=== PATIENT | male | born 1970 | race African-American/Black ===

== ENCOUNTER 2016-12-08 22:09 | Emergency (ER) | payer BC ==
[~2016-12-08] VITALS: Ht 167.6 cm; Wt 117.9 kg
[~2016-12-08 22:09] MED LIST: CALC200T23 PO; CLIN300C86 PO; CYCL10TA2 PO; ESOM20CA PO; FAMO20TA5 PO; HYDR-79 PO; HYDR-971 PO
[2016-12-08] MEDS ORDERED: ASPIRIN CHEWABLE 81 MG TABLET. PO ONE (22:30)
[2016-12-08] MEDS ORDERED: ASPIRIN 81 MG TAB.CHEW PO ONE (22:30)
[2016-12-08 22:35] LABS: BASO # 0.1 x10^3/uL (0.0-0.2); BASO % 1 % (0-3); EOS % 1 % (0-3); HEMATOCRIT 41.3 % (39.0-53.0); HEMOGLOBIN 13.5 g/dL (13.0-17.5); LYMPH # 2.3 x10^3/uL (1.0-4.8); LYMPH % 36 % (24-48); MEAN CORPUSCULAR HEMOGLOBIN 30 pg (25-35); MEAN CORPUSCULAR HGB CONC 33 g/dL (31-37); MEAN CORPUSCULAR VOLUME 91 fL (79-100); MONO % 11 % (0-9); NEUT % 52 % (31-73); PLATELET COUNT 262 x10^3/uL (140-400); RED BLOOD COUNT 4.55 x10^6/uL (4.30-5.70); WHITE BLOOD COUNT 6.2 x10^3/uL (4.0-11.0)
[2016-12-08 22:45] LABS: CALCIUM 8.8 mg/dL (8.5-10.1); CREATININE 0.9 mg/dL (0.7-1.3); GFR 110.4; POTASSIUM 3.8 mmol/L (3.5-5.1)
[2016-12-08 22:51] LABS: ALBUMIN 3.6 g/dL (3.4-5.0); DIRECT BILIRUBIN 0.2 mg/dL (0.0-0.2); TOTAL BILIRUBIN 0.3 mg/dL (0.2-1.0); TOTAL PROTEIN 7.4 g/dL (6.4-8.2)
[2016-12-08] MEDS ORDERED: ACET325T9 PO (23:16)
--- NOTE | 2016-12-08 23:16 | PHYS DOC ---
Past Medical History Past Medical History: Hypertension, Kidney Stone Additional Past Medical Histor: kidney stones Past Surgical History: Other Additional Past Surgical Histo: LITHOTRIPSY Alcohol Use: None Drug Use: None Adult General Chief Complaint Chief Complaint: CHEST PAIN HPI HPI 46-year-old male presenting to the emergency Department chest pain over the past 48 hours. His pain is sharp on the left side and radiates down the left arm. It is moderate and without alleviating factors. He denies nausea or diaphoresis. He denies cough fever or chills. He denies hemoptysis unilateral leg swelling recent immobilization. Review of systems is negative for shortness of breath abdominal pain nausea vomiting or diaphoresis. All other review of systems is negative unless otherwise noted in history of present illness. Review of Systems Review of Systems SEE ABOVE. Current Medications Current Medications Current Medications Medications (Trade) Dose Ordered Sig/Ale Start Time Stop Time Status Last Admin Dose Admin Aspirin (Children'S Aspirin) 324 mg 1X ONCE 12/08/16 22:30 12/08/16 22:42 DC 12/08/16 22:43 324 MG Allergies Allergies Allergies Coded Allergies Type Severity Reaction Last Updated Verified nitroglycerin Allergy Intermediate LOC 10/09/16 Yes Physical Exam Physical Exam Constitutional: Well developed, well nourished, no acute distress, non-toxic appearance. HENT: Normocephalic, atraumatic, bilateral external ears normal, oropharynx moist, no oral exudates, nose normal. [] Eyes: PERRLA, EOMI, conjunctiva normal, no discharge. [] Neck: Normal range of motion, no tenderness, supple, no stridor. Cardiovascular:Heart rate regular rhythm, no murmur [] Lungs & Thorax: Bilateral breath sounds clear to auscultation Abdomen: Bowel sounds normal, soft, no tenderness, no masses, no pulsatile masses. [] Skin: Warm, dry, no erythema, no rash. Back: No tenderness, no CVA tenderness. [] Extremities: No tenderness, no cyanosis, no clubbing, ROM intact, no edema. Neurologic: Alert and oriented X 3, normal motor function, normal sensory function, no focal deficits noted. [] Psychologic: Affect normal, judgement normal, mood normal. Current Patient Data Vital Signs Vital Signs Date Time Temp Pulse Resp B/P Pulse Ox O2 Delivery O2 Flow Rate FiO2 12/08/16 22:15 87 14 141/75 100 Room Air Lab Values Laboratory Tests Test 12/08/16 22:25 White Blood Count 6.2x10^3/uL (4.0-11.0) Red Blood Count 4.55x10^6/uL (4.30-5.70) Hemoglobin 13.5g/dL (13.0-17.5) Hematocrit 41.3% (39.0-53.0) Mean Corpuscular Volume 91fL (79-100) Mean Corpuscular Hemoglobin 30pg (25-35) Mean Corpuscular Hemoglobin Concent 33g/dL (31-37) Red Cell Distribution Width 14.0% (11.5-14.5) Platelet Count 262x10^3/uL (140-400) Neutrophils (%) (Auto) 52% (31-73) Lymphocytes (%) (Auto) 36% (24-48) Monocytes (%) (Auto) 11% (0-9) H Eosinophils (%) (Auto) 1% (0-3) Basophils (%) (Auto) 1% (0-3) Neutrophils # (Auto) 3.2x10^3uL (1.8-7.7) Lymphocytes # (Auto) 2.3x10^3/uL (1.0-4.8) Monocytes # (Auto) 0.7x10^3/uL (0.0-1.1) Eosinophils # (Auto) 0.0x10^3/uL (0.0-0.7) Basophils # (Auto) 0.1x10^3/uL (0.0-0.2) Sodium Level 137mmol/L (136-145) Potassium Level 3.8mmol/L (3.5-5.1) Chloride Level 104mmol/L (98-107) Carbon Dioxide Level 29mmol/L (21-32) Anion Gap 4 (6-14) L Blood Urea Nitrogen 13mg/dL (8-26) Creatinine 0.9mg/dL (0.7-1.3) Estimated GFR (Cockcroft-Gault) 110.4 Glucose Level 90mg/dL (70-99) Calcium Level 8.8mg/dL (8.5-10.1) Total Bilirubin 0.3mg/dL (0.2-1.0) Direct Bilirubin 0.2mg/dL (0.0-0.2) Aspartate Amino Transferase (AST) 13U/L (15-37) L Alanine Aminotransferase (ALT) 22U/L (16-63) Alkaline Phosphatase 47U/L (46-116) Troponin I Quantitative < 0.017ng/mL (0.000-0.055) QE-Uzx-T-Type Natriuretic Peptide 16pg/mL (0-124) Total Protein 7.4g/dL (6.4-8.2) Albumin 3.6g/dL (3.4-5.0) Lipase 118U/L (73-393) Laboratory Tests 12/08/16 22:25 Laboratory Tests 12/08/16 22:25 EKG EKG []EKG shows sinus rhythm with regular rate. Normal intervals. Normal axis. ST segments are congruent. Not suggestive of ACS. Reviewed by myself. Radiology/Procedures Radiology/Procedures Chest x-ray reviewed by myself shows no obvious infiltrate or pneumothorax present. No obvious acute cardiopulmonary process present. Course & Med Decision Making Course & Med Decision Making Pertinent Labs and Imaging studies reviewed. (See chart for details) [] 46-year-old gentleman presenting with chest pain. Vital signs unremarkable. Patient was not hypoxic or tachycardic in the emergency department. Perc neg. pertinent physical exam showed an unremarkable physical exam. No evidence of DVT of the lower extremities. EKG unremarkable. Blood work including troponin unremarkable. Patient subsequently discharged home to follow up with PCP over the next 2-3 days. Heart score 1. Pain is been present for greater than 6 hours so only one troponin was taken. Dragon Disclaimer Dragon Disclaimer This electronic medical record was generated, in whole or in part, using a voice recognition dictation system. Departure Departure Impression: Primary Impression: Chest pain Disposition: HOME, SELF-CARE Condition: STABLE Referrals: UNKNOWN PCP NAME (PCP) EMMA SU MD Patient Instructions: Chest Pain (Nonspecific) Additional Instructions: Thank you for allowing us to participate in your care today. Followup with your primary care physician in 3 days if your symptoms do not improve. If you do not have a primary care provider you can ask for a list of our primary care providers. Return to the emergency department you have any new or concerning findings. This should be evaluated by the primary care physician and any necessary consulting services for continued management within a few days after discharge. Return to emergency room if you have any new or concerning symptoms including but not limited to fever, chills, nausea, vomiting, intractable pain, any new rashes, chest pain, shortness of air, uncontrolled bleeding, difficulty breathing, and/or vision loss. Scripts Acetaminophen (Tylenol)325 Mg Veayft001 Mg PO PRN Q8HRS PRN PAIN #20 Prov:TIFFANIE MATAMOROS MD 12/08/16 Problem Qualifiers Primary Impression: Chest pain Chest pain type: unspecified Qualified Code: R07.9 - Chest pain, unspecified TIFFANIE MATAMOROS MD Dec 08, 2016 23:16
[2016-12-08 23:45] VITALS: BP 134/78
--- NOTE | 2016-12-09 08:36 | RAD ---
Portable AP upright chest x-ray 3982 Indications: Chest pain that radiates to left arm today. Comparison:10/09/2016. Findings: No acute lung infiltrate or pleural effusion or pulmonary edema or lung mass or pneumothorax is seen. The heart size, pulmonary vasculature, mediastinum and both jenelle are unremarkable. Impression: No acute radiographic abnormality is seen.
--- NOTE | 2016-12-09 10:12 | EKG ---
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
== END 2016-12-09 00:10 | disposition home or self-care (01) ==
LOC: ER 22:09
DX: R07.89 Other chest pain (principal); I10 Essential (primary) hypertension; Z88.8 Allergy status to other drugs, medicaments and biological substances
CPT/HCPCS: 36415; 71010; 80048; 80076; 83690; 83880; 84484; 85027; 93005; 99285-25

== ENCOUNTER 2017-01-06 15:56 | Emergency (ER) | payer SELFPAY ==
[~2017-01-06 15:56] MED LIST changes: +ACET325T9 PO
[2017-01-06 16:18] VITALS: BP 167/96
--- NOTE | 2017-01-06 16:56 | RAD ---
Indication shortness of air. A single view of the chest was obtained. Comparison is made to an examination 12/17/2016. Heart size is at the upper limits of normal. There is no congestive heart failure. A focal infiltrate is not seen. Significant pleural fluid is not present. There is no pneumothorax. A significant change compared to the prior study is not seen. IMPRESSION: No acute finding. No significant change
--- NOTE | 2017-01-06 16:59 | ED.ADGEN ---
Past Medical History Past Medical History: Hypertension, Kidney Stone Additional Past Medical Histor: kidney stones Past Surgical History: Other Additional Past Surgical Histo: LITHOTRIPSY Alcohol Use: None Drug Use: None Adult General Chief Complaint Chief Complaint: SHORTNESS OF BREATH HPI HPI Patient is a 46 year old male who presents with shortness breath daily past several weeks. Patient states his frequent shortly of F in the morning after he wakes. However, he is not short of breath throughout the day. Shortness of breath is nonexertional. Patient associated said to toxic fumes coming from a drain that he is exposed to when he sleeps. He denies history of asthma, COPD, emphysema, congestive heart failure chronic lung disease. He denies chest pain, chest tightness. He does not have history of coronary artery disease. Patient's previously been dated for chest pain and shortness breath and the emergency Department in the past month. 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 Review of Systems Review of Systems Review symptoms as per history of present illness. All other review of symptoms negative. Current Medications Current Medications Current Medications Medications (Trade) Dose Ordered Sig/Ale Start Time Stop Time Status Last Admin Dose Admin Albuterol Sulfate (Ventolin Neb Soln) 2.5 mg 1X ONCE 01/06/17 17:15 01/06/17 17:16 DC 01/06/17 17:04 2.5 MG Allergies Allergies Allergies Coded Allergies Type Severity Reaction Last Updated Verified nitroglycerin Allergy Intermediate LOC 10/09/16 Yes Physical Exam Physical Exam Constitutional: Well developed, well nourished, no acute distress, non-toxic appearance. HENT: Normocephalic, atraumatic, bilateral external ears normal, oropharynx moist, no oral exudates, nose normal. Eyes: PERRLA, EOMI. Neck: Normal range of motion, no tenderness, supple, no stridor. Cardiovascular:Heart rate regular rhythm, no murmur. Negative Homans signs. Lungs & Thorax: Bilateral breath sounds clear to auscultation. Abdomen: Bowel sounds normal, soft, no tenderness, no masses, no pulsatile masses. Skin: Warm, dry, no erythema, no rash. Back: No tenderness. Extremities: No tenderness, no cyanosis, no clubbing, ROM intact, no edema. Neurologic: Alert and oriented X 3, normal motor function, normal sensory function, no focal deficits noted. Psychologic: Affect normal, judgement normal, mood normal. Current Patient Data Vital Signs Vital Signs Date Time Temp Pulse Resp B/P (MAP) Pulse Ox O2 Delivery O2 Flow Rate FiO2 01/06/17 16:18 98.1 88 22 167/96 (119) 99 Room Air 98.1 Lab Values Laboratory Tests Test 01/06/17 16:45 01/06/17 17:55 White Blood Count 5.7 x10^3/uL (4.0-11.0) Red Blood Count 4.65 x10^6/uL (4.30-5.70) Hemoglobin 14.1 g/dL (13.0-17.5) Hematocrit 41.4 % (39.0-53.0) Mean Corpuscular Volume 89 fL (79-100) Mean Corpuscular Hemoglobin 30 pg (25-35) Mean Corpuscular Hemoglobin Concent 34 g/dL (31-37) Red Cell Distribution Width 14.2 % (11.5-14.5) Platelet Count 289 x10^3/uL (140-400) Neutrophils (%) (Auto) 46 % (31-73) Lymphocytes (%) (Auto) 40 % (24-48) Monocytes (%) (Auto) 13 % (0-9) H Eosinophils (%) (Auto) 1 % (0-3) Basophils (%) (Auto) 1 % (0-3) Neutrophils # (Auto) 2.7 x10^3uL (1.8-7.7) Lymphocytes # (Auto) 2.3 x10^3/uL (1.0-4.8) Monocytes # (Auto) 0.7 x10^3/uL (0.0-1.1) Eosinophils # (Auto) 0.0 x10^3/uL (0.0-0.7) Basophils # (Auto) 0.0 x10^3/uL (0.0-0.2) Sodium Level 139 mmol/L (136-145) Potassium Level 3.8 mmol/L (3.5-5.1) Chloride Level 104 mmol/L (98-107) Carbon Dioxide Level 28 mmol/L (21-32) Anion Gap 7 (6-14) Blood Urea Nitrogen 10 mg/dL (8-26) Creatinine 0.9 mg/dL (0.7-1.3) Estimated GFR (Cockcroft-Gault) 110.4 BUN/Creatinine Ratio 11 (6-20) Glucose Level 76 mg/dL (70-99) Calcium Level 8.7 mg/dL (8.5-10.1) Total Bilirubin 0.5 mg/dL (0.2-1.0) Aspartate Amino Transferase (AST) 17 U/L (15-37) Alanine Aminotransferase (ALT) 25 U/L (16-63) Alkaline Phosphatase 43 U/L (46-116) L Creatine Kinase 215 U/L (39-308) Creatine Kinase MB (Mass) 1.0 ng/mL (0.0-3.6) Creatine Kinase MB Relative Index 0.5 % (0-4) YE-Ary-K-Type Natriuretic Peptide 34 pg/mL (0-124) Total Protein 7.5 g/dL (6.4-8.2) Albumin 3.4 g/dL (3.4-5.0) Albumin/Globulin Ratio 0.8 (1.0-1.7) L Laboratory Tests 01/06/17 16:45 Laboratory Tests 01/06/17 17:55 EKG EKG [EKG: Normal sinus rhythm, rate 76, no acute ST-T wave changes, QTC 375.] Radiology/Procedures Radiology/Procedures [Chest x-ray: Pulmonary vascular congestion] Impressions: Chest pain Course & Med Decision Making Course & Med Decision Making Pertinent Labs and Imaging studies reviewed. (See chart for details) [] Dragon Disclaimer Dragon Disclaimer This electronic medical record was generated, in whole or in part, using a voice recognition dictation system. ERNA MEDEROS DO January 06, 2017 16:59
[2017-01-06 17:07] LABS: BASO % 1 % (0-3); EOS % 1 % (0-3); HEMATOCRIT 41.4 % (39.0-53.0); HEMOGLOBIN 14.1 g/dL (13.0-17.5); LYMPH # 2.3 x10^3/uL (1.0-4.8); LYMPH % 40 % (24-48); MEAN CORPUSCULAR HEMOGLOBIN 30 pg (25-35); MEAN CORPUSCULAR HGB CONC 34 g/dL (31-37); MEAN CORPUSCULAR VOLUME 89 fL (79-100); MONO % 13 % (0-9); NEUT % 46 % (31-73); PLATELET COUNT 289 x10^3/uL (140-400); RED BLOOD COUNT 4.65 x10^6/uL (4.30-5.70); RED CELL DISTRIBUTION WIDTH 14.2 % (11.5-14.5); WHITE BLOOD COUNT 5.7 x10^3/uL (4.0-11.0)
[2017-01-06] MEDS ORDERED: ALBUTEROL SULFATE 2.5 MG/3 ML NEBU. NEB ONE (17:15)
[2017-01-06 18:25] LABS: CALCIUM 8.7 mg/dL (8.5-10.1); CREATININE 0.9 mg/dL (0.7-1.3); GFR 110.4; POTASSIUM 3.8 mmol/L (3.5-5.1)
[2017-01-06 18:30] LABS: ALBUMIN 3.4 g/dL (3.4-5.0); ALBUMIN/GLOBULIN RATIO 0.8 (1.0-1.7); TOTAL BILIRUBIN 0.5 mg/dL (0.2-1.0); TOTAL PROTEIN 7.5 g/dL (6.4-8.2)
--- NOTE | 2017-01-07 11:46 | EKG ---
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
== END 2017-01-06 18:50 | disposition home or self-care (01) ==
LOC: ER 15:56
DX: R06.02 Shortness of breath (principal); R07.89 Other chest pain; I10 Essential (primary) hypertension; Z87.442 Personal history of urinary calculi; Z88.8 Allergy status to other drugs, medicaments and biological substances
CPT/HCPCS: 36415; 71010; 80053; 82550; 82553; 83880; 84484; 85027; 93005; 94640; 99285-25

== ENCOUNTER 2017-01-22 16:42 | Emergency (ER) | payer SELFPAY ==
[~2017-01-22] VITALS: Ht 167.6 cm; Wt 124.7 kg
[2017-01-22 16:58] VITALS: BP 143/79
[2017-01-22] MEDS ORDERED: IPRATRPIUM/ALBUTEROL 0.5/2.5MG 3 ML NEBU. NEB ONE (17:30)
[2017-01-22] MEDS ORDERED: predniSONE 20 MG TABLET PO ONE (17:30)
[2017-01-22] MEDS ORDERED: BENZONATATE 100 MG CAPSULE. PO ONE (17:30)
[2017-01-22] MEDS ORDERED: ACET1TAB30 PO (18:11)
[2017-01-22] MEDS ORDERED: BENZ100C PO (18:11)
[2017-01-22] MEDS ORDERED: PROAIR RESPICL90 MCG IH (18:11)
[2017-01-22] MEDS ORDERED: AZIT250T PO (18:11)
[2017-01-22] MEDS ORDERED: PRED50TA PO (18:11)
--- NOTE | 2017-01-22 18:11 | PHYS DOC ---
Past Medical History Past Medical History: Hypertension, Kidney Stone Additional Past Medical Histor: kidney stones Past Surgical History: Other Additional Past Surgical Histo: LITHOTRIPSY Alcohol Use: None Drug Use: None Adult General Chief Complaint Chief Complaint: COUGH HPI HPI Patient is a 46 year old male with history of hypertension and kidney stones who presents today with a productive cough for 2-1/2 weeks. Patient denies any fever. Denies any history of smoking. Review of Systems Review of Systems Constitutional: See history of present illness Eyes: Denies change in visual acuity, redness, or eye pain [] HENT: Denies nasal congestion or sore throat [] Respiratory: Productive cough Cardiovascular: No additional information not addressed in HPI [] GI: Denies abdominal pain, nausea, vomiting, bloody stools or diarrhea [] : Denies dysuria or hematuria [] Musculoskeletal: Denies back pain or joint pain [] Integument: Denies rash or skin lesions [] Neurologic: Denies headache, focal weakness or sensory changes [] Endocrine: Denies polyuria or polydipsia [] Current Medications Current Medications Current Medications Medications (Trade) Dose Ordered Sig/Ale Start Time Stop Time Status Last Admin Dose Admin Albuterol/ Ipratropium (Duoneb) 3 ml 1X ONCE 01/22/17 17:30 01/22/17 17:31 DC 01/22/17 17:42 3 ML Benzonatate (Tessalon Perle) 100 mg 1X ONCE 01/22/17 17:30 01/22/17 17:31 DC 01/22/17 17:30 100 MG Prednisone (Prednisone) 60 mg 1X ONCE 01/22/17 17:30 01/22/17 17:31 DC 01/22/17 17:30 60 MG Allergies Allergies Allergies Coded Allergies Type Severity Reaction Last Updated Verified nitroglycerin Allergy Intermediate LOC 10/09/16 Yes Physical Exam Physical Exam Constitutional: Well developed, well nourished, no acute distress, non-toxic appearance. [] HENT: Normocephalic, atraumatic, bilateral external ears normal, oropharynx moist, no oral exudates, nose normal. [] Eyes: PERRLA, EOMI, conjunctiva normal, no discharge. [] Neck: Normal range of motion, no tenderness, supple, no stridor. [] Cardiovascular:Heart rate regular rhythm, no murmur [] Lungs & Thorax: Bilateral breath sounds clear to auscultation [] Abdomen: Bowel sounds normal, soft, no tenderness, no masses, no pulsatile masses. [] Skin: Warm, dry, no erythema, no rash. [] Back: No tenderness, no CVA tenderness. [] Extremities: No tenderness, no cyanosis, no clubbing, ROM intact, no edema. [] Neurologic: Alert and oriented X 3, normal motor function, normal sensory function, no focal deficits noted. [] Psychologic: Affect normal, judgement normal, mood normal. [] Current Patient Data Vital Signs Vital Signs Date Time Temp Pulse Resp B/P (MAP) Pulse Ox O2 Delivery O2 Flow Rate FiO2 01/22/17 17:44 99 Room Air 01/22/17 16:58 98.1 86 18 98.1 EKG EKG [] Radiology/Procedures Radiology/Procedures [] Course & Med Decision Making Course & Med Decision Making Pertinent Labs and Imaging studies reviewed. (See chart for details) Patient is in the ED with symptoms consistent with acute bronchitis including productive cough. Chest x-ray interpreted by Dr. Beverly is negative for any acute findings. He was given a DuoNeb treatment. His lungs are clear in the ED, he was instructed to follow-up with his own primary care doctor in the next 7 days. Discharged with a inhaler, prednisone, Tessalon Perles, and Z-Oli. Dragon Disclaimer Dragon Disclaimer This electronic medical record was generated, in whole or in part, using a voice recognition dictation system. Departure Departure Impression: Primary Impression: Acute bronchitis Disposition: 01 HOME, SELF-CARE Condition: STABLE Referrals: UNKNOWN PCP NAME (PCP) Follow-up with your own doctor in one week Patient Instructions: Acute Bronchitis, [id number] Additional Instructions: You were seen for acute bronchitis. Ensure you complete your antibiotics. Use the prescribed medicines as ordered. Follow-up with your own doctor in the next 7 days. Come back to the ED if symptoms worsen. Scripts Acetaminophen/Chlorpheniramine (CORICIDIN HBP TABLET) 1 Each Tablet 1 EACH PO BID, #20 TAB Prov: MUTUNGA,VALERIA DIRECT MARKETING SPECIALIST 01/22/17 Albuterol Sulfate (Proair Respiclick) 90 Mcg Aer.pow.ba 1 PUFF IH PRN Q6HRS Y for SHORTNESS OF BREATH, #1 INHALER Prov: MUTUNGA,VALERIA DIRECT MARKETING SPECIALIST 01/22/17 Benzonatate (TESSALON PERLE) 100 Mg Capsule 1 CAP PO TID, #30 CAP Prov: VALERIA CHO APRN 01/22/17 Prednisone (PREDNISONE) 50 Mg Tablet 1 TAB PO DAILY, #4 TAB Prov: VALERIA CHO APRN 01/22/17 Azithromycin (ZITHROMAX) 250 Mg Tablet 1 PKG PO UD, #1 PKG Prov: VALERIA CHO APRN 01/22/17 Problem Qualifiers Primary Impression: Acute bronchitis Bronchitis organism: unspecified organism Qualified Codes: J20.9 - Acute bronchitis, unspecified WAYENVALERIA GUEVARA RHONDA January 22, 2017 18:11
--- NOTE | 2017-01-23 08:18 | RAD ---
Chest, 2 views, 01/22/2017: History: Cough, increasing congestion Comparison is made to a study from 01/06/2017. The heart size and pulmonary vascularity are normal. No pulmonary infiltrates are seen. There is no evidence of pleural fluid. IMPRESSION: No acute cardiopulmonary abnormality is detected.
== END 2017-01-22 18:18 | disposition home or self-care (01) ==
LOC: ER 16:42
DX: J20.9 Acute bronchitis, unspecified (principal); I10 Essential (primary) hypertension; Z87.442 Personal history of urinary calculi; Z88.8 Allergy status to other drugs, medicaments and biological substances
CPT/HCPCS: 71020; 94250; 94640; 94760; 99283; J7512; J7620

== ENCOUNTER 2017-04-07 17:31 | Emergency (ER) | payer SELFPAY ==
[~2017-04-07] VITALS: Ht 167.6 cm; Wt 124.7 kg
[~2017-04-07 17:31] MED LIST changes: +ACET1TAB30 PO; +AZIT250T PO; +BENZ100C PO; +CLIN300C8 PO; -CLIN300C86 PO; +PRED50TA PO; +PROAIR RESPICL90 MCG IH
[2017-04-07] MEDS ORDERED: ASPIRIN CHEWABLE 81 MG TABLET. PO ONE (17:45)
--- NOTE | 2017-04-07 17:47 | PHYS DOC ---
Past Medical History Past Medical History: Hypertension, Kidney Stone Additional Past Medical Histor: kidney stones Past Surgical History: Other Additional Past Surgical Histo: LITHOTRIPSY Alcohol Use: None Drug Use: None Adult General Chief Complaint Chief Complaint: CHEST PAIN HPI HPI Patient is a 47 year old male who presents to the ED with the complaint of chest pain today. "It's the same chest pain I had before, I don't know what it is. The kohinoor operator told me if I had it again I need to have a heart catheter" . She states that the pain started this morning about 4 AM. He woke up with it or maybe it woke him up. It's in the center of his chest and goes down his left arm. He used to be on a blood pressure medicine and he thought maybe his blood pressure was high so he took a dose of hydrochlorothiazide and went back to sleep for a while. As the day has gone on, he's continued to have intermittent chest pain. The pain is in the center of his chest. No associated nausea. A little associated shortness of air. When the pain gets bad he feels like he "is going to pass out". This is described as the same type of pain that brought him to the hospital and December 2016, he has also been seen other times in the ED for chest pain. PCP [facility] He does not take aspirin daily. He states "I'm allergic to nitroglycerin", it has made him pass out. Review of Systems Review of Systems Constitutional: Denies fever or chills [] Eyes: Denies change in visual acuity, redness, or eye pain [] HENT: Denies nasal congestion or sore throat [] Respiratory: He does have shortness of breath when the pain is worse Cardiovascular: As in history of present illness GI: Denies abdominal pain, nausea, vomiting, bloody stools or diarrhea [] : Denies dysuria or hematuria [] Musculoskeletal: Denies back pain or joint pain [] Integument: Denies rash or skin lesions [] Neurologic: Denies headache, focal weakness or sensory changes [] Current Medications Current Medications Current Medications Medications (Trade) Dose Ordered Sig/Ale Start Time Stop Time Status Last Admin Dose Admin Aspirin (Children'S Aspirin) 324 mg 1X ONCE 04/07/17 17:45 04/07/17 17:46 DC 04/07/17 18:05 324 MG Allergies Allergies Allergies Coded Allergies Type Severity Reaction Last Updated Verified nitroglycerin Adverse Reaction Intermediate LOC/SYNCOPE 04/07/17 Yes Physical Exam Physical Exam Constitutional: Well developed, well nourished, no acute distress, non-toxic appearance. Alert, mentating normally, warm and dry, ambulatory. HENT: Normocephalic, atraumatic, bilateral external ears normal, nose normal. [] Eyes: conjunctiva normal, no discharge. [] Neck: Normal range of motion, no stridor. [] Cardiovascular:Heart rate regular rhythm, no murmur [] Lungs & Thorax: Bilateral breath sounds clear to auscultation [] Abdomen: Obese, Bowel sounds normal, soft, no tenderness, no masses, no pulsatile masses. [] Skin: Warm, dry, no erythema, no rash. [] Extremities: No tenderness, no cyanosis, no clubbing, ROM intact, no edema. [] Neurologic: Alert and oriented X 3, normal motor function, normal sensory function, no focal deficits noted. [] Current Patient Data Vital Signs Vital Signs Date Time Temp Pulse Resp B/P (MAP) Pulse Ox O2 Delivery O2 Flow Rate FiO2 04/07/17 19:56 80 21 127/80 (96) 100 Room Air 04/07/17 17:31 98.1 98.1 Lab Values Laboratory Tests Test 04/07/17 17:58 White Blood Count 7.4 x10^3/uL (4.0-11.0) Red Blood Count 4.81 x10^6/uL (4.30-5.70) Hemoglobin 14.4 g/dL (13.0-17.5) Hematocrit 43.1 % (39.0-53.0) Mean Corpuscular Volume 90 fL (79-100) Mean Corpuscular Hemoglobin 30 pg (25-35) Mean Corpuscular Hemoglobin Concent 34 g/dL (31-37) Red Cell Distribution Width 14.2 % (11.5-14.5) Platelet Count 275 x10^3/uL (140-400) Neutrophils (%) (Auto) 51 % (31-73) Lymphocytes (%) (Auto) 37 % (24-48) Monocytes (%) (Auto) 10 % (0-9) H Eosinophils (%) (Auto) 1 % (0-3) Basophils (%) (Auto) 1 % (0-3) Neutrophils # (Auto) 3.8 x10^3uL (1.8-7.7) Lymphocytes # (Auto) 2.8 x10^3/uL (1.0-4.8) Monocytes # (Auto) 0.8 x10^3/uL (0.0-1.1) Eosinophils # (Auto) 0.1 x10^3/uL (0.0-0.7) Basophils # (Auto) 0.1 x10^3/uL (0.0-0.2) Prothrombin Time 12.6 SEC (11.7-14.0) Prothrombin Time INR 1.0 (0.8-1.1) Sodium Level 141 mmol/L (136-145) Potassium Level 3.8 mmol/L (3.5-5.1) Chloride Level 102 mmol/L (98-107) Carbon Dioxide Level 28 mmol/L (21-32) Anion Gap 11 (6-14) Blood Urea Nitrogen 16 mg/dL (8-26) Creatinine 1.1 mg/dL (0.7-1.3) Estimated GFR (Cockcroft-Gault) 87.2 Glucose Level 110 mg/dL (70-99) H Calcium Level 9.5 mg/dL (8.5-10.1) Magnesium Level 1.9 mg/dL (1.8-2.4) Total Bilirubin 0.5 mg/dL (0.2-1.0) Direct Bilirubin 0.1 mg/dL (0.0-0.2) Aspartate Amino Transferase (AST) 14 U/L (15-37) L Alanine Aminotransferase (ALT) 22 U/L (16-63) Alkaline Phosphatase 58 U/L (46-116) Creatine Kinase 215 U/L (39-308) Creatine Kinase MB (Mass) 0.6 ng/mL (0.0-3.6) Creatine Kinase MB Relative Index 0.3 % (0-4) Troponin I Quantitative < 0.017 ng/mL (0.000-0.055) AE-Lwp-S-Type Natriuretic Peptide 18 pg/mL (0-124) Total Protein 7.9 g/dL (6.4-8.2) Albumin 3.9 g/dL (3.4-5.0) Laboratory Tests 04/07/17 17:58 Laboratory Tests 04/07/17 17:58 EKG EKG [] 12-lead EKG read by me and compared to previous EKG dated 01/06/17. Sinus rhythm. Heart rate 100. There is T-wave flattening and inversion in V4 through V6. This was present on previous EKG from 2 months ago. There are no acute EKG changes. There are no acute ST or T-wave acute changes indicative of ischemia or infarction. No STEMI. 1736 Radiology/Procedures Radiology/Procedures One view portable chest x-ray read by me. Heart size is normal. Lung menon are clear. No acute cardiopulmonary abnormality. [] Course & Med Decision Making Course & Med Decision Making Pertinent Labs and Imaging studies reviewed. (See chart for details) 47-year-old male who has been seen in the ED and admitted to the hospital in the past for chest pain presents with another episode of this same chest pain today. The chest pain is intermittent, located mid chest and goes down his left arm, associated with some shortness of air. On previous visits, he had declined a heart catheter and had noninvasive studies, but patient states that he is concerned and does want to know what is causing his chest pain. I discussed with the patient that we will get some studies in the ED and he is agreeable to that. He states he does not tolerate nitroglycerin. He was given a dose of aspirin. I reviewed the patient's chart. The patient was hospitalized in December 2016 for chest pain and shortness of air. A cardiology note dated 12/18/[address] Hurtado stated that if the patient has recurrent ER visit or admission for chest pain, he will need a heart catheter. Patient remained stable in the ED. Labs including cardiac enzymes are negative. EKG unchanged. Chest x-ray clear. I discussed with the patient being admitted to the hospital for cardiology consultation and possibly cardiac catheter, based on previous note, see above. The patient is reluctant to do so because he has a very important meeting on April 09, and states that he cannot miss that. He would rather follow up as an outpatient. I discussed the case with Dr. Marcos, cardiology. He and I agreed that the patient is appropriate for close outpatient follow-up. The pain is atypical and I believe unlikely to be cardiac. The patient is likely to follow up in the office. See instructions for plan. [] Dragon Disclaimer Dragon Disclaimer This electronic medical record was generated, in whole or in part, using a voice recognition dictation system. Departure Departure Impression: Primary Impression: Chest pain Disposition: HOME, SELF-CARE Condition: STABLE Referrals: UNKNOWN PCP NAME (PCP) FILEMON HURTADO MD Patient Instructions: Chest Pain (Nonspecific), [id number] Additional Instructions: As we discussed, call Sunday to make an appointment in the office to be seen. You can schedule an outpatient heart catheter. Until you are seen by the kohinoor operator, take one full dose aspirin daily. If you have chest pain again that will not go away after 5-10 minutes or other concerning symptoms, return to emergency. NAMAN CABRAL MD Apr 07, 2017 17:47
[2017-04-07 18:06] LABS: BASO # 0.1 x10^3/uL (0.0-0.2); BASO % 1 % (0-3); EOS % 1 % (0-3); HEMATOCRIT 43.1 % (39.0-53.0); HEMOGLOBIN 14.4 g/dL (13.0-17.5); LYMPH # 2.8 x10^3/uL (1.0-4.8); LYMPH % 37 % (24-48); MEAN CORPUSCULAR HEMOGLOBIN 30 pg (25-35); MEAN CORPUSCULAR HGB CONC 34 g/dL (31-37); MEAN CORPUSCULAR VOLUME 90 fL (79-100); MONO % 10 % (0-9); NEUT % 51 % (31-73); PLATELET COUNT 275 x10^3/uL (140-400); RED BLOOD COUNT 4.81 x10^6/uL (4.30-5.70); RED CELL DISTRIBUTION WIDTH 14.2 % (11.5-14.5); WHITE BLOOD COUNT 7.4 x10^3/uL (4.0-11.0)
[2017-04-07 18:16] LABS: PROTHROMBIN TIME PATIENT 12.6 SEC (11.7-14.0)
[2017-04-07 18:17] LABS: CALCIUM 9.5 mg/dL (8.5-10.1); CREATININE 1.1 mg/dL (0.7-1.3); GFR 87.2; POTASSIUM 3.8 mmol/L (3.5-5.1)
[2017-04-07 18:23] LABS: ALBUMIN 3.9 g/dL (3.4-5.0); DIRECT BILIRUBIN 0.1 mg/dL (0.0-0.2); MAGNESIUM 1.9 mg/dL (1.8-2.4); TOTAL BILIRUBIN 0.5 mg/dL (0.2-1.0); TOTAL PROTEIN 7.9 g/dL (6.4-8.2)
[2017-04-07 18:32] LABS: CKMB MASS 0.6 ng/mL (0.0-3.6)
[2017-04-07 19:56] VITALS: BP 127/80
--- NOTE | 2017-04-08 07:54 | EKG ---
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
--- NOTE | 2017-04-08 09:06 | RAD ---
Indication chest pain. A single view of the chest was obtained. Comparison is made to an examination 01/22/2017. Heart size and pulmonary vessels are normal. The lungs are clear. There has not been a significant change in the chest compared to the previous exam. IMPRESSION: No acute or focal process. No significant change
== END 2017-04-07 20:01 | disposition home or self-care (01) ==
LOC: ER 17:31
DX: R07.89 Other chest pain (principal); R06.02 Shortness of breath; I10 Essential (primary) hypertension; E66.9 Obesity, unspecified; Z68.41 Body mass index [BMI] 40.0-44.9, adult; Z87.442 Personal history of urinary calculi; Z88.8 Allergy status to other drugs, medicaments and biological substances
CPT/HCPCS: 36415; 71010; 80048; 80076; 82553; 83735; 83880; 84484; 85027; 85610; 93005; 99285-25

== ENCOUNTER 2017-05-03 20:38 | Emergency (ER) | payer SELFPAY ==
[~2017-05-03] VITALS: Ht 167.6 cm; Wt 124.7 kg
[2017-05-03 21:05] LABS: BASO # 0.1 x10^3/uL (0.0-0.2); BASO % 1 % (0-3); EOS % 2 % (0-3); HEMATOCRIT 39.5 % (39.0-53.0); HEMOGLOBIN 13.3 g/dL (13.0-17.5); LYMPH # 2.5 x10^3/uL (1.0-4.8); LYMPH % 40 % (24-48); MEAN CORPUSCULAR HEMOGLOBIN 30 pg (25-35); MEAN CORPUSCULAR HGB CONC 34 g/dL (31-37); MEAN CORPUSCULAR VOLUME 90 fL (79-100); MONO % 9 % (0-9); NEUT % 48 % (31-73); PLATELET COUNT 276 x10^3/uL (140-400); RED BLOOD COUNT 4.39 x10^6/uL (4.30-5.70); RED CELL DISTRIBUTION WIDTH 14.2 % (11.5-14.5); WHITE BLOOD COUNT 6.2 x10^3/uL (4.0-11.0)
[2017-05-03 21:06] LABS: BILIRUBIN,URINE NEGATIVE (NEG); GLUCOSE,URINE NEGATIVE (NEG); NITRITE,URINE NEGATIVE (NEG); PH,URINE 6.5; PROTEIN,URINE NEGATIVE (NEG-TRACE)
[2017-05-03 21:09] VITALS: BP 157/66
[2017-05-03 21:12] LABS: BACTERIA,URINE 0 /HPF (0-FEW); RBC,URINE OCC /HPF (0-2); SQUAMOUS EPITHELIAL CELL,UR OCC /LPF; WBC,URINE 0 /HPF (0-4)
[2017-05-03 21:17] LABS: CALCIUM 8.7 mg/dL (8.5-10.1); GFR 97.3; POTASSIUM 3.9 mmol/L (3.5-5.1)
[2017-05-03 21:23] LABS: ALBUMIN 3.4 g/dL (3.4-5.0); ALBUMIN/GLOBULIN RATIO 0.9 (1.0-1.7); TOTAL BILIRUBIN 0.2 mg/dL (0.2-1.0); TOTAL PROTEIN 7.2 g/dL (6.4-8.2)
--- NOTE | 2017-05-03 21:25 | PHYS DOC ---
Past Medical History Past Medical History: Hypertension, Kidney Stone Additional Past Medical Histor: kidney stones Past Surgical History: Other Additional Past Surgical Histo: LITHOTRIPSY Alcohol Use: None Drug Use: None Adult General Chief Complaint Chief Complaint: FLANK PAIN HPI HPI Patient is a 47 year old -[place] male who presents with abnormal urinalysis from physical yesterday. He states that he has been having some left- sided flank pain over the last 2 weeks ago comes and goes it's worse when he lays down and this gets up in the mornings and then during the day at gets better. States if he sits completely goes away. He denies any blood in his urine and he states this is not the same pain he's had with his kidney stone. He states he gets better with Motrin. He also complains of some loose stools in the last 3-4 days, but denies any blood in his stools. States he's been having about 2 bowel movements a day. He denies nausea vomiting shortness of breath or chest discomfort. He states he left flank feels like the muscle spasm. Review of Systems Review of Systems Constitutional: Denies fever or chills [] Eyes: Denies change in visual acuity, redness, or eye pain [] HENT: Denies nasal congestion or sore throat [] Respiratory: Denies cough or shortness of breath [] Cardiovascular: No additional information not addressed in HPI [] GI: Denies abdominal pain, nausea, vomiting, bloody stools or diarrhea [] : Denies dysuria or hematuria [] Musculoskeletal: Positive for left flank pain Integument: Denies rash or skin lesions [] Neurologic: Denies headache, focal weakness or sensory changes [] Endocrine: Denies polyuria or polydipsia [] Allergies Allergies Allergies Coded Allergies Type Severity Reaction Last Updated Verified nitroglycerin Adverse Reaction Intermediate LOC/SYNCOPE 04/07/17 Yes Physical Exam Physical Exam Constitutional: Well developed, well nourished, no acute distress, non-toxic appearance. [] HENT: Normocephalic, atraumatic, bilateral external ears normal, oropharynx moist, no oral exudates, nose normal. [] Eyes: PERRLA, EOMI, conjunctiva normal, no discharge. [] Neck: Normal range of motion, no tenderness, supple, no stridor. [] Cardiovascular:Heart rate regular rhythm, no murmur [] Lungs & Thorax: Bilateral breath sounds clear to auscultation [] Abdomen: Bowel sounds normal, soft, no tenderness, no masses, no pulsatile masses. [] Skin: Warm, dry, no erythema, no rash. [] Back: No tenderness, no CVA tenderness. [] Extremities: No tenderness over the left flank and throughout the entire back, no cyanosis, no clubbing, ROM intact, no edema. [] Neurologic: Alert and oriented X 3, normal motor function, normal sensory function, no focal deficits noted. [] Psychologic: Affect normal, judgement normal, mood normal. [] Current Patient Data Vital Signs Vital Signs Date Time Temp Pulse Resp B/P (MAP) Pulse Ox O2 Delivery O2 Flow Rate FiO2 05/03/17 21:09 97.8 89 20 157/66 (96) 97 Room Air 97.8 Lab Values Laboratory Tests Test 05/03/17 20:57 White Blood Count 6.2 x10^3/uL (4.0-11.0) Red Blood Count 4.39 x10^6/uL (4.30-5.70) Hemoglobin 13.3 g/dL (13.0-17.5) Hematocrit 39.5 % (39.0-53.0) Mean Corpuscular Volume 90 fL (79-100) Mean Corpuscular Hemoglobin 30 pg (25-35) Mean Corpuscular Hemoglobin Concent 34 g/dL (31-37) Red Cell Distribution Width 14.2 % (11.5-14.5) Platelet Count 276 x10^3/uL (140-400) Neutrophils (%) (Auto) 48 % (31-73) Lymphocytes (%) (Auto) 40 % (24-48) Monocytes (%) (Auto) 9 % (0-9) Eosinophils (%) (Auto) 2 % (0-3) Basophils (%) (Auto) 1 % (0-3) Neutrophils # (Auto) 3.0 x10^3uL (1.8-7.7) Lymphocytes # (Auto) 2.5 x10^3/uL (1.0-4.8) Monocytes # (Auto) 0.6 x10^3/uL (0.0-1.1) Eosinophils # (Auto) 0.1 x10^3/uL (0.0-0.7) Basophils # (Auto) 0.1 x10^3/uL (0.0-0.2) Urine Collection Type Unknown Urine Color Yellow Urine Clarity Clear Urine pH 6.5 Urine Specific [place] 1.020 Urine Protein Negative mg/dL (NEG-TRACE) Urine Glucose (UA) Negative mg/dL (NEG) Urine Ketones (Stick) Negative mg/dL (NEG) Urine Blood Negative (NEG) Urine Nitrite Negative (NEG) Urine Bilirubin Negative (NEG) Urine Urobilinogen Dipstick 1.0 mg/dL (0.2 mg/dL) Urine Leukocyte Esterase Negative (NEG) Urine RBC Occ /HPF (0-2) Urine WBC 0 /HPF (0-4) Urine Squamous Epithelial Cells Occ /LPF Urine Bacteria 0 /HPF (0-FEW) Urine Mucus Slight /LPF Sodium Level 140 mmol/L (136-145) Potassium Level 3.9 mmol/L (3.5-5.1) Chloride Level 105 mmol/L (98-107) Carbon Dioxide Level 30 mmol/L (21-32) Anion Gap 5 (6-14) L Blood Urea Nitrogen 15 mg/dL (8-26) Creatinine 1.0 mg/dL (0.7-1.3) Estimated GFR (Cockcroft-Gault) 97.3 BUN/Creatinine Ratio 15 (6-20) Glucose Level 94 mg/dL (70-99) Calcium Level 8.7 mg/dL (8.5-10.1) Total Bilirubin 0.2 mg/dL (0.2-1.0) Aspartate Amino Transferase (AST) 10 U/L (15-37) L Alanine Aminotransferase (ALT) 21 U/L (16-63) Alkaline Phosphatase 56 U/L (46-116) Total Protein 7.2 g/dL (6.4-8.2) Albumin 3.4 g/dL (3.4-5.0) Albumin/Globulin Ratio 0.9 (1.0-1.7) L Laboratory Tests 05/03/17 20:57 Laboratory Tests 05/03/17 20:57 EKG EKG [] Radiology/Procedures Radiology/Procedures [] Impressions: Muscle spasm Course & Med Decision Making Course & Med Decision Making Pertinent Labs and Imaging studies reviewed. (See chart for details) Labs do not show elevated glucose as I was suspecting he might have diabetes as he is somewhat overweight. There is no protein. There is 1-2 rbc's as is listed "occasional". Patient is seen at [facility] and you will need to follow back up with [facility] have repeat tests and a month to make sure his he doesn't have any other protein and his occasional rbc's have resolved. Do not believe this is a kidney stone given the patient states is different type of pain and it gets better throughout the day when he is up moving around. He is agreeable plan and being discharged in stable condition at this time. He's also instructed follow-up regarding his blood pressure at [facility]. Dragon Disclaimer Dragon Disclaimer This electronic medical record was generated, in whole or in part, using a voice recognition dictation system. Departure Departure Impression: Primary Impression: Flank pain Disposition: HOME, SELF-CARE Condition: STABLE Referrals: UNKNOWN PCP NAME (PCP) Patient Instructions: Muscle Cramps, [id number] Additional Instructions: Your blood work did not show any evidence that you have diabetes. Your urinalysis showed a few red blood cells, but did not show any protein or sugar. You should follow-up with a primary care physician and have your blood and sugar rechecked in a month. The pain in your side is likely a muscle strain. You can try icy hot and a heating pad over the next several days his fever doesn 't improve your symptoms. If you develop dark brown urine, worsening pain in your side we are other concerns please return back to emergency department. YESI NEWELL MD May 03, 2017 21:25
== END 2017-05-03 21:59 | disposition home or self-care (01) ==
LOC: ER 20:38
DX: R10.9 Unspecified abdominal pain (principal); M62.838 Other muscle spasm; R19.7 Diarrhea, unspecified; I10 Essential (primary) hypertension; Z88.8 Allergy status to other drugs, medicaments and biological substances; Z87.442 Personal history of urinary calculi
CPT/HCPCS: 36415; 80053; 81001; 85025; 99284

== ENCOUNTER 2017-05-08 14:02 | Emergency (ER) | payer SELFPAY | END 2017-05-08 14:51 | disposition left against medical advice (07) | LOC: ER 14:02 | DX: Z53.21 Procedure and treatment not carried out due to patient leaving prior to being seen by health care provider (principal); M54.5 Low back pain ==

== ENCOUNTER 2017-07-13 14:16 | Emergency (ER) | payer SELFPAY ==
[~2017-07-13] VITALS: Ht 167.6 cm; Wt 122.5 kg
[~2017-07-13 14:16] MED LIST changes: +AMOX1TAB61 PO
--- NOTE | 2017-07-13 15:01 | RAD ---
Single view of the Chest 07/13/2017 4:18 PM Indication: chest pain Comparison: Chest radiograph April 07, 2017 Findings: No pneumothorax, pleural effusion, or focal infiltrate is identified. Inspiratory volumes are mildly reduced. Heart size is normal allowing for this. No acute osseous changes are appreciated. Impression: Mildly reduced inspiratory volumes. Otherwise unremarkable chest radiograph.
[2017-07-13 15:04] LABS: BASO # 0.1 x10^3/uL (0.0-0.2); BASO % 1 % (0-3); EOS % 1 % (0-3); HEMATOCRIT 42.1 % (39.0-53.0); HEMOGLOBIN 14.2 g/dL (13.0-17.5); LYMPH # 2.8 x10^3/uL (1.0-4.8); LYMPH % 42 % (24-48); MEAN CORPUSCULAR HEMOGLOBIN 30 pg (25-35); MEAN CORPUSCULAR HGB CONC 34 g/dL (31-37); MEAN CORPUSCULAR VOLUME 90 fL (79-100); MONO % 12 % (0-9); NEUT % 45 % (31-73); PLATELET COUNT 284 x10^3/uL (140-400); RED CELL DISTRIBUTION WIDTH 14.2 % (11.5-14.5); WHITE BLOOD COUNT 6.8 x10^3/uL (4.0-11.0)
[2017-07-13] MEDS ORDERED: MORPHINE SULFATE 4 MG/ML DISP.SYRIN. IV PRN (15:15)
[2017-07-13] MEDS ORDERED: ONDANSETRON PF 4 MG/2 ML VIAL. IV PRN (15:15)
[2017-07-13] MEDS ORDERED: ASPIRIN CHEWABLE 81 MG TABLET. PO ONE (15:15)
[2017-07-13 15:16] LABS: INR 1.1 (0.8-1.1); PROTHROMBIN TIME PATIENT 13.1 SEC (11.7-14.0)
[2017-07-13 15:18] LABS: CALCIUM 9.8 mg/dL (8.5-10.1); GFR 97.3; POTASSIUM 4.2 mmol/L (3.5-5.1)
[2017-07-13 15:24] LABS: ALBUMIN 3.5 g/dL (3.4-5.0); DIRECT BILIRUBIN 0.1 mg/dL (0.0-0.2); TOTAL BILIRUBIN 0.4 mg/dL (0.2-1.0); TOTAL PROTEIN 7.5 g/dL (6.4-8.2)
--- NOTE | 2017-07-13 15:34 | EKG ---
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
--- NOTE | 2017-07-13 15:36 | PHYS DOC ---
Past Medical History Past Medical History: Hypertension, Kidney Stone Additional Past Medical Histor: kidney stones Past Surgical History: Other Additional Past Surgical Histo: LITHOTRIPSY Alcohol Use: None Drug Use: None Adult General Chief Complaint Chief Complaint: CHEST PAIN HPI HPI 47-year-old male presenting the emergency department today with chest pain. He has a history of family history of heart disease and hypertension. He denies high cholesterol and eyes ever smoking. He denies having diabetes. His chest pain as a tightness that is moderate intermittent and without alleviating factors. Today with antibiotics for sinus infection. He has been seen by our cardiology team within normal nuclear perfusion test in December. No alleviating or exacerbating factors to his pain. He denies nausea vomiting or diaphoresis. He denies unilateral leg swelling hemoptysis personal or family history of blood clotting disorder or recent immobilization or surgery. Review of systems is negative for abdominal pain fevers chills neck stiffness confusion cyanosis lethargy diarrhea or constipation. All other review of systems is negative unless otherwise noted in history of present illness. ED course: 47-year-old male presenting to the emergency department today with chest tightness. Afebrile with normal heart rate saturating well on room air initially. Physical exam is unremarkable. EKG obtained and reviewed by myself shows sinus rhythm with a regular rate. Patient has nonspecific T-wave flattening in the lateral leads otherwise ST segments are congruent. not suggestive of ACS. Chest x-ray unremarkable. Troponin negative. Heart score calculated to be 4. Perc negative. I recommended admission to the hospital for cardiology consultation given the patient's heart score. The patient desired to leave AGAINST MEDICAL ADVICE. He demonstrates medical decision making capacity. I explained the risk of and disability. Review of Systems Review of Systems SEE ABOVE. Current Medications Current Medications Current Medications Medications (Trade) Dose Ordered Sig/Ale Start Time Stop Time Status Last Admin Dose Admin Aspirin (Children'S Aspirin) 324 mg 1X ONCE 07/13/17 15:15 07/13/17 15:16 DC 07/13/17 15:20 324 MG Morphine Sulfate 2 mg PRN Q2HR PRN 07/13/17 15:15 07/14/17 15:14 Ondansetron HCl (Zofran) 4 mg PRN Q8HRS PRN 07/13/17 15:15 07/14/17 15:14 Allergies Allergies Allergies Coded Allergies Type Severity Reaction Last Updated Verified nitroglycerin Adverse Reaction Intermediate LOC/SYNCOPE 04/07/17 Yes Physical Exam Physical Exam SEE ABOVE Constitutional: Well developed, well nourished, no acute distress, non-toxic appearance. [] HENT: Normocephalic, atraumatic, bilateral external ears normal, oropharynx moist, no oral exudates, nose normal. [] Eyes: PERRLA, EOMI, conjunctiva normal, no discharge. [] Neck: Normal range of motion, no tenderness, supple, no stridor. [] Cardiovascular:Heart rate regular rhythm, no murmur [] Lungs & Thorax: Bilateral breath sounds clear to auscultation [] Abdomen: Bowel sounds normal, soft, no tenderness, no masses, no pulsatile masses. [] Skin: Warm, dry, no erythema, no rash. [] Back: No tenderness, no CVA tenderness. [] Extremities: No tenderness, no cyanosis, no clubbing, ROM intact, no edema. [] Neurologic: Alert and oriented X 3, normal motor function, normal sensory function, no focal deficits noted. [] Psychologic: Affect normal, judgement normal, mood normal. [] Current Patient Data Vital Signs Vital Signs Date Time Temp Pulse Resp B/P (MAP) Pulse Ox O2 Delivery O2 Flow Rate FiO2 07/13/17 14:20 97.8 86 16 137/82 (100) 98 Room Air 97.8 Lab Values Laboratory Tests Test 07/13/17 14:51 White Blood Count 6.8 x10^3/uL (4.0-11.0) Red Blood Count 4.70 x10^6/uL (4.30-5.70) Hemoglobin 14.2 g/dL (13.0-17.5) Hematocrit 42.1 % (39.0-53.0) Mean Corpuscular Volume 90 fL (79-100) Mean Corpuscular Hemoglobin 30 pg (25-35) Mean Corpuscular Hemoglobin Concent 34 g/dL (31-37) Red Cell Distribution Width 14.2 % (11.5-14.5) Platelet Count 284 x10^3/uL (140-400) Neutrophils (%) (Auto) 45 % (31-73) Lymphocytes (%) (Auto) 42 % (24-48) Monocytes (%) (Auto) 12 % (0-9) H Eosinophils (%) (Auto) 1 % (0-3) Basophils (%) (Auto) 1 % (0-3) Neutrophils # (Auto) 3.0 x10^3uL (1.8-7.7) Lymphocytes # (Auto) 2.8 x10^3/uL (1.0-4.8) Monocytes # (Auto) 0.8 x10^3/uL (0.0-1.1) Eosinophils # (Auto) 0.1 x10^3/uL (0.0-0.7) Basophils # (Auto) 0.1 x10^3/uL (0.0-0.2) Prothrombin Time 13.1 SEC (11.7-14.0) Prothrombin Time INR 1.1 (0.8-1.1) PTT 29 SEC (24-38) Sodium Level 139 mmol/L (136-145) Potassium Level 4.2 mmol/L (3.5-5.1) Chloride Level 102 mmol/L (98-107) Carbon Dioxide Level 30 mmol/L (21-32) Anion Gap 7 (6-14) Blood Urea Nitrogen 18 mg/dL (8-26) Creatinine 1.0 mg/dL (0.7-1.3) Estimated GFR (Cockcroft-Gault) 97.3 Glucose Level 88 mg/dL (70-99) Calcium Level 9.8 mg/dL (8.5-10.1) Total Bilirubin 0.4 mg/dL (0.2-1.0) Direct Bilirubin 0.1 mg/dL (0.0-0.2) Aspartate Amino Transferase (AST) 14 U/L (15-37) L Alanine Aminotransferase (ALT) 21 U/L (16-63) Alkaline Phosphatase 58 U/L (46-116) Troponin I Quantitative < 0.017 ng/mL (0.000-0.055) Total Protein 7.5 g/dL (6.4-8.2) Albumin 3.5 g/dL (3.4-5.0) Lipase 166 U/L (73-393) Laboratory Tests 07/13/17 14:51 Laboratory Tests 07/13/17 14:51 EKG EKG [] Radiology/Procedures Radiology/Procedures [] Course & Med Decision Making Course & Med Decision Making Pertinent Labs and Imaging studies reviewed. (See chart for details) [] Dragon Disclaimer Dragon Disclaimer This electronic medical record was generated, in whole or in part, using a voice recognition dictation system. Departure Departure Impression: Primary Impression: Chest pain Disposition: ADMITTED INPATIENT Admitting Physician: Lexi Allen Condition: STABLE Referrals: UNKNOWN PCP NAME (PCP) Patient Instructions: Chest Pain (Nonspecific) Additional Instructions: Thank you for allowing us to participate in your care today. Please return to the emergency department at any point in time if he would like to be admitted to be evaluated for your chest pain. This should be evaluated by the primary care physician and any necessary consulting services for continued management within a few days after discharge. Return to emergency room if you have any new or concerning symptoms including but not limited to fever, chills, nausea, vomiting, intractable pain, any new rashes, chest pain, shortness of air, uncontrolled bleeding, difficulty breathing, and/or vision loss. TIFFANIE MATAMOROS MD Jul 13, 2017 15:36
[2017-07-13 16:00] VITALS: BP 159/88
== END 2017-07-13 16:30 | disposition left against medical advice (07) ==
LOC: ER 14:16
DX: R07.89 Other chest pain (principal); I10 Essential (primary) hypertension; Z87.442 Personal history of urinary calculi; Z88.8 Allergy status to other drugs, medicaments and biological substances
CPT/HCPCS: 36415; 71010; 80048; 80076; 83690; 84484; 85025; 85610; 85730; 93005; 99285-25

== ENCOUNTER 2017-09-04 14:38 | Emergency (ER) | payer SELFPAY ==
[2017-09-04 15:24] LABS: ADD MAN DIFF? NO
[2017-09-04] MEDS: IV NORMAL SALINE 1000ML BAG 1,000 ML IV (15:26)
[2017-09-04 15:29] LABS: BASO % 1 % (0-3); EOS # 0.1 x10^3/uL (0.0-0.7); EOS % 1 % (0-3); HEMATOCRIT 42.7 % (39.0-53.0); HEMOGLOBIN 13.9 g/dL (13.0-17.5); LYMPH # 2.4 x10^3/uL (1.0-4.8); LYMPH % 38 % (24-48); MEAN CORPUSCULAR HEMOGLOBIN 30 pg (25-35); MEAN CORPUSCULAR HGB CONC 33 g/dL (31-37); MEAN CORPUSCULAR VOLUME 91 fL (79-100); MONO # 0.8 x10^3/uL (0.0-1.1); MONO % 13 % (0-9); NEUT % 48 % (31-73); PLATELET COUNT 283 x10^3/uL (140-400); RED CELL DISTRIBUTION WIDTH 14.5 % (11.5-14.5); WHITE BLOOD COUNT 6.2 x10^3/uL (4.0-11.0)
[2017-09-04 15:55] LABS: ANION GAP 10 (6-14); BILIRUBIN,URINE NEGATIVE (NEG); BLOOD UREA NITROGEN 18 mg/dL (8-26); BUN/CREATININE RATIO 20 (6-20); CALCIUM 8.4 mg/dL (8.5-10.1); CARBON DIOXIDE 28 mmol/L (21-32); CHLORIDE 103 mmol/L (98-107); CLARITY,URINE CLEAR; COLOR,URINE YELLOW; CREATININE 0.9 mg/dL (0.7-1.3); GFR 109.9; GLUCOSE 98 mg/dL (70-99); GLUCOSE,URINE NEGATIVE (NEG); NITRITE,URINE NEGATIVE (NEG); PROTEIN,URINE NEGATIVE (NEG-TRACE); SODIUM 141 mmol/L (136-145)
[2017-09-04 16:01] LABS: ALBUMIN 3.3 g/dL (3.4-5.0); ALBUMIN/GLOBULIN RATIO 0.8 (1.0-1.7); ALK PHOS 55 U/L (46-116); ALT (SGPT) 22 U/L (16-63); AST (SGOT) 15 U/L (15-37); TOTAL BILIRUBIN 0.2 mg/dL (0.2-1.0); TOTAL PROTEIN 7.4 g/dL (6.4-8.2)
[2017-09-04 16:04] LABS: BACTERIA,URINE 0 /HPF (0-FEW)
[2017-09-04 16:05] LABS: TROPONINI < 0.017 ng/mL (0.000-0.055)
[2017-09-04 16:07] LABS: NT-PRO BNP 13 pg/mL (0-124)
== END 2017-09-04 17:25 | disposition home or self-care (01) ==
LOC: ER 14:38
DX: R55 Syncope and collapse (principal); R42 Dizziness and giddiness; M54.9 Dorsalgia, unspecified; I10 Essential (primary) hypertension; Z88.8 Allergy status to other drugs, medicaments and biological substances; Z87.442 Personal history of urinary calculi
CPT/HCPCS: 36415; 80053; 81001; 83880; 84484; 85025; 93005; 96360; 99285-25; J7030

== ENCOUNTER 2017-11-01 21:04 | Emergency (ER) | payer SELFPAY | END 2017-11-01 23:13 | disposition home or self-care (01) | LOC: ER 21:04 | DX: S82.091A Other fracture of right patella, initial encounter for closed fracture (principal); M25.562 Pain in left knee; I10 Essential (primary) hypertension; Z87.442 Personal history of urinary calculi; Z88.8 Allergy status to other drugs, medicaments and biological substances; X58.XXXA Exposure to other specified factors, initial encounter; Y93.89 Activity, other specified; Y92.89 Other specified places as the place of occurrence of the external cause; Y99.8 Other external cause status | CPT/HCPCS: 29505; 73562; 99284 ==

== ENCOUNTER 2017-11-14 11:35 | Emergency (ER) | payer SELFPAY | END 2017-11-14 12:46 | disposition home or self-care (01) | LOC: ER 11:35 | DX: M72.2 Plantar fascial fibromatosis (principal); I10 Essential (primary) hypertension; Z87.442 Personal history of urinary calculi; Z88.8 Allergy status to other drugs, medicaments and biological substances | CPT/HCPCS: 73630; 99284 ==

== ENCOUNTER 2018-02-15 20:05 | Emergency (ER) | payer SELFPAY ==
[2018-02-15] MEDS: IV NORMAL SALINE 1000ML BAG 1,000 ML IV (20:43)
[2018-02-15 20:54] LABS: ADD MAN DIFF? NO
[2018-02-15 20:57] LABS: BASO # 0.1 x10^3/uL (0.0-0.2); BASO % 1 % (0-3); EOS # 0.3 x10^3/uL (0.0-0.7); EOS % 4 % (0-3); HEMATOCRIT 41.6 % (39.0-53.0); HEMOGLOBIN 13.9 g/dL (13.0-17.5); LYMPH # 2.7 x10^3/uL (1.0-4.8); LYMPH % 38 % (24-48); MEAN CORPUSCULAR HEMOGLOBIN 30 pg (25-35); MEAN CORPUSCULAR HGB CONC 33 g/dL (31-37); MEAN CORPUSCULAR VOLUME 89 fL (79-100); MONO # 0.5 x10^3/uL (0.0-1.1); MONO % 7 % (0-9); NEUT # 3.5 x10^3uL (1.8-7.7); NEUT % 50 % (31-73); PLATELET COUNT 289 x10^3/uL (140-400); RED BLOOD COUNT 4.66 x10^6/uL (4.30-5.70); RED CELL DISTRIBUTION WIDTH 14.4 % (11.5-14.5)
[2018-02-15 21:03] LABS: BILIRUBIN,URINE NEGATIVE (NEG); CLARITY,URINE CLEAR; COLOR,URINE YELLOW; GLUCOSE,URINE NEGATIVE (NEG); NITRITE,URINE NEGATIVE (NEG); PROTEIN,URINE NEGATIVE (NEG-TRACE); UROBILINOGEN,URINE 0.2 mg/dL (0.2 mg/dL)
[2018-02-15 21:08] LABS: AMPHETAMINE/METHAMPHETAMINE NEG (NEG); BARBITURATES NEG (NEG); BENZODIAZEPINES NEG (NEG); CANNABINOIDS NEG (NEG); COCAINE NEG (NEG); ETHANOL, URINE NEG (NEG); METHADONE NEG (NEG); OPIATES NEG (NEG); PHENCYCLIDINE NEG (NEG)
[2018-02-15 21:11] LABS: BACTERIA,URINE 0 /HPF (0-FEW); RBC,URINE 0 /HPF (0-2); WBC,URINE RARE /HPF (0-4)
[2018-02-15 21:39] LABS: ANION GAP 8 (6-14); BLOOD UREA NITROGEN 12 mg/dL (8-26); BUN/CREATININE RATIO 12 (6-20); CALCIUM 8.8 mg/dL (8.5-10.1); CARBON DIOXIDE 28 mmol/L (21-32); CHLORIDE 103 mmol/L (98-107); GFR 97.3; GLUCOSE 128 mg/dL (70-99); POTASSIUM 3.6 mmol/L (3.5-5.1); SODIUM 139 mmol/L (136-145)
[2018-02-15 21:44] LABS: ALBUMIN 3.3 g/dL (3.4-5.0); ALBUMIN/GLOBULIN RATIO 0.9 (1.0-1.7); ALK PHOS 50 U/L (46-116); ALT (SGPT) 21 U/L (16-63); AST (SGOT) 14 U/L (15-37); LIPASE 143 U/L (73-393); MAGNESIUM 1.9 mg/dL (1.8-2.4); TOTAL BILIRUBIN 0.5 mg/dL (0.2-1.0); TOTAL PROTEIN 7.1 g/dL (6.4-8.2)
[2018-02-15 21:51] LABS: THYROID STIM HORMONE (TSH) 1.038 uIU/mL (0.358-3.74)
[2018-02-15 22:00] LABS: TROPONINI < 0.017 ng/mL (0.000-0.055)
[2018-02-15 22:06] LABS: CKMB INDEX 0.3 % (0-4); CKMB MASS 0.5 ng/mL (0.0-3.6); CREATINE KINASE 192 U/L (39-308)
[2018-02-15 22:06] LABS: NT-PRO BNP 33 pg/mL (0-124)
== END 2018-02-15 22:22 | disposition home or self-care (01) ==
LOC: ER 22:22
DX: E86.0 Dehydration (principal); I10 Essential (primary) hypertension; Z88.8 Allergy status to other drugs, medicaments and biological substances
CPT/HCPCS: 36415; 71045; 80053; 80307; 81001; 82553; 83690; 83735; 83880; 84443; 84484; 85025; 93005; 96360; 99285-25; J7030

== ENCOUNTER 2018-03-12 21:27 | Emergency (ER) | payer OTHER ==
[2018-03-12] MEDS: HYDROcodone/APAP 5/325MG 1 TAB TABLET PO (22:36)
== END 2018-03-12 23:30 | disposition home or self-care (01) ==
LOC: ER 21:27
DX: R07.81 Pleurodynia (principal); I10 Essential (primary) hypertension; Z87.442 Personal history of urinary calculi; Z88.8 Allergy status to other drugs, medicaments and biological substances; W22.8XXA Striking against or struck by other objects, initial encounter; Y93.89 Activity, other specified; Y99.8 Other external cause status; Y92.89 Other specified places as the place of occurrence of the external cause
CPT/HCPCS: 71101; 99284

== ENCOUNTER 2018-03-22 18:38 | Emergency (ER) | payer SELFPAY, OTHER ==
[2018-03-22 19:42] LABS: BILIRUBIN,URINE NEGATIVE (NEG); CLARITY,URINE CLEAR; COLOR,URINE YELLOW; GLUCOSE,URINE NEGATIVE (NEG); NITRITE,URINE NEGATIVE (NEG); PROTEIN,URINE NEGATIVE (NEG-TRACE)
[2018-03-22 20:03] LABS: BACTERIA,URINE 0 /HPF (0-FEW); HYALINE CASTS, URINE OCCASIONAL /HPF; RBC,URINE OCC /HPF (0-2); SQUAMOUS EPITHELIAL CELL,UR FEW /LPF; WBC,URINE OCC /HPF (0-4)
== END 2018-03-22 20:46 | disposition home or self-care (01) ==
LOC: ER 20:46
DX: M54.41 Lumbago with sciatica, right side (principal); R10.9 Unspecified abdominal pain; I10 Essential (primary) hypertension; Z87.442 Personal history of urinary calculi; Z88.8 Allergy status to other drugs, medicaments and biological substances
CPT/HCPCS: 72128; 72131; 81001; 99285-25

== ENCOUNTER 2018-04-05 01:53 | Inpatient (IN) | payer SELFPAY ==
[2018-04-05] MEDS: ASPIRIN CHEWABLE 81 MG TABLET. PO (02:06)
[2018-04-05] MEDS: IV NORMAL SALINE 1000ML BAG 1,000 ML IV (02:06)
[2018-04-05 02:07] LABS: ADD MAN DIFF? NO
[2018-04-05 02:09] LABS: BASO # 0.1 x10^3/uL (0.0-0.2); BASO % 1 % (0-3); EOS # 0.1 x10^3/uL (0.0-0.7); EOS % 2 % (0-3); HEMOGLOBIN 13.5 g/dL (13.0-17.5); LYMPH % 41 % (24-48); MEAN CORPUSCULAR HEMOGLOBIN 30 pg (25-35); MEAN CORPUSCULAR HGB CONC 34 g/dL (31-37); MEAN CORPUSCULAR VOLUME 89 fL (79-100); MONO # 0.8 x10^3/uL (0.0-1.1); MONO % 11 % (0-9); NEUT # 3.4 x10^3uL (1.8-7.7); NEUT % 46 % (31-73); PLATELET COUNT 270 x10^3/uL (140-400); RED BLOOD COUNT 4.48 x10^6/uL (4.30-5.70); RED CELL DISTRIBUTION WIDTH 14.3 % (11.5-14.5); WHITE BLOOD COUNT 7.5 x10^3/uL (4.0-11.0)
[2018-04-05 02:21] LABS: ANION GAP 4 (6-14); BLOOD UREA NITROGEN 17 mg/dL (8-26); BUN/CREATININE RATIO 17 (6-20); CALCIUM 8.9 mg/dL (8.5-10.1); CARBON DIOXIDE 30 mmol/L (21-32); CHLORIDE 103 mmol/L (98-107); GFR 96.9; GLUCOSE 108 mg/dL (70-99); POTASSIUM 3.7 mmol/L (3.5-5.1); SODIUM 137 mmol/L (136-145)
[2018-04-05 02:24] LABS: ALBUMIN 3.4 g/dL (3.4-5.0); ALBUMIN/GLOBULIN RATIO 0.9 (1.0-1.7); ALK PHOS 58 U/L (46-116); ALT (SGPT) 22 U/L (16-63); AST (SGOT) 15 U/L (15-37); LIPASE 166 U/L (73-393); MAGNESIUM 1.9 mg/dL (1.8-2.4); TOTAL BILIRUBIN 0.3 mg/dL (0.2-1.0); TOTAL PROTEIN 7.2 g/dL (6.4-8.2)
[2018-04-05 02:25] LABS: TROPONINI < 0.017 ng/mL (0.000-0.055)
[2018-04-05] MEDS: FAMOTIDINE 20 MG/2 ML VIAL IVP (02:30)
[2018-04-05] MEDS: LIDO:MAALOX 1:1 20 ML SINGLE DOSE. PO (02:30)
[2018-04-05 02:31] LABS: CKMB INDEX 0.3 % (0-4); CKMB MASS 0.6 ng/mL (0.0-3.6); CREATINE KINASE 178 U/L (39-308)
[2018-04-05 02:31] LABS: NT-PRO BNP 22 pg/mL (0-124)
[2018-04-05 02:39] LABS: PROTHROMBIN TIME PATIENT 12.7 SEC (11.7-14.0)
[2018-04-05 02:50] LABS: D-DIMER 1.83 ug/mlFEU (0.00-0.50)
[2018-04-05] MEDS ORDERED: CONTRAST GIVEN. MC (03:45)
[2018-04-05] MEDS: IOHEXOL 300 MG/ML 100ML VIAL. IV (04:00)
[2018-04-05 04:55] LABS: TROPONINI < 0.017 ng/mL (0.000-0.055)
[2018-04-05] MEDS: LORazepam 0.5 MG TABLET PO (06:16)
[2018-04-05] MEDS ORDERED: ACETAMINOPHEN 500 MG TABLET PO (08:45)
[2018-04-05] MEDS ORDERED: MAG HYDROX/ALUMINUM HYD/SIMETH 30 ML ORAL.SUSP PO (08:45)
[2018-04-05] MEDS ORDERED: ONDANSETRON PF 4 MG/2 ML VIAL. IV (08:45)
[2018-04-05 09:46] LABS: TROPONINI < 0.017 ng/mL (0.000-0.055)
[2018-04-05 11:28] LABS: TROPONINI < 0.017 ng/mL (0.000-0.055)
[2018-04-05] MEDS: ALPRAZolam 0.5 MG TABLET PO (21:42)
[2018-04-06 00:15] LABS: HOMOCYSTINE LEVEL 13.5 umol/L (0.0-15.0)
[2018-04-06] MEDS: ANTI-COAG MONITOR BY PHARMACY. MC (12:00)
[2018-04-09 13:13] LABS: CARDIOLIPIN ANTIBODIES SEE SEPARATE REPORT
[2018-04-09 13:13] LABS: ANTITHROMBIN III SEE SEPARATE REPORT; LUPUS ANTICOAGULANT SEE SEPARATE REPORT; PROTEIN C ACTIVITY SEE SEPARATE REPORT; PROTEIN S ACTIVITY SEE SEPARATE REPORT
== END 2018-04-06 13:01 | disposition home or self-care (01) | DRG 176 ==
LOC: ER 01:53 → 2 SOUTH 04:40
DX: I26.99 Other pulmonary embolism without acute cor pulmonale (principal); Z68.41 Body mass index [BMI] 40.0-44.9, adult; D68.59 Other primary thrombophilia; I10 Essential (primary) hypertension; E66.9 Obesity, unspecified; Z87.442 Personal history of urinary calculi; Z82.49 Family history of ischemic heart disease and other diseases of the circulatory system
CPT/HCPCS: 36415; 71275; 80053; 82553; 83090; 83690; 83735; 83880; 84484; 85025; 85300; 85302; 85306; 85379; 85610; 86147; 93005; 93306; 93970; 96361; 96372; 96374; 99291; 99291-25; J1650; J7030; S0028

== ENCOUNTER 2018-05-05 18:22 | Emergency (ER) | payer SELFPAY ==
[~2018-05-05] VITALS: Ht 167.6 cm; Wt 123.8 kg
[~2018-05-05 18:22] MED LIST changes: +ALPR0.25 PO; +APIX5TAB PO; +MELO15TA23 PO; +METH-37 PO; +METH4TAB2 PO; +PRED20TA PO; +TRAM50TA PO; +WARF-78 PO
--- NOTE | 2018-05-05 19:21 | PHYS DOC ---
Past Medical History Past Medical History: Hypertension, Kidney Stone Additional Past Medical Histor: PE Past Surgical History: Other Additional Past Surgical Histo: LITHOTRIPSY Alcohol Use: None Drug Use: None Adult General Chief Complaint Chief Complaint: SHORTNESS OF BREATH [facility] 48-year-old male who was recently diagnosed with a pulmonary embolus is currently on Coumadin presents with a cough and some shortness of breath and chest discomfort with coughing. He states he's been taking his Coumadin as directed. He states he saw his primary care physician a couple of days ago and his INR was 2.4. He's had no fever chills or sweats. He has not noticed any hemoptysis. He denies any dyspnea on exertion. He states he feels like he has a cold which is what caused his symptoms this time.[] Review of Systems Review of Systems Constitutional: Denies fever or chills [] Eyes: Denies change in visual acuity, redness, or eye pain [] HENT: Denies nasal congestion or sore throat [] Respiratory: Per history of present illness[] Cardiovascular: No additional information not addressed in HPI [] GI: Denies abdominal pain, nausea, vomiting, bloody stools or diarrhea [] : Denies dysuria or hematuria [] Musculoskeletal: Denies back pain or joint pain [] Integument: Denies rash or skin lesions [] Neurologic: Denies headache, focal weakness or sensory changes [] Endocrine: Denies polyuria or polydipsia [] All other systems were reviewed and found to be within normal limits, except as documented in this note. Allergies Allergies Allergies Coded Allergies Type Severity Reaction Last Updated Verified nitroglycerin Adverse Reaction Intermediate LOC/SYNCOPE 04/07/17 Yes Physical Exam Physical Exam Constitutional: Well developed, well nourished, no acute distress, non-toxic appearance. [] HENT: Normocephalic, atraumatic, bilateral external ears normal, oropharynx moist, no oral exudates, nose normal. [] Eyes: PERRLA, EOMI, conjunctiva normal, no discharge. [] Neck: Normal range of motion, no tenderness, supple, no stridor. [] Cardiovascular:Heart rate regular rhythm, no murmur [] Lungs & Thorax: Bilateral breath sounds clear to auscultation [] Abdomen: Bowel sounds normal, soft, no tenderness, no masses, no pulsatile masses. [] Skin: Warm, dry, no erythema, no rash. [] Back: No tenderness, no CVA tenderness. [] Extremities: No tenderness, no cyanosis, no clubbing, ROM intact, no edema. [] Neurologic: Alert and oriented X 3, normal motor function, normal sensory function, no focal deficits noted. [] Psychologic: Anxious but otherwise very pleasant. [] Current Patient Data Vital Signs Vital Signs Date Time Temp Pulse Resp B/P (MAP) Pulse Ox O2 Delivery O2 Flow Rate FiO2 05/05/18 18:34 97.8 95 18 139/83 (101) 99 Room Air 97.8 Lab Values Laboratory Tests Test 05/05/18 19:27 Prothrombin Time 23.4 SEC (11.7-14.0) H Prothrombin Time INR 2.2 (0.8-1.1) H EKG EKG [] Radiology/Procedures Radiology/Procedures [] Course & Med Decision Making Course & Med Decision Making Pertinent Labs and Imaging studies reviewed. (See chart for details) [ED course: Evaluation reveals a 48-year-old male who was a bit anxious. I suspect that he remains. Anxious about his recent diagnosis of pulmonary embolus. His chest x-ray was unrevealing. His INR was 2.2. I reassured the patient and he felt much better. Dragon Disclaimer Dragon Disclaimer This electronic medical record was generated, in whole or in part, using a voice recognition dictation system. Departure Departure Impression: Primary Impression: Chest discomfort Additional Impression: Dyspnea Disposition: 01 HOME, SELF-CARE Condition: STABLE Referrals: UNKNOWN PCP NAME (PCP) Patient Instructions: Shortness of Breath Additional Instructions: Continue to take her Coumadin as directed. Return to the emergency department with any new or concerning symptoms Problem Qualifiers Additional Impression: Dyspnea Dyspnea type: shortness of breath Qualified Codes: R06.02 - Shortness of breath GEOVANY ISAACS DO May 05, 2018 19:21
[2018-05-05 19:45] LABS: PROTHROMBIN TIME PATIENT 23.4 SEC (11.7-14.0)
[2018-05-05 20:00] VITALS: BP 146/77
--- NOTE | 2018-05-05 20:39 | RAD ---
EXAM: CHEST 1 VIEW History: Shortness of breath, cough COMPARISON: 02/15/2018 TECHNIQUE: Single portable radiograph of the chest FINDINGS: The cardiac silhouette is unremarkable. The lungs are clear bilaterally. The costophrenic sulci are clear and well demarcated. IMPRESSION: No radiographic evidence of an acute cardiopulmonary process. Electronically signed by: Logan Dee MD (05/05/2018 8:36 PM) [facility]
== END 2018-05-05 20:14 | disposition home or self-care (01) ==
LOC: ER 18:22
DX: R07.89 Other chest pain (principal); R06.00 Dyspnea, unspecified; R05 Cough; I10 Essential (primary) hypertension; Z87.442 Personal history of urinary calculi; Z88.8 Allergy status to other drugs, medicaments and biological substances
CPT/HCPCS: 36415; 71045; 85610; 99285-25

== ENCOUNTER 2018-05-09 15:13 | Emergency (ER) | payer SELFPAY ==
[~2018-05-09] VITALS: Ht 167.6 cm; Wt 124.7 kg
--- NOTE | 2018-05-09 16:11 | RAD ---
AP and Lateral Views of the Chest 05/09/2018 3:35 PM Indication: chest pain, hx of PE Comparison: AP chest May 05, 2018 Findings: Mildly low lung volumes noted. There is no focal consolidation or infiltrate identified. Heart size is normal given technique.. There is no evidence of pneumothorax or pleural effusion. No acute osseous abnormalities are identified. Impression: No evidence of acute cardiopulmonary process. Electronically signed by: Harris Redding MD (05/09/2018 4:07 PM) [facility]
[2018-05-09 16:25] LABS: BASO # 0.1 x10^3/uL (0.0-0.2); BASO % 1 % (0-3); EOS # 0.1 x10^3/uL (0.0-0.7); EOS % 2 % (0-3); HEMATOCRIT 39.5 % (39.0-53.0); HEMOGLOBIN 13.5 g/dL (13.0-17.5); LYMPH # 2.2 x10^3/uL (1.0-4.8); LYMPH % 32 % (24-48); MEAN CORPUSCULAR HEMOGLOBIN 30 pg (25-35); MEAN CORPUSCULAR HGB CONC 34 g/dL (31-37); MEAN CORPUSCULAR VOLUME 88 fL (79-100); MONO # 0.8 x10^3/uL (0.0-1.1); MONO % 11 % (0-9); NEUT # 3.7 x10^3uL (1.8-7.7); NEUT % 54 % (31-73); PLATELET COUNT 321 x10^3/uL (140-400); RED BLOOD COUNT 4.47 x10^6/uL (4.30-5.70); WHITE BLOOD COUNT 6.9 x10^3/uL (4.0-11.0)
--- NOTE | 2018-05-09 16:30 | PHYS DOC ---
Past Medical History Past Medical History: Hypertension, Kidney Stone Additional Past Medical Histor: PE Past Surgical History: Other Additional Past Surgical Histo: LITHOTRIPSY Alcohol Use: None Drug Use: None Adult General Chief Complaint Chief Complaint: CHEST PAIN HPI HPI Patient is a 48 year old male who presents with a PE last month and has chronic left side chest pain that at times goes to mid chest. Jb was seen at [facility] today for a INR chest and states told his doctor that he is getting a intermittent headache that is generalized and even leo at times. Patient states he also told his doctor that his finger tip tingle and has been going on for weeks. Patient sates that he also gets intermittent sharp stabbing or burning pains in different areas of his body that come and go quickly. Patient also complains that at time he feels soa as if he is breathing through a staw. Review of Systems Review of Systems Constitutional: Denies fever or chills [] Eyes: Denies change in visual acuity, redness, or eye pain [] HENT: Denies nasal congestion or sore throat [] Respiratory: Nonproductive cough and shortness of breath [] Cardiovascular: Left chest pain GI: Denies abdominal pain, nausea, vomiting, bloody stools or diarrhea [] : Denies dysuria or hematuria [] Musculoskeletal: Denies back pain or joint pain [] Integument: Denies rash or skin lesions [] Neurologic: Intermittent headache, denies focal weakness or finger tip tingling and intermittent sharp, burning pains in random areas of his body sensory changes [] All other systems were reviewed and found to be within normal limits, except as documented in this note. Allergies Allergies Allergies Coded Allergies Type Severity Reaction Last Updated Verified nitroglycerin Adverse Reaction Intermediate LOC/SYNCOPE 04/07/17 Yes Physical Exam Physical Exam Constitutional: Well developed, well nourished, no acute distress, non-toxic appearance. [] HENT: Normocephalic, atraumatic, bilateral external ears normal, oropharynx moist, no oral exudates, nose normal. [] Eyes: PERRLA, EOMI, conjunctiva normal, no discharge. [] Neck: Normal range of motion, no tenderness, supple, no stridor. [] Cardiovascular: Heart rate regular rhythm, no murmur [] Lungs & Thorax: Bilateral breath sounds clear to auscultation [] Abdomen: Bowel sounds normal, soft, no tenderness, no masses, no pulsatile masses. [] Skin: Warm, dry, no erythema, no rash. [] Back: No tenderness, no CVA tenderness. [] Extremities: No tenderness, no cyanosis, no clubbing, ROM intact, no edema. [] Neurologic: Alert and oriented X 3, normal motor function, normal sensory function, no focal deficits noted. [] Psychologic: Affect normal, judgement normal, mood normal. [] Current Patient Data Vital Signs Vital Signs Date Time Temp Pulse Resp B/P (MAP) Pulse Ox O2 Delivery O2 Flow Rate FiO2 05/09/18 15:20 98.0 94 16 146/75 (98) 98 Room Air 98.0 Lab Values Laboratory Tests Test 05/09/18 16:06 White Blood Count 6.9 x10^3/uL (4.0-11.0) Red Blood Count 4.47 x10^6/uL (4.30-5.70) Hemoglobin 13.5 g/dL (13.0-17.5) Hematocrit 39.5 % (39.0-53.0) Mean Corpuscular Volume 88 fL (79-100) Mean Corpuscular Hemoglobin 30 pg (25-35) Mean Corpuscular Hemoglobin Concent 34 g/dL (31-37) Red Cell Distribution Width 15.0 % (11.5-14.5) H Platelet Count 321 x10^3/uL (140-400) Neutrophils (%) (Auto) 54 % (31-73) Lymphocytes (%) (Auto) 32 % (24-48) Monocytes (%) (Auto) 11 % (0-9) H Eosinophils (%) (Auto) 2 % (0-3) Basophils (%) (Auto) 1 % (0-3) Neutrophils # (Auto) 3.7 x10^3uL (1.8-7.7) Lymphocytes # (Auto) 2.2 x10^3/uL (1.0-4.8) Monocytes # (Auto) 0.8 x10^3/uL (0.0-1.1) Eosinophils # (Auto) 0.1 x10^3/uL (0.0-0.7) Basophils # (Auto) 0.1 x10^3/uL (0.0-0.2) Prothrombin Time 28.2 SEC (11.7-14.0) H Prothrombin Time INR 2.7 (0.8-1.1) H Sodium Level 140 mmol/L (136-145) Potassium Level 4.2 mmol/L (3.5-5.1) Chloride Level 104 mmol/L (98-107) Carbon Dioxide Level 30 mmol/L (21-32) Anion Gap 6 (6-14) Blood Urea Nitrogen 14 mg/dL (8-26) Creatinine 1.0 mg/dL (0.7-1.3) Estimated GFR (Cockcroft-Gault) 96.9 Glucose Level 102 mg/dL (70-99) H Calcium Level 9.3 mg/dL (8.5-10.1) Laboratory Tests 05/09/18 16:06 Laboratory Tests 05/09/18 16:06 EKG EKG [address] Espinosa[] Interpretation Time: Sinus Rhythm, non specific T abnormality, no STEMI Radiology/Procedures Radiology/Procedures Chest x ray[] Impressions: [facility] [address] [place] [address] IMAGING REPORT Signed PATIENT: HEATHER HIRSCH ACCOUNT: [id number] : 1970 LOCATION: ER AGE: 48 SEX: M EXAM STATUS: REG ER ORD. PHYSICIAN: JULIA MICHAUD APRN REASON: CHEST PAIN PROCEDURE: CHEST PA & LATERAL AP and Lateral Views of the Chest 05/09/2018 3:35 PM Indication: chest pain, hx of PE Comparison: AP chest May 05, 2018 Findings: Mildly low lung volumes noted. There is no focal consolidation or infiltrate identified. Heart size is normal given technique.. There is no evidence of pneumothorax or pleural effusion. No acute osseous abnormalities are identified. Impression: No evidence of acute cardiopulmonary process. Electronically signed by: Harris Snow MD (05/09/2018 4:07 PM) [facility] DICTATED and SIGNED BY: HARRIS SNOW MD DATE: 05/09/18 1601 Course & Med Decision Making Course & Med Decision Making Patient is a 48 year old male who presents with a PE last month and has chronic left side chest pain that at times goes to mid chest. Patient was seen at [facility] today for a INR chest and states told his doctor that he is getting a intermittent headache that is generalized and even leo at times. Patient states he also told his doctor that his finger tip tingle and has been going on for weeks. Patient sates that he also gets intermittent sharp stabbing or burning pains in different areas of his body that come and go quickly. Patient also complains that at time he feels soa as if he is breathing through a straw. Patients blood work is unremarkable and his chest x ray shows no acute findings. Upon examination the patient lungs are clear to auscultation, abdomen is soft and nontender. Patient is neurologically intact. Patient guerrero sno extremity edema. Patients PT/INR are Therapeutic. I have gone over this patient with Dr Espinosa and will discharge patient home to follow up with his primary care. [] [place] Disclaimer Dragon Disclaimer This electronic medical record was generated, in whole or in part, using a voice recognition dictation system. Departure Departure Impression: Primary Impression: Chest pain Additional Impression: Neuropathy Disposition: 01 HOME, SELF-CARE Condition: STABLE Referrals: UNKNOWN PCP NAME (PCP) Patient Instructions: Chest Pain (Nonspecific) Additional Instructions: Follow up with your primary care provider. Problem Qualifiers Primary Impression: Chest pain Chest pain type: unspecified Qualified Codes: R07.9 - Chest pain, unspecified JULIA MICHAUD APRN May 09, 2018 16:30
[2018-05-09 16:33] LABS: PROTHROMBIN TIME PATIENT 28.2 SEC (11.7-14.0)
[2018-05-09 16:42] LABS: CALCIUM 9.3 mg/dL (8.5-10.1); GFR 96.9; POTASSIUM 4.2 mmol/L (3.5-5.1)
[2018-05-09 16:52] VITALS: BP 131/73
--- NOTE | 2018-05-09 16:55 | EKG ---
[facility] [address] [place] [address] Test Date: 2018-05-09 Test Time: 15:20:55 Pat Name: HEATHER HIRSCH Department: Room: Gender: M Mica Patcher: : 1970 Requested By: JULIA MICHAUD Order Number: [id number] Reading MD: Rancho Hurtado MD Measurements Intervals Harmans Rate: 92 P: 42 DC: 156 QRS: 2 QRSD: 86 T: 3 QT: 320 QTc: 400 Interpretive Statements SINUS RHYTHM NON-SPECIFIC ST/T CHANGES Electronically Signed On 05-11-2018 6:51:35 CDT by Rancho Hurtado MD
== END 2018-05-09 17:19 | disposition home or self-care (01) ==
LOC: ER 15:13
DX: R07.89 Other chest pain (principal); G62.9 Polyneuropathy, unspecified; I10 Essential (primary) hypertension; Z87.442 Personal history of urinary calculi; Z88.8 Allergy status to other drugs, medicaments and biological substances
CPT/HCPCS: 36415; 71046; 80048; 84484; 85025; 85610; 93005; 99285-25

== ENCOUNTER 2018-05-18 14:39 | Emergency (ER) | payer SELFPAY ==
[~2018-05-18] VITALS: Ht 167.6 cm; Wt 124.7 kg
[2018-05-18 15:10] VITALS: BP 140/98
--- NOTE | 2018-05-18 16:08 | PHYS DOC ---
Past Medical History Past Medical History: Hypertension, Kidney Stone Additional Past Medical Histor: PE Past Surgical History: Other Additional Past Surgical Histo: LITHOTRIPSY Additional Information: Nonsmoking Alcohol Use: None Drug Use: None Adult General Chief Complaint Chief Complaint: LOWER EXT PAIN HPI HPI Patient is a 48 year old male with history of PE on Coumadin who presents with complaining of left leg edema and pressure feeling since this morning. Patient states his constantly behind the DVT in left leg because of history of PE patient denies recent immobilization, injury, focal neuro deficit, fever and chills, shortness of breath, missing his medication. Patient states the pain getting worse with walking and rated his pain moderate and doesn't want pain medication. Review of Systems Review of Systems Constitutional: Denies fever or chills [] Eyes: Denies change in visual acuity, redness, or eye pain [] HENT: Denies nasal congestion or sore throat [] Respiratory: Denies cough or shortness of breath [] Cardiovascular: No additional information not addressed in HPI [] GI: Denies abdominal pain, nausea, vomiting, bloody stools or diarrhea [] : Denies dysuria or hematuria [] Musculoskeletal: Denies back pain or joint pain [] Integument: Denies rash or skin lesions [] Neurologic: Denies headache, focal weakness or sensory changes [] Endocrine: Denies polyuria or polydipsia [] All other systems were reviewed and found to be within normal limits, except as documented in this note. Allergies Allergies Allergies Coded Allergies Type Severity Reaction Last Updated Verified nitroglycerin Adverse Reaction Intermediate LOC/SYNCOPE 04/07/17 Yes Physical Exam Physical Exam Constitutional: Well developed, well nourished, mild distress, non-toxic appearance. [] HENT: Normocephalic, atraumatic Eyes: PERRLA, EOMI, conjunctiva normal, no discharge. [] Neck: Normal range of motion, no tenderness, supple, no stridor. [] Cardiovascular:Heart rate regular rhythm, no murmur [] Lungs & Thorax: Bilateral breath sounds clear to auscultation [] Extremities: Left lower extremity without sign of injury or deformity, trace edema without erythema or sign of infection, negative Homans sign, no cyanosis, no clubbing, ROM intact, no edema. [] Neurologic: Alert and oriented X 3, normal motor function, normal sensory function, no focal deficits noted. [] Psychologic: Affect normal, judgement normal, mood normal. [] Current Patient Data Vital Signs Vital Signs Date Time Temp Pulse Resp B/P (MAP) Pulse Ox O2 Delivery O2 Flow Rate FiO2 05/18/18 15:10 97.9 95 18 140/98 (112) 99 Room Air 97.9 Lab Values Laboratory Tests Test 05/18/18 15:40 Prothrombin Time 35.3 SEC (11.7-14.0) H Prothrombin Time INR 3.6 (0.8-1.1) H EKG EKG [] Radiology/Procedures Radiology/Procedures [facility] [address] [place], [place] [id number] IMAGING REPORT Signed PATIENT: HEATHER HIRSCH ACCOUNT: [id number] : 1970 LOCATION: ER AGE: 48 SEX: M EXAM STATUS: REG ER ORD. PHYSICIAN: DEEP REYNOLDS MD REASON: left leg pain and edema, history of PE on Coumadin PROCEDURE: VENOUS LOWER EXTREMITY LEFT Left lower extremity venous ultrasound, 05/18/2018 : History: Left leg pain Duplex evaluation including grayscale, color flow and spectral Doppler analysis was performed. The femoral and popliteal veins show no filling defects to suggest DVT. The visualized calf veins are unremarkable. IMPRESSION: There is no sonographic evidence of deep vein thrombosis in the left lower extremity Electronically signed by: Antwan Lowe MD (05/18/2018 4:36 PM) [facility] DICTATED and SIGNED BY: ANTWAN LOWE MD DATE: 05/18/18 1636 Course & Med Decision Making Course & Med Decision Making Pertinent Labs and Imaging studies reviewed. (See chart for details) Evaluation of patient in ER showed 48-year-old male patient with history of PE on Coumadin complaining of left leg pain and concern for possible DVT. Patient had INR of 3.6 with negative lower extremity ultrasound for DVT. Patient usually takes 10 mg of Coumadin every night and instructed to take 5 mg Coumadin tonight and resume the usual dose tomorrow and follow with his primary care physician on Sunday. Dragon Disclaimer Dragon Disclaimer This electronic medical record was generated, in whole or in part, using a voice recognition dictation system. Departure Departure Impression: Primary Impression: Pain of left lower leg Additional Impressions: Anticoagulated on Coumadin History of pulmonary embolism Disposition: HOME, SELF-CARE (at 1700) Condition: STABLE Referrals: UNKNOWN PCP NAME (PCP) Patient Instructions: Anticoagulation, Generic, Venous Thromboembolism, Prevention Additional Instructions: Take only one pill of 5 mg Warfarin tonight and resume your previous dose tomorrow Drink plenty of liquids Follow-up with your primary care physician in 3-5 days Return to ER if not getting better Problem Qualifiers DEEP REYNOLDS MD May 18, 2018 16:08
[2018-05-18 16:09] LABS: PROTHROMBIN TIME PATIENT 35.3 SEC (11.7-14.0)
--- NOTE | 2018-05-18 16:40 | RAD ---
Left lower extremity venous ultrasound, 05/18/2018 : History: Left leg pain Duplex evaluation including grayscale, color flow and spectral Doppler analysis was performed. The femoral and popliteal veins show no filling defects to suggest DVT. The visualized calf veins are unremarkable. IMPRESSION: There is no sonographic evidence of deep vein thrombosis in the left lower extremity Electronically signed by: Antwan Lowe MD (05/18/2018 4:36 PM) [facility]
== END 2018-05-18 17:29 | disposition home or self-care (01) ==
LOC: ER 14:39
DX: M79.662 Pain in left lower leg (principal); R60.0 Localized edema; I10 Essential (primary) hypertension; Z86.711 Personal history of pulmonary embolism; Z79.01 Long term (current) use of anticoagulants; Z87.442 Personal history of urinary calculi; Z88.8 Allergy status to other drugs, medicaments and biological substances
CPT/HCPCS: 36415; 85610; 93971; 99285-25

== ENCOUNTER 2018-06-22 00:40 | Emergency (ER) | payer SELFPAY ==
[~2018-06-22] VITALS: Ht 167.6 cm; Wt 124.7 kg
--- NOTE | 2018-06-22 01:15 | PHYS DOC ---
Past Medical History Past Medical History: Hypertension, Kidney Stone Additional Past Medical Histor: PE Past Surgical History: Other Additional Past Surgical Histo: LITHOTRIPSY Alcohol Use: None Drug Use: None Adult General Chief Complaint Chief Complaint: ABDOMINAL PAIN HPI HPI Patient is a 48 year old man who presents with right-sided chest pain and epigastric pain and bloating Patient was recently diagnosed with bilateral pulmonary emboli in April at [facility]. He was placed on Coumadin for therapy. He was doing well until 3 days ago, when he had onset of midsternal chest pain, epigastric pain and right-sided chest pain; intermittently associated with shortness of breath. Pain is worse with movement and with deep breathing. He also notes epigastric bloating. His pain is 6/10 severity. He denies productive cough or fevers. He was seen in Coumadin clinic yesterday and was concerned because INR was low. He is concerned he may have recurrent blood clots in his lungs. Review of Systems Review of Systems Constitutional: Denies fever or chills Eyes: Denies change in visual acuity, redness, or eye pain HENT: Denies nasal congestion or sore throat Respiratory: Denies cough, with intermittent shortness of breath Cardiovascular: with chest pain, no palpitations GI: Denies abdominal pain, nausea, vomiting, bloody stools or diarrhea : Denies dysuria or hematuria Musculoskeletal: Denies back pain or joint pain Integument: Denies rash or skin lesions Neurologic: Denies headache, focal weakness or sensory changes Endocrine: Denies polyuria or polydipsia All other systems were reviewed and found to be within normal limits, except as documented in this note. Current Medications Current Medications Current Medications Medications (Trade) Dose Ordered Sig/Ale Start Time Stop Time Status Last Admin Dose Admin Famotidine (Pepcid Vial) 20 mg 1X ONCE 06/22/18 03:15 06/22/18 03:16 DC 06/22/18 03:43 20 MG Multi-Ingredient Mouthwash/Gargle (Gi Cocktail) 20 ml 1X ONCE 06/22/18 03:15 06/22/18 03:16 DC 06/22/18 03:43 20 ML Allergies Allergies Allergies Coded Allergies Type Severity Reaction Last Updated Verified nitroglycerin Adverse Reaction Intermediate LOC/SYNCOPE 04/07/17 Yes Physical Exam Physical Exam Constitutional: Well developed, well nourished, no acute distress, non-toxic appearance. HENT: Normocephalic, atraumatic, bilateral external ears normal, oropharynx moist, no oral exudates, nose normal. Eyes: PERRLA, EOMI, conjunctiva normal, no discharge. Neck: Normal range of motion, no tenderness, supple, no stridor. Cardiovascular:Heart rate regular rhythm, no murmur Lungs & Thorax: Bilateral breath sounds clear to auscultation. No wheezing. Abdomen: Bowel sounds normal, soft, no tenderness, no masses, no pulsatile masses. Skin: Warm, dry, no erythema, no rash. Back: No tenderness, no CVA tenderness. Extremities: No tenderness, no cyanosis, no clubbing, ROM intact, no edema. Neurologic: Alert and oriented X 3, normal motor function, normal sensory function, no focal deficits noted. Psychologic: Affect normal, judgement normal, mood normal. Current Patient Data Vital Signs Vital Signs Date Time Temp Pulse Resp B/P (MAP) Pulse Ox O2 Delivery O2 Flow Rate FiO2 06/22/18 03:43 88 137/80 (99) 97 06/22/18 03:13 18 Room Air 06/22/18 01:15 97.9 97.9 Lab Values Laboratory Tests Test 06/22/18 00:50 06/22/18 02:05 Urine Collection Type Unknown Urine Color Yellow Urine Clarity Clear Urine pH 7.0 Urine Specific [place] 1.020 Urine Protein Negative mg/dL (NEG-TRACE) Urine Glucose (UA) Negative mg/dL (NEG) Urine Ketones (Stick) Negative mg/dL (NEG) Urine Blood Negative (NEG) Urine Nitrite Negative (NEG) Urine Bilirubin Negative (NEG) Urine Urobilinogen Dipstick 1.0 mg/dL (0.2 mg/dL) Urine Leukocyte Esterase Negative (NEG) Urine RBC Occ /HPF (0-2) Urine WBC 0 /HPF (0-4) Urine Squamous Epithelial Cells Occ /LPF Urine Bacteria 0 /HPF (0-FEW) Urine Mucus Slight /LPF White Blood Count 6.5 x10^3/uL (4.0-11.0) Red Blood Count 4.50 x10^6/uL (4.30-5.70) Hemoglobin 13.6 g/dL (13.0-17.5) Hematocrit 39.5 % (39.0-53.0) Mean Corpuscular Volume 88 fL (79-100) Mean Corpuscular Hemoglobin 30 pg (25-35) Mean Corpuscular Hemoglobin Concent 35 g/dL (31-37) Red Cell Distribution Width 14.6 % (11.5-14.5) H Platelet Count 306 x10^3/uL (140-400) Neutrophils (%) (Auto) 47 % (31-73) Lymphocytes (%) (Auto) 39 % (24-48) Monocytes (%) (Auto) 13 % (0-9) H Eosinophils (%) (Auto) 1 % (0-3) Basophils (%) (Auto) 1 % (0-3) Neutrophils # (Auto) 3.0 x10^3uL (1.8-7.7) Lymphocytes # (Auto) 2.5 x10^3/uL (1.0-4.8) Monocytes # (Auto) 0.8 x10^3/uL (0.0-1.1) Eosinophils # (Auto) 0.1 x10^3/uL (0.0-0.7) Basophils # (Auto) 0.1 x10^3/uL (0.0-0.2) Prothrombin Time 22.1 SEC (11.7-14.0) H Prothrombin Time INR 2.0 (0.8-1.1) H D-Dimer (Kezia) < 0.27 ug/mlFEU Sodium Level 139 mmol/L (136-145) Potassium Level 3.9 mmol/L (3.5-5.1) Chloride Level 103 mmol/L (98-107) Carbon Dioxide Level 28 mmol/L (21-32) Anion Gap 8 (6-14) Blood Urea Nitrogen 10 mg/dL (8-26) Creatinine 1.0 mg/dL (0.7-1.3) Estimated GFR (Cockcroft-Gault) 96.9 BUN/Creatinine Ratio 10 (6-20) Glucose Level 88 mg/dL (70-99) Calcium Level 9.1 mg/dL (8.5-10.1) Total Bilirubin 0.4 mg/dL (0.2-1.0) Aspartate Amino Transferase (AST) 13 U/L (15-37) L Alanine Aminotransferase (ALT) 22 U/L (16-63) Alkaline Phosphatase 54 U/L (46-116) Troponin I Quantitative < 0.017 ng/mL (0.000-0.055) Total Protein 7.8 g/dL (6.4-8.2) Albumin 3.5 g/dL (3.4-5.0) Albumin/Globulin Ratio 0.8 (1.0-1.7) L Lipase 137 U/L (73-393) Laboratory Tests 06/22/18 02:05 Laboratory Tests 06/22/18 02:05 EKG EKG ECG 02:01 NSR @ [address]-T wave changes IRBBB Radiology/Procedures Radiology/Procedures [facility] [address] [place], [place] [id number] IMAGING REPORT Signed PATIENT: HEATHER HIRSCH ACCOUNT: [id number] : 1970 LOCATION: ER AGE: 48 SEX: M EXAM STATUS: DEP ER ORD. PHYSICIAN: RADHA LATIF MD REASON: chest pain PROCEDURE: PORTABLE CHEST 1V EXAM: AP View of the chest DATE: 06/22/2018 1:27 AM INDICATION: CHEST PAIN COMPARISON: 05/09/2018, 05/05/2018 FINDINGS/ IMPRESSION: 1. The heart is mildly enlarged. 2. Mediastinal and hilar contours are stable. 3. Low lung volumes with opacities in the lung bases likely atelectasis. 4. No pleural effusion or pneumothorax. Electronically signed by: George Chavez MD (06/22/2018 5:07 AM) [facility] DICTATED and SIGNED BY: GEORGE CHAEVZ MD DATE: 06/22/18 0504 Course & Med Decision Making Course & Med Decision Making Pertinent Labs and Imaging studies reviewed. (See chart for details) Emergency Department Course Patient presents with chest pain and SOB DDx- PE, ACS, CHF, pneumonia, asthma Patient was stable in the ED improved after GI cocktail. ECG and troponin showed no evidence of ACS. D-dimer normal, doubt PE. INR adequate. Labs unremarkable. CXR unremarkable. 03:50 Patient improved after GI cocktail and Pepcid with resolution of abdominal pain. CP evaluation unremarkable, doubt PE or ACS. There is no evidence of CHF or pneumonia. Patient has no tachycardia or hypoxemia. Patient will follow-up with PCP for further evaluation. Patient advised to return to the ED if he develops recurrent SOB, pain, fevers or vomiting. Dragon Disclaimer Dragon Disclaimer This electronic medical record was generated, in whole or in part, using a voice recognition dictation system. Departure Departure Impression: Primary Impression: GERD (gastroesophageal reflux disease) Disposition: HOME, SELF-CARE Condition: STABLE Referrals: UNKNOWN PCP NAME (PCP) MCKENZIE FORD MD Follow-up on Sunday for further evaluation Patient Instructions: Diet for Gastroesophageal Reflux Disease, Adult, Gastroesophageal Reflux Disease, Adult Additional Instructions: If you develop recurrent pain, shortness of breath, vomiting ,bleeding return to the Emergency Department. Scripts Mag Hydrox/Al Hydrox/Simeth (MAALOX MAXIMUM STRENGTH SUSP) 355 Ml Oral.susp 15 ML PO TIDACHC for 10 Days, #1 BOTTLE Prov: RADHA LATIF MD 06/22/18 Pantoprazole Sodium (PROTONIX) 40 Mg Granpkt.dr 40 MG PO DAILY for 20 Days, #20 TAB Prov: RADHA LATIF MD 06/22/18 RADHA LATIF MD Jun 22, 2018 01:15
[2018-06-22 01:23] LABS: BILIRUBIN,URINE NEGATIVE (NEG); CLARITY,URINE CLEAR; COLOR,URINE YELLOW; NITRITE,URINE NEGATIVE (NEG); PROTEIN,URINE NEGATIVE (NEG-TRACE)
[2018-06-22 01:32] LABS: BACTERIA,URINE 0 /HPF (0-FEW); RBC,URINE OCC /HPF (0-2); SQUAMOUS EPITHELIAL CELL,UR OCC /LPF; WBC,URINE 0 /HPF (0-4)
[2018-06-22 02:23] LABS: BASO # 0.1 x10^3/uL (0.0-0.2); BASO % 1 % (0-3); EOS # 0.1 x10^3/uL (0.0-0.7); EOS % 1 % (0-3); HEMATOCRIT 39.5 % (39.0-53.0); HEMOGLOBIN 13.6 g/dL (13.0-17.5); LYMPH # 2.5 x10^3/uL (1.0-4.8); LYMPH % 39 % (24-48); MEAN CORPUSCULAR HEMOGLOBIN 30 pg (25-35); MEAN CORPUSCULAR HGB CONC 35 g/dL (31-37); MEAN CORPUSCULAR VOLUME 88 fL (79-100); MONO # 0.8 x10^3/uL (0.0-1.1); MONO % 13 % (0-9); NEUT % 47 % (31-73); PLATELET COUNT 306 x10^3/uL (140-400); RED CELL DISTRIBUTION WIDTH 14.6 % (11.5-14.5); WHITE BLOOD COUNT 6.5 x10^3/uL (4.0-11.0)
[2018-06-22 02:29] LABS: CALCIUM 9.1 mg/dL (8.5-10.1); GFR 96.9; POTASSIUM 3.9 mmol/L (3.5-5.1)
[2018-06-22 02:33] LABS: PROTHROMBIN TIME PATIENT 22.1 SEC (11.7-14.0)
[2018-06-22 02:36] LABS: ALBUMIN 3.5 g/dL (3.4-5.0); ALBUMIN/GLOBULIN RATIO 0.8 (1.0-1.7); TOTAL BILIRUBIN 0.4 mg/dL (0.2-1.0); TOTAL PROTEIN 7.8 g/dL (6.4-8.2)
[2018-06-22 02:38] LABS: D-DIMER < 0.27 ug/mlFEU (0.00-0.50)
[2018-06-22] MEDS ORDERED: FAMOTIDINE 20 MG/2 ML VIAL IVP ONE (03:15)
[2018-06-22] MEDS ORDERED: LIDO:MAALOX 1:1 20 ML SINGLE DOSE. PO ONE (03:15)
[2018-06-22 03:43] VITALS: BP 137/80
[2018-06-22] MEDS ORDERED: MAG355OR12 PO (03:58)
[2018-06-22] MEDS ORDERED: PANT40GR PO (03:58)
--- NOTE | 2018-06-22 05:10 | RAD ---
EXAM: AP View of the chest DATE: 06/22/2018 1:27 AM INDICATION: CHEST PAIN COMPARISON: 05/09/2018, 05/05/2018 FINDINGS/ IMPRESSION: 1. The heart is mildly enlarged. 2. Mediastinal and hilar contours are stable. 3. Low lung volumes with opacities in the lung bases likely atelectasis. 4. No pleural effusion or pneumothorax. Electronically signed by: George Young MD (06/22/2018 5:07 AM) [facility]
--- NOTE | 2018-06-23 08:07 | EKG ---
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
--- NOTE | 2018-06-24 06:54 | EKG ---
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
== END 2018-06-22 04:15 | disposition home or self-care (01) ==
LOC: ER 00:40
DX: K21.9 Gastro-esophageal reflux disease without esophagitis (principal); R07.89 Other chest pain; R06.02 Shortness of breath; I10 Essential (primary) hypertension; Z79.01 Long term (current) use of anticoagulants; Z88.1 Allergy status to other antibiotic agents
CPT/HCPCS: 36415; 71045; 80053; 81001; 83690; 84484; 85025; 85379; 85610; 93005; 96374; 99285; J3490

== ENCOUNTER 2018-11-11 21:22 | Emergency (ER) | payer SELFPAY ==
[~2018-11-11] VITALS: Ht 167.6 cm; Wt 127.0 kg
[~2018-11-11 21:22] MED LIST changes: +HYDR-3164 PO; -HYDR-79 PO; -HYDR-971 PO; +HYDROCODONE-IB1 EAC3 PO; +MAG355OR12 PO; +PANT40GR PO
--- NOTE | 2018-11-11 22:11 | PHYS DOC ---
Past Medical History Past Medical History: Hypertension, Kidney Stone, Other Additional Past Medical Histor: PE, 'FACTOR 5 CLOTTING DISORDER' Past Surgical History: Other Additional Past Surgical Histo: LITHOTRIPSY Alcohol Use: None Drug Use: None Adult General Chief Complaint Chief Complaint: DIZZY/LIGHT HEADED [facility] HPI Patient is a 48 year old male presents with a chief complaint of dizziness. He states he feels like he is going to pass out. Onset of symptoms Sunday. He states these episodes have come and gone but today's episodes have been worse. Patient states symptoms really happen when he getting up from a seated position or walking. Patient denies any chest pain states he has some shortness of breath. Review of Systems Review of Systems Constitutional: Denies fever or chills [] Eyes: Denies change in visual acuity, redness, or eye pain [] HENT: Denies nasal congestion or sore throat [] Respiratory: Denies cough or shortness of breath [] Cardiovascular: No additional information not addressed in HPI [] GI: Denies abdominal pain, nausea, vomiting, bloody stools or diarrhea [] : Denies dysuria or hematuria [] Musculoskeletal: Denies back pain or joint pain [] Integument: Denies rash or skin lesions [] Neurologic: Denies headache, focal weakness or sensory changes [positive dizziness] Endocrine: Denies polyuria or polydipsia [] All other systems were reviewed and found to be within normal limits, except as documented in this note. Allergies Allergies Allergies Coded Allergies Type Severity Reaction Last Updated Verified nitroglycerin Adverse Reaction Intermediate LOC/SYNCOPE 04/07/17 Yes Physical Exam Physical Exam Constitutional: Well developed, well nourished, no acute distress, non-toxic appearance. [] HENT: Normocephalic, atraumatic, bilateral external ears normal, oropharynx moist, no oral exudates, nose normal. [] Eyes: PERRLA, EOMI, conjunctiva normal, no discharge. [] Neck: Normal range of motion, no tenderness, supple, no stridor. [] Cardiovascular:Heart rate regular rhythm, no murmur [] Lungs & Thorax: Bilateral breath sounds clear to auscultation [] Abdomen: Bowel sounds normal, soft, no tenderness, no masses, no pulsatile masses. [] Skin: Warm, dry, no erythema, no rash. [] Back: No tenderness, no CVA tenderness. [] Extremities: No tenderness, no cyanosis, no clubbing, ROM intact, no edema. [] Neurologic: Alert and oriented X 3, normal motor function, normal sensory function, no focal deficits noted. [Positive dizziness] Psychologic: Affect normal, judgement normal, mood normal. [] Current Patient Data Vital Signs Vital Signs Date Time Temp Pulse Resp B/P (MAP) Pulse Ox O2 Delivery O2 Flow Rate FiO2 11/11/18 22:31 78 16 99 11/11/18 21:22 98.1 128/93 (105) Room Air 98.1 Lab Values Laboratory Tests Test 11/11/18 22:40 White Blood Count 7.0 x10^3/uL (4.0-11.0) Red Blood Count 4.52 x10^6/uL (4.30-5.70) Hemoglobin 13.1 g/dL (13.0-17.5) Hematocrit 40.0 % (39.0-53.0) Mean Corpuscular Volume 89 fL (79-100) Mean Corpuscular Hemoglobin 29 pg (25-35) Mean Corpuscular Hemoglobin Concent 33 g/dL (31-37) Red Cell Distribution Width 15.3 % (11.5-14.5) H Platelet Count 280 x10^3/uL (140-400) Neutrophils (%) (Auto) 52 % (31-73) Lymphocytes (%) (Auto) 36 % (24-48) Monocytes (%) (Auto) 10 % (0-9) H Eosinophils (%) (Auto) 1 % (0-3) Basophils (%) (Auto) 1 % (0-3) Neutrophils # (Auto) 3.6 x10^3uL (1.8-7.7) Lymphocytes # (Auto) 2.5 x10^3/uL (1.0-4.8) Monocytes # (Auto) 0.7 x10^3/uL (0.0-1.1) Eosinophils # (Auto) 0.1 x10^3/uL (0.0-0.7) Basophils # (Auto) 0.1 x10^3/uL (0.0-0.2) Sodium Level 142 mmol/L (136-145) Potassium Level 3.6 mmol/L (3.5-5.1) Chloride Level 105 mmol/L (98-107) Carbon Dioxide Level 29 mmol/L (21-32) Anion Gap 8 (6-14) Blood Urea Nitrogen 15 mg/dL (8-26) Creatinine 1.0 mg/dL (0.7-1.3) Estimated GFR (Cockcroft-Gault) 96.9 BUN/Creatinine Ratio 15 (6-20) Glucose Level 101 mg/dL (70-99) H Calcium Level 8.9 mg/dL (8.5-10.1) Total Bilirubin 0.3 mg/dL (0.2-1.0) Aspartate Amino Transferase (AST) 14 U/L (15-37) L Alanine Aminotransferase (ALT) 19 U/L (16-63) Alkaline Phosphatase 55 U/L (46-116) Troponin I Quantitative < 0.017 ng/mL (0.000-0.055) Total Protein 7.6 g/dL (6.4-8.2) Albumin 3.3 g/dL (3.4-5.0) L Albumin/Globulin Ratio 0.8 (1.0-1.7) L Laboratory Tests 11/11/18 22:40 Laboratory Tests 11/11/18 22:40 EKG EKG [] Interpretation Time: EKG time 2225 Heart rate 80 normal sinus rhythm no ST elevation no ST depression no acute [place] Radiology/Procedures Radiology/Procedures [] Course & Med Decision Making Course & Med Decision Making Pertinent Labs and Imaging studies reviewed. (See chart for details) []Patient was evaluated for chief complaint. Workup consisted of laboratory analysis. Results reviewed and discussed with patient. Questionable cause new blood pressure medication. Patient advised to follow-up with his primary care physician regarding his medications. Patient ambulated with a normal steady gait. Patient was discharged home in the care of significant other. Dragon Disclaimer Dragon Disclaimer This electronic medical record was generated, in whole or in part, using a voice recognition dictation system. Departure Departure Impression: Primary Impression: Dizziness Additional Impression: Vaso vagal episode Disposition: HOME, SELF-CARE Condition: STABLE Referrals: UNKNOWN PCP NAME (PCP) Problem Qualifiers MAT HUYNH DO Nov 11, 2018 22:10
[2018-11-11 22:47] LABS: BASO # 0.1 x10^3/uL (0.0-0.2); BASO % 1 % (0-3); EOS # 0.1 x10^3/uL (0.0-0.7); EOS % 1 % (0-3); HEMOGLOBIN 13.1 g/dL (13.0-17.5); LYMPH # 2.5 x10^3/uL (1.0-4.8); LYMPH % 36 % (24-48); MEAN CORPUSCULAR HEMOGLOBIN 29 pg (25-35); MEAN CORPUSCULAR HGB CONC 33 g/dL (31-37); MEAN CORPUSCULAR VOLUME 89 fL (79-100); MONO # 0.7 x10^3/uL (0.0-1.1); MONO % 10 % (0-9); NEUT # 3.6 x10^3uL (1.8-7.7); NEUT % 52 % (31-73); PLATELET COUNT 280 x10^3/uL (140-400); RED BLOOD COUNT 4.52 x10^6/uL (4.30-5.70); RED CELL DISTRIBUTION WIDTH 15.3 % (11.5-14.5)
[2018-11-11 22:57] LABS: CALCIUM 8.9 mg/dL (8.5-10.1); GFR 96.9; POTASSIUM 3.6 mmol/L (3.5-5.1)
[2018-11-11 23:05] LABS: ALBUMIN 3.3 g/dL (3.4-5.0); ALBUMIN/GLOBULIN RATIO 0.8 (1.0-1.7); TOTAL BILIRUBIN 0.3 mg/dL (0.2-1.0); TOTAL PROTEIN 7.6 g/dL (6.4-8.2)
[2018-11-12 00:01] VITALS: BP 146/74
--- NOTE | 2018-11-12 06:45 | EKG ---
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
== END 2018-11-12 00:37 | disposition home or self-care (01) ==
LOC: ER 21:22
DX: R42 Dizziness and giddiness (principal); R55 Syncope and collapse; R06.02 Shortness of breath; I10 Essential (primary) hypertension; Z87.442 Personal history of urinary calculi; Z88.8 Allergy status to other drugs, medicaments and biological substances
CPT/HCPCS: 36415; 80053; 84484; 85025; 93005; 99284-25

== ENCOUNTER 2019-01-24 17:29 | Emergency (ER) | payer SELFPAY ==
[~2019-01-24] VITALS: Ht 167.6 cm; Wt 122.5 kg
--- NOTE | 2019-01-24 18:51 | PHYS DOC ---
Past Medical History Past Medical History: Hypertension, Kidney Stone, Other Additional Past Medical Histor: PE, 'FACTOR 5 CLOTTING DISORDER' Past Surgical History: Other Additional Past Surgical Histo: LITHOTRIPSY Alcohol Use: None Drug Use: None Adult General Chief Complaint Chief Complaint: CHE[facility] W[facility] PA[facility] Patient is a 48 year old M who presents with chest pain. The pain is in both sides of his chest but mostly in his left pectoralis muscle. He denies sob, diz ziness. He says it feels like a muscle strain. He has no cardiac history. It does not worsen with movement or exertion. He does not recall an injury/fall/mvc/lifting anything. He does have factor V leiden and HTN. His brother had an TN at 57. He does not smoke, drink, or use any drugs. Review of Systems Review of Systems Constitutional: Denies fever or chills Eyes: Denies change in visual acuity, redness, or eye pain HENT: Denies nasal congestion or sore throat Respiratory: Denies cough or shortness of breath Cardiovascular: No additional information not addressed in HPI GI: Denies abdominal pain, nausea, vomiting, bloody stools or diarrhea : Denies dysuria or hematuria Musculoskeletal: Denies back pain or joint pain Integument: Denies rash or skin lesions Neurologic: Denies headache, focal weakness or sensory changes Endocrine: Denies polyuria or polydipsia All other systems were reviewed and found to be within normal limits, except as documented in this note. Allergies Allergies Allergies Coded Allergies Type Severity Reaction Last Updated Verified nitroglycerin Adverse Reaction Intermediate LOC/SYNCOPE 04/07/17 Yes Physical Exam Physical Exam Constitutional: Well developed, well nourished, no acute distress, non-toxic appearance. HENT: Normocephalic, atraumatic, bilateral external ears normal, oropharynx moist, no oral exudates, nose normal. Eyes: PERRLA, EOMI, conjunctiva normal, no discharge. Neck: Normal range of motion, no tenderness, supple, no stridor. Cardiovascular:Heart rate regular rhythm, no murmur Lungs & Thorax: Bilateral breath sounds clear to auscultation Abdomen: Bowel sounds normal, soft, no tenderness, no masses, no pulsatile masses. Skin: Warm, dry, no erythema, no rash. Back: No tenderness, no CVA tenderness. Extremities: No tenderness, no cyanosis, no clubbing, ROM intact, no edema. Neurologic: Alert and oriented X 3, normal motor function, normal sensory function, no focal deficits noted. Psychologic: Affect normal, judgement normal, mood normal. Current Patient Data Vital Signs Vital Signs Date Time Temp Pulse Resp B/P (MAP) Pulse Ox O2 Delivery O2 Flow Rate FiO2 01/24/19 21:29 82 22 136/87 (103) 82 Room Air 01/24/19 18:33 97.7 97.7 Lab Values Laboratory Tests Test 01/24/19 19:00 01/24/19 21:00 White Blood Count 6.2 x10^3/uL (4.0-11.0) Red Blood Count 4.46 x10^6/uL (4.30-5.70) Hemoglobin 13.1 g/dL (13.0-17.5) Hematocrit 39.7 % (39.0-53.0) Mean Corpuscular Volume 89 fL (79-100) Mean Corpuscular Hemoglobin 30 pg (25-35) Mean Corpuscular Hemoglobin Concent 33 g/dL (31-37) Red Cell Distribution Width 14.9 % (11.5-14.5) H Platelet Count 277 x10^3/uL (140-400) Neutrophils (%) (Auto) 42 % (31-73) Lymphocytes (%) (Auto) 43 % (24-48) Monocytes (%) (Auto) 13 % (0-9) H Eosinophils (%) (Auto) 1 % (0-3) Basophils (%) (Auto) 1 % (0-3) Neutrophils # (Auto) 2.6 x10^3uL (1.8-7.7) Lymphocytes # (Auto) 2.7 x10^3/uL (1.0-4.8) Monocytes # (Auto) 0.8 x10^3/uL (0.0-1.1) Eosinophils # (Auto) 0.1 x10^3/uL (0.0-0.7) Basophils # (Auto) 0.1 x10^3/uL (0.0-0.2) Prothrombin Time 13.6 SEC (11.7-14.0) Prothrombin Time INR 1.1 (0.8-1.1) Sodium Level 140 mmol/L (136-145) Potassium Level 3.7 mmol/L (3.5-5.1) Chloride Level 103 mmol/L (98-107) Carbon Dioxide Level 27 mmol/L (21-32) Anion Gap 10 (6-14) Blood Urea Nitrogen 15 mg/dL (8-26) Creatinine 1.0 mg/dL (0.7-1.3) Estimated GFR (Cockcroft-Gault) 96.9 BUN/Creatinine Ratio 15 (6-20) Glucose Level 76 mg/dL (70-99) Calcium Level 9.0 mg/dL (8.5-10.1) Total Bilirubin 0.3 mg/dL (0.2-1.0) Aspartate Amino Transferase (AST) 14 U/L (15-37) L Alanine Aminotransferase (ALT) 22 U/L (16-63) Alkaline Phosphatase 47 U/L (46-116) Troponin I Quantitative < 0.017 ng/mL (0.000-0.055) < 0.017 ng/mL (0.000-0.055) DA-Gsa-S-Type Natriuretic Peptide 18 pg/mL (0-124) Total Protein 7.6 g/dL (6.4-8.2) Albumin 3.5 g/dL (3.4-5.0) Albumin/Globulin Ratio 0.9 (1.0-1.7) L Laboratory Tests 01/24/19 19:00 Laboratory Tests 01/24/19 19:00 EKG EKG [] Radiology/Procedures Radiology/Procedures [] Course & Med Decision Making Course & Med Decision Making Pertinent Labs and Imaging studies reviewed. (See chart for details) 48 y/o M presents for chest pain. Pt has a history of factor V leiden. He is not low risk. His trop is neg x2. I recommended admission to the hospital for ACS rule out. He declines admission and would like to leave AMA. He understands the risks and understands he could . Discussed return precautions. Amy Disclaimer Dragon Disclaimer This electronic medical record was generated, in whole or in part, using a voice recognition dictation system. Departure Departure Impression: Primary Impression: Chest pain Disposition: AGAINST MEDICAL ADVICE Condition: STABLE Referrals: UNKNOWN PCP NAME (PCP) Patient Instructions: Chest Pain (Nonspecific) Scripts Methocarbamol (ROBAXIN) 500 Mg Tablet 1 TAB PO BID, #60 TAB Prov: JOANA LEA MD 01/24/19 JOANA LEA MD January 24, 2019 18:51
[2019-01-24 19:22] LABS: BASO # 0.1 x10^3/uL (0.0-0.2); BASO % 1 % (0-3); EOS # 0.1 x10^3/uL (0.0-0.7); EOS % 1 % (0-3); HEMATOCRIT 39.7 % (39.0-53.0); HEMOGLOBIN 13.1 g/dL (13.0-17.5); LYMPH # 2.7 x10^3/uL (1.0-4.8); LYMPH % 43 % (24-48); MEAN CORPUSCULAR HEMOGLOBIN 30 pg (25-35); MEAN CORPUSCULAR HGB CONC 33 g/dL (31-37); MEAN CORPUSCULAR VOLUME 89 fL (79-100); MONO # 0.8 x10^3/uL (0.0-1.1); MONO % 13 % (0-9); NEUT # 2.6 x10^3uL (1.8-7.7); NEUT % 42 % (31-73); PLATELET COUNT 277 x10^3/uL (140-400); RED BLOOD COUNT 4.46 x10^6/uL (4.30-5.70); RED CELL DISTRIBUTION WIDTH 14.9 % (11.5-14.5); WHITE BLOOD COUNT 6.2 x10^3/uL (4.0-11.0)
[2019-01-24 19:29] LABS: PROTHROMBIN TIME PATIENT 13.6 SEC (11.7-14.0)
[2019-01-24 19:33] LABS: GFR 96.9; POTASSIUM 3.7 mmol/L (3.5-5.1)
[2019-01-24 19:39] LABS: ALBUMIN 3.5 g/dL (3.4-5.0); ALBUMIN/GLOBULIN RATIO 0.9 (1.0-1.7); TOTAL BILIRUBIN 0.3 mg/dL (0.2-1.0); TOTAL PROTEIN 7.6 g/dL (6.4-8.2)
--- NOTE | 2019-01-24 20:21 | RAD ---
CHEST AP ONLY History: Chest pain Comparison: 06/22/2018 Findings: Single view of the chest is submitted. There is no infiltrate, pneumothorax, or effusion. The pericardial cardiac silhouette is within normal limits in size. Impression: 1. There is no radiographic evidence of acute cardiopulmonary disease. Electronically signed by: Darin Miller MD (01/24/2019 8:19 PM) [facility]
[2019-01-24 21:29] VITALS: BP 136/87
[2019-01-24] MEDS ORDERED: METH-37 PO (21:33)
--- NOTE | 2019-01-26 14:56 | EKG ---
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
== END 2019-01-24 21:45 | disposition left against medical advice (07) ==
LOC: ER 17:29
DX: R07.89 Other chest pain (principal); I10 Essential (primary) hypertension; Z87.442 Personal history of urinary calculi; Z88.8 Allergy status to other drugs, medicaments and biological substances
CPT/HCPCS: 36415; 71045; 80053; 83880; 84484; 85025; 85610; 93005; 99285-25

== ENCOUNTER 2019-03-18 00:23 | Emergency (ER) | payer SELFPAY ==
[~2019-03-18] VITALS: Ht 167.6 cm; Wt 120.2 kg
[2019-03-18] MEDS ORDERED: IPRATRPIUM/ALBUTEROL 0.5/2.5MG 3 ML NEBU. NEB ONE (01:00)
[2019-03-18 01:08] VITALS: BP 194/113
[2019-03-18] MEDS ORDERED: PRED50TA PO (01:14)
[2019-03-18] MEDS ORDERED: ALBU2.5V8 INH (01:14)
--- NOTE | 2019-03-18 03:33 | PHYS DOC ---
Past Medical History Past Medical History: Hypertension, Kidney Stone Additional Past Medical Histor: PE, Factor 5 Past Surgical History: Other Additional Past Surgical Histo: lithrotripsy Alcohol Use: None Drug Use: None Adult General Chief Complaint Chief Complaint: COUGH HPI HPI Patient is a 48 year old female who presents with cough 5 days clear sputum occasionally has coughing fits. Associated with runny nose no sore throat no fever just wanted to come in to get checked out. Really not having any chest pain or shortness of breath. He does have a prior history of PE but he is compliant with his anticoagulation which is Lindsey Mcadams Review of Systems Review of Systems Constitutional: Denies fever or chills [] Eyes: Denies change in visual acuity, redness, or eye pain [] Cardiovascular: No additional information not addressed in HPI [] GI: Denies abdominal pain, nausea, vomiting, bloody stools or diarrhea [] : Denies dysuria or hematuria [] Neurologic: Denies headache, focal weakness or sensory changes [] Endocrine: Denies polyuria or polydipsia [] All other systems were reviewed and found to be within normal limits, except as documented in this note. Current Medications Current Medications Current Medications Medications (Trade) Dose Ordered Sig/Ale Start Time Stop Time Status Last Admin Dose Admin Albuterol/ Ipratropium (Duoneb) 3 ml 1X ONCE 03/18/19 01:00 03/18/19 01:01 DC 03/18/19 01:06 3 ML Allergies Allergies Allergies Coded Allergies Type Severity Reaction Last Updated Verified nitroglycerin Adverse Reaction Intermediate LOC/SYNCOPE 04/07/17 Yes Physical Exam Physical Exam Constitutional: Well developed, well nourished, no acute distress, non-toxic appearance. []Obese but otherwise no apparent distress HENT: Normocephalic, atraumatic, bilateral external ears normal, oropharynx moist, no oral exudates, nose normal. [] Eyes: PERRLA, EOMI, conjunctiva normal, no discharge. [] Neck: Normal range of motion, no tenderness, supple, no stridor. [] Cardiovascular:Heart rate regular rhythm, no murmur [] Lungs & Thorax: Bilateral breath sounds clear to auscultation []lungs were essentially clear however there was a reactive component to the cough with deep breathing Abdomen: Bowel sounds normal, soft, no tenderness, no masses, no pulsatile masses. [] Skin: Warm, dry, no erythema, no rash. [] Back: No tenderness, no CVA tenderness. [] Extremities: No tenderness, no cyanosis, no clubbing, ROM intact, no edema. [] Neurologic: Alert and oriented X 3, normal motor function, normal sensory function, no focal deficits noted. [] Psychologic: Affect normal, judgement normal, mood normal. [] Current Patient Data Vital Signs Vital Signs Date Time Temp Pulse Resp B/P (MAP) Pulse Ox O2 Delivery O2 Flow Rate FiO2 03/18/19 01:09 100 Room Air 03/18/19 01:08 104 194/113 (140) 03/18/19 00:37 98.4 16 98.4 EKG EKG [] Radiology/Procedures Radiology/Procedures [] Course & Med Decision Making Course & Med Decision Making Pertinent Labs and Imaging studies reviewed. (See chart for details) []History of PE on Lindsey Abbe Patient is presenting with a cough has had a runny nose for 5 days cough with clear sputum there is a reactive component to the cough on clinical examination there really was no overt wheezing we did give her breathing treatment he felt better he said he really was not feeling short of breath and not having any chest pain my interpretation of chest x-ray was essentially negative acute there was a bit of a poor inspiration but I did not see any obvious pneumonia. Patient elevated blood pressure he knows about that she was advised for follow- up within 1 week prescription for prednisone and albuterol was provided recommended follow-up with primary care doctor if not improving return sooner for fever or shortness of breath or any new symptoms or concerns. I don't think the patient needs antibiotics I talked about this at this time. He will try an hzzx-fko-gjwmxsi agents such as Claritin for consideration of allergic rhinitis as well given his runny nose Dragon Disclaimer Dragon Disclaimer This electronic medical record was generated, in whole or in part, using a voice recognition dictation system. Departure Departure Impression: Primary Impression: Upper respiratory infection Disposition: HOME, SELF-CARE Condition: STABLE Referrals: UNKNOWN PCP NAME (PCP) Patient Instructions: Cough, Adult, Ybrc-be-[id number] Scripts Albuterol Sulfate (PROAIR HFA INHALER) 8.5 Gm Hfa.aer.ad 1 PUFF INH PRN Q6HRS PRN for SHORTNESS OF BREATH, #1 INHALER 0 Refills Prov: ELSIE GALLEGOS MD 03/18/19 Prednisone (PREDNISONE) 50 Mg Tablet 1 TAB PO DAILY, #5 TAB Prov: ELSIE GALLEGOS MD 03/18/19 ELSIE GALLEGOS MD Mar 18, 2019 03:33
--- NOTE | 2019-03-18 04:32 | RAD ---
AP portable chest radiograph 03/18/2019 Clinical History: Cough. An AP erect portable digital radiograph of the chest was obtained. Comparison study is dated 01/24/2019. The cardiac silhouette is normal in size. The thoracic aorta is mildly tortuous. No acute pulmonary infiltrate is seen. No pleural effusion or pneumothorax is noted. The osseous structures are unchanged. Impression: No acute abnormality is seen. Electronically signed by: Russel Phillip MD (03/18/2019 4:29 AM) [facility]
== END 2019-03-18 01:23 | disposition home or self-care (01) ==
LOC: ER 00:23
DX: J06.9 Acute upper respiratory infection, unspecified (principal); I10 Essential (primary) hypertension; Z87.442 Personal history of urinary calculi; Z88.8 Allergy status to other drugs, medicaments and biological substances; Z86.711 Personal history of pulmonary embolism
CPT/HCPCS: 71045; 94640; 99283; J7620

== ENCOUNTER 2019-03-27 00:14 | Emergency (ER) | payer SELFPAY ==
[~2019-03-27] VITALS: Ht 167.6 cm; Wt 122.5 kg
[~2019-03-27 00:14] MED LIST changes: +ALBU2.5V8 INH
[2019-03-27 01:07] VITALS: BP 131/79
[2019-03-27] MEDS ORDERED: AZIT250T PO (02:24)
--- NOTE | 2019-03-27 02:24 | PHYS DOC ---
Past Medical History Past Medical History: Hypertension, Kidney Stone Additional Past Medical Histor: PE, Factor 5 Past Surgical History: Other Additional Past Surgical Histo: lithrotripsy Alcohol Use: None Drug Use: None Adult General Chief Complaint Chief Complaint: Congestion HPI HPI Patient is a 48-year-old male who presents with complaint of 3 week history of cough and chest congestion. Patient states that he was seen here about 2 weeks ago and was given prednisone but states that he had no improvement in symptoms. He does admit to some sputum production with the cough. He denies any fever. Patient does indicate that he has a history of blood clot and is on Elaquis.[] Review of Systems Review of Systems Constitutional: Denies fever or chills [] Respiratory: Positive cough without shortness of breath [] Cardiovascular: No additional information not addressed in HPI [] Integument: Denies rash or skin lesions [] Neurologic: Denies headache, focal weakness or sensory changes [] Allergies Allergies Allergies Coded Allergies Type Severity Reaction Last Updated Verified nitroglycerin Adverse Reaction Intermediate LOC/SYNCOPE 04/07/17 Yes Physical Exam Physical Exam Constitutional: Well developed, well nourished, no acute distress, non-toxic appearance. [] Cardiovascular:Heart rate regular rhythm, no murmur [] Lungs & Thorax: Fine rhonchi are noted bilaterally to auscultation [] Extremities: No tenderness, no cyanosis, no clubbing, ROM intact, no edema. [] Neurologic: Alert and oriented X 3, no focal deficits noted. [] Current Patient Data Vital Signs Vital Signs Date Time Temp Pulse Resp B/P (MAP) Pulse Ox O2 Delivery O2 Flow Rate FiO2 03/27/19 01:07 97.9 82 16 131/79 (96) 99 Room Air 97.9 EKG EKG [] Radiology/Procedures Radiology/Procedures [] Course & Med Decision Making Course & Med Decision Making Pertinent Labs and Imaging studies reviewed. (See chart for details) [] Dragon Disclaimer Dragon Disclaimer This electronic medical record was generated, in whole or in part, using a voice recognition dictation system. Departure Departure Impression: Primary Impression: Acute bronchitis Disposition: HOME, SELF-CARE Condition: STABLE Referrals: UNKNOWN PCP NAME (PCP) Patient Instructions: Acute Bronchitis Scripts Azithromycin (ZITHROMAX) 250 Mg Tablet 1 PKG PO UD, #6 TAB Prov: SHAJI STEVENSON Jr. DO 03/27/19 Problem Qualifiers Primary Impression: Acute bronchitis Bronchitis organism: unspecified organism Qualified Codes: J20.9 - Acute bronchitis, unspecified SHAJI STEVENSON Jr. DO Mar 27, 2019 02:24
[2019-03-27] MEDS ORDERED: AZITHROMYCIN 250 MG TABLET. PO ONE (02:30)
--- NOTE | 2019-03-27 07:43 | RAD ---
EXAM: PA and Lateral Views of the Chest DATE: 03/27/2019 1:56 AM INDICATION: Cough COMPARISON: 03/18/2019, 01/24/2019 FINDINGS: The heart is not enlarged. Mediastinal and hilar contours are normal. No focal parenchymal airspace opacity. No pleural effusion or pneumothorax. IMPRESSION: 1. No radiographic evidence for acute cardiopulmonary process. Electronically signed by: George Young MD (03/27/2019 7:40 AM) [facility]
== END 2019-03-27 02:45 | disposition home or self-care (01) ==
LOC: ER 00:14
DX: J20.9 Acute bronchitis, unspecified (principal); I10 Essential (primary) hypertension; Z87.442 Personal history of urinary calculi; Z88.8 Allergy status to other drugs, medicaments and biological substances
CPT/HCPCS: 71046; 99284; Q0144

== ENCOUNTER 2019-05-22 17:12 | Emergency (ER) | payer SELFPAY ==
[~2019-05-22] VITALS: Ht 167.6 cm; Wt 127.0 kg
--- NOTE | 2019-05-22 18:14 | PHYS DOC ---
Past Medical History Past Medical History: Hypertension, Kidney Stone Additional Past Medical Histor: PE, Factor 5 (MCKENZIE THAO APRN) Past Surgical History: Other Additional Past Surgical Histo: lithrotripsy (MCKENZIE THAO APRN) Alcohol Use: None Drug Use: None (MCKENZIE THAO APRN) Adult General Chief Complaint Chief Complaint: DIZZY/LIGHT HEADED [facility] HPI Patient is a 49 year old male who presents with lightheadedness for 5 days and intermittent shortness of breath. The patient is a history of pulmonary embolus. He is on Eliquis for this. Also has a history of hypertension. Hasn't taken amlodipine after taking it he says sometimes he feels the dizziness more than other times. Denies any other symptoms. (MCKENZIE THAO APRN) Review of Systems Review of Systems Constitutional: Reports dizziness. Denies fever or chills [] Eyes: Denies change in visual acuity, redness, or eye pain [] HENT: Denies nasal congestion or sore throat [] Respiratory: Reports shortness of breath [] Cardiovascular: No additional information not addressed in HPI [] GI: Denies abdominal pain, nausea, vomiting, bloody stools or diarrhea [] : Denies dysuria or hematuria [] Musculoskeletal: Denies back pain or joint pain [] Integument: Denies rash or skin lesions [] Neurologic: Denies headache, focal weakness or sensory changes [] Endocrine: Denies polyuria or polydipsia [] Complete systems were reviewed and found to be within normal limits, except as documented in this note. (MCKENZIE THAO APRN) Allergies Allergies Allergies Coded Allergies Type Severity Reaction Last Updated Verified nitroglycerin Adverse Reaction Intermediate LOC/SYNCOPE 04/07/17 Yes (MCKENZIE RAMSAY DO) Physical Exam Physical Exam Constitutional: Well developed, well nourished, no acute distress, non-toxic appearance. [] HENT: Normocephalic, atraumatic, bilateral external ears normal, oropharynx moist, no oral exudates, nose normal. [] Eyes: PERRLA, EOMI, conjunctiva normal, no discharge. [] Neck: Normal range of motion, no tenderness, supple, no stridor. [] Cardiovascular:Heart rate regular rhythm, no murmur [] Lungs & Thorax: Bilateral breath sounds clear to auscultation [] Abdomen: Bowel sounds normal, soft, no tenderness, no masses, no pulsatile masses. [] Skin: Warm, dry, no erythema, no rash. [] Back: No tenderness, no CVA tenderness. [] Extremities: No tenderness, no cyanosis, no clubbing, ROM intact, no edema. [] Neurologic: Alert and oriented X 3, normal motor function, normal sensory function, no focal deficits noted. [] Psychologic: Affect normal, judgement normal, mood normal. [] (MCKENZIE THAO APRN) Current Patient Data Vital Signs Vital Signs Date Time Temp Pulse Resp B/P (MAP) Pulse Ox O2 Delivery O2 Flow Rate FiO2 05/22/19 19:15 84 97 05/22/19 18:00 97.9 20 119/69 (86) Room Air 97.9 (RAMSAY,MCKENZIE Ferro DO) Lab Values Laboratory Tests Test 05/22/19 18:20 White Blood Count 7.2 x10^3/uL (4.0-11.0) Red Blood Count 4.34 x10^6/uL (4.30-5.70) Hemoglobin 13.3 g/dL (13.0-17.5) Hematocrit 38.7 % (39.0-53.0) L Mean Corpuscular Volume 89 fL (79-100) Mean Corpuscular Hemoglobin 31 pg (25-35) Mean Corpuscular Hemoglobin Concent 34 g/dL (31-37) Red Cell Distribution Width 14.9 % (11.5-14.5) H Platelet Count 290 x10^3/uL (140-400) Neutrophils (%) (Auto) 55 % (31-73) Lymphocytes (%) (Auto) 35 % (24-48) Monocytes (%) (Auto) 8 % (0-9) Eosinophils (%) (Auto) 2 % (0-3) Basophils (%) (Auto) 1 % (0-3) Neutrophils # (Auto) 3.9 x10^3/uL (1.8-7.7) Lymphocytes # (Auto) 2.5 x10^3/uL (1.0-4.8) Monocytes # (Auto) 0.6 x10^3/uL (0.0-1.1) Eosinophils # (Auto) 0.1 x10^3/uL (0.0-0.7) Basophils # (Auto) 0.1 x10^3/uL (0.0-0.2) D-Dimer (Kzeia) < 0.27 ug/mlFEU Sodium Level 140 mmol/L (136-145) Potassium Level 3.8 mmol/L (3.5-5.1) Chloride Level 106 mmol/L (98-107) Carbon Dioxide Level 27 mmol/L (21-32) Anion Gap 7 (6-14) Blood Urea Nitrogen 14 mg/dL (8-26) Creatinine 1.1 mg/dL (0.7-1.3) Estimated GFR (Cockcroft-Gault) 86.4 BUN/Creatinine Ratio 13 (6-20) Glucose Level 103 mg/dL (70-99) H Calcium Level 9.5 mg/dL (8.5-10.1) Total Bilirubin 0.3 mg/dL (0.2-1.0) Aspartate Amino Transferase (AST) 16 U/L (15-37) Alanine Aminotransferase (ALT) 17 U/L (16-63) Alkaline Phosphatase 55 U/L (46-116) Troponin I Quantitative < 0.017 ng/mL (0.000-0.055) Total Protein 7.6 g/dL (6.4-8.2) Albumin 3.5 g/dL (3.4-5.0) Albumin/Globulin Ratio 0.9 (1.0-1.7) L Laboratory Tests 05/22/19 18:20 Laboratory Tests 05/22/19 18:20 (MCKENZIE RAMSAY DO) Lab Values Laboratory Tests Test 05/22/19 18:20 White Blood Count 7.2 x10^3/uL (4.0-11.0) Red Blood Count 4.34 x10^6/uL (4.30-5.70) Hemoglobin 13.3 g/dL (13.0-17.5) Hematocrit 38.7 % (39.0-53.0) L Mean Corpuscular Volume 89 fL (79-100) Mean Corpuscular Hemoglobin 31 pg (25-35) Mean Corpuscular Hemoglobin Concent 34 g/dL (31-37) Red Cell Distribution Width 14.9 % (11.5-14.5) H Platelet Count 290 x10^3/uL (140-400) Neutrophils (%) (Auto) 55 % (31-73) Lymphocytes (%) (Auto) 35 % (24-48) Monocytes (%) (Auto) 8 % (0-9) Eosinophils (%) (Auto) 2 % (0-3) Basophils (%) (Auto) 1 % (0-3) Neutrophils # (Auto) 3.9 x10^3/uL (1.8-7.7) Lymphocytes # (Auto) 2.5 x10^3/uL (1.0-4.8) Monocytes # (Auto) 0.6 x10^3/uL (0.0-1.1) Eosinophils # (Auto) 0.1 x10^3/uL (0.0-0.7) Basophils # (Auto) 0.1 x10^3/uL (0.0-0.2) D-Dimer (Kezia) < 0.27 ug/mlFEU Sodium Level 140 mmol/L (136-145) Potassium Level 3.8 mmol/L (3.5-5.1) Chloride Level 106 mmol/L (98-107) Carbon Dioxide Level 27 mmol/L (21-32) Anion Gap 7 (6-14) Blood Urea Nitrogen 14 mg/dL (8-26) Creatinine 1.1 mg/dL (0.7-1.3) Estimated GFR (Cockcroft-Gault) 86.4 BUN/Creatinine Ratio 13 (6-20) Glucose Level 103 mg/dL (70-99) H Calcium Level 9.5 mg/dL (8.5-10.1) Total Bilirubin 0.3 mg/dL (0.2-1.0) Aspartate Amino Transferase (AST) 16 U/L (15-37) Alanine Aminotransferase (ALT) 17 U/L (16-63) Alkaline Phosphatase 55 U/L (46-116) Troponin I Quantitative < 0.017 ng/mL (0.000-0.055) Total Protein 7.6 g/dL (6.4-8.2) Albumin 3.5 g/dL (3.4-5.0) Albumin/Globulin Ratio 0.9 (1.0-1.7) L Laboratory Tests 05/22/19 18:20 Laboratory Tests 05/22/19 18:20 (MCKENZIE THAO APRN) EKG EKG EKG interpreted by Dr. Ramsay Sinus rate of 90, NO STEMI.[] (MCKENZIE THAO APRN) Radiology/Procedures Radiology/Procedures Chest x-ray interpreted by Dr. Ramsay No acute abnormalities.[] [facility] [address] [place] [address] IMAGING REPORT Signed PATIENT: HEATHER HIRSCH ACCOUNT: [id number] : 1970 LOCATION: ER AGE: 49 SEX: M EXAM STATUS: REG ER ORD. PHYSICIAN: MCKENZIE THAO APRN REASON: dizziness PROCEDURE: CT HEAD WO CONTRAST Examination: CT HEAD WO CONTRAST History: Dizziness Comparison/Correlation: 10/18/2014 CT head without contrast Findings: Axial images of the head routine without contrast. Ventricles are normal size. No intracranial hemorrhage, midline shift, or mass effect. Bony structures are unremarkable. Calcific involvement of the cavernous carotid arteries noted. Impression: No suspicious process. PQRS Compliance Statement: One or more of the following individualized dose reduction techniques were utilized for this examination: 1. Automated exposure control 2. Adjustment of the mA and/or kV according to patient size 3. Use of iterative reconstruction technique Electronically signed by: Cecilio Sen MD (05/22/2019 6:57 PM) [facility] DICTATED and SIGNED BY: CECILIO SEN MD DATE: 05/22/191856 (MCKENZIE THAO APRN) Course & Med Decision Making Course & Med Decision Making Pertinent Labs and Imaging studies reviewed. (See chart for details) Will get chest x-ray, labs, CT head, ekg. Labs, EKG, and imaging are unremarkable. Will d/c home to follow up with Primary Care Provider. (MCKENZIE THAO APRN) Dragon Disclaimer Dragon Disclaimer This electronic medical record was generated, in whole or in part, using a voice recognition dictation system. (MCKENZIE THAO APRN) Departure Departure Impression: Primary Impression: Dizziness Disposition: 01 HOME, SELF-CARE Condition: STABLE Referrals: UNKNOWN PCP NAME (PCP) Patient Instructions: Dizziness Additional Instructions: Thank you for visiting [facility]. We appreciate you trusting us with your care. If any additional problems come up don't hesitate to return to visit us. Please follow up with your primary care provider so they can plan additional care if needed and know about the problem that you had. If symptoms worsen come back to the Emergency Department. Any concerning symptoms that start such as chest pain, shortness of air, weakness or numbness on one side of the body, running high fevers or any other concerning symptoms return to the ER. Attending Signature Attending Signature I have reviewed the PA/SENIOR INTEGRATION DEVELOPER's note and plan of care. I was available for consultation as needed during the patient's visit in the emergency department. I agree with the clinical impression, plan, and disposition. (MCKENZIE RAMSAY DO) MCKENZIE THAO APRN May 22, 2019 18:14 MCKENZIE RAMSAY DO May 23, 2019 07:28
[2019-05-22 18:34] LABS: BASO # 0.1 x10^3/uL (0.0-0.2); BASO % 1 % (0-3); EOS # 0.1 x10^3/uL (0.0-0.7); EOS % 2 % (0-3); HEMATOCRIT 38.7 % (39.0-53.0); HEMOGLOBIN 13.3 g/dL (13.0-17.5); LYMPH # 2.5 x10^3/uL (1.0-4.8); LYMPH % 35 % (24-48); MEAN CORPUSCULAR HEMOGLOBIN 31 pg (25-35); MEAN CORPUSCULAR HGB CONC 34 g/dL (31-37); MEAN CORPUSCULAR VOLUME 89 fL (79-100); MONO # 0.6 x10^3/uL (0.0-1.1); MONO % 8 % (0-9); NEUT # 3.9 x10^3/uL (1.8-7.7); NEUT % 55 % (31-73); PLATELET COUNT 290 x10^3/uL (140-400); RED BLOOD COUNT 4.34 x10^6/uL (4.30-5.70); RED CELL DISTRIBUTION WIDTH 14.9 % (11.5-14.5); WHITE BLOOD COUNT 7.2 x10^3/uL (4.0-11.0)
[2019-05-22 18:42] LABS: CALCIUM 9.5 mg/dL (8.5-10.1); CREATININE 1.1 mg/dL (0.7-1.3); GFR 86.4; POTASSIUM 3.8 mmol/L (3.5-5.1)
[2019-05-22 18:47] LABS: ALBUMIN 3.5 g/dL (3.4-5.0); ALBUMIN/GLOBULIN RATIO 0.9 (1.0-1.7); TOTAL BILIRUBIN 0.3 mg/dL (0.2-1.0); TOTAL PROTEIN 7.6 g/dL (6.4-8.2)
--- NOTE | 2019-05-22 19:00 | RAD ---
Examination: CT HEAD WO CONTRAST History: Dizziness Comparison/Correlation: 10/18/2014 CT head without contrast Findings: Axial images of the head routine without contrast. Ventricles are normal size. No intracranial hemorrhage, midline shift, or mass effect. Bony structures are unremarkable. Calcific involvement of the cavernous carotid arteries noted. Impression: No suspicious process. PQRS Compliance Statement: One or more of the following individualized dose reduction techniques were utilized for this examination: 1. Automated exposure control 2. Adjustment of the mA and/or kV according to patient size 3. Use of iterative reconstruction technique Electronically signed by: Cecilio Tamayo MD (05/22/2019 6:57 PM) [facility]
[2019-05-22 19:15] VITALS: BP 137/64
--- NOTE | 2019-05-23 00:14 | RAD ---
CHEST PA LATERAL History: Dizziness Comparison: 03/27/2019 two-view chest x-ray exam. Findings: PA and lateral views of chest were obtained. Limited pulmonary inflation noted. The cardiomediastinal silhouette is normal. Pulmonary vasculature is normal. The lungs are clear. No pleural effusion or pneumothorax is seen. There is no acute bone abnormality. IMPRESSION: No acute cardiopulmonary process. Electronically signed by: Cecilio Tamayo MD (05/23/2019 12:11 AM) [facility]
--- NOTE | 2019-05-23 06:22 | EKG ---
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
== END 2019-05-22 19:35 | disposition home or self-care (01) ==
LOC: ER 17:12
DX: R42 Dizziness and giddiness (principal); R06.02 Shortness of breath; I10 Essential (primary) hypertension; Z87.442 Personal history of urinary calculi; Z86.711 Personal history of pulmonary embolism; Z88.8 Allergy status to other drugs, medicaments and biological substances
CPT/HCPCS: 36415; 70450; 71046; 80053; 84484; 85025; 85379; 93005; 99285-25

== ENCOUNTER 2019-06-21 16:58 | Emergency (ER) | payer OTHER ==
[~2019-06-21] VITALS: Ht 167.6 cm; Wt 122.5 kg
--- NOTE | 2019-06-21 17:59 | PHYS DOC ---
Past Medical History Past Medical History: Hypertension, Kidney Stone Additional Past Medical Histor: PE, Factor 5 (JULIA MICHAUD APRN) Past Surgical History: Other Additional Past Surgical Histo: lithrotripsy (JULIA MICHAUD APRN) Alcohol Use: None Drug Use: None (JULIA MICHAUD APRN) Adult General Chief Complaint Chief Complaint: CHEST PAIN HPI HPI Patient is a 49 year old male who presents with right upper chest, left mid chest pain is sharp and stabbing and comes and goes. Patient states when the pain starts to 7 out of 10. Patient states is been going on for last 4 days. Patient denies any shortness of breath. Patient states that also been getting headaches his temp oral region for last 4-5 days and they occur 4-5 times a day. Patient states he has no history of headaches or migraines. Patient rates the throbbing pain a 5 out of 10. (JULIA MICHAUD APRN) Review of Systems Review of Systems Cardiovascular: Pain Neurologic: headache, denies focal weakness or sensory changes [] All other systems were reviewed and found to be within normal limits, except as documented in this note. (JULIA MICHAUD APRN) Current Medications Current Medications Current Medications Medications (Trade) Dose Ordered Sig/Ale Start Time Stop Time Status Last Admin Dose Admin Aspirin (Rickie Aspirin) 325 mg 1X ONCE 06/21/19 18:00 06/21/19 18:01 DC 06/21/19 18:42 325 MG Ketorolac Tromethamine (Toradol 30mg Vial) 30 mg STK-MED ONCE 06/21/19 23:59 06/22/19 00:00 DC (LESIE COLÓN MD) Allergies Allergies Allergies Coded Allergies Type Severity Reaction Last Updated Verified nitroglycerin Adverse Reaction Intermediate LOC/SYNCOPE 04/07/17 Yes (ELSIE COLÓN MD) Physical Exam Physical Exam Constitutional: Well developed, well nourished, no acute distress, non-toxic appearance. [] HENT: Normocephalic, atraumatic, bilateral external ears normal, oropharynx moist, no oral exudates, nose normal. [] Eyes: PERRLA, EOMI, conjunctiva normal, no discharge. [] Neck: Normal range of motion, no tenderness, supple, no stridor. [] Cardiovascular:Heart rate regular rhythm, no murmur [] Lungs & Thorax: Bilateral breath sounds clear to auscultation [] Skin: Warm, dry, no erythema, no rash. [] Back: No tenderness, no CVA tenderness. [] Extremities: No tenderness, no cyanosis, no clubbing, ROM intact, no edema. [] Neurologic: Alert and oriented X 3, normal motor function, normal sensory function, no focal deficits noted. [] Psychologic: Affect normal, judgement normal, mood normal. [] (JULIA MICHAUD APRN) Current Patient Data Vital Signs Vital Signs Date Time Temp Pulse Resp B/P (MAP) Pulse Ox O2 Delivery O2 Flow Rate FiO2 06/21/19 20:30 84 20 131/91 (104) 97 Room Air 06/21/19 17:15 98.6 98.6 (ELSIE COLÓN MD) Lab Values Laboratory Tests Test 06/21/19 18:40 06/21/19 19:00 06/21/19 21:15 White Blood Count 6.9 x10^3/uL (4.0-11.0) Red Blood Count 4.64 x10^6/uL (4.30-5.70) Hemoglobin 13.7 g/dL (13.0-17.5) Hematocrit 41.5 % (39.0-53.0) Mean Corpuscular Volume 89 fL (79-100) Mean Corpuscular Hemoglobin 30 pg (25-35) Mean Corpuscular Hemoglobin Concent 33 g/dL (31-37) Red Cell Distribution Width 14.7 % (11.5-14.5) H Platelet Count 289 x10^3/uL (140-400) Neutrophils (%) (Auto) 51 % (31-73) Lymphocytes (%) (Auto) 36 % (24-48) Monocytes (%) (Auto) 10 % (0-9) H Eosinophils (%) (Auto) 2 % (0-3) Basophils (%) (Auto) 1 % (0-3) Neutrophils # (Auto) 3.5 x10^3/uL (1.8-7.7) Lymphocytes # (Auto) 2.4 x10^3/uL (1.0-4.8) Monocytes # (Auto) 0.7 x10^3/uL (0.0-1.1) Eosinophils # (Auto) 0.1 x10^3/uL (0.0-0.7) Basophils # (Auto) 0.1 x10^3/uL (0.0-0.2) D-Dimer (Kezia) < 0.27 ug/mlFEU Sodium Level 140 mmol/L (136-145) Potassium Level 3.8 mmol/L (3.5-5.1) Chloride Level 103 mmol/L (98-107) Carbon Dioxide Level 30 mmol/L (21-32) Anion Gap 7 (6-14) Blood Urea Nitrogen 13 mg/dL (8-26) Creatinine 1.0 mg/dL (0.7-1.3) Estimated GFR (Cockcroft-Gault) 96.5 BUN/Creatinine Ratio 13 (6-20) Glucose Level 96 mg/dL (70-99) Calcium Level 9.5 mg/dL (8.5-10.1) Total Bilirubin 0.4 mg/dL (0.2-1.0) Aspartate Amino Transferase (AST) 17 U/L (15-37) Alanine Aminotransferase (ALT) 18 U/L (16-63) Alkaline Phosphatase 57 U/L (46-116) Troponin I Quantitative < 0.017 ng/mL (0.000-0.055) < 0.017 ng/mL (0.000-0.055) Total Protein 8.0 g/dL (6.4-8.2) Albumin 3.9 g/dL (3.4-5.0) Albumin/Globulin Ratio 1.0 (1.0-1.7) Lipase 140 U/L (73-393) Urine Opiates Screen Neg (NEG) Urine Methadone Screen Neg (NEG) Urine Barbiturates Neg (NEG) Urine Phencyclidine Screen Neg (NEG) Urine Amphetamine/Methamphetamine Neg (NEG) Urine Benzodiazepines Screen Neg (NEG) Urine Cocaine Screen Neg (NEG) Urine Cannabinoids Screen Neg (NEG) Urine Ethyl Alcohol Neg (NEG) Laboratory Tests 06/21/19 18:40 Laboratory Tests 06/21/19 18:40 (ELSIE COLÓN MD) Lab Values Laboratory Tests Test 06/21/19 18:40 06/21/19 19:00 06/21/19 21:15 White Blood Count 6.9 x10^3/uL (4.0-11.0) Red Blood Count 4.64 x10^6/uL (4.30-5.70) Hemoglobin 13.7 g/dL (13.0-17.5) Hematocrit 41.5 % (39.0-53.0) Mean Corpuscular Volume 89 fL (79-100) Mean Corpuscular Hemoglobin 30 pg (25-35) Mean Corpuscular Hemoglobin Concent 33 g/dL (31-37) Red Cell Distribution Width 14.7 % (11.5-14.5) H Platelet Count 289 x10^3/uL (140-400) Neutrophils (%) (Auto) 51 % (31-73) Lymphocytes (%) (Auto) 36 % (24-48) Monocytes (%) (Auto) 10 % (0-9) H Eosinophils (%) (Auto) 2 % (0-3) Basophils (%) (Auto) 1 % (0-3) Neutrophils # (Auto) 3.5 x10^3/uL (1.8-7.7) Lymphocytes # (Auto) 2.4 x10^3/uL (1.0-4.8) Monocytes # (Auto) 0.7 x10^3/uL (0.0-1.1) Eosinophils # (Auto) 0.1 x10^3/uL (0.0-0.7) Basophils # (Auto) 0.1 x10^3/uL (0.0-0.2) D-Dimer (Kezia) < 0.27 ug/mlFEU Sodium Level 140 mmol/L (136-145) Potassium Level 3.8 mmol/L (3.5-5.1) Chloride Level 103 mmol/L (98-107) Carbon Dioxide Level 30 mmol/L (21-32) Anion Gap 7 (6-14) Blood Urea Nitrogen 13 mg/dL (8-26) Creatinine 1.0 mg/dL (0.7-1.3) Estimated GFR (Cockcroft-Gault) 96.5 BUN/Creatinine Ratio 13 (6-20) Glucose Level 96 mg/dL (70-99) Calcium Level 9.5 mg/dL (8.5-10.1) Total Bilirubin 0.4 mg/dL (0.2-1.0) Aspartate Amino Transferase (AST) 17 U/L (15-37) Alanine Aminotransferase (ALT) 18 U/L (16-63) Alkaline Phosphatase 57 U/L (46-116) Troponin I Quantitative < 0.017 ng/mL (0.000-0.055) < 0.017 ng/mL (0.000-0.055) Total Protein 8.0 g/dL (6.4-8.2) Albumin 3.9 g/dL (3.4-5.0) Albumin/Globulin Ratio 1.0 (1.0-1.7) Lipase 140 U/L (73-393) Urine Opiates Screen Neg (NEG) Urine Methadone Screen Neg (NEG) Urine Barbiturates Neg (NEG) Urine Phencyclidine Screen Neg (NEG) Urine Amphetamine/Methamphetamine Neg (NEG) Urine Benzodiazepines Screen Neg (NEG) Urine Cocaine Screen Neg (NEG) Urine Cannabinoids Screen Neg (NEG) Urine Ethyl Alcohol Neg (NEG) Laboratory Tests 06/21/19 18:40 Laboratory Tests 06/21/19 18:40 (JULIA MICHAUD APRN) EKG EKG Sinus Rhythm with nonspecific T changes. Interpretation Time: [address] Colón (JULIA MICHAUD APRN) Radiology/Procedures Radiology/Procedures [] (JULIA MICHAUD APRN) Impressions: [facility] [address] [place] [address] IMAGING REPORT Signed PATIENT: HEATHER HIRSCH ACCOUNT: [id number] : 1970 LOCATION: ER AGE: 49 SEX: M EXAM STATUS: PRE ER ORD. PHYSICIAN: JULIA MICHAUD APRN REASON: HEADACHE PROCEDURE: CT HEAD WO CONTRAST Chest radiograph 06/21/2019 5:23 PM INDICATION: Headache COMPARISON: Chest radiograph 05/22/2019 TECHNIQUE: Frontal and lateral views of the chest are provided. FINDINGS: The cardiomediastinal silhouette is within normal limits. There are no pleural effusions. There is no pulmonary vascular congestion. There is no pneumothorax. The lungs are clear. No significant osseous abnormality is identified. IMPRESSION: No acute cardiopulmonary process. PQRS Compliance Statement: One or more of the following individualized dose reduction techniques were utilized for this examination: 1. Automated exposure control 2. Adjustment of the mA and/or kV according to patient size 3. Use of iterative reconstruction technique CT head without contrast 06/21/2019 5:23 PM INDICATION: Headache COMPARISON: CT head 05/22/2019 TECHNIQUE: Multiple axial CT images of the head were obtained from skull base through the vertex without intravenous contrast. FINDINGS: Head: Ventricles, sulci and basal cisterns are within normal limits. There is no hydrocephalus. James-white matter differentiation is normal. There is no acute intracranial hemorrhage. There is no mass, mass effect or midline shift. Posterior fossa is normal in appearance. Visualized portions of the orbits are normal. Paranasal sinuses are well aerated. Mastoid air cells are well aerated. Scalp and calvaria are normal. IMPRESSION: No acute intracranial hemorrhage. Electronically signed by: Kathia Vivas MD (06/21/2019 6:31 PM) [facility] DICTATED and SIGNED BY: KATHIA VIVAS MD DATE: 06/21/191830 (JULIA MICHAUD APRN) Course & Med Decision Making Course & Med Decision Making Patient currently has no headache and no chest pain. Patient denies shortness of air, dizziness, numbness or tingling, visual changes, abdominal pain, nausea, vomiting, photophobia, focal weaknesses. Alert and oriented. Ambulatory to stay gait. No extremity swelling. Lungs are clear to auscultation all lobes. Skin pink warm and dry. PERRLA. Negative NIH. Patient denies radiation of the chest pain when it occurs. Patient states he was recently changed to hydrochlorothiazide for his blood pressure from amlodipine. Patient has a history of hypertension, PE, factor V, kidney stones. The pain is not reproducible with palpation to the chest. Speaks in full clear sentences. Blood work is unremarkable. EKG is no acute findings. Heart score 2. Patient to follow up with primary care provider. (JULIA MICHAUD APRN) Course & Med Decision Making Staff Physician Addendum: I was working in the ER during the course of this patient's visit. I was rebeca ilable for consultation as needed, but I was not directly involved in the care of this patient. (ELSIE COLÓN MD) Dragon Disclaimer Dragon Disclaimer This electronic medical record was generated, in whole or in part, using a voice recognition dictation system. (JULIA MICHAUD APRN) The HEART Score for CP Pts HEART Score for Chest Pain: HEART Score for Chest Pain Response (Comments) Value History Slighlty/Non-Suspicious 0 ECG Normal 0 Age >45 - < 65 1 Risk Factors 1 or 2 Risk Factors 1 Troponin < Normal Limit 0 Total 2 Risk Factors: Risk Factors: DM, Current or recent (<one month) smoker, HTN, HLP, family history of CAD, obesity. Risk Scores: Score 0 - 3: 2.5% MACE over next 6 weeks - Discharge Home Score 4 - 6: 20.3% MACE over next 6 weeks - Admit for Clinical Observation Score 7 - 10: 72.7% MACE over next 6 weeks - Early Invasive Strategies (JULIA MICHAUD APRN) NIHSS Stroke Scale NIH Stroke Scale: NIH Stroke Scale Response (Comments) Value Level of Consciousness: 0 Alert/Responsive 0 LOC Questions: 0 Answers both correctly 0 LOC Commands: 0 Performs both tasks 0 Best Gaze: 0 Normal 0 Visual: 0 No visual loss 0 Facial Palsy: 0 Normal, symmetrical 0 Motor - Left Arm 0 No drift 0 Motor - Right Arm 0 No drift 0 Motor - Left Leg 0 No drift 0 Motor: Right Leg 0 No drift 0 Limb Ataxia: 0 Absent 0 Sensory: 0 No loss 0 Best Language: 0 Normal 0 Dysathria: 0 Normal 0 Extinction and Inattention: 0 Normal 0 Total 0 Departure Departure Impression: Primary Impression: Chest pain Additional Impression: Headache Disposition: 01 HOME, SELF-CARE Condition: STABLE Referrals: UNKNOWN PCP NAME (PCP) Patient Instructions: Chest Pain (Nonspecific), General Headache Without Cause Additional Instructions: FOLLOW UP WITH PRIMARY CARE PROVIDER. TAKE MEDICATIONS PRESCRIBED. Problem Qualifiers Primary Impression: Chest pain Chest pain type: unspecified Qualified Codes: R07.9 - Chest pain, unspecified Additional Impression: Headache Headache type: tension-type Headache chronicity pattern: unspecified benoit clover Intractability: not intractable Qualified Codes: G44.209 - Tension- type headache, unspecified, not intractable JULIA MICHAUD APRN Jun 21, 2019 17:59 ELSIE COLÓN MD Jun 22, 2019 16:36
[2019-06-21] MEDS ORDERED: ASPIRIN 325 MG TABLET PO ONE (18:00)
--- NOTE | 2019-06-21 18:33 | RAD ---
Chest radiograph 06/21/2019 5:23 PM INDICATION: Headache COMPARISON: Chest radiograph 05/22/2019 TECHNIQUE: Frontal and lateral views of the chest are provided. FINDINGS: The cardiomediastinal silhouette is within normal limits. There are no pleural effusions. There is no pulmonary vascular congestion. There is no pneumothorax. The lungs are clear. No significant osseous abnormality is identified. IMPRESSION: No acute cardiopulmonary process. RS Compliance Statement: One or more of the following individualized dose reduction techniques were utilized for this examination: 1. Automated exposure control 2. Adjustment of the mA and/or kV according to patient size 3. Use of iterative reconstruction technique CT head without contrast 06/21/2019 5:23 PM INDICATION: Headache COMPARISON: CT head 05/22/2019 TECHNIQUE: Multiple axial CT images of the head were obtained from skull base through the vertex without intravenous contrast. FINDINGS: Head: Ventricles, sulci and basal cisterns are within normal limits. There is no hydrocephalus. James-white matter differentiation is normal. There is no acute intracranial hemorrhage. There is no mass, mass effect or midline shift. Posterior fossa is normal in appearance. Visualized portions of the orbits are normal. Paranasal sinuses are well aerated. Mastoid air cells are well aerated. Scalp and calvaria are normal. IMPRESSION: No acute intracranial hemorrhage. Electronically signed by: Emmy Evans MD (06/21/2019 6:31 PM) [facility]
[2019-06-21 18:48] LABS: BASO # 0.1 x10^3/uL (0.0-0.2); BASO % 1 % (0-3); EOS # 0.1 x10^3/uL (0.0-0.7); EOS % 2 % (0-3); HEMATOCRIT 41.5 % (39.0-53.0); HEMOGLOBIN 13.7 g/dL (13.0-17.5); LYMPH # 2.4 x10^3/uL (1.0-4.8); LYMPH % 36 % (24-48); MEAN CORPUSCULAR HEMOGLOBIN 30 pg (25-35); MEAN CORPUSCULAR HGB CONC 33 g/dL (31-37); MEAN CORPUSCULAR VOLUME 89 fL (79-100); MONO # 0.7 x10^3/uL (0.0-1.1); MONO % 10 % (0-9); NEUT # 3.5 x10^3/uL (1.8-7.7); NEUT % 51 % (31-73); PLATELET COUNT 289 x10^3/uL (140-400); RED BLOOD COUNT 4.64 x10^6/uL (4.30-5.70); RED CELL DISTRIBUTION WIDTH 14.7 % (11.5-14.5); WHITE BLOOD COUNT 6.9 x10^3/uL (4.0-11.0)
[2019-06-21 19:05] LABS: CALCIUM 9.5 mg/dL (8.5-10.1); GFR 96.5; POTASSIUM 3.8 mmol/L (3.5-5.1)
[2019-06-21 19:09] LABS: ALBUMIN 3.9 g/dL (3.4-5.0); TOTAL BILIRUBIN 0.4 mg/dL (0.2-1.0)
[2019-06-21 19:25] LABS: AMPHETAMINE/METHAMPHETAMINE NEG (NEG); BARBITURATES NEG (NEG); BENZODIAZEPINES NEG (NEG); CANNABINOIDS NEG (NEG); COCAINE NEG (NEG); METHADONE NEG (NEG); OPIATES NEG (NEG); PHENCYCLIDINE NEG (NEG)
[2019-06-21 20:30] VITALS: BP 131/91
[2019-06-21] MEDS ORDERED: KETOROLAC 30 MG/ML VIAL. ONE (23:59)
--- NOTE | 2019-06-23 08:03 | EKG ---
[facility] [address] [place] [address] Test Date: 2019-06-21 Test Time: 17:04:35 Pat Name: HEATHER HIRSCH Department: Room: Gender: M Hand Former: : 1970 Requested By: JULIA MICHAUD Order Number: [id number] Reading MD: Measurements Intervals [place] Rate: 91 P: 39 IL: 150 QRS: -1 QRSD: 88 T: -52 QT: 324 QTc: 400 Interpretive Statements SINUS RHYTHM LEFTWARD AXIS NON SPECIFIC T ABNORMALITY BORDERLINE ECG No previous ECG available for comparison
== END 2019-06-21 21:44 | disposition home or self-care (01) ==
LOC: ER 16:58
DX: R07.89 Other chest pain (principal); G44.209 Tension-type headache, unspecified, not intractable; I10 Essential (primary) hypertension; Z79.82 Long term (current) use of aspirin; Z87.442 Personal history of urinary calculi; Z88.8 Allergy status to other drugs, medicaments and biological substances
CPT/HCPCS: 36415; 70450; 71046; 80053; 80307; 83690; 84484; 85025; 85379; 93005; 99285-25

== ENCOUNTER 2019-08-13 11:18 | Emergency (ER) | payer OTHER ==
[~2019-08-13] VITALS: Ht 167.6 cm; Wt 122.5 kg
[2019-08-13 11:39] VITALS: BP 125/82
--- NOTE | 2019-08-13 11:53 | PHYS DOC ---
Past Medical History Past Medical History: No Pertinent History, Hypertension, Kidney Stone Additional Past Medical Histor: PE, Factor 5 Past Surgical History: Other Additional Past Surgical Histo: lithrotripsy Alcohol Use: None Drug Use: None Adult General Chief Complaint Chief Complaint: SORE THROAT HPI HPI She is a 41-year-old male presents for limitation sore throat. Onset 3 days ago. [facility], diagnosed with influenza. No antivirals prescribed. He noted a scratchy/sore throat at that time. I ncreasing sore throat for the last few days. Now has pain swallowing but is able to do so without functional deficit. Reports general malaise, myalgias, lightheadedness, subjective fever. Denies cough and congestion. No dyspnea. No abdominal pain. No vomiting. Nonbloody diarrhea. Report of strep contacts. No other concerns at this time Review of Systems Review of Systems Constitutional: Denies fever or chills [] Eyes: Denies change in visual acuity, redness, or eye pain [] HENT: As above[] Respiratory: Denies cough or shortness of breath [] Cardiovascular: No additional information not addressed in HPI [] GI: Denies abdominal pain, nausea, vomiting, bloody stools or diarrhea [] : Denies dysuria or hematuria [] Musculoskeletal: Denies back pain or joint pain [] Integument: Denies rash or skin lesions [] Neurologic: Denies headache, focal weakness or sensory changes [] Endocrine: Denies polyuria or polydipsia [] All other systems were reviewed and found to be within normal limits, except as documented in this note. Allergies Allergies Allergies Coded Allergies Type Severity Reaction Last Updated Verified nitroglycerin Adverse Reaction Intermediate LOC/SYNCOPE 04/07/17 Yes Physical Exam Physical Exam Constitutional: Well developed, well nourished, no acute distress, non-toxic appearance. [] HENT: Normocephalic, atraumatic, no trismus. Pharyngeal erythema. Uvula midline, no edema., no oral exudates, nose normal. [] Eyes: PERRLA, EOMI, conjunctiva normal, no discharge. [] Neck: Normal range of motion, no tenderness, supple, no stridor. [] Cardiovascular:Heart rate regular rhythm, no murmur [] Lungs & Thorax: Bilateral breath sounds clear to auscultation [] Abdomen: Bowel sounds normal, soft, no tenderness, no masses, no pulsatile masses. [] Skin: Warm, dry, no erythema, no rash. [] Back: No tenderness, no CVA tenderness. [] Extremities: No tenderness, no cyanosis, no clubbing, ROM intact, no edema. [] Neurologic: Alert and oriented X 3, normal motor function, normal sensory function, no focal deficits noted. [] Psychologic: Affect normal, judgement normal, mood normal. [] Current Patient Data Vital Signs Vital Signs Date Time Temp Pulse Resp B/P (MAP) Pulse Ox O2 Delivery O2 Flow Rate FiO2 08/13/19 11:39 98.5 107 16 125/82 (96) 95 Room Air 98.5 Lab Values Rapid strep test positive EKG EKG [] Radiology/Procedures Radiology/Procedures [] Course & Med Decision Making Course & Med Decision Making Pertinent Labs and Imaging studies reviewed. (See chart for details) []In summary patient presents with sore throat. No signs of abscess or space occupying lesion at this time. Recently diagnosed with influenza. Not on antiviral. Outside window for treatment with antiviral. We'll prescribe amoxicillin as well as viscous lidocaine for use prior to eating or drinking. Recommend close follow-up with primary doctor. Strict return precautions reviewed with patient. Follow-up as directed and return immediately if force. Dragon Disclaimer Dragon Disclaimer This electronic medical record was generated, in whole or in part, using a voice recognition dictation system. Departure Departure Impression: Primary Impression: Strep pharyngitis Disposition: 01 HOME, SELF-CARE Condition: STABLE Referrals: UNKNOWN PCP NAME (PCP) Patient Instructions: Strep Throat NIKITA HERNANDEZ APRN Aug 13, 2019 11:53
[2019-08-13] MEDS ORDERED: AMOX875T PO (12:11)
== END 2019-08-13 12:10 | disposition home or self-care (01) ==
LOC: ER 11:18
DX: J02.0 Streptococcal pharyngitis (principal); B95.5 Unspecified streptococcus as the cause of diseases classified elsewhere; M79.10 Myalgia, unspecified site; I10 Essential (primary) hypertension; Z87.442 Personal history of urinary calculi; Z98.890 Other specified postprocedural states; Z88.1 Allergy status to other antibiotic agents
CPT/HCPCS: 87880; 99283

== ENCOUNTER 2019-09-15 09:35 | Emergency (ER) | payer OTHER ==
[~2019-09-15 09:35] MED LIST changes: +AMOX875T PO
[2019-09-15 10:18] VITALS: BP 168/96
[2019-09-15] MEDS ORDERED: DEXAMETHASONE 4 MG TABLET PO STA (10:28)
--- NOTE | 2019-09-15 10:34 | PHYS DOC ---
Past Medical History Past Medical History: No Pertinent History, Hypertension, Kidney Stone Additional Past Medical Histor: PE, Factor 5 Past Surgical History: Other Additional Past Surgical Histo: lithrotripsy Alcohol Use: None Drug Use: None Adult General Chief Complaint Chief Complaint: FEVER HPI HPI Patient is a 49 year old male who presents with headache, loss of appetite, body aches, sore throat, cough that started yesterday. Patient states he had the Flu earlier in the fall. Denies any other complaints. Complete ROS were reviewed and found to be within normal limits, except as documented in the HPI Review of Systems Review of Systems Current Medications Current Medications Current Medications Medications (Trade) Dose Ordered Sig/Ale Start Time Stop Time Status Last Admin Dose Admin Dexamethasone (Decadron) 10 mg 1X STAT 09/15/19 10:28 09/15/19 10:32 DC 09/15/19 10:42 10 MG Allergies Allergies Allergies Coded Allergies Type Severity Reaction Last Updated Verified nitroglycerin Adverse Reaction Intermediate LOC/SYNCOPE 04/07/17 Yes Physical Exam Physical Exam Constitutional: Well developed, well nourished, no acute distress, non-toxic appearance. [] HENT: Normocephalic, atraumatic, bilateral external ears normal, oropharynx moist, tonsils are 3+/4, uvula midline, no oral exudates, nose normal. [] Eyes: PERRLA, EOMI, conjunctiva normal, no discharge. [] Neck: Normal range of motion, no tenderness, supple, no stridor. [] Cardiovascular:Heart rate regular rhythm, no murmur [] Lungs & Thorax: Bilateral breath sounds clear to auscultation [] Abdomen: Bowel sounds normal, soft, no tenderness, no masses, no pulsatile masses. [] Skin: Warm, dry, no erythema, no rash. [] Neurologic: Alert and oriented X 3, normal motor function, normal sensory function, no focal deficits noted. [] Psychologic: Affect normal, judgement normal, mood normal. [] Current Patient Data Vital Signs Vital Signs Date Time Temp Pulse Resp B/P (MAP) Pulse Ox O2 Delivery O2 Flow Rate FiO2 09/15/19 10:18 99.7 106 20 168/96 (120) 99 99.7 EKG EKG [] Radiology/Procedures Radiology/Procedures [] Course & Med Decision Making Course & Med Decision Making Pertinent Labs and Imaging studies reviewed. (See chart for details) Will obtain a strep test and give Decadron. Strep is positive. Will place on Amoxicillin. Dragon Disclaimer Dragon Disclaimer This electronic medical record was generated, in whole or in part, using a voice recognition dictation system. Departure Departure Impression: Primary Impression: Strep tonsillitis Disposition: 01 HOME, SELF-CARE Condition: STABLE Referrals: KIMBERLY HOLLY JR, MD (PCP) Patient Instructions: Strep Throat Additional Instructions: Thank you for visiting [facility]. We appreciate you trusting us with your care. If any additional problems come up don't hesitate to return to visit us. Please follow up with your primary care provider so they can plan additional care if needed and know about the problem that you had. If symptoms worsen come back to the Emergency Department. Any concerning symptoms that start such as chest pain, shortness of air, weakness or numbness on one side of the body, running high fevers or any other concerning symptoms return to the ER. You have been prescribed an antibiotic today to help fight your infection. Please take all of the antibiotic as directed. If after 48 hours the infection is not improving, please return for more care. If the infection worsens, return to ER for additional care. Scripts Amoxicillin (AMOXICILLIN) 500 Mg Tablet 1 TAB PO BID for 10 Days, #20 TAB Prov: MCKENZIE THAO APRN 09/15/19 MCKENZIE THAO APRN Sep 15, 2019 10:34
[2019-09-15] MEDS ORDERED: AMOX500T PO (11:07)
== END 2019-09-15 11:26 | disposition home or self-care (01) ==
LOC: ER 09:35
DX: J03.00 Acute streptococcal tonsillitis, unspecified (principal); R05 Cough; R52 Pain, unspecified; I10 Essential (primary) hypertension; Z87.442 Personal history of urinary calculi; Z98.890 Other specified postprocedural states; Z88.8 Allergy status to other drugs, medicaments and biological substances
CPT/HCPCS: 87880; 99283; J8540

== ENCOUNTER 2019-09-20 15:20 | Emergency (ER) | payer OTHER ==
[~2019-09-20] VITALS: Ht 167.6 cm; Wt 122.5 kg
[~2019-09-20 15:20] MED LIST changes: +AMOX500T PO
[2019-09-20] MEDS ORDERED: BENZ100C PO (17:35)
--- NOTE | 2019-09-20 17:35 | PHYS DOC ---
Past Medical History Past Medical History: Hypertension, Kidney Stone, Other Additional Past Medical Histor: PE, Factor 5 Past Surgical History: Other Additional Past Surgical Histo: lithrotripsy Alcohol Use: None Drug Use: None Adult General Chief Complaint Chief Complaint: CHEST PAIN HPI HPI Patient is a 49 year old AA male who presents to the emergency department with complaints of body aches, fatigue, sinus pressure, dry cough, and sore throat. Patient states he has felt this way for 2 weeks off and on. He was seen here 5 days ago and diagnosed with strep throat, he has been taking the amoxicillin as prescribed and states his throat does feel little better. Patient denies any nausea, vomiting, diarrhea, abdominal pain, dysuria, hematuria, increased urinary frequency, or fever. He states that he has a history of PEs and he takes Eliquis for prevention of PEs. Patient denies missing any doses of Eliquis. He also denies any recent long car rides or flights. He currently denies any shortness of breath. He states that his chest hurts and is worse with coughing. Denies any palpitations, dizziness, or swelling of lower extremities. He currently rates his pain a 6 out of 10 and describes the pain as soreness in his chest. He denies any alleviating factors, the pain is worse with coughing. All o ther ROS is neg unless otherwise noted in HPI. Review of Systems Review of Systems See Above Allergies Allergies Allergies Coded Allergies Type Severity Reaction Last Updated Verified nitroglycerin Adverse Reaction Intermediate LOC/SYNCOPE 04/07/17 Yes Physical Exam Physical Exam See Above Constitutional: Well developed, well nourished, no acute distress, non-toxic appearance, Obese [] HENT: Normocephalic, atraumatic, bilateral external ears normal, oropharynx mo ist, no oral exudates, nose normal. [] Eyes: PERRLA, EOMI, conjunctiva normal, no discharge. [] Neck: Normal range of motion, no stridor. [] Cardiovascular:Heart rate regular rhythm, no murmur [] Lungs & Thorax: Bilateral breath sounds clear to auscultation in upper lobes, diminished in the bases bilaterally, no retractions, chest nontender to palpation, respirations even and unlabored.[] Skin: Warm, dry, no erythema, no rash. [] Back: No tenderness, no CVA tenderness. [] Extremities: No cyanosis, ROM intact, no edema. [] Neurologic: Alert and oriented X 3, no focal deficits noted. [] Psychologic: Affect normal, judgement normal, mood normal. [] Current Patient Data Vital Signs Vital Signs Date Time Temp Pulse Resp B/P (MAP) Pulse Ox O2 Delivery O2 Flow Rate FiO2 09/20/19 15:38 97.9 90 16 97 Room Air 97.9 EKG EKG [] Radiology/Procedures Radiology/Procedures cxr unremarkable, read by Dr. Mittal[] PROCEDURE: CHEST PA & LATERAL Two-view chest dated 09/20/2019. Comparison made to 06/21/2019. CLINICAL INDICATION: Cough for 2 weeks. FINDINGS: PA and lateral views obtained. Heart and mediastinal contours are stable. Lungs are clear. No consolidation or pleural effusion. There is minimal patchy increased density at the medial right base. Impression: 1. No acute radiographic abnormality. 2. Minimal patchy density at the medial right base, likely atelectasis. Course & Med Decision Making Course & Med Decision Making Pertinent Labs and Imaging studies reviewed. (See chart for details) [] Dragon Disclaimer Dragon Disclaimer This electronic medical record was generated, in whole or in part, using a voice recognition dictation system. Departure Departure Impression: Primary Impression: Upper respiratory infection Disposition: 01 HOME, SELF-CARE Condition: STABLE Referrals: KIMBERLY HOLLY JR, MD (PCP) Patient Instructions: Upper Respiratory Infection, Adult, Boye-av-Abte Additional Instructions: Fill prescription(s) and use as directed. Recommend use of a Cool mist humidifier in room at bedtime. Alternate Tylenol or ibuprofen as needed for pain/fever. Increase clear fluids. Avoid airway triggers such as smoke, fragrance, dust, and pollen. May take [id number] cough suppressants as needed. Follow-up with your primary care doctor if symptoms persist, return to the ER if symptoms worsen. Scripts Benzonatate (TESSALON PERLE) 100 Mg Capsule 1 CAP PO TID PRN for COUGH for 7 Days, #21 CAP 0 Refills Prov: KALEE GIL HOME THEATRE TECHNICIAN 09/20/19 Problem Qualifiers Primary Impression: Upper respiratory infection URI type: unspecified URI Qualified Codes: J06.9 - Acute upper respiratory infection, unspecified KALEE GIL HOME THEATRE TECHNICIAN Sep 20, 2019 17:35
[2019-09-20 17:45] VITALS: BP 151/89
--- NOTE | 2019-09-20 17:45 | RAD ---
Two-view chest dated 09/20/2019. Comparison made to 06/21/2019. CLINICAL INDICATION: Cough for 2 weeks. FINDINGS: PA and lateral views obtained. Heart and mediastinal contours are stable. Lungs are clear. No consolidation or pleural effusion. There is minimal patchy increased density at the medial right base. Impression: 1. No acute radiographic abnormality. 2. Minimal patchy density at the medial right base, likely atelectasis. Electronically signed by: Jasmeet Campos MD (09/20/2019 5:42 PM) [facility]
== END 2019-09-20 17:50 | disposition home or self-care (01) ==
LOC: ER 15:20
DX: J06.9 Acute upper respiratory infection, unspecified (principal); R07.89 Other chest pain; R05 Cough; R53.83 Other fatigue; I10 Essential (primary) hypertension; Z87.442 Personal history of urinary calculi; Z98.890 Other specified postprocedural states; Z88.1 Allergy status to other antibiotic agents
CPT/HCPCS: 71046; 99284

== ENCOUNTER 2019-10-26 16:44 | Emergency (ER) | payer OTHER ==
[~2019-10-26] VITALS: Ht 175.3 cm; Wt 104.0 kg
[2019-10-26 16:50] VITALS: BP 138/81
[2019-10-26] MEDS ORDERED: IV NORMAL SALINE 1000ML BAG 1,000 ML IV SCH (17:08)
[2019-10-26] MEDS ORDERED: MECLIZINE HCL 12.5 MG TABLET. PO ONE (17:15)
[2019-10-26] MEDS ORDERED: ONDANSETRON PF 4 MG/2 ML VIAL. IV ONE (17:15)
--- NOTE | 2019-10-26 17:17 | PHYS DOC ---
Past Medical History Past Medical History: Hypertension, Kidney Stone, Other Additional Past Medical Histor: PE, Factor 5 (JULIA MICHAUD APRN) Past Surgical History: Other Additional Past Surgical Histo: lithrotripsy (JULIA MICHAUD APRN) Smoking Status: Never Smoker Alcohol Use: None Drug Use: None (JULIA MICHAUD APRN) Adult General Chief Complaint Chief Complaint: DIZZY/LIGHT HEADED HPI HPI Patient is a 49 year old who presents with states this morning when he got up he got dizzy and lightheaded and states he felt like he was given a pass out. This happened when he stood up. Patient states he still feels lightheaded and it comes and goes. He states the room is not spinning. Patient denies chest pain, headache, numbness or tingling, weakness, nausea, vomiting, abdominal pain, fever, recent illness, neck pain, back pain, ear pain. He states that he does feel like his vision is slightly blurry. (JULIA MICHAUD APRN) Review of Systems Review of Systems Neurologic: Dizziness. Denies headache, focal weakness or sensory changes [] All other systems were reviewed and found to be within normal limits, except as documented in this note. (JULIA MICHAUD APRN) Current Medications Current Medications Current Medications Medications (Trade) Dose Ordered Sig/Ale Start Time Stop Time Status Last Admin Dose Admin Meclizine HCl (Antivert) 25 mg 1X ONCE 10/26/19 17:15 10/26/19 17:16 DC 10/26/19 18:13 25 MG Ondansetron HCl (Zofran) 4 mg 1X ONCE 10/26/19 17:15 10/26/19 17:16 DC 10/26/19 18:15 4 MG Sodium Chloride 1,000 ml @ 1,000 mls/hr Q1H 10/26/19 17:08 10/26/19 18:07 DC 10/26/19 17:08 1,000 MLS/HR (ELSIE COLÓN MD) Allergies Allergies Allergies Coded Allergies Type Severity Reaction Last Updated Verified nitroglycerin Adverse Reaction Intermediate LOC/SYNCOPE 04/07/17 Yes (ELSIE COLÓN MD) Physical Exam Physical Exam Constitutional: Well developed, well nourished, no acute distress, non-toxic appearance. [] HENT: Normocephalic, atraumatic, bilateral external ears normal, oropharynx moist, no oral exudates, nose normal. [] Eyes: PERRLA, EOMI, conjunctiva normal, no discharge. [] Neck: Normal range of motion, no tenderness, supple, no stridor. [] Cardiovascular:Heart rate regular rhythm, no murmur [] Lungs & Thorax: Bilateral breath sounds clear to auscultation [] Abdomen: Bowel sounds normal, soft, no tenderness, no masses, no pulsatile masses. [] Skin: Warm, dry, no erythema, no rash. [] Back: No tenderness, no CVA tenderness. [] Extremities: No tenderness, no cyanosis, no clubbing, ROM intact, no edema. [] Neurologic: Alert and oriented X 3, normal motor function, normal sensory function, no focal deficits noted. [] Psychologic: Affect normal, judgement normal, mood normal. Normal Physical Exam[] (BAF,JULIA [employer]) Current Patient Data Vital Signs Vital Signs Date Time Temp Pulse Resp B/P (MAP) Pulse Ox O2 Delivery O2 Flow Rate FiO2 10/26/19 16:50 97.3 86 18 138/81 (100) 96 Room Air 97.3 (ELSIE COLÓN MD) Lab Values Laboratory Tests Test 10/26/19 17:30 10/26/19 18:55 White Blood Count 6.6 x10^3/uL (4.0-11.0) Red Blood Count 4.52 x10^6/uL (4.30-5.70) Hemoglobin 13.6 g/dL (13.0-17.5) Hematocrit 40.1 % (39.0-53.0) Mean Corpuscular Volume 89 fL (79-100) Mean Corpuscular Hemoglobin 30 pg (25-35) Mean Corpuscular Hemoglobin Concent 34 g/dL (31-37) Red Cell Distribution Width 14.9 % (11.5-14.5) H Platelet Count 307 x10^3/uL (140-400) Neutrophils (%) (Auto) 54 % (31-73) Lymphocytes (%) (Auto) 34 % (24-48) Monocytes (%) (Auto) 11 % (0-9) H Eosinophils (%) (Auto) 1 % (0-3) Basophils (%) (Auto) 1 % (0-3) Neutrophils # (Auto) 3.6 x10^3/uL (1.8-7.7) Lymphocytes # (Auto) 2.3 x10^3/uL (1.0-4.8) Monocytes # (Auto) 0.7 x10^3/uL (0.0-1.1) Eosinophils # (Auto) 0.1 x10^3/uL (0.0-0.7) Basophils # (Auto) 0.1 x10^3/uL (0.0-0.2) D-Dimer (Kezia) 0.35 ug/mlFEU (0.00-0.50) Sodium Level 139 mmol/L (136-145) Potassium Level 4.1 mmol/L (3.5-5.1) Chloride Level 104 mmol/L (98-107) Carbon Dioxide Level 30 mmol/L (21-32) Anion Gap 5 (6-14) L Blood Urea Nitrogen 11 mg/dL (8-26) Creatinine 1.0 mg/dL (0.7-1.3) Estimated GFR (Cockcroft-Gault) 96.5 BUN/Creatinine Ratio 11 (6-20) Glucose Level 94 mg/dL (70-99) Calcium Level 8.5 mg/dL (8.5-10.1) Total Bilirubin 0.4 mg/dL (0.2-1.0) Aspartate Amino Transferase (AST) 19 U/L (15-37) Alanine Aminotransferase (ALT) 21 U/L (16-63) Alkaline Phosphatase 59 U/L (46-116) Troponin I Quantitative < 0.017 ng/mL (0.000-0.055) Total Protein 7.6 g/dL (6.4-8.2) Albumin 3.2 g/dL (3.4-5.0) L Albumin/Globulin Ratio 0.7 (1.0-1.7) L Urine Collection Type Unknown Urine Color Yellow Urine Clarity Clear Urine pH 5.5 Urine Specific Haiku 1.020 Urine Protein Negative mg/dL (NEG-TRACE) Urine Glucose (UA) Negative mg/dL (NEG) Urine Ketones (Stick) Negative mg/dL (NEG) Urine Blood Negative (NEG) Urine Nitrite Negative (NEG) Urine Bilirubin Negative (NEG) Urine Urobilinogen Dipstick 1.0 mg/dL (0.2 mg/dL) Urine Leukocyte Esterase Negative (NEG) Urine RBC 0 /HPF (0-2) Urine WBC 1-4 /HPF (0-4) Urine Squamous Epithelial Cells Occ /LPF Urine Bacteria 0 /HPF (0-FEW) Urine Mucus Mod /LPF Urine Opiates Screen Neg (NEG) Urine Methadone Screen Neg (NEG) Urine Barbiturates Neg (NEG) Urine Phencyclidine Screen Neg (NEG) Urine Amphetamine/Methamphetamine Neg (NEG) Urine Benzodiazepines Screen Neg (NEG) Urine Cocaine Screen Neg (NEG) Urine Cannabinoids Screen Neg (NEG) Urine Ethyl Alcohol Neg (NEG) Laboratory Tests 10/26/19 17:30 Laboratory Tests 10/26/19 17:30 (ELSIE COLÓN MD) Lab Values Laboratory Tests Test 10/26/19 17:30 White Blood Count 6.6 x10^3/uL (4.0-11.0) Red Blood Count 4.52 x10^6/uL (4.30-5.70) Hemoglobin 13.6 g/dL (13.0-17.5) Hematocrit 40.1 % (39.0-53.0) Mean Corpuscular Volume 89 fL (79-100) Mean Corpuscular Hemoglobin 30 pg (25-35) Mean Corpuscular Hemoglobin Concent 34 g/dL (31-37) Red Cell Distribution Width 14.9 % (11.5-14.5) H Platelet Count 307 x10^3/uL (140-400) Neutrophils (%) (Auto) 54 % (31-73) Lymphocytes (%) (Auto) 34 % (24-48) Monocytes (%) (Auto) 11 % (0-9) H Eosinophils (%) (Auto) 1 % (0-3) Basophils (%) (Auto) 1 % (0-3) Neutrophils # (Auto) 3.6 x10^3/uL (1.8-7.7) Lymphocytes # (Auto) 2.3 x10^3/uL (1.0-4.8) Monocytes # (Auto) 0.7 x10^3/uL (0.0-1.1) Eosinophils # (Auto) 0.1 x10^3/uL (0.0-0.7) Basophils # (Auto) 0.1 x10^3/uL (0.0-0.2) D-Dimer (Kezia) 0.35 ug/mlFEU (0.00-0.50) Sodium Level 139 mmol/L (136-145) Potassium Level 4.1 mmol/L (3.5-5.1) Chloride Level 104 mmol/L (98-107) Carbon Dioxide Level 30 mmol/L (21-32) Anion Gap 5 (6-14) L Blood Urea Nitrogen 11 mg/dL (8-26) Creatinine 1.0 mg/dL (0.7-1.3) Estimated GFR (Cockcroft-Gault) 96.5 BUN/Creatinine Ratio 11 (6-20) Glucose Level 94 mg/dL (70-99) Calcium Level 8.5 mg/dL (8.5-10.1) Total Bilirubin 0.4 mg/dL (0.2-1.0) Aspartate Amino Transferase (AST) 19 U/L (15-37) Alanine Aminotransferase (ALT) 21 U/L (16-63) Alkaline Phosphatase 59 U/L (46-116) Troponin I Quantitative < 0.017 ng/mL (0.000-0.055) Total Protein 7.6 g/dL (6.4-8.2) Albumin 3.2 g/dL (3.4-5.0) L Albumin/Globulin Ratio 0.7 (1.0-1.7) L Laboratory Tests 10/26/19 17:30 Laboratory Tests 10/26/19 17:30 (JULIA MICHAUD APRN) EKG EKG Sinus rhythm and no STEMI[] Interpretation Time: [address] Colón (JULIA MICHAUD APRN) Radiology/Procedures Radiology/Procedures [] (JULIA MICHAUD APRN) Impressions: [facility] [address] [place], [place] [id number] IMAGING REPORT Signed PATIENT: HEATHER HIRSCH ACCOUNT: [id number] : 1970 LOCATION: ER AGE: 49 SEX: M EXAM STATUS: REG ER ORD. PHYSICIAN: JULIA MICHAUD APRN REASON: dizziness x 1 day PROCEDURE: CT HEAD WO CONTRAST EXAM: CT HEAD WITHOUT CONTRAST. HISTORY: Dizziness. TECHNIQUE: Computed tomography of the head was performed without intravenous contrast. One or more of the following individualized dose reduction techniques were utilized for this examination: 1. Automated exposure control. 2. Adjustment of the mA and/or kV according to patient size. 3. Use of iterative reconstruction technique. COMPARISON: 06/21/2019. FINDINGS: There is no intracranial hemorrhage. James-white differentiation is preserved. The ventricles are normal in size and position. The visualized paranasal sinuses appear clear. The orbits are unremarkable. The temporal bones are unremarkable. The calvarium reveals no suspicious lesions. IMPRESSION: 1. No acute intracranial findings. MRI is more sensitive if there is persistent concern. Electronically signed by: Angelique Pina MD (10/26/2019 6:17 PM) [id number] DICTATED and SIGNED BY: BEBETO PINA MD DATE: 10/26/191816 (JULIA MICHAUD APRN) Course & Med Decision Making Course & Med Decision Making Pertinent Labs and Imaging studies reviewed. (See chart for details) Ambulatory with a steady gait. Alert and oriented. Speaks in full clear sentences. PERRLA. No nystagmus. Skin pink warm and dry. No extremity edema. Patient states the only medication he currently is on is Xeralto because he's had a past PE. EKG shows sinus rhythm and no STEMI. No pleuritic pain. []Chest xray read by Dr Meier has no obvious acute findings. Patient states he is feeling much better after NS bolus, Zofran, and meclizine. Patient is educated to follow up with his doctor and to go from sitting to standing slowly. (JULIA MICHAUD APRN) Course & Med Decision Making Staff Physician Addendum: I was working in the ER during the course of this patient's visit. I was available for consultation as needed, but I was not directly involved in the care of this patient. (ELSIE COLÓN MD) Dragon Disclaimer Dragon Disclaimer This electronic medical record was generated, in whole or in part, using a voice recognition dictation system. (JULIA MICHAUD APRN) NIHSS Stroke Scale NIH Stroke Scale: NIH Stroke Scale Response (Comments) Value Level of Consciousness: 0 Alert/Responsive 0 LOC Questions: 0 Answers both correctly 0 LOC Commands: 0 Performs both tasks 0 Best Gaze: 0 Normal 0 Visual: 0 No visual loss 0 Facial Palsy: 0 Normal, symmetrical 0 Motor - Left Arm 0 No drift 0 Motor - Right Arm 0 No drift 0 Motor - Left Leg 0 No drift 0 Motor: Right Leg 0 No drift 0 Limb Ataxia: 0 Absent 0 Sensory: 0 No loss 0 Best Language: 0 Normal 0 Dysathria: 0 Normal 0 Extinction and Inattention: 0 Normal 0 Total 0 Departure Departure Impression: Primary Impression: Light headedness Disposition: 01 HOME, SELF-CARE Condition: STABLE Referrals: KIMBERLY HOLLY JR, MD (PCP) Patient Instructions: Dizziness Additional Instructions: Follow up with primary care provider. Drink plenty of fluids. Go from sitting to standing slowly. If you begin having worsening dizziness, vision changes, headache, and numbness and tingling return to ED. JULIA MICHAUD APRN Oct 26, 2019 17:17 ELSIE COLÓN MD Oct 27, 2019 07:10
[2019-10-26 17:46] LABS: BASO # 0.1 x10^3/uL (0.0-0.2); BASO % 1 % (0-3); EOS # 0.1 x10^3/uL (0.0-0.7); EOS % 1 % (0-3); HEMATOCRIT 40.1 % (39.0-53.0); HEMOGLOBIN 13.6 g/dL (13.0-17.5); LYMPH # 2.3 x10^3/uL (1.0-4.8); LYMPH % 34 % (24-48); MEAN CORPUSCULAR HEMOGLOBIN 30 pg (25-35); MEAN CORPUSCULAR HGB CONC 34 g/dL (31-37); MEAN CORPUSCULAR VOLUME 89 fL (79-100); MONO # 0.7 x10^3/uL (0.0-1.1); MONO % 11 % (0-9); NEUT # 3.6 x10^3/uL (1.8-7.7); NEUT % 54 % (31-73); PLATELET COUNT 307 x10^3/uL (140-400); RED BLOOD COUNT 4.52 x10^6/uL (4.30-5.70); RED CELL DISTRIBUTION WIDTH 14.9 % (11.5-14.5); WHITE BLOOD COUNT 6.6 x10^3/uL (4.0-11.0)
[2019-10-26 17:59] LABS: CALCIUM 8.5 mg/dL (8.5-10.1); GFR 96.5; POTASSIUM 4.1 mmol/L (3.5-5.1)
[2019-10-26 18:00] LABS: ALBUMIN 3.2 g/dL (3.4-5.0); ALBUMIN/GLOBULIN RATIO 0.7 (1.0-1.7); TOTAL BILIRUBIN 0.4 mg/dL (0.2-1.0); TOTAL PROTEIN 7.6 g/dL (6.4-8.2)
--- NOTE | 2019-10-26 18:20 | RAD ---
EXAM: CT HEAD WITHOUT CONTRAST. HISTORY: Dizziness. TECHNIQUE: Computed tomography of the head was performed without intravenous contrast. One or more of the following individualized dose reduction techniques were utilized for this examination: 1. Automated exposure control. 2. Adjustment of the mA and/or kV according to patient size. 3. Use of iterative reconstruction technique. COMPARISON: 06/21/2019. FINDINGS: There is no intracranial hemorrhage. James-white differentiation is preserved. The ventricles are normal in size and position. The visualized paranasal sinuses appear clear. The orbits are unremarkable. The temporal bones are unremarkable. The calvarium reveals no suspicious lesions. IMPRESSION: 1. No acute intracranial findings. MRI is more sensitive if there is persistent concern. Electronically signed by: Angelique Pina MD (10/26/2019 6:17 PM) [id number]
[2019-10-26 19:02] LABS: BILIRUBIN,URINE NEGATIVE (NEG); CLARITY,URINE CLEAR; COLOR,URINE YELLOW; NITRITE,URINE NEGATIVE (NEG); PH,URINE 5.5; PROTEIN,URINE NEGATIVE (NEG-TRACE)
--- NOTE | 2019-10-26 19:04 | RAD ---
EXAM: CHEST 2 VIEWS. HISTORY: Dizziness. COMPARISON: 09/20/2019. FINDINGS: Frontal and lateral views of the chest are obtained. The inspiration is small. There are no confluent infiltrates. There is no pneumothorax or pleural effusion. The heart is not enlarged. IMPRESSION: 1. Small inspiration. No confluent infiltrates. Electronically signed by: Angelique Pina MD (10/26/2019 7:01 PM) [id number]
[2019-10-26 19:07] LABS: BACTERIA,URINE 0 /HPF (0-FEW); RBC,URINE 0 /HPF (0-2)
[2019-10-26 19:08] LABS: SQUAMOUS EPITHELIAL CELL,UR OCC /LPF
[2019-10-26 19:09] LABS: AMPHETAMINE/METHAMPHETAMINE NEG (NEG); BARBITURATES NEG (NEG); BENZODIAZEPINES NEG (NEG); CANNABINOIDS NEG (NEG); COCAINE NEG (NEG); METHADONE NEG (NEG); OPIATES NEG (NEG); PHENCYCLIDINE NEG (NEG)
--- NOTE | 2019-10-26 20:52 | EKG ---
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
== END 2019-10-26 19:27 | disposition home or self-care (01) ==
LOC: ER 16:44
DX: R42 Dizziness and giddiness (principal); H53.8 Other visual disturbances; R55 Syncope and collapse; I10 Essential (primary) hypertension; Z87.442 Personal history of urinary calculi; Z98.890 Other specified postprocedural states; Z88.8 Allergy status to other drugs, medicaments and biological substances
CPT/HCPCS: 36415; 70450; 71046; 80053; 80307; 81001; 84484; 85025; 85379; 93005; 96361; 96374; 99285; J2405; J7030; J8597

== ENCOUNTER 2019-12-03 22:45 | Emergency (ER) | payer OTHER | END 2019-12-03 23:21 | disposition left against medical advice (07) | LOC: ER 22:45 | DX: R06.02 Shortness of breath (principal); R07.89 Other chest pain; Z53.21 Procedure and treatment not carried out due to patient leaving prior to being seen by health care provider ==

== ENCOUNTER 2019-12-04 14:04 | Emergency (ER) | payer OTHER ==
[~2019-12-04] VITALS: Ht 167.6 cm; Wt 127.2 kg
--- NOTE | 2019-12-04 14:47 | PHYS DOC ---
Past Medical History Past Medical History: Hypertension, Kidney Stone, Other Additional Past Medical Histor: PE, Factor 5 (MCKENZIE THAO APRN) Past Surgical History: Other Additional Past Surgical Histo: lithrotripsy (MCKENZIE THAO APRN) Smoking Status: Never Smoker Alcohol Use: None Drug Use: None (MCKENZIE THAO APRN) Adult General Chief Complaint Chief Complaint: SHORTNESS OF BREATH [facility] HPI Patient is a 49 year old male that presents with multiple symptoms. The patient states that 4 days ago he started having diarrhea, cough, sore throat, shortness of breath, chest pain. The patient states that 30 minutes prior to arrival he was having chest pain but then it went away after he drank a Gatorade. States has been feeling hot and cold over the last couple days. States his only medical history is factor V. Complete ROS were reviewed and found to be within normal limits, except as documented in the HPI (MCKENZIE THAO APRN) Current Medications Current Medications Current Medications Medications (Trade) Dose Ordered Sig/Ale Start Time Stop Time Status Last Admin Dose Admin Multi-Ingredient Mouthwash/Gargle (Gi Cocktail) 20 ml 1X ONCE 12/04/19 15:00 12/04/19 15:01 DC 12/04/19 14:59 20 ML (GOLLAPALLI,AIMEE E DO) Allergies Allergies Allergies Coded Allergies Type Severity Reaction Last Updated Verified No Known Medication Allergies Allergy Unknown 12/04/19 Yes nitroglycerin Adverse Reaction Intermediate LOC/SYNCOPE 04/07/17 Yes (GOLLAPALLI,AIMEE E DO) Physical Exam Physical Exam Constitutional: Well developed, well nourished, no acute distress, non-toxic aleksandra earance. [] HENT: Normocephalic, atraumatic, bilateral external ears normal Cardiovascular:Heart rate regular rhythm, no murmur [] Lungs & Thorax: Bilateral breath sounds clear to auscultation [] Abdomen: Bowel sounds normal, soft, no tenderness, no masses, no pulsatile masses. [] Neurologic: Alert and oriented X 3, normal motor function, normal sensory function, no focal deficits noted. [] Psychologic: Affect normal, judgement normal, mood normal. [] (MCKENZIE THAO APRN) Current Patient Data Vital Signs Vital Signs Date Time Temp Pulse Resp B/P (MAP) Pulse Ox O2 Delivery O2 Flow Rate FiO2 12/04/19 15:24 83 20 179/80 (113) 98 12/04/19 14:12 98.7 Room Air 98.7 ([facility]) Lab Values Laboratory Tests Test 12/04/19 14:46 White Blood Count 5.3 x10^3/uL (4.0-11.0) Red Blood Count 4.58 x10^6/uL (4.30-5.70) Hemoglobin 13.4 g/dL (13.0-17.5) Hematocrit 40.3 % (39.0-53.0) Mean Corpuscular Volume 88 fL (79-100) Mean Corpuscular Hemoglobin 29 pg (25-35) Mean Corpuscular Hemoglobin Concent 33 g/dL (31-37) Red Cell Distribution Width 14.5 % (11.5-14.5) Platelet Count 278 x10^3/uL (140-400) Neutrophils (%) (Auto) 50 % (31-73) Lymphocytes (%) (Auto) 40 % (24-48) Monocytes (%) (Auto) 9 % (0-9) Eosinophils (%) (Auto) 1 % (0-3) Basophils (%) (Auto) 1 % (0-3) Neutrophils # (Auto) 2.6 x10^3/uL (1.8-7.7) Lymphocytes # (Auto) 2.1 x10^3/uL (1.0-4.8) Monocytes # (Auto) 0.5 x10^3/uL (0.0-1.1) Eosinophils # (Auto) 0.0 x10^3/uL (0.0-0.7) Basophils # (Auto) 0.0 x10^3/uL (0.0-0.2) Sodium Level 139 mmol/L (136-145) Potassium Level 3.6 mmol/L (3.5-5.1) Chloride Level 104 mmol/L (98-107) Carbon Dioxide Level 27 mmol/L (21-32) Anion Gap 8 (6-14) Blood Urea Nitrogen 12 mg/dL (8-26) Creatinine 0.9 mg/dL (0.7-1.3) Estimated GFR (Cockcroft-Gault) 109.0 BUN/Creatinine Ratio 13 (6-20) Glucose Level 163 mg/dL (70-99) H Calcium Level 8.8 mg/dL (8.5-10.1) Total Bilirubin 0.3 mg/dL (0.2-1.0) Aspartate Amino Transferase (AST) 15 U/L (15-37) Alanine Aminotransferase (ALT) 22 U/L (16-63) Alkaline Phosphatase 46 U/L (46-116) Troponin I Quantitative < 0.017 ng/mL (0.000-0.055) Total Protein 6.8 g/dL (6.4-8.2) Albumin 3.2 g/dL (3.4-5.0) L Albumin/Globulin Ratio 0.9 (1.0-1.7) L Lipase 119 U/L (73-393) Laboratory Tests 12/04/19 14:46 Laboratory Tests 12/04/19 14:46 (JUAN,AIMEE E DO) Lab Values Laboratory Tests Test 12/04/19 14:46 White Blood Count 5.3 x10^3/uL (4.0-11.0) Red Blood Count 4.58 x10^6/uL (4.30-5.70) Hemoglobin 13.4 g/dL (13.0-17.5) Hematocrit 40.3 % (39.0-53.0) Mean Corpuscular Volume 88 fL (79-100) Mean Corpuscular Hemoglobin 29 pg (25-35) Mean Corpuscular Hemoglobin Concent 33 g/dL (31-37) Red Cell Distribution Width 14.5 % (11.5-14.5) Platelet Count 278 x10^3/uL (140-400) Neutrophils (%) (Auto) 50 % (31-73) Lymphocytes (%) (Auto) 40 % (24-48) Monocytes (%) (Auto) 9 % (0-9) Eosinophils (%) (Auto) 1 % (0-3) Basophils (%) (Auto) 1 % (0-3) Neutrophils # (Auto) 2.6 x10^3/uL (1.8-7.7) Lymphocytes # (Auto) 2.1 x10^3/uL (1.0-4.8) Monocytes # (Auto) 0.5 x10^3/uL (0.0-1.1) Eosinophils # (Auto) 0.0 x10^3/uL (0.0-0.7) Basophils # (Auto) 0.0 x10^3/uL (0.0-0.2) Sodium Level 139 mmol/L (136-145) Potassium Level 3.6 mmol/L (3.5-5.1) Chloride Level 104 mmol/L (98-107) Carbon Dioxide Level 27 mmol/L (21-32) Anion Gap 8 (6-14) Blood Urea Nitrogen 12 mg/dL (8-26) Creatinine 0.9 mg/dL (0.7-1.3) Estimated GFR (Cockcroft-Gault) 109.0 BUN/Creatinine Ratio 13 (6-20) Glucose Level 163 mg/dL (70-99) H Calcium Level 8.8 mg/dL (8.5-10.1) Total Bilirubin 0.3 mg/dL (0.2-1.0) Aspartate Amino Transferase (AST) 15 U/L (15-37) Alanine Aminotransferase (ALT) 22 U/L (16-63) Alkaline Phosphatase 46 U/L (46-116) Troponin I Quantitative < 0.017 ng/mL (0.000-0.055) Total Protein 6.8 g/dL (6.4-8.2) Albumin 3.2 g/dL (3.4-5.0) L Albumin/Globulin Ratio 0.9 (1.0-1.7) L Lipase 119 U/L (73-393) Laboratory Tests 12/04/19 14:46 Laboratory Tests 12/04/19 14:46 (MCKENZIE THAO APRN) EKG EKG EKG interpreted by Dr. Kyra Hughes with rate of 94.[] (MCKENZIE THAO APRN) Radiology/Procedures Radiology/Procedures [][facility] [address] [place], [place] [id number] IMAGING REPORT Signed PATIENT: HEATHER HIRSCH ACCOUNT: [id number] : 1970 LOCATION: ER AGE: 49 SEX: M EXAM STATUS: REG ER ORD. PHYSICIAN: MCKENZIE THAO APRN REASON: cp, sob PROCEDURE: PORTABLE CHEST 1V PORTABLE CHEST 1V Clinical indications: Chest pain and shortness of breath. COMPARISON: October 26, 2019. Findings: No acute lung infiltrate or pleural effusion or pulmonary edema or lung mass or pneumothorax is seen. The heart size, pulmonary vasculature, mediastinum and both jenelle are unremarkable. Impression: No acute radiographic abnormality is seen. Electronically signed by: Jen Enamorado MD (12/04/2019 3:03 PM) [id number] DICTATED and SIGNED BY: JEN ENAMORADO MD DATE: 12/04/19 1503 (MCKENZIE THAO APRN) Course & Med Decision Making Course & Med Decision Making Pertinent Labs and Imaging studies reviewed. (See chart for details) Discussed with the patient I will give a GI cocktail to see if the pain disa ppears. Will also get a chest x-ray also discussed that I will get labs, and EKG. Discussed the patient that he has symptoms of Covid and that he needs a self isolate at home till he has not had symptoms for 7 days. Imaging and labs are unremarkable will discharge home. (MCKENZIE THAO APRN) Dragon Disclaimer Dragon Disclaimer This electronic medical record was generated, in whole or in part, using a voice recognition dictation system. (MCKENZIE THAO APRN) Attending Signature I have participated in the care of this patient and I have reviewed and agree with all pertinent clinical information above including history, exam, and recommendations. (AIMEE MARTINEZ DO) Departure Departure Impression: Primary Impression: Suspected 2019 novel coronavirus infection Disposition: HOME, SELF-CARE Condition: STABLE Referrals: KIMBERLY HOLLY JR, MD (PCP) Additional Instructions: Thank you for visiting [facility]. We appreciate you trusting us with your care. If any additional problems come up don't hesitate to return to visit us. Please follow up with your primary care provider so they can plan additional care if needed and know about the problem that you had. If symptoms worsen come back to the Emergency Department. Any concerning symptoms that start such as chest pain, shortness of air, weakness or numbness on one side of the body, running high fevers or any other concerning symptoms return to the ER. You have a viral syndrome which may include symptoms like muscle aches, fevers, chills, runny nose, cough, sneezing, sore throat, vomiting, or diarrhea. One of the potential viruses that you may have is SARS-CoV-2, the virus that causes COVID-19, also known as the Coronavirus. You are just as likely to have a different viral infection such as the common cold, flu, etc. Most patients with the Coronavirus have mild symptoms and recover on their own. Resting, staying hydrated, and sleep from known cases can be helpful. As of todays visit, you are well enough to go home and treat your symptoms with oral fluids and over the counter medications. Coronavirus testing is not performed on most people with mild symptoms who are being discharged from the emergency department. If Coronavirus testing was performed the results will not be available for possibly up to 2-3 days. If your result is positive you will be contacted. Please follow the following precautions at home: 1) Stay home except to get medical care. 2) As advised by the CDC we recommend you stay in your home and minimize contact with other people. We do not want you to spread the infection. 3) Those who are older or have significant medical issues may have more severe symptoms from this infection. We recommend self-isolation,FOR AT LEAST 7 DAYS after your 1st day of symptoms. AFTER you feel better please wait AT LEAST ANOTHER WEEK before returning to regular activities and being around other people! 4) IF you become sicker and have difficulty breathing, chest pain, unable to eat/drink, severe vomiting, diarrhea, or weakness you may need to return to the Emergency Department. 5) You should restrict activities outside your home, except for getting medical care. DO NOT go to work, school, or public areas. Avoid using public transportation, ride sharing, or taxis. 6) Separate yourself from other people in your home. You should use a separate bathroom if possible. 7) Avoid sharing personal household items such as dishes, cups, eating utensils, towels, etc. 8) Clean all high touch surfaces every day (door knobs, counter tops, etc). Use a household cleaning spray or wipe per label instructions. 9) Clean your hands often. Wash your hands with soap and water for at least 20 seconds. 10) Cover your mouth and nose with a tissue when you cough or sneeze. 11) Throw used tissues in a trash can and immediately wash your hands. For additional resources please visit the CDC website or the [facility] ([phone]). MCKENZIE THAO APRN Dec 04, 2019 14:47 AIMEE MARTINEZ DO Dec 04, 2019 17:39
[2019-12-04 14:55] LABS: BASO % 1 % (0-3); EOS % 1 % (0-3); HEMATOCRIT 40.3 % (39.0-53.0); HEMOGLOBIN 13.4 g/dL (13.0-17.5); LYMPH # 2.1 x10^3/uL (1.0-4.8); LYMPH % 40 % (24-48); MEAN CORPUSCULAR HEMOGLOBIN 29 pg (25-35); MEAN CORPUSCULAR HGB CONC 33 g/dL (31-37); MEAN CORPUSCULAR VOLUME 88 fL (79-100); MONO # 0.5 x10^3/uL (0.0-1.1); MONO % 9 % (0-9); NEUT # 2.6 x10^3/uL (1.8-7.7); NEUT % 50 % (31-73); PLATELET COUNT 278 x10^3/uL (140-400); RED BLOOD COUNT 4.58 x10^6/uL (4.30-5.70); RED CELL DISTRIBUTION WIDTH 14.5 % (11.5-14.5); WHITE BLOOD COUNT 5.3 x10^3/uL (4.0-11.0)
[2019-12-04] MEDS: LIDO:MAALOX 1:1 20 ML SINGLE DOSE. SWSW ONE (14:59)
--- NOTE | 2019-12-04 15:06 | RAD ---
PORTABLE CHEST 1V Clinical indications: Chest pain and shortness of breath. COMPARISON: October 26, 2019. Findings: No acute lung infiltrate or pleural effusion or pulmonary edema or lung mass or pneumothorax is seen. The heart size, pulmonary vasculature, mediastinum and both jenelle are unremarkable. Impression: No acute radiographic abnormality is seen. Electronically signed by: Saqib Enamorado MD (12/04/2019 3:03 PM) [id number]
[2019-12-04 15:11] LABS: CALCIUM 8.8 mg/dL (8.5-10.1); CREATININE 0.9 mg/dL (0.7-1.3); POTASSIUM 3.6 mmol/L (3.5-5.1)
--- NOTE | 2019-12-04 15:12 | EKG ---
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
[2019-12-04 15:17] LABS: ALBUMIN 3.2 g/dL (3.4-5.0); ALBUMIN/GLOBULIN RATIO 0.9 (1.0-1.7); TOTAL BILIRUBIN 0.3 mg/dL (0.2-1.0); TOTAL PROTEIN 6.8 g/dL (6.4-8.2)
[2019-12-04 15:24] VITALS: BP 179/80
== END 2019-12-04 15:38 | disposition home or self-care (01) ==
LOC: ER 14:04
DX: J02.9 Acute pharyngitis, unspecified (principal); R19.7 Diarrhea, unspecified; R06.02 Shortness of breath; R07.89 Other chest pain; R05 Cough; I10 Essential (primary) hypertension; Z87.442 Personal history of urinary calculi; Z98.890 Other specified postprocedural states; Z88.1 Allergy status to other antibiotic agents
CPT/HCPCS: 36415; 71045; 80053; 83690; 84484; 85025; 93005; 99285

== ENCOUNTER 2020-01-24 01:33 | Emergency (ER) | payer OTHER ==
[~2020-01-24] VITALS: Ht 167.6 cm; Wt 130.0 kg
[2020-01-24 02:46] LABS: BILIRUBIN,URINE NEGATIVE (NEG); CLARITY,URINE CLEAR; COLOR,URINE YELLOW; NITRITE,URINE NEGATIVE (NEG); PH,URINE 5.5 (<5.0-8.0); PROTEIN,URINE NEGATIVE (NEG-TRACE); UROBILINOGEN,URINE 0.2 mg/dL (0.2 mg/dL)
[2020-01-24 03:01] LABS: BACTERIA,URINE 0 /HPF (0-FEW); RBC,URINE 0 /HPF (0-2); SPERM,URINE PRESENT /HPF; SQUAMOUS EPITHELIAL CELL,UR OCC /LPF
[2020-01-24 03:06] LABS: BASO % 1 % (0-3); EOS # 0.1 x10^3/uL (0.0-0.7); EOS % 1 % (0-3); HEMOGLOBIN 13.1 g/dL (13.0-17.5); LYMPH # 2.7 x10^3/uL (1.0-4.8); LYMPH % 36 % (24-48); MEAN CORPUSCULAR HEMOGLOBIN 30 pg (25-35); MEAN CORPUSCULAR HGB CONC 34 g/dL (31-37); MEAN CORPUSCULAR VOLUME 89 fL (79-100); MONO # 0.8 x10^3/uL (0.0-1.1); MONO % 11 % (0-9); NEUT # 3.9 x10^3/uL (1.8-7.7); NEUT % 51 % (31-73); PLATELET COUNT 290 x10^3/uL (140-400); RED BLOOD COUNT 4.37 x10^6/uL (4.30-5.70); RED CELL DISTRIBUTION WIDTH 14.5 % (11.5-14.5); WHITE BLOOD COUNT 7.5 x10^3/uL (4.0-11.0)
[2020-01-24 03:14] LABS: CALCIUM 8.4 mg/dL (8.5-10.1); CREATININE 1.1 mg/dL (0.7-1.3); GFR 86.4
[2020-01-24 03:20] LABS: ALBUMIN 3.3 g/dL (3.4-5.0); ALBUMIN/GLOBULIN RATIO 0.8 (1.0-1.7); TOTAL BILIRUBIN 0.4 mg/dL (0.2-1.0); TOTAL PROTEIN 7.3 g/dL (6.4-8.2)
[2020-01-24] MEDS ORDERED: IOHEXOL 300 MG/ML 100ML VIAL. IV ONE (04:00)
[2020-01-24] MEDS ORDERED: CONTRAST GIVEN. MC PRN (04:00)
--- NOTE | 2020-01-24 04:45 | RAD ---
CT scan of the abdomen and pelvis with contrast 01/24/2020 CLINICAL HISTORY: Abdominal pain. TECHNIQUE: After the intravenous administration of 75 cc of Omnipaque 300 only, contiguous, 5 mm axial sections were obtained through the abdomen and pelvis. One or more of the following individualized dose reduction techniques were utilized for this study: 1. Automated exposure control. 2. Adjustment of the mA and/or kV according to patient size. 3. Use of iterative reconstruction technique. FINDINGS: Images through the lung bases demonstrate minimal dependent subsegmental atelectasis bilaterally. The liver, spleen, pancreas, and adrenal glands are within normal limits. A 2 mm nonobstructing calculus is seen involving the lower pole of the left kidney. Rounded low-attenuation lesions are seen involving the right kidney which measure 3 mm to 1.4 cm in size. These likely represent cysts. No further imaging workup is recommended. A 2 mm nonobstructing calculus is seen involving the superior pole of the right kidney. The abdominal aorta tapers normally. The gallbladder is slightly contracted. No free fluid or free air is seen within the abdomen. There is no evidence of bowel obstruction. The appendix is well-visualized and is within normal limits. Images through the pelvis demonstrate the urinary bladder distended with urine. No free fluid is seen. Minimal S-shaped curvature of the thoracolumbar spine is noted. IMPRESSION: No acute abnormality is seen. Electronically signed by: Russel Phillip MD (01/24/2020 4:42 AM) [id number]
[2020-01-24] MEDS ORDERED: TRAM50TA PO (04:54)
[2020-01-24] MEDS ORDERED: OMEP40CA45 PO (04:54)
--- NOTE | 2020-01-24 04:55 | PHYS DOC ---
Past Medical History Past Medical History: Hypertension, Kidney Stone, Other Additional Past Medical Histor: PE, Factor 5 Past Surgical History: Other Additional Past Surgical Histo: lithrotripsy Smoking Status: Never Smoker Alcohol Use: None Drug Use: None General Adult EDM: Chief Complaint: ABDOMINAL PAIN HPI: HPI: Patient is a 49 year old male who presents with complaint of upper abdominal discomfort with abdominal bloating for the last couple of days. Patient states that symptoms are worst when he gets up in the morning. He states that symptoms seem to improve after eating. He states that his abdomen is been more bloated than usual. He denies any fever. He denies any chest pain or shortness of breath. [] Review of Systems: Review of Systems: Constitutional: Denies fever or chills. [] Respiratory: Denies cough or shortness of breath. [] Cardiovascular: Denies chest pain or edema. [] GI: Complains of abdominal discomfort with abdominal bloating. Denies vomiting or diarrhea. [] Neurologic: Denies headache, focal weakness or sensory changes. [] A full 10 point review of systems has been reviewed and is otherwise negative. Heart Score: Risk Factors: Risk Factors: DM, Current or recent (<one month) smoker, HTN, HLP, family history of CAD, obesity. Risk Scores: Score 0 - 3: 2.5% MACE over next 6 weeks - Discharge Home Score 4 - 6: 20.3% MACE over next 6 weeks - Admit for Clinical Observation Score 7 - 10: 72.7% MACE over next 6 weeks - Early Invasive Strategies Current Medications: Current Medications Medications (Trade) Dose Ordered Sig/Ale Start Time Stop Time Status Last Admin Dose Admin Info (CONTRAST GIVEN -- Rx MONITORING) 1 each PRN DAILY PRN 01/24/20 04:00 01/26/20 03:59 Iohexol (Omnipaque 300 Mg/ml) 75 ml 1X ONCE 01/24/20 04:00 01/24/20 04:01 DC 01/24/20 04:08 75 ML Allergies: Allergies: Allergies Coded Allergies Type Severity Reaction Last Updated Verified No Known Medication Allergies Allergy Unknown 12/04/19 Yes nitroglycerin Adverse Reaction Intermediate LOC/SYNCOPE 04/07/17 Yes Physical Exam: PE: Constitutional: Well developed, well nourished, no acute distress, non-toxic appearance. [] HENT: Normocephalic, atraumatic, bilateral external ears normal, oropharynx moist, no oral exudates, nose normal. [] Eyes: PERRLA, EOMI, conjunctiva normal, no discharge. [] Neck: Normal range of motion, no tenderness, supple, no stridor. [] Cardiovascular: Regular rate and rhythm [] Lungs & Thorax: Bilateral breath sounds clear to auscultation [] Abdomen: Bowel sounds normal, soft, no tenderness. [] Skin: Warm, dry, no erythema, no rash. [] Extremities: No tenderness, no cyanosis, no clubbing, ROM intact, no edema. [] Neurologic: Alert and oriented X 3, no focal deficits noted. [] Current Patient Data: Labs: Laboratory Tests Test 01/24/20 02:15 01/24/20 02:54 Urine Collection Type Unknown Urine Color Yellow Urine Clarity Clear Urine pH 5.5 (<5.0-8.0) Urine Specific [place] 1.025 (1.000-1.030) Urine Protein Negative mg/dL (NEG-TRACE) Urine Glucose (UA) Negative mg/dL (NEG) Urine Ketones (Stick) Negative mg/dL (NEG) Urine Blood Negative (NEG) Urine Nitrite Negative (NEG) Urine Bilirubin Negative (NEG) Urine Urobilinogen Dipstick 0.2 mg/dL (0.2 mg/dL) Urine Leukocyte Esterase Negative (NEG) Urine RBC 0 /HPF (0-2) Urine WBC 1-4 /HPF (0-4) Urine Squamous Epithelial Cells Occ /LPF Urine Bacteria 0 /HPF (0-FEW) Urine Mucus Mod /LPF Urine Sperm Present /HPF White Blood Count 7.5 x10^3/uL (4.0-11.0) Red Blood Count 4.37 x10^6/uL (4.30-5.70) Hemoglobin 13.1 g/dL (13.0-17.5) Hematocrit 39.0 % (39.0-53.0) Mean Corpuscular Volume 89 fL (79-100) Mean Corpuscular Hemoglobin 30 pg (25-35) Mean Corpuscular Hemoglobin Concent 34 g/dL (31-37) Red Cell Distribution Width 14.5 % (11.5-14.5) Platelet Count 290 x10^3/uL (140-400) Neutrophils (%) (Auto) 51 % (31-73) Lymphocytes (%) (Auto) 36 % (24-48) Monocytes (%) (Auto) 11 % (0-9) H Eosinophils (%) (Auto) 1 % (0-3) Basophils (%) (Auto) 1 % (0-3) Neutrophils # (Auto) 3.9 x10^3/uL (1.8-7.7) Lymphocytes # (Auto) 2.7 x10^3/uL (1.0-4.8) Monocytes # (Auto) 0.8 x10^3/uL (0.0-1.1) Eosinophils # (Auto) 0.1 x10^3/uL (0.0-0.7) Basophils # (Auto) 0.0 x10^3/uL (0.0-0.2) Sodium Level 139 mmol/L (136-145) Potassium Level 4.0 mmol/L (3.5-5.1) Chloride Level 103 mmol/L (98-107) Carbon Dioxide Level 27 mmol/L (21-32) Anion Gap 9 (6-14) Blood Urea Nitrogen 15 mg/dL (8-26) Creatinine 1.1 mg/dL (0.7-1.3) Estimated GFR (Cockcroft-Gault) 86.4 BUN/Creatinine Ratio 14 (6-20) Glucose Level 143 mg/dL (70-99) H Calcium Level 8.4 mg/dL (8.5-10.1) L Total Bilirubin 0.4 mg/dL (0.2-1.0) Aspartate Amino Transferase (AST) 16 U/L (15-37) Alanine Aminotransferase (ALT) 21 U/L (16-63) Alkaline Phosphatase 56 U/L (46-116) Total Protein 7.3 g/dL (6.4-8.2) Albumin 3.3 g/dL (3.4-5.0) L Albumin/Globulin Ratio 0.8 (1.0-1.7) L Lipase 135 U/L (73-393) Laboratory Tests 01/24/20 02:54 Laboratory Tests 01/24/20 02:54 Vital Signs: Vital Signs Date Time Temp Pulse Resp B/P (MAP) Pulse Ox O2 Delivery O2 Flow Rate FiO2 01/24/20 04:30 97.9 78 18 139/72 (94) 98 Room Air 97.9 EKG: EKG: [] Radiology/Procedures: Radiology/Procedures: [] Impression: REASON: abd pain PROCEDURE: CT ABD PELV W/ IV CONTRST ONLY CT scan of the abdomen and pelvis with contrast 01/24/2020 CLINICAL HISTORY: Abdominal pain. TECHNIQUE: After the intravenous administration of 75 cc of Omnipaque 300 only, contiguous, 5 mm axial sections were obtained through the abdomen and pelvis. One or more of the following individualized dose reduction techniques were utilized for this study: 1. Automated exposure control. 2. Adjustment of the mA and/or kV according to patient size. 3. Use of iterative reconstruction technique. FINDINGS: Images through the lung bases demonstrate minimal dependent subsegmental atelectasis bilaterally. The liver, spleen, pancreas, and adrenal glands are within normal limits. A 2 mm nonobstructing calculus is seen involving the lower pole of the left kidney. Rounded low-attenuation lesions are seen involving the right kidney which measure 3 mm to 1.4 cm in size. These likely represent cysts. No further imaging workup is recommended. A 2 mm nonobstructing calculus is seen involving the superior pole of the right kidney. The abdominal aorta tapers normally. The gallbladder is slightly contracted. No free fluid or free air is seen within the abdomen. There is no evidence of bowel obstruction. The appendix is well-visualized and is within normal limits. Images through the pelvis demonstrate the urinary bladder distended with urine. No free fluid is seen. Minimal S-shaped curvature of the thoracolumbar spine is noted. IMPRESSION: No acute abnormality is seen. Electronically signed by: Russel Phillip MD (01/24/2020 4:42 AM) [id number] Course & Med Decision Making: Course & Med Decision Making Pertinent Labs and Imaging studies reviewed. (See chart for details) [] Dragon Disclaimer: Dragon Disclaimer: This electronic medical record was generated, in whole or in part, using a voice recognition dictation system. Departure Departure Impression: Primary Impression: Upper abdominal pain Disposition: 01 HOME, SELF-CARE Condition: STABLE Referrals: KIMBERLY HOLLY JR, MD (PCP) Patient Instructions: Abdominal Pain Scripts Omeprazole (OMEPRAZOLE) 40 Mg Capsule. 1 CAP PO DAILY, #30 CAP Prov: SHAJI STEVENSON Jr. DO 01/24/20 Tramadol Hcl (TRAMADOL HCL) 50 Mg Tablet 50 MG PO Q6HRS PRN for PAIN, #14 TAB Prov: SHAJI STEVENSON Jr. DO 01/24/20 SHAJI STEVENSON Jr. DO January 24, 2020 04:54
[2020-01-24 05:00] VITALS: BP 133/70
== END 2020-01-24 05:09 | disposition home or self-care (01) ==
LOC: ER 01:33
DX: R10.10 Upper abdominal pain, unspecified (principal); R14.0 Abdominal distension (gaseous); I10 Essential (primary) hypertension; Z87.442 Personal history of urinary calculi; Z98.890 Other specified postprocedural states; Z88.1 Allergy status to other antibiotic agents
CPT/HCPCS: 36415; 74177; 80053; 81001; 83690; 85025; 99285; Q9967

== ENCOUNTER 2020-03-27 15:15 | Observation (INO) | payer OTHER ==
[~2020-03-27] VITALS: Ht 167.6 cm; Wt 131.3 kg
[~2020-03-27 15:15] MED LIST changes: +OMEP40CA45 PO; -WARF-78 PO; +WARF5TAB2 PO
--- NOTE | 2020-03-27 18:32 | PHYS DOC ---
Past Medical History Past Medical History: Hypertension, Kidney Stone, Other Additional Past Medical Histor: PE, Factor V Past Surgical History: Other Additional Past Surgical Histo: lithrotripsy Smoking Status: Never Smoker Alcohol Use: None Drug Use: None General Adult EDM: Chief Complaint: SHORTNESS OF BREATH HPI: HPI: Patient is a 49 year old male who presents with a 2-day history of intermittent shortness of breath. The shortness of breath is with minimal exertion. Patient also describes as some chest pressure associated with shortness of breath. Episodes last about 5 minutes at a time or worse with exertion. Pain radiates to the left chest and occasionally going down the left arm. Patient denies any chest pain or shortness of breath at the time. Pain is moderate at severest. Patient has had a minimal cough with no fevers or known COVID contacts. Review of Systems: Review of Systems: Constitutional: Denies fever or chills. [] Eyes: Denies change in visual acuity. [] HENT: Denies nasal congestion or sore throat. [] Respiratory: Reports a minimal cough and intermittent shortness of breath Cardiovascular: Reports chest pressure but no edema GI: Denies abdominal pain, nausea, vomiting, bloody stools or diarrhea. [] : Denies dysuria. [] Musculoskeletal: Denies back pain or joint pain. [] Integument: Denies rash. [] Neurologic: Denies headache, focal weakness or sensory changes. [] Endocrine: Denies polyuria or polydipsia. [] Lymphatic: Denies swollen glands. [] Psychiatric: Denies depression or anxiety. [] Heart Score: HEART Score for Chest Pain: HEART Score for Chest Pain Response (Comments) Value History Moderately Suspicious 1 ECG Nonspecific Repolarizatio 1 Age >45 - < 65 1 Risk Factors 1 or 2 Risk Factors 1 Troponin < Normal Limit 0 Total 4 Risk Factors: Risk Factors: DM, Current or recent (<one month) smoker, HTN, HLP, family history of CAD, obesity. Risk Scores: Score 0 - 3: 2.5% MACE over next 6 weeks - Discharge Home Score 4 - 6: 20.3% MACE over next 6 weeks - Admit for Clinical Observation Score 7 - 10: 72.7% MACE over next 6 weeks - Early Invasive Strategies Allergies: Allergies: Allergies Coded Allergies Type Severity Reaction Last Updated Verified No Known Medication Allergies Allergy Unknown 12/04/19 Yes nitroglycerin Adverse Reaction Intermediate LOC/SYNCOPE 04/07/17 Yes Physical Exam: PE: Constitutional: Well developed, well nourished, no acute distress, non-toxic appearance. HENT: No trismus, external ears normal Eyes: Conjunctiva clear, EOMI Neck: Normal range of motion, no tenderness, supple, no stridor. Cardiovascular: Regular rate/rhythm, peripheral pulse intact, FUSE CUP EXPANDER intact Lungs & Thorax: No respiratory distress Abdomen: No distension, nontender, no pulsatile masses, no guarding or rebound Skin: Diffuse: Intact, no rash Back: Full ROM Extremities: Normal inspection, no edema Neurologic: Alert and oriented X 3, normal motor function, , no focal deficits noted. Psychologic: Affect normal, judgement normal, mood normal. Current Patient Data: Labs: Laboratory Tests Test 03/27/20 17:30 White Blood Count 6.3 x10^3/uL Red Blood Count 4.37 x10^6/uL Hemoglobin 13.4 g/dL Hematocrit 38.9 % Mean Corpuscular Volume 89 fL Mean Corpuscular Hemoglobin 31 pg Mean Corpuscular Hemoglobin Concent 35 g/dL Red Cell Distribution Width 14.4 % Platelet Count 315 x10^3/uL Neutrophils (%) (Auto) 57 % Lymphocytes (%) (Auto) 30 % Monocytes (%) (Auto) 11 % Eosinophils (%) (Auto) 1 % Basophils (%) (Auto) 1 % Neutrophils # (Auto) 3.6 x10^3/uL Lymphocytes # (Auto) 1.9 x10^3/uL Monocytes # (Auto) 0.7 x10^3/uL Eosinophils # (Auto) 0.1 x10^3/uL Basophils # (Auto) 0.0 x10^3/uL Prothrombin Time 13.5 SEC Prothromb Time International Ratio 1.1 Activated Partial Thromboplast Time 34 SEC D-Dimer (Kezia) < 0.27 ug/mlFEU Sodium Level 138 mmol/L Potassium Level 3.8 mmol/L Chloride Level 104 mmol/L Carbon Dioxide Level 30 mmol/L Anion Gap 4 Blood Urea Nitrogen 13 mg/dL Creatinine 1.1 mg/dL Estimated GFR (Cockcroft-Gault) 86.4 BUN/Creatinine Ratio 12 Glucose Level 97 mg/dL Calcium Level 8.9 mg/dL Magnesium Level 2.1 mg/dL Total Bilirubin 0.4 mg/dL Aspartate Amino Transf (AST/SGOT) 13 U/L Alanine Aminotransferase (ALT/SGPT) 23 U/L Alkaline Phosphatase 53 U/L Troponin I Quantitative < 0.017 ng/mL ZD-Fvc-C-Type Natriuretic Peptide 33 pg/mL Total Protein 7.7 g/dL Albumin 3.4 g/dL Albumin/Globulin Ratio 0.8 Lipase 122 U/L Current Medications Medications (Trade) Dose Ordered Sig/Ale Route PRN Reason Start Time Stop Time Status Last Admin Dose Admin Aspirin (Aspirin Chewable) 324 mg 1X ONCE PO 03/27/20 20:30 03/27/20 20:31 Vital Signs: Vital Signs Date Time Temp Pulse Resp B/P (MAP) Pulse Ox O2 Delivery O2 Flow Rate FiO2 03/27/20 17:15 98.7 87 20 159/96 (117) 100 Room Air 98.7 Vital Signs Date Time Temp Pulse Resp B/P (MAP) Pulse Ox O2 Delivery O2 Flow Rate FiO2 03/27/20 17:15 98.7 87 20 159/96 (117) 100 Room Air 98.7 EKG: EKG: [] EKG interpreted by co normal sinus rhythm with a rate of 79 normal axis normal intervals inverted T waves in inferior leads as well as V2 V3 V4 and V6 Radiology/Procedures: Radiology/Procedures: [][facility] [address] [place] [address] IMAGING REPORT Signed PATIENT: HEATHER HIRSCH ACCOUNT: [id number] : 1970 LOCATION: ER AGE: 49 SEX: M EXAM STATUS: REG ER ORD. PHYSICIAN: NADEEM OAKLEY MD REASON: cp PROCEDURE: PORTABLE CHEST 1V EXAM: CHEST ONE VIEW. HISTORY: Chest pain. COMPARISON: 12/04/2019. FINDINGS: A frontal view of the chest is obtained. There are no confluent infiltrates. There is no pneumothorax or pleural effusion. The heart is not enlarged. IMPRESSION: 1. No confluent infiltrates. Electronically signed by: Angelique Pina MD (03/27/2020 7:08 PM) [facility] DICTATED and SIGNED BY: BEBETO PINA MD DATE: 03/27/201907 Course & Med Decision Making: Course & Med Decision Making Pertinent Labs and Imaging studies reviewed. (See chart for details) [] 49-year-old male presents with shortness of breath that is with exertion over the last 2 days. Patient states he is having some chest pressure goes to the left arm last 5 minutes or so. Differential diagnosis includes pneumonia, pneumothorax, acute coronary syndrome, thoracic aortic dissection. D-dimer is negative. Doubt pulmonary embolism. Patient does have some inverted T waves on EKG. Patient will be placed in observation for further evaluation and rule out. Cardiac consult placed in the computer. Patient has no fever and only minimal cough and a normal chest x-ray. I do not think the signs and symptoms are consistent with COVID-19. Dragon Disclaimer: Dragon Disclaimer: This electronic medical record was generated, in whole or in part, using a voice recognition dictation system. Departure Departure Impression: Primary Impression: Chest discomfort Additional Impressions: Dyspnea Chest pain Disposition: ADMITTED INPATIENT Admitting Physician: CARLOS OSMAN) Condition: STABLE Referrals: KIMBERLY HOLLY JR, MD (PCP) Justicifation of Admission Dx: Justifications for Admission: Justification of Admission Dx: Yes NADEEM OAKLEY MD Mar 27, 2020 18:32
[2020-03-27 18:51] LABS: BASO % 1 % (0-3); EOS # 0.1 x10^3/uL (0.0-0.7); EOS % 1 % (0-3); HEMATOCRIT 38.9 % (39.0-53.0); HEMOGLOBIN 13.4 g/dL (13.0-17.5); LYMPH # 1.9 x10^3/uL (1.0-4.8); LYMPH % 30 % (24-48); MEAN CORPUSCULAR HEMOGLOBIN 31 pg (25-35); MEAN CORPUSCULAR HGB CONC 35 g/dL (31-37); MEAN CORPUSCULAR VOLUME 89 fL (79-100); MONO # 0.7 x10^3/uL (0.0-1.1); MONO % 11 % (0-9); NEUT # 3.6 x10^3/uL (1.8-7.7); NEUT % 57 % (31-73); PLATELET COUNT 315 x10^3/uL (140-400); RED BLOOD COUNT 4.37 x10^6/uL (4.30-5.70); RED CELL DISTRIBUTION WIDTH 14.4 % (11.5-14.5); WHITE BLOOD COUNT 6.3 x10^3/uL (4.0-11.0)
[2020-03-27 19:10] LABS: PROTHROMBIN TIME PATIENT 13.5 SEC (11.7-14.0)
[2020-03-27 19:11] LABS: PARTIAL THROMBOPLASTIN TIME 34 SEC (24-38)
--- NOTE | 2020-03-27 19:11 | RAD ---
EXAM: CHEST ONE VIEW. HISTORY: Chest pain. COMPARISON: 12/04/2019. FINDINGS: A frontal view of the chest is obtained. There are no confluent infiltrates. There is no pneumothorax or pleural effusion. The heart is not enlarged. IMPRESSION: 1. No confluent infiltrates. Electronically signed by: Angelique Pina MD (03/27/2020 7:08 PM) [facility]
[2020-03-27 19:15] LABS: CALCIUM 8.9 mg/dL (8.5-10.1); CREATININE 1.1 mg/dL (0.7-1.3); GFR 86.4; POTASSIUM 3.8 mmol/L (3.5-5.1)
[2020-03-27 19:17] LABS: D-DIMER < 0.27 ug/mlFEU (0.00-0.50)
[2020-03-27 19:21] LABS: ALBUMIN 3.4 g/dL (3.4-5.0); ALBUMIN/GLOBULIN RATIO 0.8 (1.0-1.7); MAGNESIUM 2.1 mg/dL (1.8-2.4); TOTAL BILIRUBIN 0.4 mg/dL (0.2-1.0); TOTAL PROTEIN 7.7 g/dL (6.4-8.2)
[2020-03-27] MEDS ORDERED: ASPIRIN CHEWABLE 81 MG TABLET. PO ONE (20:30)
--- NOTE | 2020-03-27 21:54 | PDOC1 ---
History and Physical Date of Admission Date of Admission March 27, 2020 Identification/Chief Complaint Chief Complaint I am short of breath Source Source: Chart review, Patient History of Present Illness History of Present Illness Patient is a 49-year-old gentleman with past medical history of hypertension who was in his usual state of health until approximately 2 days prior to his admission when he started noticing shortness of breath. 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 The patient also mentioned having some discomfort over his precordial area with radiation to the arm reason why we were asked to admit the patient for rule out. The patient describes the discomfort as a sharp pain with radiation to the arm not the jaw no sensation of impending doom no nausea vomiting associated with the symptoms. He rated the discomfort at a 5 out of 10 intensity the most. As far as the dyspnea goes the patient denies any upper respiratory tract infection symptoms no coughing sneezing no fever no chills were reported no diaphoresis either. The patient seems to be in no acute distress at the time of my evaluation and is not exhibiting increased work of breathing. The patient is home in good spirits and the plan of care was explained in detail, reassurance has been provided. Past Medical History Cardiovascular: HTN Pulmonary: No pertinent hx CENTRAL NERVOUS SYSTEM: Other GI: GERD, Other Heme/Onc: No pertinent hx Hepatobiliary: No pertinent hx Psych: No pertinent hx Rheumatologic: No pertinent hx Infectious disease: No pertinent hx Renal/: No pertinent hx, Other Endocrine: No pertinent hx Past Surgical History Past Surgical History: No pertinent history Family History Family History: Heart Disease Social History Smoke: No ALCOHOL: none Drugs: None Current Problem List Problem List Problems Medical Problems: (1) Chest discomfort Status: Acute (2) Chest pain Status: Acute (3) Dyspnea Status: Acute Current Medications Current Medications Current Medications Medications (Trade) Dose Ordered Sig/Ale Start Time Stop Time Status Last Admin Dose Admin Aspirin (Aspirin Chewable) 324 mg 1X ONCE 03/27/20 20:30 03/27/20 20:31 DC 03/27/20 21:03 324 MG Allergies Allergies Allergies Coded Allergies Type Severity Reaction Last Updated Verified No Known Medication Allergies Allergy Unknown 12/04/19 Yes nitroglycerin Adverse Reaction Intermediate LOC/SYNCOPE 04/07/17 Yes ROS Review of System CONSTITUTIONAL: No fever or chills EYES: No recent changes SKIN: No rash or itching CARDIOVASCULAR: No chest pain, syncope, palpitations, or edema RESPIRATORY: No SOB or cough GASTROINTESTINAL: No nausea, vomiting or abdominal pain NEUROLOGICAL: No headaches or weakness ENDOCRINE: No cold or heat intolerance GENITOURINARY: No urgency or frequency of urination MUSCULOSKELETAL: No back pain or joint pain LYMPHATICS: No enlarged lymph nodes PSYCHIATRIC: No anxiety or depression Physical Exam Physical Exam GEN.: No apparent distress. Alert and oriented. HEENT: Head is normocephalic, atraumatic NECK: Supple. LUNGS: Clear to auscultation. HEART: RRR, S1, S2 present. Peripheral pulses intact ABDOMEN: Soft, nontender. Positive bowel sounds. EXTREMITIES: Without any cyanosis. NEUROLOGIC: Normal speech, normal tone PSYCHIATRIC: Normal affect, normal mood. SKIN: No ulcerations Vitals Vitals Vital Signs Date Time Temp Pulse Resp B/P (MAP) Pulse Ox O2 Delivery O2 Flow Rate FiO2 03/27/20 21:07 82 16 155/82 (106) 100 Room Air 03/27/20 17:15 98.7 98.7 Labs Labs Laboratory Tests Test 03/27/20 17:30 White Blood Count 6.3 x10^3/uL (4.0-11.0) Red Blood Count 4.37 x10^6/uL (4.30-5.70) Hemoglobin 13.4 g/dL (13.0-17.5) Hematocrit 38.9 % (39.0-53.0) Mean Corpuscular Volume 89 fL (79-100) Mean Corpuscular Hemoglobin 31 pg (25-35) Mean Corpuscular Hemoglobin Concent 35 g/dL (31-37) Red Cell Distribution Width 14.4 % (11.5-14.5) Platelet Count 315 x10^3/uL (140-400) Neutrophils (%) (Auto) 57 % (31-73) Lymphocytes (%) (Auto) 30 % (24-48) Monocytes (%) (Auto) 11 % (0-9) Eosinophils (%) (Auto) 1 % (0-3) Basophils (%) (Auto) 1 % (0-3) Neutrophils # (Auto) 3.6 x10^3/uL (1.8-7.7) Lymphocytes # (Auto) 1.9 x10^3/uL (1.0-4.8) Monocytes # (Auto) 0.7 x10^3/uL (0.0-1.1) Eosinophils # (Auto) 0.1 x10^3/uL (0.0-0.7) Basophils # (Auto) 0.0 x10^3/uL (0.0-0.2) Prothrombin Time 13.5 SEC (11.7-14.0) Prothromb Time International Ratio 1.1 (0.8-1.1) Activated Partial Thromboplast Time 34 SEC (24-38) D-Dimer (Kezia) < 0.27 ug/mlFEU Sodium Level 138 mmol/L (136-145) Potassium Level 3.8 mmol/L (3.5-5.1) Chloride Level 104 mmol/L (98-107) Carbon Dioxide Level 30 mmol/L (21-32) Anion Gap 4 (6-14) Blood Urea Nitrogen 13 mg/dL (8-26) Creatinine 1.1 mg/dL (0.7-1.3) Estimated GFR (Cockcroft-Gault) 86.4 BUN/Creatinine Ratio 12 (6-20) Glucose Level 97 mg/dL (70-99) Calcium Level 8.9 mg/dL (8.5-10.1) Magnesium Level 2.1 mg/dL (1.8-2.4) Total Bilirubin 0.4 mg/dL (0.2-1.0) Aspartate Amino Transf (AST/SGOT) 13 U/L (15-37) Alanine Aminotransferase (ALT/SGPT) 23 U/L (16-63) Alkaline Phosphatase 53 U/L (46-116) Troponin I Quantitative < 0.017 ng/mL (0.000-0.055) CA-Vvv-O-Type Natriuretic Peptide 33 pg/mL (0-124) Total Protein 7.7 g/dL (6.4-8.2) Albumin 3.4 g/dL (3.4-5.0) Albumin/Globulin Ratio 0.8 (1.0-1.7) Lipase 122 U/L (73-393) Laboratory Tests Test 03/27/20 17:30 White Blood Count 6.3 x10^3/uL (4.0-11.0) Red Blood Count 4.37 x10^6/uL (4.30-5.70) Hemoglobin 13.4 g/dL (13.0-17.5) Hematocrit 38.9 % (39.0-53.0) Mean Corpuscular Volume 89 fL (79-100) Mean Corpuscular Hemoglobin 31 pg (25-35) Mean Corpuscular Hemoglobin Concent 35 g/dL (31-37) Red Cell Distribution Width 14.4 % (11.5-14.5) Platelet Count 315 x10^3/uL (140-400) Neutrophils (%) (Auto) 57 % (31-73) Lymphocytes (%) (Auto) 30 % (24-48) Monocytes (%) (Auto) 11 % (0-9) Eosinophils (%) (Auto) 1 % (0-3) Basophils (%) (Auto) 1 % (0-3) Neutrophils # (Auto) 3.6 x10^3/uL (1.8-7.7) Lymphocytes # (Auto) 1.9 x10^3/uL (1.0-4.8) Monocytes # (Auto) 0.7 x10^3/uL (0.0-1.1) Eosinophils # (Auto) 0.1 x10^3/uL (0.0-0.7) Basophils # (Auto) 0.0 x10^3/uL (0.0-0.2) Prothrombin Time 13.5 SEC (11.7-14.0) Prothromb Time International Ratio 1.1 (0.8-1.1) Activated Partial Thromboplast Time 34 SEC (24-38) D-Dimer (Kezia) < 0.27 ug/mlFEU Sodium Level 138 mmol/L (136-145) Potassium Level 3.8 mmol/L (3.5-5.1) Chloride Level 104 mmol/L (98-107) Carbon Dioxide Level 30 mmol/L (21-32) Anion Gap 4 (6-14) Blood Urea Nitrogen 13 mg/dL (8-26) Creatinine 1.1 mg/dL (0.7-1.3) Estimated GFR (Cockcroft-Gault) 86.4 BUN/Creatinine Ratio 12 (6-20) Glucose Level 97 mg/dL (70-99) Calcium Level 8.9 mg/dL (8.5-10.1) Magnesium Level 2.1 mg/dL (1.8-2.4) Total Bilirubin 0.4 mg/dL (0.2-1.0) Aspartate Amino Transf (AST/SGOT) 13 U/L (15-37) Alanine Aminotransferase (ALT/SGPT) 23 U/L (16-63) Alkaline Phosphatase 53 U/L (46-116) Troponin I Quantitative < 0.017 ng/mL (0.000-0.055) HQ-Chi-U-Type Natriuretic Peptide 33 pg/mL (0-124) Total Protein 7.7 g/dL (6.4-8.2) Albumin 3.4 g/dL (3.4-5.0) Albumin/Globulin Ratio 0.8 (1.0-1.7) Lipase 122 U/L (73-393) VTE Prophylaxis Ordered VTE Prophylaxis Devices: Yes VTE Pharmacological Prophylaxi: Yes Assessment/Plan Assessment/Plan Chest pain rule out ACS Dyspnea rule out COVID-19 infection Hypertension Morbid obesity with a BMI of 46 Plan Continue trending troponin We will follow results of coronavirus 2019 Resume home medications Labetalol for SBP greater than 160 Reassess in the a.m. Further recommendations based on clinical course DVT prophylaxis with Lovenox Justicifation of Admission Dx: Justifications for Admission: Justification of Admission Dx: Yes TC PANTOJA MD Mar 27, 2020 21:54
[2020-03-27] MEDS ORDERED: ALBUTEROL SULFATE 2.5 MG/3 ML NEBU. NEB PRN (22:30)
[2020-03-27] MEDS ORDERED: diphenhydrAMINE 50 MG/ML VIAL IVP PRN (22:30)
[2020-03-27] MEDS ORDERED: ACETAMINOPHEN 325 MG TABLET. PO PRN (22:30)
[2020-03-27] MEDS ORDERED: BENZONATATE 100 MG CAPSULE. PO PRN (22:30)
[2020-03-27] MEDS ORDERED: LORazepam 0.5 MG TABLET PO PRN (22:30)
[2020-03-27] MEDS ORDERED: DOCUSATE SODIUM 100 MG CAPSULE. PO PRN (22:30)
[2020-03-27] MEDS ORDERED: traMADol 50 MG TABLET PO PRN (22:30)
[2020-03-27] MEDS ORDERED: guaiFENesin ORAL 200 MG/10 ML LIQUID. PO PRN (22:30)
[2020-03-27] MEDS ORDERED: ZOLPIDEM 5 MG TABLET. PO PRN (22:30)
[2020-03-27] MEDS ORDERED: ONDANSETRON PF 4 MG/2 ML VIAL. IV PRN (22:30)
[2020-03-27] MEDS ORDERED: ENOXAPARIN 40 MG/0.4 ML SYRINGE. SQ SCH (22:30)
[2020-03-27] MEDS: METHOCARBAMOL 500 MG TABLET PO SCH (22:45)
[2020-03-27] MEDS ORDERED: MAG HYDROX/ALUMINUM HYD/SIMETH 30 ML ORAL.SUSP PO SCH (22:45)
[2020-03-27] MEDS ORDERED: AMLO10TA8 PO (23:04)
[2020-03-27] MEDS ORDERED: APIX5TAB PO (23:04)
[2020-03-27] MEDS ORDERED: FAMO20TA5 PO (23:04)
[2020-03-27] MEDS ORDERED: DICY20TA3 PO (23:04)
[2020-03-27 23:14] VITALS: BP 137/84
[2020-03-28 03:38] VITALS: BP 115/59
[2020-03-28] MEDS ORDERED: MAG HYDROX/ALUMINUM HYD/SIMETH 30 ML ORAL.SUSP PO PRN (07:45)
[2020-03-28 07:55] VITALS: BP 122/69
[2020-03-28] MEDS: METHOCARBAMOL 500 MG TABLET PO SCH (09:00)
[2020-03-28] MEDS ORDERED: APIXABAN 5 MG TABLET. PO SCH (11:30)
[2020-03-28] MEDS ORDERED: amLODIPine BESYLATE 10 MG TABLET PO SCH (11:30)
[2020-03-28] MEDS ORDERED: FAMOTIDINE 20 MG TABLET. PO SCH (11:30)
[2020-03-28] MEDS ORDERED: DICYCLOMINE HCL 10 MG CAPSULE PO PRN (11:30)
[2020-03-28 11:33] VITALS: BP 132/66
[2020-03-28] MEDS ORDERED: LIDO:MAALOX 1:1 20 ML SINGLE DOSE. PO PRN (12:15)
[2020-03-28 12:25] VITALS: BP 132/66
[2020-03-28] MEDS ORDERED: PANTOPRAZOLE 40 MG TABLET.DR. PO ONE (12:30)
--- NOTE | 2020-03-28 12:46 | PDOC ---
[employer] PROGRESS NOTE Chief Complaint Chief Complaint Chest pain rule out ACS - with his shortness of breath and lifelong anticoagulation on Eliquis this is almost certainly gastritis with associated GERD likely with LPR D not well controlled with an H2 laith, will advance onto a PPI and have GI referral outpatient. Dyspnea rule out COVID-19 infection - results pending, will call him with the results he will quarantine until his negative results, if positive he will continue to quarantine for 10 days after his positive results and add an additional 3 days on until his symptoms resolve. 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 The patient also mentioned having some discomfort over his precordial area with radiation to the arm reason why we were asked to admit the patient for rule out. The patient describes the discomfort as a sharp pain with radiation to the arm not the jaw no sensation of impending doom no nausea vomiting associated with the symptoms. He rated the discomfort at a 5 out of 10 intensity the most. As far as the dyspnea goes the patient denies any upper respiratory tract infection symptoms no coughing sneezing no fever no chills were reported no diaphoresis either. The patient seems to be in no acute distress at the time of my evaluation and is not exhibiting increased work of breathing. The patient is home in good spirits and the plan of care was explained in detail, reassurance has been provided. EKG interpreted by me normal sinus rhythm with a rate of 79 normal axis normal intervals inverted T waves in inferior leads as well as V2 V3 V4 and V6. CXR was clear. Troponin x3 negative. Feeling better after GI cocktail. Less short of breath, feels like he was having some gas. Seen by cardiology, ruled out ACS, will have outpatient stress testing. Vitals/I&O Vitals/I&O: Vital Signs Date Time Temp Pulse Resp B/P (MAP) Pulse Ox O2 Delivery O2 Flow Rate FiO2 7/26/20 11:33 96.9 82 18 132/66 (88) 97 Room Air 96.9 I & O 03/27/20 03/27/20 03/28/20 15:00 23:00 07:00 Intake Total 120 ml Balance 120 ml Physical Exam General: Alert, Oriented X3, Cooperative Heart: Regular rate, Normal S1, Normal S2 Lungs: Clear Abdomen: Normal bowel sounds, Soft Extremities: No clubbing, No cyanosis Skin: No rashes, No breakdown Labs Labs: Laboratory Tests Test 03/27/20 17:30 03/28/20 00:45 03/28/20 06:00 White Blood Count 6.3 x10^3/uL (4.0-11.0) Red Blood Count 4.37 x10^6/uL (4.30-5.70) Hemoglobin 13.4 g/dL (13.0-17.5) Hematocrit 38.9 % (39.0-53.0) Mean Corpuscular Volume 89 fL (79-100) Mean Corpuscular Hemoglobin 31 pg (25-35) Mean Corpuscular Hemoglobin Concent 35 g/dL (31-37) Red Cell Distribution Width 14.4 % (11.5-14.5) Platelet Count 315 x10^3/uL (140-400) Neutrophils (%) (Auto) 57 % (31-73) Lymphocytes (%) (Auto) 30 % (24-48) Monocytes (%) (Auto) 11 % (0-9) Eosinophils (%) (Auto) 1 % (0-3) Basophils (%) (Auto) 1 % (0-3) Neutrophils # (Auto) 3.6 x10^3/uL (1.8-7.7) Lymphocytes # (Auto) 1.9 x10^3/uL (1.0-4.8) Monocytes # (Auto) 0.7 x10^3/uL (0.0-1.1) Eosinophils # (Auto) 0.1 x10^3/uL (0.0-0.7) Basophils # (Auto) 0.0 x10^3/uL (0.0-0.2) Prothrombin Time 13.5 SEC (11.7-14.0) Prothromb Time International Ratio 1.1 (0.8-1.1) Activated Partial Thromboplast Time 34 SEC (24-38) D-Dimer (Kezia) < 0.27 ug/mlFEU Sodium Level 138 mmol/L (136-145) Potassium Level 3.8 mmol/L (3.5-5.1) Chloride Level 104 mmol/L (98-107) Carbon Dioxide Level 30 mmol/L (21-32) Anion Gap 4 (6-14) Blood Urea Nitrogen 13 mg/dL (8-26) Creatinine 1.1 mg/dL (0.7-1.3) Estimated GFR (Cockcroft-Gault) 86.4 BUN/Creatinine Ratio 12 (6-20) Glucose Level 97 mg/dL (70-99) Calcium Level 8.9 mg/dL (8.5-10.1) Magnesium Level 2.1 mg/dL (1.8-2.4) Total Bilirubin 0.4 mg/dL (0.2-1.0) Aspartate Amino Transf (AST/SGOT) 13 U/L (15-37) Alanine Aminotransferase (ALT/SGPT) 23 U/L (16-63) Alkaline Phosphatase 53 U/L (46-116) Troponin I Quantitative < 0.017 ng/mL (0.000-0.055) < 0.017 ng/mL (0.000-0.055) < 0.017 ng/mL (0.000-0.055) DN-Hvj-J-Type Natriuretic Peptide 33 pg/mL (0-124) Total Protein 7.7 g/dL (6.4-8.2) Albumin 3.4 g/dL (3.4-5.0) Albumin/Globulin Ratio 0.8 (1.0-1.7) Lipase 122 U/L (73-393) Assessment and Plan Assessmemt and Plan Problems Medical Problems: (1) Chest discomfort Status: Acute (2) Chest pain Status: Acute (3) Dyspnea Status: Acute Comment Review of Relevant I have reviewed the following items aidee (where applicable) has been applied. Medications: Current Medications Medications (Trade) Dose Ordered Sig/Ale Route PRN Reason Start Time Stop Time Status Last Admin Dose Admin Aspirin (Aspirin Chewable) 324 mg 1X ONCE PO 03/27/20 20:30 03/27/20 20:31 DC 03/27/20 21:03 Enoxaparin Sodium (Lovenox 40mg Syringe) 40 mg Q24H SQ 03/27/20 22:30 03/28/20 11:22 DC 03/27/20 23:53 Al Hydroxide/Mg Hydroxide (Mylanta Plus Xs) 15 ml TIDACHC PO 03/27/20 22:45 03/28/20 07:40 DC 03/27/20 23:52 Tramadol HCl (Ultram) 50 mg PRN Q6HRS PRN PO PAIN 03/27/20 22:30 03/28/20 00:06 Justicifation of Admission Dx: Justifications for Admission: Justification of Admission Dx: Yes PAO YEH MD Mar 28, 2020 12:46
[2020-03-28] MEDS ORDERED: PANT40TA77 PO (12:48)
--- NOTE | 2020-03-28 12:50 | PDOC3 ---
Discharge Summary Visit Information Date of Admission: Mar 27, 2020 Date of Discharge: Mar 28, 2020 Admitting Diagnosis: Chest pain, dyspnea Final Diagnosis Problems Medical Problems: (1) Chest discomfort Status: Acute (2) Chest pain Status: Acute (3) Dyspnea Status: Acute Brief Hospital Course Allergies Allergies Coded Allergies Type Severity Reaction Last Updated Verified No Known Medication Allergies Allergy Unknown 03/28/20 Yes nitroglycerin Adverse Reaction Intermediate LOC/SYNCOPE 03/27/20 Yes Vital Signs Vital Signs Date Time Temp Pulse Resp B/P (MAP) Pulse Ox O2 Delivery O2 Flow Rate FiO2 03/28/20 11:33 96.9 82 18 132/66 (88) 97 Room Air 96.9 Lab Results Laboratory Tests Test 03/27/20 17:30 03/28/20 00:45 03/28/20 06:00 White Blood Count 6.3 x10^3/uL (4.0-11.0) Red Blood Count 4.37 x10^6/uL (4.30-5.70) Hemoglobin 13.4 g/dL (13.0-17.5) Hematocrit 38.9 % (39.0-53.0) Mean Corpuscular Volume 89 fL (79-100) Mean Corpuscular Hemoglobin 31 pg (25-35) Mean Corpuscular Hemoglobin Concent 35 g/dL (31-37) Red Cell Distribution Width 14.4 % (11.5-14.5) Platelet Count 315 x10^3/uL (140-400) Neutrophils (%) (Auto) 57 % (31-73) Lymphocytes (%) (Auto) 30 % (24-48) Monocytes (%) (Auto) 11 % (0-9) Eosinophils (%) (Auto) 1 % (0-3) Basophils (%) (Auto) 1 % (0-3) Neutrophils # (Auto) 3.6 x10^3/uL (1.8-7.7) Lymphocytes # (Auto) 1.9 x10^3/uL (1.0-4.8) Monocytes # (Auto) 0.7 x10^3/uL (0.0-1.1) Eosinophils # (Auto) 0.1 x10^3/uL (0.0-0.7) Basophils # (Auto) 0.0 x10^3/uL (0.0-0.2) Prothrombin Time 13.5 SEC (11.7-14.0) Prothromb Time International Ratio 1.1 (0.8-1.1) Activated Partial Thromboplast Time 34 SEC (24-38) D-Dimer (Kezia) < 0.27 ug/mlFEU Sodium Level 138 mmol/L (136-145) Potassium Level 3.8 mmol/L (3.5-5.1) Chloride Level 104 mmol/L (98-107) Carbon Dioxide Level 30 mmol/L (21-32) Anion Gap 4 (6-14) Blood Urea Nitrogen 13 mg/dL (8-26) Creatinine 1.1 mg/dL (0.7-1.3) Estimated GFR (Cockcroft-Gault) 86.4 BUN/Creatinine Ratio 12 (6-20) Glucose Level 97 mg/dL (70-99) Calcium Level 8.9 mg/dL (8.5-10.1) Magnesium Level 2.1 mg/dL (1.8-2.4) Total Bilirubin 0.4 mg/dL (0.2-1.0) Aspartate Amino Transf (AST/SGOT) 13 U/L (15-37) Alanine Aminotransferase (ALT/SGPT) 23 U/L (16-63) Alkaline Phosphatase 53 U/L (46-116) Troponin I Quantitative < 0.017 ng/mL (0.000-0.055) < 0.017 ng/mL (0.000-0.055) < 0.017 ng/mL (0.000-0.055) FY-Xnq-P-Type Natriuretic Peptide 33 pg/mL (0-124) Total Protein 7.7 g/dL (6.4-8.2) Albumin 3.4 g/dL (3.4-5.0) Albumin/Globulin Ratio 0.8 (1.0-1.7) Lipase 122 U/L (73-393) Laboratory Tests Test 03/27/20 17:30 03/28/20 00:45 03/28/20 06:00 White Blood Count 6.3 x10^3/uL (4.0-11.0) Red Blood Count 4.37 x10^6/uL (4.30-5.70) Hemoglobin 13.4 g/dL (13.0-17.5) Hematocrit 38.9 % (39.0-53.0) Mean Corpuscular Volume 89 fL (79-100) Mean Corpuscular Hemoglobin 31 pg (25-35) Mean Corpuscular Hemoglobin Concent 35 g/dL (31-37) Red Cell Distribution Width 14.4 % (11.5-14.5) Platelet Count 315 x10^3/uL (140-400) Neutrophils (%) (Auto) 57 % (31-73) Lymphocytes (%) (Auto) 30 % (24-48) Monocytes (%) (Auto) 11 % (0-9) Eosinophils (%) (Auto) 1 % (0-3) Basophils (%) (Auto) 1 % (0-3) Neutrophils # (Auto) 3.6 x10^3/uL (1.8-7.7) Lymphocytes # (Auto) 1.9 x10^3/uL (1.0-4.8) Monocytes # (Auto) 0.7 x10^3/uL (0.0-1.1) Eosinophils # (Auto) 0.1 x10^3/uL (0.0-0.7) Basophils # (Auto) 0.0 x10^3/uL (0.0-0.2) Prothrombin Time 13.5 SEC (11.7-14.0) Prothromb Time International Ratio 1.1 (0.8-1.1) Activated Partial Thromboplast Time 34 SEC (24-38) D-Dimer (Kezia) < 0.27 ug/mlFEU Sodium Level 138 mmol/L (136-145) Potassium Level 3.8 mmol/L (3.5-5.1) Chloride Level 104 mmol/L (98-107) Carbon Dioxide Level 30 mmol/L (21-32) Anion Gap 4 (6-14) Blood Urea Nitrogen 13 mg/dL (8-26) Creatinine 1.1 mg/dL (0.7-1.3) Estimated GFR (Cockcroft-Gault) 86.4 BUN/Creatinine Ratio 12 (6-20) Glucose Level 97 mg/dL (70-99) Calcium Level 8.9 mg/dL (8.5-10.1) Magnesium Level 2.1 mg/dL (1.8-2.4) Total Bilirubin 0.4 mg/dL (0.2-1.0) Aspartate Amino Transf (AST/SGOT) 13 U/L (15-37) Alanine Aminotransferase (ALT/SGPT) 23 U/L (16-63) Alkaline Phosphatase 53 U/L (46-116) Troponin I Quantitative < 0.017 ng/mL (0.000-0.055) < 0.017 ng/mL (0.000-0.055) < 0.017 ng/mL (0.000-0.055) IG-Icx-H-Type Natriuretic Peptide 33 pg/mL (0-124) Total Protein 7.7 g/dL (6.4-8.2) Albumin 3.4 g/dL (3.4-5.0) Albumin/Globulin Ratio 0.8 (1.0-1.7) Lipase 122 U/L (73-393) Brief Hospital Course Mr Hirsch is a 49-year-old gentleman with past medical history of hypertension, 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 The patient also mentioned having some discomfort over his precordial area with radiation to the arm reason why we were asked to admit the patient for rule out. The patient describes the discomfort as a sharp pain with radiation to the arm not the jaw no sensation of impending doom no nausea vomiting associated with the symptoms. He rated the discomfort at a 5 out of 10 intensity the most. As far as the dyspnea goes the patient denies any upper respiratory tract infection symptoms no coughing sneezing no fever no chills were reported no diaphoresis either. The patient seems to be in no acute distress at the time of my evaluation and is not exhibiting increased work of breathing. The patient is home in good spirits and the plan of care was explained in detail, reassurance has been provided. EKG interpreted by me normal sinus rhythm with a rate of 79 normal axis normal intervals inverted T waves in inferior leads as well as V2 V3 V4 and V6. CXR was clear. Troponin x3 negative. Feeling better after GI cocktail. Less short of breath, feels like he was having some gas. Seen by cardiology, ruled out ACS, will have outpatient stress testing. Problem list: Chest pain rule out ACS - with his shortness of breath and lifelong anticoagulation on Eliquis this is almost certainly gastritis with associated GERD likely with LPR D not well controlled with an H2 laith, will advance onto a PPI and have GI referral outpatient. Dyspnea rule out COVID-19 infection - results pending, will call him with the results he will quarantine until his negative results, if positive he will continue to quarantine for 10 days after his positive results and add an add itional 3 days on until his symptoms resolve. 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 Morbid obesity with a BMI of 46 Consults: Cardiology Greater than 30 minutes spent on discharge including counseling. Discharge Information Condition at Discharge: Improved Follow Up: Weeks Disposition/Orders: D/C to Home Scheduled Amlodipine Besylate (Amlodipine Besylate) 10 Mg Tablet, 1 TAB PO DAILY for blood pressure, (Reported) Entered as Reported by: ASHER SULLIVAN on 03/27/202303 Last Action: Continued on 03/28/201121 by PAO YEH MD Apixaban (Eliquis) 5 Mg Tablet, 1 TAB PO BID for blood thinner, (Reported) Entered as Reported by: ASHER SULLIVAN on 03/27/202303 Last Action: Continued on 03/28/201121 by PAO YEH MD Mag Hydrox/Al Hydrox/Simeth (Maalox Maximum Strength Susp) 355 Ml Oral.susp, 15 ML PO TIDACHC for 10 Days, #1 Prescribed by: RADHA LATIF MD on 06/22/18 0358 Last Action: Continued on 03/27/202229 by TC PANTOJA MD Pantoprazole Sodium (Pantoprazole Sodium ) 40 Mg Tablet.dr, 40 MG PO DAILYAC for GERD for 30 Days, #30 Ref 5 Prescribed by: PAO YEH MD on 03/28/20 1248 Scheduled PRN Benzonatate (Tessalon Perle) 100 Mg Capsule, 1 CAP PO TID PRN for COUGH for 7 Days, #21 Ref 0 Prescribed by: KALEE GIL APRN on 09/20/19 1735 Last Action: Continued on 03/27/202229 by TC PANTOJA MD Dicyclomine Hcl (Dicyclomine Hcl) 20 Mg Tablet, 1 TAB PO Q6HRS PRN for PAIN, (Reported) Entered as Reported by: ASHER SULLIVAN on 03/27/202303 Last Action: Converted on 03/28/201121 by PAO YEH MD Tramadol Hcl (Tramadol Hcl) 50 Mg Tablet, 50 MG PO Q6HRS PRN for PAIN, #14 Prescribed by: SHAJI STEVENSON D.O. on 01/24/20 0454 Last Action: Continued on 03/27/202229 by TC PANTOJA MD Discontinued Medications Amoxicillin (Amoxicillin) 875 Mg Tablet, 1 TAB PO BID, #20 Discontinued Reason: COMPLETED Prescribed by: NIKITA HERNANDEZ APRN on 08/13/19 1211 Last Action: HELD on 03/27/202228 by TC PANTOJA MD Amoxicillin (Amoxicillin) 500 Mg Tablet, 1 TAB PO BID for 10 Days, #20 Discontinued Reason: COMPLETED Prescribed by: MCKENZIE THAO APRN on 09/15/19 1107 Last Action: HELD on 03/27/202228 by TC PANTOJA MD Azithromycin (Zithromax) 250 Mg Tablet, 1 PKG PO UD, #6 Discontinued Reason: COMPLETED Prescribed by: SHAJI STEVENSON D.O. on 03/27/19 0224 Famotidine (Famotidine) 20 Mg Tablet, 1 TAB PO BID for acid reflux, (Reported) Entered as Reported by: ASHER SULLIVAN on 03/27/202303 Last Action: Continued on 03/28/201121 by PAO YEH MD Meloxicam (Meloxicam) 15 Mg Tablet, 15 MG PO DAILY, (Reported) Entered as Reported by: Claribel Smith on 04/05/18 0815 Last Action: HELD on 03/27/202228 by TC PANTOJA MD Methocarbamol (Robaxin) 500 Mg Tablet, 1 TAB PO BID, #60 Prescribed by: JOANA LEA MD on 01/24/193 Last Action: Continued on 03/27/202229 by TC PANTOJA MD Omeprazole (Omeprazole) 40 Mg Capsule.dr, 1 CAP PO DAILY, #30 Prescribed by: SHAJI STEVENSON D.O. on 01/24/20 0454 Last Action: HELD on 03/27/202228 by TC PANTOJA MD Pantoprazole Sodium (Protonix Packet) 40 Mg Granpkt.dr, 40 MG PO DAILY for 20 Days, #20 Discontinued Reason: OBSOLETE Prescribed by: RADHA LATIF MD on 06/22/18 0358 Last Action: HELD on 03/27/202228 by TC PANTOJA MD Prednisone (Prednisone) 50 Mg Tablet, 1 TAB PO DAILY, #5 Prescribed by: ELSIE GALLEGOS MD on 03/18/19 0114 Last Action: HELD on 03/27/202228 by TC PANTOJA MD Warfarin Sodium (Coumadin) 5 Mg Tablet, 1 TAB PO DAILY, #90 Ref 1 (Reported) Discontinued Reason: CHANGED Entered as Reported by: INDU GARCIA on 04/06/18 1150 Last Action: Discontinued on 03/28/20 1137 by COY HIRSCH [facility] Justicifation of Admission Dx: Justifications for Admission: Justification of Admission Dx: Yes PAO YEH MD Mar 28, 2020 12:50
--- NOTE | 2020-03-28 12:50 | PDOC2 ---
CONSULT Date of Consult Date of Consult DATE: 03/28/20 TIME: 12:50 Reason for Consult Reason for Consult: Chest pain Referring Physician Referring Physician: Dr. Maynard Identification/Chief Complaint Chief Complaint Dyspnea Source Source: Chart review, Patient History of Present Illness Reason for Visit: 49-year-old male without any previous cardiac history presented with shortness of breath. He also complained of retrosternal chest pain that he described as burning sensation 5/10 severity not related to exertion or food intake. He denied any orthopnea/PND, palpitations or syncope. Past Medical History Cardiovascular: HTN Pulmonary: No pertinent hx CENTRAL NERVOUS SYSTEM: Other GI: GERD, Other Heme/Onc: No pertinent hx Hepatobiliary: No pertinent hx Psych: No pertinent hx Musculoskeletal: low back pain, Other Rheumatologic: No pertinent hx Infectious disease: No pertinent hx Renal/: No pertinent hx, Other Endocrine: No pertinent hx Past Surgical History Past Surgical History: No pertinent history Family History Family History: Heart Disease Social History No ALCOHOL: none Drugs: None Current Problem List Problem List Problems Medical Problems: (1) Chest discomfort Status: Acute (2) Chest pain Status: Acute (3) Dyspnea Status: Acute Current Medications Current Medications Current Medications Aspirin (Aspirin Chewable) 324 mg 1X ONCE PO Last administered on 03/27/20at 21:03; Start 03/27/20 at 20:30; Stop 03/27/20 at 20:31; Status DC Ondansetron HCl (Zofran) 4 mg PRN Q4HRS PRN IV NAUSEA/VOMITING; Start 03/27/20 at 22:30 Zolpidem Tartrate (Ambien) 5 mg PRN QHS PRN PO INSOMNIA; Start 03/27/20 at 22:30 Acetaminophen (Tylenol) 650 mg PRN Q4HRS PRN PO TEMP OVER 100.4F OR MILD PAIN; Start 03/27/20 at 22:30 Diphenhydramine HCl (Benadryl) 25 mg PRN Q4HRS PRN IVP ITCHING; Start 03/27/20 at 22:30 Docusate Sodium (Colace) 100 mg PRN BID PRN PO HARD STOOLS; Start 03/27/20 at 22:30 Albuterol Sulfate (Ventolin Neb Soln) 2.5 mg PRN Q4HRS PRN NEB SHORTNESS OF BREATH; Start 03/27/20 at 22:30 Guaifenesin (Robitussin) 200 mg PRN Q4HRS PRN PO COUGH, 1st CHOICE; Start 03/27/20 at 22:30 Lorazepam (Ativan) 0.5 mg PRN Q4HRS PRN PO ANXIETY / AGITATION; Start 03/27/20 at 22:30; Stop 03/28/20 at 11:22; Status DC Enoxaparin Sodium (Lovenox 40mg Syringe) 40 mg Q24H SQ Last administered on 03/27/20at 23:53; Start 03/27/20 at 22:30; Stop 03/28/20 at 11:22; Status DC Benzonatate (Tessalon Perle) 100 mg PRN TID PRN PO COUGH, 2nd CHOICE; Start 03/27/20 at 22:30 Al Hydroxide/Mg Hydroxide (Mylanta Plus Xs) 15 ml TIDACHC PO Last administered on 03/27/20at 23:52; Start 03/27/20 at 22:45; Stop 03/28/20 at 07:40; Status DC Methocarbamol (Robaxin) 500 mg BID PO ; Start 03/27/20 at 22:45; Stop 03/28/20 at 11:22; Status DC Tramadol HCl (Ultram) 50 mg PRN Q6HRS PRN PO PAIN Last administered on 03/28/20at 00:06; Start 03/27/20 at 22:30 Warfarin Sodium (Coumadin) 5 mg DAILY16 PO ; Start 03/28/20 at 16:00; Stop 03/28/20 at 11:22; Status DC Al Hydroxide/Mg Hydroxide (Mylanta Plus Xs) 15 ml TID PRN PRN PO INDIGESTION; Start 03/28/20 at 07:45 Amlodipine Besylate (Norvasc) 10 mg DAILY PO Last administered on 03/28/20at 12:25; Start 03/28/20 at 11:30 Apixaban (Eliquis) 5 mg BID PO Last administered on 03/28/20at 12:24; Start 03/28/20 at 11:30 Famotidine (Pepcid) 20 mg BID PO Last administered on 03/28/20at 12:25; Start 03/28/20 at 11:30 Dicyclomine HCl (Bentyl) 20 mg PRN Q6HRS PRN PO GI SYMPTOMS/PAIN Last administered on 03/28/20at 12:25; Start 03/28/20 at 11:30 Multi-Ingredient Mouthwash/Gargle (Gi Cocktail) 20 ml PRN QID PRN PO CHEST PAIN; Start 03/28/20 at 12:15 Pantoprazole Sodium (Protonix) 40 mg DAILYAC PO ; Start 03/29/20 at 07:30 Pantoprazole Sodium (Protonix) 40 mg 1X ONCE PO ; Start 03/28/20 at 12:30; Stop 03/28/20 at 12:31; Status DC Active Scripts Active Pantoprazole Sodium (Pantoprazole Sodium) 40 Mg Tablet.dr 40 Mg PO DAILYAC 30 Days Tramadol Hcl 50 Mg Tablet 50 Mg PO Q6HRS PRN Tessalon Perle (Benzonatate) 100 Mg Capsule 1 Cap PO TID PRN 7 Days Maalox Maximum Strength Susp (Mag Hydrox/Al Hydrox/Simeth) 355 Ml Oral.susp 15 Ml PO TIDACHC 10 Days Reported Dicyclomine Hcl 20 Mg Tablet 1 Tab PO Q6HRS PRN Eliquis (Apixaban) 5 Mg Tablet 1 Tab PO BID Amlodipine Besylate 10 Mg Tablet 1 Tab PO DAILY Allergies Allergies: Coded Allergies: No Known Medication Allergies (Verified Allergy, Unknown, 03/28/20) nitroglycerin (Verified Adverse Reaction, Intermediate, LOC/SYNCOPE, 03/27/20) ROS PSYCHOLOGICAL ROS: No: Hallucinations Eyes: No Loss of vision HEENT: No: Epistaxis Respiratory: YES: Shortness of breath; No: Hemoptysis Cardiovascular: yes Chest Pain Gastrointestinal: No Vomiting, No Diarrhea Genitourinary: No Hematuria Neurological: No Seizures Skin: No Rash Physical Exam General: Alert, No acute distress HEENT: Atraumatic Lungs: Clear to auscultation Heart: Regular rate Abdomen: Soft Extremities: No edema Neuro: Normal speech Psych/Mental Status: Mood NL Vitals VITALS Vital Signs Date Time Temp Pulse Resp B/P (MAP) Pulse Ox O2 Delivery O2 Flow Rate FiO2 03/28/20 12:25 82 132/66 03/28/20 11:33 96.9 18 97 Room Air 96.9 Labs Labs Laboratory Tests Test 03/27/20 17:30 03/28/20 00:45 03/28/20 06:00 White Blood Count 6.3 x10^3/uL (4.0-11.0) Red Blood Count 4.37 x10^6/uL (4.30-5.70) Hemoglobin 13.4 g/dL (13.0-17.5) Hematocrit 38.9 % (39.0-53.0) Mean Corpuscular Volume 89 fL (79-100) Mean Corpuscular Hemoglobin 31 pg (25-35) Mean Corpuscular Hemoglobin Concent 35 g/dL (31-37) Red Cell Distribution Width 14.4 % (11.5-14.5) Platelet Count 315 x10^3/uL (140-400) Neutrophils (%) (Auto) 57 % (31-73) Lymphocytes (%) (Auto) 30 % (24-48) Monocytes (%) (Auto) 11 % (0-9) Eosinophils (%) (Auto) 1 % (0-3) Basophils (%) (Auto) 1 % (0-3) Neutrophils # (Auto) 3.6 x10^3/uL (1.8-7.7) Lymphocytes # (Auto) 1.9 x10^3/uL (1.0-4.8) Monocytes # (Auto) 0.7 x10^3/uL (0.0-1.1) Eosinophils # (Auto) 0.1 x10^3/uL (0.0-0.7) Basophils # (Auto) 0.0 x10^3/uL (0.0-0.2) Prothrombin Time 13.5 SEC (11.7-14.0) Prothromb Time International Ratio 1.1 (0.8-1.1) Activated Partial Thromboplast Time 34 SEC (24-38) D-Dimer (Kezia) < 0.27 ug/mlFEU Sodium Level 138 mmol/L (136-145) Potassium Level 3.8 mmol/L (3.5-5.1) Chloride Level 104 mmol/L (98-107) Carbon Dioxide Level 30 mmol/L (21-32) Anion Gap 4 (6-14) Blood Urea Nitrogen 13 mg/dL (8-26) Creatinine 1.1 mg/dL (0.7-1.3) Estimated GFR (Cockcroft-Gault) 86.4 BUN/Creatinine Ratio 12 (6-20) Glucose Level 97 mg/dL (70-99) Calcium Level 8.9 mg/dL (8.5-10.1) Magnesium Level 2.1 mg/dL (1.8-2.4) Total Bilirubin 0.4 mg/dL (0.2-1.0) Aspartate Amino Transf (AST/SGOT) 13 U/L (15-37) Alanine Aminotransferase (ALT/SGPT) 23 U/L (16-63) Alkaline Phosphatase 53 U/L (46-116) Troponin I Quantitative < 0.017 ng/mL (0.000-0.055) < 0.017 ng/mL (0.000-0.055) < 0.017 ng/mL (0.000-0.055) YP-Yce-Q-Type Natriuretic Peptide 33 pg/mL (0-124) Total Protein 7.7 g/dL (6.4-8.2) Albumin 3.4 g/dL (3.4-5.0) Albumin/Globulin Ratio 0.8 (1.0-1.7) Lipase 122 U/L (73-393) Laboratory Tests Test 03/27/20 17:30 03/28/20 00:45 03/28/20 06:00 White Blood Count 6.3 x10^3/uL (4.0-11.0) Red Blood Count 4.37 x10^6/uL (4.30-5.70) Hemoglobin 13.4 g/dL (13.0-17.5) Hematocrit 38.9 % (39.0-53.0) Mean Corpuscular Volume 89 fL (79-100) Mean Corpuscular Hemoglobin 31 pg (25-35) Mean Corpuscular Hemoglobin Concent 35 g/dL (31-37) Red Cell Distribution Width 14.4 % (11.5-14.5) Platelet Count 315 x10^3/uL (140-400) Neutrophils (%) (Auto) 57 % (31-73) Lymphocytes (%) (Auto) 30 % (24-48) Monocytes (%) (Auto) 11 % (0-9) Eosinophils (%) (Auto) 1 % (0-3) Basophils (%) (Auto) 1 % (0-3) Neutrophils # (Auto) 3.6 x10^3/uL (1.8-7.7) Lymphocytes # (Auto) 1.9 x10^3/uL (1.0-4.8) Monocytes # (Auto) 0.7 x10^3/uL (0.0-1.1) Eosinophils # (Auto) 0.1 x10^3/uL (0.0-0.7) Basophils # (Auto) 0.0 x10^3/uL (0.0-0.2) Prothrombin Time 13.5 SEC (11.7-14.0) Prothromb Time International Ratio 1.1 (0.8-1.1) Activated Partial Thromboplast Time 34 SEC (24-38) D-Dimer (Kezia) < 0.27 ug/mlFEU Sodium Level 138 mmol/L (136-145) Potassium Level 3.8 mmol/L (3.5-5.1) Chloride Level 104 mmol/L (98-107) Carbon Dioxide Level 30 mmol/L (21-32) Anion Gap 4 (6-14) Blood Urea Nitrogen 13 mg/dL (8-26) Creatinine 1.1 mg/dL (0.7-1.3) Estimated GFR (Cockcroft-Gault) 86.4 BUN/Creatinine Ratio 12 (6-20) Glucose Level 97 mg/dL (70-99) Calcium Level 8.9 mg/dL (8.5-10.1) Magnesium Level 2.1 mg/dL (1.8-2.4) Total Bilirubin 0.4 mg/dL (0.2-1.0) Aspartate Amino Transf (AST/SGOT) 13 U/L (15-37) Alanine Aminotransferase (ALT/SGPT) 23 U/L (16-63) Alkaline Phosphatase 53 U/L (46-116) Troponin I Quantitative < 0.017 ng/mL (0.000-0.055) < 0.017 ng/mL (0.000-0.055) < 0.017 ng/mL (0.000-0.055) SA-Nwj-L-Type Natriuretic Peptide 33 pg/mL (0-124) Total Protein 7.7 g/dL (6.4-8.2) Albumin 3.4 g/dL (3.4-5.0) Albumin/Globulin Ratio 0.8 (1.0-1.7) Lipase 122 U/L (73-393) Assessment/Plan Assessment/Plan 1. Chest pain with atypical features. Myocardial infarction has been ruled out. Plan for outpatient 2D echo to assess LV systolic function and Lexiscan nuclear stress test to rule out ischemia. 2. Dyspnea. No evidence for fluid overload. COVID test pending. Plan ischemic evaluation as noted above. 3. Hypertension: Controlled 4. 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 Morbid obesity Thank you for your consultation SONU BOWLING MD Mar 28, 2020 12:50
--- NOTE | 2020-03-28 14:12 | NUR ---
pt did not receive protonix as he had already received famotidine.
[2020-03-28] MEDS ORDERED: WARFARIN 5 MG TABLET. PO SCH (16:00)
--- NOTE | 2020-03-28 17:18 | NUR ---
Pt discharged after receiving self quarantine instructions and education given fopr discharge. Pt left with all belongings including home medicine bottles. Dr Maynard spoke in depth with the patients mother regarding self quarantine, COVID and pts updates. Pt instructed to follow up for test results as he will receive call and also to let his pcp know that he was in the hospital via phone.
[2020-03-29] MEDS ORDERED: PANTOPRAZOLE 40 MG TABLET.DR. PO SCH (07:30)
--- NOTE | 2020-03-30 03:17 | EKG ---
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
== END 2020-03-28 15:00 | disposition home or self-care (01) ==
LOC: ER 15:15 → 6 SOUTH 20:39
PROVIDERS: ADMIT Internal Medicine; ATTEND Internal Medicine
DX: R07.89 Other chest pain (principal); Z20.828 Contact with and (suspected) exposure to other viral communicable diseases; R06.00 Dyspnea, unspecified; I10 Essential (primary) hypertension; K21.9 Gastro-esophageal reflux disease without esophagitis; E66.01 Morbid (severe) obesity due to excess calories; Z68.42 Body mass index [BMI] 45.0-49.9, adult; Z79.01 Long term (current) use of anticoagulants; Z86.718 Personal history of other venous thrombosis and embolism; Z87.442 Personal history of urinary calculi
CPT/HCPCS: 36415; 71045; 80053; 83690; 83735; 83880; 84484; 85025; 85379; 85610; 85730; 96372; 99284; G0378; J1650; U0003; 93005; G0379

== ENCOUNTER 2020-05-10 17:26 | Emergency (ER) | payer OTHER ==
[~2020-05-10] VITALS: Ht 167.6 cm; Wt 127.0 kg
[~2020-05-10 17:26] MED LIST changes: +AMLO10TA8 PO; +DICY20TA3 PO; +PANT40TA77 PO
[2020-05-10 17:42] LABS: BASO % 1 % (0-3); EOS # 0.1 x10^3/uL (0.0-0.7); EOS % 2 % (0-3); HEMATOCRIT 39.3 % (39.0-53.0); HEMOGLOBIN 13.3 g/dL (13.0-17.5); LYMPH # 2.4 x10^3/uL (1.0-4.8); LYMPH % 41 % (24-48); MEAN CORPUSCULAR HEMOGLOBIN 30 pg (25-35); MEAN CORPUSCULAR HGB CONC 34 g/dL (31-37); MEAN CORPUSCULAR VOLUME 89 fL (79-100); MONO # 0.7 x10^3/uL (0.0-1.1); MONO % 11 % (0-9); NEUT # 2.6 x10^3/uL (1.8-7.7); NEUT % 45 % (31-73); PLATELET COUNT 291 x10^3/uL (140-400); RED BLOOD COUNT 4.39 x10^6/uL (4.30-5.70); RED CELL DISTRIBUTION WIDTH 14.5 % (11.5-14.5); WHITE BLOOD COUNT 5.9 x10^3/uL (4.0-11.0)
[2020-05-10 17:51] LABS: CALCIUM 9.3 mg/dL (8.5-10.1); GFR 96.1; POTASSIUM 3.9 mmol/L (3.5-5.1)
[2020-05-10 17:57] LABS: ALBUMIN 3.3 g/dL (3.4-5.0); ALBUMIN/GLOBULIN RATIO 0.8 (1.0-1.7); MAGNESIUM 2.2 mg/dL (1.8-2.4); TOTAL BILIRUBIN 0.3 mg/dL (0.2-1.0); TOTAL PROTEIN 7.6 g/dL (6.4-8.2)
--- NOTE | 2020-05-10 17:59 | PHYS DOC ---
Past Medical History Past Medical History: Hypertension, Kidney Stone, Other Additional Past Medical Histor: PE, Factor V (CANDACE SCHMIDT DO) Past Surgical History: Other Additional Past Surgical Histo: lithrotripsy (CANDACE SCHMIDT DO) Smoking Status: Never Smoker Alcohol Use: None Drug Use: None (CANDACE SCHMIDT DO) General Adult EDM: Chief Complaint: CHEST PAIN HPI: HPI: Patient is a 50 year old male who presented to ER today for evaluation chest pain with trouble breathing for 3 days. Patient said the pain seemed to be in his lung, history of PE, on lifelong anticoagulation, currently on Eliquis. Patient has factor V Leyden efficiency. Patient denies any cough or fever, no recent exposure to anybody who tested positive for COVID-19. Patient denies any recent travel or operation. Patient was admitted here in March 27, 2020 for chest pain, patient was seen by cardiology and rule out coronary disease, patie nt was recommended to have outpatient echo done, patient had no history of diabetic, no history of coronary disease. (CANDACE SCHMIDT DO) Review of Systems: Review of Systems: Constitutional: Denies fever or chills. [] Eyes: Denies change in visual acuity. [] HENT: Denies nasal congestion or sore throat. [] Respiratory: Denies cough, positive for trouble breathing. Cardiovascular: Positive for chest pain, no edema, GI: Denies abdominal pain, nausea, vomiting, bloody stools or diarrhea. [] : Denies dysuria. [] Musculoskeletal: Denies back pain or joint pain. [] Integument: Denies rash. [] Neurologic: Denies headache, focal weakness or sensory changes. [] Endocrine: Denies polyuria or polydipsia. [] Lymphatic: Denies swollen glands. [] Psychiatric: Denies depression or anxiety. [] (CANDACE SCHMIDT DO) Heart Score: HEART Score for Chest Pain: HEART Score for Chest Pain Response (Comments) Value History Slighlty/Non-Suspicious 0 ECG Normal 0 Age >45 - < 65 1 Risk Factors 1 or 2 Risk Factors 1 Troponin < Normal Limit 0 Total 2 Risk Factors: Risk Factors: DM, Current or recent (<one month) smoker, HTN, HLP, family history of CAD, obesity. Risk Scores: Score 0 - 3: 2.5% MACE over next 6 weeks - Discharge Home Score 4 - 6: 20.3% MACE over next 6 weeks - Admit for Clinical Observation Score 7 - 10: 72.7% MACE over next 6 weeks - Early Invasive Strategies (CANDACE SCHMIDT DO) HEART Score for Chest Pain: HEART Score for Chest Pain Response (Comments) Value History Slighlty/Non-Suspicious 0 ECG Normal 0 Age >45 - < 65 1 Risk Factors 1 or 2 Risk Factors 1 Troponin < Normal Limit 0 Total 2 Allergies: Allergies: Allergies Coded Allergies Type Severity Reaction Last Updated Verified No Known Medication Allergies Allergy Unknown 03/28/20 Yes nitroglycerin Adverse Reaction Intermediate LOC/SYNCOPE 03/27/20 Yes (CANDACE SCHMIDT DO) Physical Exam: PE: Constitutional: Well developed, well nourished, no acute distress, non-toxic appearance. [] HENT: Normocephalic, atraumatic, bilateral external ears normal, oropharynx moist, no oral exudates, nose normal. [] Eyes: PERRLA, EOMI, conjunctiva normal, no discharge. [] Neck: Normal range of motion, no tenderness, supple, no stridor. [] Cardiovascular:Heart rate regular rhythm, no murmur [] Lungs & Thorax: Bilateral breath sounds clear to auscultation [] Abdomen: Bowel sounds normal, soft, no tenderness, no masses, no pulsatile mass es. [] Skin: Warm, dry, no erythema, no rash. [] Back: No tenderness, no CVA tenderness. [] Extremities: No tenderness, no cyanosis, no clubbing, ROM intact, no edema. [] Neurologic: Alert and oriented X 3, normal motor function, normal sensory function, no focal deficits noted. [] Psychologic: Affect normal, judgement normal, mood normal. [] (CANDACE SCHMIDT DO) Current Patient Data: Labs: Laboratory Tests Test 05/10/20 17:35 White Blood Count 5.9 x10^3/uL (4.0-11.0) Red Blood Count 4.39 x10^6/uL (4.30-5.70) Hemoglobin 13.3 g/dL (13.0-17.5) Hematocrit 39.3 % (39.0-53.0) Mean Corpuscular Volume 89 fL (79-100) Mean Corpuscular Hemoglobin 30 pg (25-35) Mean Corpuscular Hemoglobin Concent 34 g/dL (31-37) Red Cell Distribution Width 14.5 % (11.5-14.5) Platelet Count 291 x10^3/uL (140-400) Neutrophils (%) (Auto) 45 % (31-73) Lymphocytes (%) (Auto) 41 % (24-48) Monocytes (%) (Auto) 11 % (0-9) H Eosinophils (%) (Auto) 2 % (0-3) Basophils (%) (Auto) 1 % (0-3) Neutrophils # (Auto) 2.6 x10^3/uL (1.8-7.7) Lymphocytes # (Auto) 2.4 x10^3/uL (1.0-4.8) Monocytes # (Auto) 0.7 x10^3/uL (0.0-1.1) Eosinophils # (Auto) 0.1 x10^3/uL (0.0-0.7) Basophils # (Auto) 0.0 x10^3/uL (0.0-0.2) Prothrombin Time 13.0 SEC (11.7-14.0) Prothrombin Time INR 1.0 (0.8-1.1) Activated Partial Thromboplast Time 30 SEC (24-38) Sodium Level 138 mmol/L (136-145) Potassium Level 3.9 mmol/L (3.5-5.1) Chloride Level 103 mmol/L (98-107) Carbon Dioxide Level 29 mmol/L (21-32) Anion Gap 6 (6-14) Blood Urea Nitrogen 10 mg/dL (8-26) Creatinine 1.0 mg/dL (0.7-1.3) Estimated GFR (Cockcroft-Gault) 96.1 BUN/Creatinine Ratio 10 (6-20) Glucose Level 93 mg/dL (70-99) Calcium Level 9.3 mg/dL (8.5-10.1) Magnesium Level 2.2 mg/dL (1.8-2.4) Total Bilirubin 0.3 mg/dL (0.2-1.0) Aspartate Amino Transferase (AST) 13 U/L (15-37) L Alanine Aminotransferase (ALT) 23 U/L (16-63) Alkaline Phosphatase 57 U/L (46-116) Total Protein 7.6 g/dL (6.4-8.2) Albumin 3.3 g/dL (3.4-5.0) L Albumin/Globulin Ratio 0.8 (1.0-1.7) L Lipase 126 U/L (73-393) Laboratory Tests 05/10/20 17:35 Laboratory Tests 05/10/20 17:35 Vital Signs: Vital Signs Date Time Temp Pulse Resp B/P (MAP) Pulse Ox O2 Delivery O2 Flow Rate FiO2 05/10/20 17:28 98.8 88 20 177/97 (123) 100 Room Air 98.8 (CANDACE SCHMIDT DO) EKG: EKG: EKG was done at 1731, heart rate of 87 bpm, sinus rhythm, there is some PVC present. (CANDACE SCHMIDT DO) Radiology/Procedures: Radiology/Procedures: [] (CANDACE SCHMIDT DO) Course & Med Decision Making: Course & Med Decision Making Pertinent Labs and Imaging studies reviewed. (See chart for details) Patient is a 50-year-old male who was evaluated in ER due to chest pain, patient has history of PE, factor V Leyden deficiency, EKG was normal, will obtain CT scan of the chest to rule out recurrent PE. Patient care was endorsed to Dr. Jordan Covarrubias at shift change. (CANDACE SCHMIDT DO) Course & Med Decision Making Assumed care at shift change disposition pending labs and radiologic imaging. Results reviewed discussed with patient. EKG no acute ischemic changes. Troponin within normal limits. CT chest shows no PE. Patient will be discharged home with instructions to follow-up with his primary care physician. (JORDAN COVARRUBIAS DO) Dragon Disclaimer: Dragon Disclaimer: This electronic medical record was generated, in whole or in part, using a voice recognition dictation system. (CANDACE SCHMIDT DO) Departure Departure Impression: Primary Impression: Chest pain Disposition: HOME, SELF-CARE Condition: STABLE Referrals: KIMBERLY HOLLY JR, MD (PCP) Patient Instructions: Chest Pain (Nonspecific) Justicifation of Admission Dx: Justifications for Admission: Justification of Admission Dx: Yes (CANDACE SCHMIDT DO) CANDACE SCHMIDT DO May 10, 2020 17:59 JORDAN COVARRUBIAS DO May 10, 2020 19:07
[2020-05-10] MEDS ORDERED: IOHEXOL 350 MG/ML 100 ML VIAL. IV ONE (18:30)
--- NOTE | 2020-05-10 18:38 | RAD ---
CTA Chest with contrast: Clinical History: Reason: CHEST PAIN, SOA, HX OF PE Axial helical images of the chest were obtained after the administration of 100 cc of IV Omni 350 and timed appropriately for a pulmonary arterial study. Conventional axial reconstruction was performed in addition to coronal, sagittal and bilateral oblique MIP (maximum intensity projection). This study was ordered to detect possible pulmonary embolism. There are no filling defects to suggest pulmonary embolism. The lungs and pleural margins are clear. There is no mediastinal or hilar lymphadenopathy. The thoracic aorta appears normal. Impression: 1. No evidence of pulmonary embolism. 2. No significant findings. PQRS Compliance Statement: One or more of the following individualized dose reduction techniques were utilized for this examination: 1. Automated exposure control 2. Adjustment of the mA and/or kV according to patient size 3. Use of iterative reconstruction technique Electronically signed by: Dong Sanders III, MD (05/10/2020 6:35 PM) [facility]
--- NOTE | 2020-05-10 18:40 | RAD ---
PORTABLE CHEST 1V 05/10/2020 6:19 PM INDICATION: Chest pain COMPARISON: 03/27/2020 TECHNIQUE: Portable frontal view of the chest is provided. FINDINGS: The cardiomediastinal silhouette is within normal limits. Lungs are clear. There are no significant pleural effusions. There is no pulmonary vascular congestion. No pneumothorax. No suspicious osseous abnormality. IMPRESSION: There is no acute cardiopulmonary process. Electronically signed by: Emmy Evans MD (05/10/2020 6:37 PM) [facility]
[2020-05-10] MEDS ORDERED: CONTRAST GIVEN. MC PRN (18:45)
[2020-05-10 19:30] VITALS: BP 144/91
[2020-05-10] MEDS ORDERED: IOHEXOL 350 MG/ML 100 ML VIAL. ONE (23:20)
--- NOTE | 2020-05-11 10:46 | EKG ---
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
== END 2020-05-10 19:32 | disposition home or self-care (01) ==
LOC: ER 17:26
DX: R07.89 Other chest pain (principal); I10 Essential (primary) hypertension; Z87.442 Personal history of urinary calculi; Z98.890 Other specified postprocedural states; Z88.1 Allergy status to other antibiotic agents
CPT/HCPCS: 36415; 71045; 71275; 80053; 83690; 83735; 83880; 84484; 85025; 85610; 85730; 93005; 99285; Q9967

== ENCOUNTER 2020-06-15 13:32 | Emergency (ER) | payer OTHER ==
[~2020-06-15] VITALS: Ht 167.6 cm; Wt 132.7 kg
[~2020-06-15 13:32] MED LIST changes: +AMLO-187 PO; -AMLO10TA8 PO
--- NOTE | 2020-06-15 14:29 | PHYS DOC ---
Past Medical History Past Medical History: Hypertension, Kidney Stone, Other Additional Past Medical Histor: PE, Factor V Past Surgical History: Other Additional Past Surgical Histo: lithrotripsy Smoking Status: Never Smoker Alcohol Use: None Drug Use: None General Adult EDM: Chief Complaint: OTHER COMPLAINTS HPI: HPI: Patient is a 50 year old male who presents with right-sided chest pain. Patient describes an intermittent dull pain over the last 2 days. Patient denies any cough or shortness of breath. Patient denies any worsening symptoms with deep breaths or movement. Patient did state he had the sweats a couple days ago. Patient also describes some indigestion but no vomiting or diarrhea. Patient has not had any measurable fever. Pain is currently mild in severity. Review of Systems: Review of Systems: Constitutional: Denies fever or chills. [] Eyes: Denies change in visual acuity. [] HENT: Denies nasal congestion or sore throat. [] Respiratory: Denies cough or shortness of breath. [] Cardiovascular: Complains of right-sided chest pain but no edema GI: Complains of some indigestion but no, vomiting, bloody stools or diarrhea. [] : Denies dysuria. [] Musculoskeletal: Denies back pain or joint pain. [] Integument: Denies rash. [] Neurologic: Denies headache, focal weakness or sensory changes. [] Endocrine: Denies polyuria or polydipsia. [] Lymphatic: Denies swollen glands. [] Psychiatric: Denies depression or anxiety. [] Heart Score: HEART Score for Chest Pain: HEART Score for Chest Pain Response (Comments) Value History Slighlty/Non-Suspicious 0 ECG Normal 0 Age >45 - < 65 1 Risk Factors 1 or 2 Risk Factors 1 Troponin < Normal Limit 0 Total 2 Risk Factors: Risk Factors: DM, Current or recent (<one month) smoker, HTN, HLP, family history of CAD, obesity. Risk Scores: Score 0 - 3: 2.5% MACE over next 6 weeks - Discharge Home Score 4 - 6: 20.3% MACE over next 6 weeks - Admit for Clinical Observation Score 7 - 10: 72.7% MACE over next 6 weeks - Early Invasive Strategies Current Medications: Active Scripts Active Pantoprazole Sodium (Pantoprazole Sodium) 40 Mg Tablet.dr 40 Mg PO DAILYAC 30 Days Tramadol Hcl 50 Mg Tablet 50 Mg PO Q6HRS PRN Tessalon Perle (Benzonatate) 100 Mg Capsule 1 Cap PO TID PRN 7 Days Maalox Maximum Strength Susp (Mag Hydrox/Al Hydrox/Simeth) 355 Ml Oral.susp 15 Ml PO TIDACHC 10 Days Reported Dicyclomine Hcl 20 Mg Tablet 1 Tab PO Q6HRS PRN Eliquis (Apixaban) 5 Mg Tablet 1 Tab PO BID Amlodipine Besylate 10 Mg Tablet 1 Tab PO DAILY Allergies: Allergies: Allergies Coded Allergies Type Severity Reaction Last Updated Verified nitroglycerin Adverse Reaction Intermediate LOC/SYNCOPE 06/15/20 Yes Physical Exam: PE: Constitutional: Well developed, well nourished, no acute distress, non-toxic appearance. [] HENT: Normocephalic, atraumatic, bilateral external ears normal, no trismus nose normal. [] Eyes: PERRLA, EOMI, conjunctiva normal, no discharge. [] Neck: Normal range of motion, no tenderness, supple, no stridor. [] Cardiovascular:Heart rate regular rhythm, peripheral pulses are intact cap refill is brisk Lungs & Thorax: Bilateral breath sounds clear, no respiratory distress Abdomen: soft, no tenderness, no masses, no pulsatile masses. [] Skin: Warm, dry, no erythema, no rash. [] Back: No tenderness, no CVA tenderness. [] Extremities: No tenderness, no cyanosis, no clubbing, ROM intact, no edema. [] Neurologic: Alert and oriented X 3, normal motor function, normal sensory function, no focal deficits noted. [] Psychologic: Affect normal, judgement normal, mood normal. [] Current Patient Data: Labs: Laboratory Tests Test 06/15/20 14:50 White Blood Count 5.4 x10^3/uL Red Blood Count 4.72 x10^6/uL Hemoglobin 13.9 g/dL Hematocrit 41.5 % Mean Corpuscular Volume 88 fL Mean Corpuscular Hemoglobin 30 pg Mean Corpuscular Hemoglobin Concent 33 g/dL Red Cell Distribution Width 14.5 % Platelet Count 312 x10^3/uL Neutrophils (%) (Auto) 42 % Lymphocytes (%) (Auto) 41 % Monocytes (%) (Auto) 14 % Eosinophils (%) (Auto) 1 % Basophils (%) (Auto) 1 % Neutrophils # (Auto) 2.3 x10^3/uL Lymphocytes # (Auto) 2.3 x10^3/uL Monocytes # (Auto) 0.8 x10^3/uL Eosinophils # (Auto) 0.1 x10^3/uL Basophils # (Auto) 0.1 x10^3/uL Prothrombin Time 14.0 SEC Prothromb Time International Ratio 1.1 Activated Partial Thromboplast Time 31 SEC D-Dimer (Kezia) < 0.27 ug/mlFEU Sodium Level 137 mmol/L Potassium Level 4.0 mmol/L Chloride Level 102 mmol/L Carbon Dioxide Level 30 mmol/L Anion Gap 5 Blood Urea Nitrogen 11 mg/dL Creatinine 1.0 mg/dL Estimated GFR (Cockcroft-Gault) 96.1 BUN/Creatinine Ratio 11 Glucose Level 84 mg/dL Calcium Level 9.4 mg/dL Magnesium Level 2.2 mg/dL Total Bilirubin 0.5 mg/dL Aspartate Amino Transf (AST/SGOT) 15 U/L Alanine Aminotransferase (ALT/SGPT) 20 U/L Alkaline Phosphatase 54 U/L Troponin I Quantitative < 0.017 ng/mL Total Protein 8.1 g/dL Albumin 3.5 g/dL Albumin/Globulin Ratio 0.8 Lipase 113 U/L Vital Signs: Vital Signs Date Time Temp Pulse Resp B/P (MAP) Pulse Ox O2 Delivery O2 Flow Rate FiO2 06/15/20 14:20 98.4 91 20 183/88 (119) 100 Room Air 98.4 EKG: EKG: [] EKG interpreted by me normal sinus rhythm with a rate of 87 left axis deviation normal intervals normal ST segments Radiology/Procedures: Radiology/Procedures: [][facility] [address] [place] [address] IMAGING REPORT Signed PATIENT: HEATHER HIRSCH ACCOUNT: [id number] : 1970 LOCATION: ER AGE: 50 SEX: M EXAM STATUS: REG ER ORD. PHYSICIAN: NADEEM OAKLEY MD REASON: CHEST PAIN PROCEDURE: PORTABLE CHEST 1V Examination: PORTABLE CHEST 1V History: Reason: CHEST PAIN / Spl. Instructions: / History: Comparison/Correlation: 05/10/2020 Findings: Portable Chest X-ray Exam was obtained with the patient upright. Heart size and pulmonary vasculature are normal. No infiltrate or pleural effusion. No pneumothorax. Bony structures are unremarkable. Impression: No active disease. Electronically signed by: Cecilio Sen MD (06/15/2020 3:04 PM) [facility] DICTATED and SIGNED BY: CECILIO SEN MD DATE: 06/15/20 1504 Course & Med Decision Making: Course & Med Decision Making Pertinent Labs and Imaging studies reviewed. (See chart for details) [] 50-year-old male presents with atypical chest pain. Heart score is 2. Work- up is negative. Patient has a negative d-dimer and normal EKG and normal troponin, doubt acute coronary syndrome or doubt pulmonary realism. Patient be stable for discharge outpatient follow-up. Return precautions given. Dragon Disclaimer: Dragon Disclaimer: This electronic medical record was generated, in whole or in part, using a voice recognition dictation system. Departure Departure Impression: Primary Impression: Chest pain Disposition: 01 DC HOME SELF CARE/HOMELESS Condition: STABLE Referrals: KIMBERLY HOLLY JR, MD (PCP) 2-3 DAYS Patient Instructions: Chest Pain (Nonspecific) Additional Instructions: EMERGENCY DEPARTMENT GENERAL DISCHARGE INSTRUCTIONS THANK YOU for coming to [facility] Emergency Department (ED) today and trusting us with your care. We trust that you had a positive experience in our Emergency Department. If you wish to speak to the department Management you can contact the chemistry department chair at . YOUR FOLLOW UP INSTRUCTIONS ARE FOLLOWS: Do you have a private doctor? If you do not have a private doctor, please ask for a resource list of physicians or clinics that may be able to assist you with follow up care. The Emergency Physician has interpreted your x-rays. The X-ray specialist will also review them. If there is a change in the findings you will be notified in 48 hours when at all possible. A lab test or lab culture may have been done, your results will be reviewed and you will be notified if you need a change in treatment. ADDITIONAL INSTRUCTIONS AND INFORMATION Your care today has been supervised by a physician who is specially trained in emergency care. Many problems require more than one evaluation for a complete diagnosis and treatment. We recommend that you schedule your follow up appointment as recommended to ensure complete treatment of your illness or injury. If you are unable to obtain follow up care and continue to have a problem, or if your condition worsens we recommend that you return to the ED. We are not able to safely determine your condition over the phone nor are we able to give sound medical advice over the phone. For these safety reasons, if you call for medical advice we will ask you to come to the ED for further evaluation If you have any questions regarding these discharge instructions please call the ED at . SAFETY INFORMATION In the interest of safety, wellness, and injury prevention; we encourage you to wear your seatbelt, if you smoke; quit smoking, and we encourage your family to use protective helmet for bicycling and other sporting events that present an increased risk for head injury. IF YOUR SYMPTOMS WORSEN OR NEW SYMPTOMS DEVELOP, OR YOU HAVE CONCERNS ABOUT YOUR CONDITION; OR IF YOUR CONDITION WORSENS WHILE YOU ARE WAITING FOR YOUR FOLLOW UP APPOINTMENT; EITHER CONTACT YOUR PRIMARY CARE DOCTOR, THE PHYSICIAN WHOSE NAME AND NUMBER YOU WERE GIVEN, OR RETURN TO THE ED IMMEDIATELY. NADEEM OAKLEY MD Jun 15, 2020 14:29
[2020-06-15 15:02] LABS: BASO # 0.1 x10^3/uL (0.0-0.2); BASO % 1 % (0-3); EOS # 0.1 x10^3/uL (0.0-0.7); EOS % 1 % (0-3); HEMATOCRIT 41.5 % (39.0-53.0); HEMOGLOBIN 13.9 g/dL (13.0-17.5); LYMPH # 2.3 x10^3/uL (1.0-4.8); LYMPH % 41 % (24-48); MEAN CORPUSCULAR HEMOGLOBIN 30 pg (25-35); MEAN CORPUSCULAR HGB CONC 33 g/dL (31-37); MEAN CORPUSCULAR VOLUME 88 fL (79-100); MONO # 0.8 x10^3/uL (0.0-1.1); MONO % 14 % (0-9); NEUT # 2.3 x10^3/uL (1.8-7.7); NEUT % 42 % (31-73); PLATELET COUNT 312 x10^3/uL (140-400); RED BLOOD COUNT 4.72 x10^6/uL (4.30-5.70); RED CELL DISTRIBUTION WIDTH 14.5 % (11.5-14.5); WHITE BLOOD COUNT 5.4 x10^3/uL (4.0-11.0)
--- NOTE | 2020-06-15 15:07 | RAD ---
Examination: PORTABLE CHEST 1V History: Reason: CHEST PAIN / Spl. Instructions: / History: Comparison/Correlation: 05/10/2020 Findings: Portable Chest X-ray Exam was obtained with the patient upright. Heart size and pulmonary vasculature are normal. No infiltrate or pleural effusion. No pneumothorax. Bony structures are unremarkable. Impression: No active disease. Electronically signed by: Cecilio Tamaoy MD (06/15/2020 3:04 PM) [facility]
[2020-06-15 15:11] LABS: PARTIAL THROMBOPLASTIN TIME 31 SEC (24-38)
[2020-06-15 15:13] LABS: CALCIUM 9.4 mg/dL (8.5-10.1); GFR 96.1
[2020-06-15 15:15] LABS: D-DIMER < 0.27 ug/mlFEU (0.00-0.50)
[2020-06-15 15:19] LABS: ALBUMIN 3.5 g/dL (3.4-5.0); ALBUMIN/GLOBULIN RATIO 0.8 (1.0-1.7); MAGNESIUM 2.2 mg/dL (1.8-2.4); TOTAL BILIRUBIN 0.5 mg/dL (0.2-1.0); TOTAL PROTEIN 8.1 g/dL (6.4-8.2)
--- NOTE | 2020-06-15 15:27 | EKG ---
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
[2020-06-15 16:00] VITALS: BP 170/89
== END 2020-06-15 16:11 | disposition home or self-care (01) ==
LOC: ER 13:32
DX: R07.89 Other chest pain (principal); I10 Essential (primary) hypertension; Z88.8 Allergy status to other drugs, medicaments and biological substances
CPT/HCPCS: 36415; 71045; 80053; 83690; 83735; 84484; 85025; 85379; 85610; 85730; 93005; 99285-25

== ENCOUNTER 2020-08-23 16:23 | Emergency (ER) | payer OTHER ==
[~2020-08-23] VITALS: Ht 167.6 cm; Wt 129.0 kg
[~2020-08-23 16:23] MED LIST changes: -CLIN300C8 PO; +CLIN300C9 PO
--- NOTE | 2020-08-23 18:25 | RAD ---
Three-view acute abdominal series. HISTORY: Abdominal pain, constipation, chills 3 views were taken for an acute abdominal series. Heart is normal in size. There is no effusion. A tr ue upright view was not obtained therefore I cannot evaluate for free air. There is mild gas in the c olon. There is no small bowel obstruction. Portable technique is limited considering the patient's si ze. IMPRESSION: 1. No acute infiltrates. 2. No bowel obstruction noted. Electronically signed by: Jonah Goldstein MD (08/23/2020 6:22 PM) [id number]
[2020-08-23] MEDS ORDERED: MORPHINE SULFATE 10 MG/ML VIAL. IV ONE ×2 (18:30→21:30)
[2020-08-23 18:36] LABS: BASO % 1 % (0-3); EOS % 1 % (0-3); HEMATOCRIT 41.2 % (39.0-53.0); HEMOGLOBIN 13.4 g/dL (13.0-17.5); LYMPH # 2.2 x10^3/uL (1.0-4.8); LYMPH % 42 % (24-48); MEAN CORPUSCULAR HEMOGLOBIN 29 pg (25-35); MEAN CORPUSCULAR HGB CONC 33 g/dL (31-37); MEAN CORPUSCULAR VOLUME 89 fL (79-100); MONO # 0.6 x10^3/uL (0.0-1.1); MONO % 12 % (0-9); NEUT # 2.4 x10^3/uL (1.8-7.7); NEUT % 45 % (31-73); PLATELET COUNT 280 x10^3/uL (140-400); RED BLOOD COUNT 4.62 x10^6/uL (4.30-5.70); RED CELL DISTRIBUTION WIDTH 14.7 % (11.5-14.5); WHITE BLOOD COUNT 5.3 x10^3/uL (4.0-11.0)
[2020-08-23 18:41] LABS: CALCIUM 9.1 mg/dL (8.5-10.1); CREATININE 1.1 mg/dL (0.7-1.3); GFR 86.1; POTASSIUM 4.2 mmol/L (3.5-5.1)
[2020-08-23 18:46] LABS: ALBUMIN 3.5 g/dL (3.4-5.0); ALBUMIN/GLOBULIN RATIO 0.9 (1.0-1.7); MAGNESIUM 2.3 mg/dL (1.8-2.4); TOTAL BILIRUBIN 0.5 mg/dL (0.2-1.0); TOTAL PROTEIN 7.4 g/dL (6.4-8.2)
[2020-08-23 18:49] LABS: PROTHROMBIN TIME PATIENT 13.3 SEC (11.7-14.0)
[2020-08-23 18:52] LABS: BILIRUBIN,URINE NEGATIVE (NEG); CLARITY,URINE CLEAR; COLOR,URINE YELLOW; NITRITE,URINE NEGATIVE (NEG); PH,URINE 7.5 (<5.0-8.0); PROTEIN,URINE NEGATIVE (NEG-TRACE); UROBILINOGEN,URINE 0.2 mg/dL (0.2 mg/dL)
[2020-08-23 19:01] LABS: AMORPHOUS SEDIMENT,UR PRESENT /HPF; HYALINE CASTS, URINE FEW /HPF
[2020-08-23 19:02] LABS: BACTERIA,URINE FEW /HPF (0-FEW); RBC,URINE 0 /HPF (0-2); WBC,URINE 0 /HPF (0-4)
[2020-08-23 19:05] LABS: BARBITURATES NEG (NEG); BENZODIAZEPINES NEG (NEG); CANNABINOIDS NEG (NEG); COCAINE NEG (NEG); METHADONE NEG (NEG); OPIATES NEG (NEG); PHENCYCLIDINE NEG (NEG)
[2020-08-23 19:06] LABS: AMPHETAMINE/METHAMPHETAMINE NEG (NEG)
[2020-08-23] MEDS ORDERED: IOHEXOL 240 MG/ML 50ML VIAL. PO ONE (19:30)
[2020-08-23] MEDS ORDERED: CONTRAST GIVEN. MC PRN (19:30)
[2020-08-23] MEDS ORDERED: IOHEXOL 300 MG/ML 100ML VIAL. IV ONE (19:30)
--- NOTE | 2020-08-23 20:30 | RAD ---
Exam: CT of abdomen and pelvis with contrast INDICATION: Abdominal pain, bloating TECHNIQUE: Sequential axial images through the abdomen and pelvis obtained following the administrati on of 75 mL of Isovue-370 IV contrast. Sagittal and coronal reformatted images were reconstructed fro m the axial data and reviewed. Comparisons: 01/24/2020 FINDINGS: Heart size is normal. No pericardial strandy opacities at dependent portion lungs likely representing atelectasis. Liver, spleen, pancreas, gallbladder and adrenals are unremarkable. No perinephric inflammation or hydronephrosis. No ureteral calculi are identified. There is a 2 mm ca lculus at the lower pole of the left kidney. Too small characterize hypoattenuating lesion at the mid right kidney. Bladder is partially distended and not well evaluated. Prostate is not enlarged. Few scattered diverticula noted within the sigmoid colon without evidence of acute diverticulitis. Re mainder large and small bowel are unremarkable. Appendix is normal. No free intra-abdominal air or fl uid. No obstruction. Abdominal aorta has a normal course and caliber. Abdominal vasculature is patent. No enlarged intra-abdominal lymph nodes are identified. No suspicious osseous lesions or acute fractures. IMPRESSION: 1. No acute process identified in the abdomen or pelvis. 2. Nonobstructing left renal calculus. Exposure: One or more of the following in the visualized dose reduction techniques were utilized for this examination: 1. Automated exposure control 2. Adjustment of the MA and/or KV according to patient size 3. Use of iterative of reconstructive technique Electronically signed by: Cory Cat MD (08/23/2020 8:28 PM) [facility]
--- NOTE | 2020-08-23 21:16 | PHYS DOC ---
Past Medical History Past Medical History: Hypertension, Kidney Stone, Other Additional Past Medical Histor: PE, Factor V Past Surgical History: Other Additional Past Surgical Histo: lithrotripsy Smoking Status: Never Smoker Alcohol Use: None Drug Use: None General Adult EDM: Chief Complaint: DIZZY/LIGHT HEADED HPI: HPI: Patient is a 50 year old male with history of hypertension, kidney stones, factor V currently on Eliquis, who presents the ED today stating he felt constipated earlier, he took mag citrate, he states some of the constipation was relieved. He states during the constipation episode he felt he had some intermittent mild bilateral back pain which was relieved after having a bowel movement. He states he was lightheaded when he was constipated. He currently denies any pain, nausea, vomiting, abdominal pain. He states he just wants to be checked out to make sure everything is okay. Review of Systems: Review of Systems: Constitutional: Denies fever or chills. [] Eyes: Denies change in visual acuity. [] HENT: Denies nasal congestion or sore throat. [] Respiratory: Denies cough or shortness of breath. [] Cardiovascular: Denies chest pain or edema. [] GI: Reports constipation, denies, nausea, vomiting, bloody stools or diarrhea. [] : Denies dysuria. [] Musculoskeletal: Reports mid back pain Integument: Denies rash. [] Neurologic: Reports lightheadedness. Denies headache, focal weakness or sensory changes. [] Psychiatric: Denies depression or anxiety. [] Heart Score: Risk Factors: Risk Factors: DM, Current or recent (<one month) smoker, HTN, HLP, family history of CAD, obesity. Risk Scores: Score 0 - 3: 2.5% MACE over next 6 weeks - Discharge Home Score 4 - 6: 20.3% MACE over next 6 weeks - Admit for Clinical Observation Score 7 - 10: 72.7% MACE over next 6 weeks - Early Invasive Strategies Current Medications: Current Medications Medications (Trade) Dose Ordered Sig/Ale Start Time Stop Time Status Last Admin Dose Admin Info (CONTRAST GIVEN -- Rx MONITORING) 1 each PRN DAILY PRN 08/23/20 19:30 08/25/20 19:29 Iohexol (Omnipaque 240 Mg/ml) 30 ml 1X ONCE 08/23/20 19:30 08/23/20 19:31 DC 08/23/20 20:10 30 ML Iohexol (Omnipaque 300 Mg/ml) 75 ml 1X ONCE 08/23/20 19:30 08/23/20 19:31 DC 08/23/20 20:10 75 ML Morphine Sulfate (Morphine Sulfate) 5 mg 1X ONCE 08/23/20 21:30 08/23/20 21:31 Allergies: Allergies: Allergies Coded Allergies Type Severity Reaction Last Updated Verified nitroglycerin Adverse Reaction Intermediate LOC/SYNCOPE 06/15/20 Yes Physical Exam: PE: Constitutional: Well developed, well nourished, no acute distress, non-toxic appearance. [] HENT: Normocephalic, atraumatic, bilateral external ears normal, oropharynx moist, no oral exudates, nose normal. [] Eyes: PERRLA, EOMI, conjunctiva normal, no discharge. [] Neck: Normal range of motion, no tenderness, supple, no stridor. [] Cardiovascular:Heart rate regular rhythm, no murmur [] Lungs & Thorax: Bilateral breath sounds clear to auscultation [] Abdomen: Bowel sounds normal, soft, no tenderness, no masses, no pulsatile masses. [] Skin: Warm, dry, no erythema, no rash. [] Back: No tenderness, no CVA tenderness. [] Extremities: No tenderness, no cyanosis, no clubbing, ROM intact, no edema. [] Neurologic: Alert and oriented X 3, normal motor function, normal sensory function, no focal deficits noted. [] Psychologic: Affect normal, judgement normal, mood normal. [] Current Patient Data: Labs: Laboratory Tests Test 08/23/20 18:15 08/23/20 18:35 White Blood Count 5.3 x10^3/uL (4.0-11.0) Red Blood Count 4.62 x10^6/uL (4.30-5.70) Hemoglobin 13.4 g/dL (13.0-17.5) Hematocrit 41.2 % (39.0-53.0) Mean Corpuscular Volume 89 fL (79-100) Mean Corpuscular Hemoglobin 29 pg (25-35) Mean Corpuscular Hemoglobin Concent 33 g/dL (31-37) Red Cell Distribution Width 14.7 % (11.5-14.5) H Platelet Count 280 x10^3/uL (140-400) Neutrophils (%) (Auto) 45 % (31-73) Lymphocytes (%) (Auto) 42 % (24-48) Monocytes (%) (Auto) 12 % (0-9) H Eosinophils (%) (Auto) 1 % (0-3) Basophils (%) (Auto) 1 % (0-3) Neutrophils # (Auto) 2.4 x10^3/uL (1.8-7.7) Lymphocytes # (Auto) 2.2 x10^3/uL (1.0-4.8) Monocytes # (Auto) 0.6 x10^3/uL (0.0-1.1) Eosinophils # (Auto) 0.0 x10^3/uL (0.0-0.7) Basophils # (Auto) 0.0 x10^3/uL (0.0-0.2) Prothrombin Time 13.3 SEC (11.7-14.0) Prothrombin Time INR 1.1 (0.8-1.1) Activated Partial Thromboplast Time 30 SEC (24-38) Sodium Level 140 mmol/L (136-145) Potassium Level 4.2 mmol/L (3.5-5.1) Chloride Level 103 mmol/L (98-107) Carbon Dioxide Level 30 mmol/L (21-32) Anion Gap 7 (6-14) Blood Urea Nitrogen 15 mg/dL (8-26) Creatinine 1.1 mg/dL (0.7-1.3) Estimated GFR (Cockcroft-Gault) 86.1 BUN/Creatinine Ratio 14 (6-20) Glucose Level 80 mg/dL (70-99) Calcium Level 9.1 mg/dL (8.5-10.1) Magnesium Level 2.3 mg/dL (1.8-2.4) Total Bilirubin 0.5 mg/dL (0.2-1.0) Aspartate Amino Transferase (AST) 12 U/L (15-37) L Alanine Aminotransferase (ALT) 21 U/L (16-63) Alkaline Phosphatase 54 U/L (46-116) Troponin I Quantitative < 0.017 ng/mL (0.000-0.055) OI-Gvl-C-Type Natriuretic Peptide 29 pg/mL (0-124) Total Protein 7.4 g/dL (6.4-8.2) Albumin 3.5 g/dL (3.4-5.0) Albumin/Globulin Ratio 0.9 (1.0-1.7) L Thyroid Stimulating Hormone (TSH) 0.762 uIU/mL (0.358-3.74) Urine Collection Type Unknown Urine Color Yellow Urine Clarity Clear Urine pH 7.5 (<5.0-8.0) Urine Specific [place] 1.020 (1.000-1.030) Urine Protein Negative mg/dL (NEG-TRACE) Urine Glucose (UA) Negative mg/dL (NEG) Urine Ketones (Stick) Negative mg/dL (NEG) Urine Blood Negative (NEG) Urine Nitrite Negative (NEG) Urine Bilirubin Negative (NEG) Urine Urobilinogen Dipstick 0.2 mg/dL (0.2 mg/dL) Urine Leukocyte Esterase Negative (NEG) Urine RBC 0 /HPF (0-2) Urine WBC 0 /HPF (0-4) Urine Amorphous Sediment Present /HPF Urine Bacteria Few /HPF (0-FEW) Urine Hyaline Casts Few /HPF Urine Mucus Marked /LPF Urine Opiates Screen Neg (NEG) Urine Methadone Screen Neg (NEG) Urine Barbiturates Neg (NEG) Urine Phencyclidine Screen Neg (NEG) Urine Amphetamine/Methamphetamine Neg (NEG) Urine Benzodiazepines Screen Neg (NEG) Urine Cocaine Screen Neg (NEG) Urine Cannabinoids Screen Neg (NEG) Urine Ethyl Alcohol Neg (NEG) Laboratory Tests 08/23/20 18:15 Laboratory Tests 08/23/20 18:15 Vital Signs: Vital Signs Date Time Temp Pulse Resp B/P (MAP) Pulse Ox O2 Delivery O2 Flow Rate FiO2 08/23/20 17:20 97.9 87 18 186/96 (126) 99 Room Air 97.9 EKG: EKG: [] Radiology/Procedures: Radiology/Procedures: []PROCEDURE: CT ABD PELV W/ORAL&IV CONTRAST Exam: CT of abdomen and pelvis with contrast INDICATION: Abdominal pain, bloating TECHNIQUE: Sequential axial images through the abdomen and pelvis obtained following the administration of 75 mL of Isovue-370 IV contrast. Sagittal and coronal reformatted images were reconstructed from the axial data and reviewed. Comparisons: 01/24/2020 FINDINGS: Heart size is normal. No pericardial strandy opacities at dependent portion lungs likely representing atelectasis. Liver, spleen, pancreas, gallbladder and adrenals are unremarkable. No perinephric inflammation or hydronephrosis. No ureteral calculi are identified. There is a 2 mm calculus at the lower pole of the left kidney. Too small characterize hypoattenuating lesion at the mid right kidney. Bladder is partially distended and not well evaluated. Prostate is not enlarged. Few scattered diverticula noted within the sigmoid colon without evidence of acute diverticulitis. Remainder large and small bowel are unremarkable. Appendix is normal. No free intra-abdominal air or fluid. No obstruction. Abdominal aorta has a normal course and caliber. Abdominal vasculature is patent. No enlarged intra-abdominal lymph nodes are identified. No suspicious osseous lesions or acute fractures. IMPRESSION: 1. No acute process identified in the abdomen or pelvis. 2. Nonobstructing left renal calculus. Exposure: One or more of the following in the visualized dose reduction techniques were utilized for this examination: 1. Automated exposure control 2. Adjustment of the MA and/or KV according to patient size 3. Use of iterative of reconstructive technique Electronically signed by: Cory Wright MD (08/23/2020 8:28 PM) [facility] DICTATED and SIGNED BY: CORY WRIGHT MD DATE: 08/23/[id number] 0 PROCEDURE: ACUTE ABDOMEN SERIES Three-view acute abdominal series. HISTORY: Abdominal pain, constipation, chills 3 views were taken for an acute abdominal series. Heart is normal in size. There is no effusion. A true upright view was not obtained therefore I cannot evaluate for free air. There is mild gas in the colon. There is no small bowel obstruction. Portable technique is limited considering the patient's size. IMPRESSION: 1. No acute infiltrates. 2. No bowel obstruction noted. Electronically signed by: Jonah Goldstein MD (08/23/2020 6:22 PM) [id number] DICTATED and SIGNED BY: JONAH GOLDSTEIN MD DATE: 08/23/[id number] 0 Course & Med Decision Making: Course & Med Decision Making Pertinent Labs and Imaging studies reviewed. (See chart for details) This is a 50-year-old male patient presented to the ED today complaining of constipation, back pain, lightheadedness. Symptoms cleared as soon as he took mag citrate and had a bowel movement. CBC CMP, Lipase with no acute findings. UA negative for any acute findings, CT of the abdomen and pelvic was negative for any acute findings, noted for left renal calculi nonobstructing. Discharged home. Follow-up with PCP in 1 to 2 weeks. Amy Disclaimer: Amy Disclaimer: This electronic medical record was generated, in whole or in part, using a voice recognition dictation system. Departure Departure Impression: Primary Impression: Left flank pain Additional Impressions: Constipation Qualified Codes: K59.00 - Constipation, unspecified Light headedness Kidney stone Disposition: DC HOME SELF CARE/HOMELESS Condition: STABLE Referrals: KIMBERLY HOLLY JR, MD (PCP) follow up in one week Patient Instructions: Constipation, Adult, Flank Pain, [id number] Additional Instructions: You were evaluated in the emergency room, your work-up was negative for any acute findings. You have a left kidney stone. Follow-up with your own doctor or urologist for this. Come back to the ED at any point symptoms worsen VALERIA CHO [employer] OPERATOR Aug 23, 2020 21:16
[2020-08-23 21:42] VITALS: BP 158/77
--- NOTE | 2020-08-24 05:26 | EKG ---
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
== END 2020-08-23 21:47 | disposition home or self-care (01) ==
LOC: ER 16:23
DX: K59.00 Constipation, unspecified (principal); Z20.828 Contact with and (suspected) exposure to other viral communicable diseases; N20.0 Calculus of kidney; R42 Dizziness and giddiness; M54.6 Pain in thoracic spine; I10 Essential (primary) hypertension; Z88.8 Allergy status to other drugs, medicaments and biological substances
CPT/HCPCS: 36415; 74022; 74177; 80053; 80307; 81001; 83735; 83880; 84443; 84484; 85025; 85610; 85730; 93005; 96374; 96376; 99285; C9803; J2270; Q9966; Q9967; U0003

== ENCOUNTER 2020-08-24 12:06 | Emergency (ER) | payer OTHER ==
[~2020-08-24] VITALS: Ht 167.6 cm; Wt 129.0 kg
[2020-08-24] MEDS ORDERED: PIPERACILLIN/TAZOBACTAM 3.375 GM in IV NORMAL SALINE 50ML 50 ML IV ONE (12:15)
[2020-08-24] MEDS ORDERED: LIDO:MAALOX 1:1 20 ML SINGLE DOSE. SWSW ONE (12:30)
[2020-08-24 12:37] VITALS: BP 175/89
--- NOTE | 2020-08-24 12:49 | ED.ADGEN ---
Past Medical History Past Medical History: Hypertension, Kidney Stone, Other Additional Past Medical Histor: PE, Factor V Past Surgical History: Other Additional Past Surgical Histo: lithrotripsy Smoking Status: Never Smoker Alcohol Use: None Drug Use: None General Adult EDM: Chief Complaint: CHEST PAIN-CARDIAC NATURE HPI: HPI: Patient is a 50 year old male coming in by EMS for "chest pain". Patient states that when he is entering to drink he feels like it is not going down and feels a burning sensation in his epigastric area and substernal chest up to his throat. Patient states he has not vomited or coughed up anything. Was seen here yesterday and diagnosed with a kidney stone. Patient states he does have a history of GERD but that he takes an acid every day. Patient also has a history of hypertension but is not taking his blood pressure medications in 2 days. He says that they make him feel weird. Had a thorough work-up yesterday with unremarkable labs. Patient states that he did feel constipated and received morphine yesterday. He denies any headaches, vision changes, shortness of breath or cough, diarrhea, fevers. Review of Systems: Review of Systems: Negative other than HPI Current Medications: Current Medications Medications (Trade) Dose Ordered Sig/Ale Start Time Stop Time Status Last Admin Dose Admin Multi-Ingredient Mouthwash/Gargle (Gi Cocktail) 20 ml 1X ONCE 08/24/20 12:30 08/24/20 12:31 DC 08/24/20 12:24 20 ML Piperacillin Sod/ Tazobactam Sod 3.375 gm/Sodium Chloride 50 ml @ 100 mls/hr 1X ONCE 08/24/20 12:15 08/24/20 12:19 DC Allergies: Allergies: Allergies Coded Allergies Type Severity Reaction Last Updated Verified nitroglycerin Adverse Reaction Intermediate LOC/SYNCOPE 06/15/20 Yes Physical Exam: PE: Constitutional: Well developed, well nourished, no acute distress, non-toxic appearance. [] HENT: Normocephalic, atraumatic, bilateral external ears normal, oropharynx moist, no oral exudates, nose normal. [] Eyes: PERRLA, EOMI, conjunctiva normal, no discharge. [] Neck: Normal range of motion, no tenderness, supple, no stridor. [] Cardiovascular:Heart rate regular rhythm, no murmur [] Lungs & Thorax: Bilateral breath sounds clear to auscultation [] Abdomen: Bowel sounds normal, soft, no tenderness, no masses, no pulsatile masses. [] Skin: Warm, dry, no erythema, no rash. [] Back: No tenderness, no CVA tenderness. [] Extremities: No tenderness, no cyanosis, no clubbing, ROM intact, no edema. [] Neurologic: Alert and oriented X 3, normal motor function, normal sensory function, no focal deficits noted. [] Psychologic: Affect normal, judgement normal, mood normal. [] Current Patient Data: Vital Signs: Vital Signs Date Time Temp Pulse Resp B/P (MAP) Pulse Ox O2 Delivery O2 Flow Rate FiO2 08/24/20 12:10 97.8 81 16 200/113 (142) 100 Room Air 97.8 EKG: EKG: Sinus rhythm borderline left axis deviation, heart rate 70 bpm, no ST elevation or depression, T waves unremarkable, no ectopy [] Heart Score: HEART Score for Chest Pain: HEART Score for Chest Pain Response (Comments) Value History Slighlty/Non-Suspicious 0 ECG Normal 0 Age >45 - < 65 1 Risk Factors 1 or 2 Risk Factors 1 Total 2 Risk Factors: Risk Factors: DM, Current or recent (<one month) smoker, HTN, HLP, family history of CAD, obesity. Risk Scores: Score 0 - 3: 2.5% MACE over next 6 weeks - Discharge Home Score 4 - 6: 20.3% MACE over next 6 weeks - Admit for Clinical Observation Score 7 - 10: 72.7% MACE over next 6 weeks - Early Invasive Strategies Radiology/Procedures: Radiology/Procedures: [] Course & Med Decision Making: Course & Med Decision Making Pertinent Labs and Imaging studies reviewed from yesterday's visit. Symptoms completely resolved with a GI cocktail. Discussed with patient that this is unlikely to be cardiac in nature but he does need to take his blood pressure medications to prevent complications from his hypertension. [] Dragon Disclaimer: Dragon Disclaimer: This electronic medical record was generated, in whole or in part, using a voice recognition dictation system. Departure Departure Impression: Primary Impression: GERD (gastroesophageal reflux disease) Disposition: 01 DC HOME SELF CARE/HOMELESS Condition: IMPROVED Referrals: KIMBERLY HOLLY JR, MD (PCP) Patient Instructions: Diet for Gastroesophageal Reflux Disease, Adult MILAD SALGADO MD Aug 24, 2020 12:49
== END 2020-08-24 12:55 | disposition home or self-care (01) ==
LOC: ER 12:06
DX: K21.9 Gastro-esophageal reflux disease without esophagitis (principal); I10 Essential (primary) hypertension; Z88.8 Allergy status to other drugs, medicaments and biological substances
CPT/HCPCS: 29125; 93005; 99283; 99284

== ENCOUNTER 2020-12-12 12:26 | Emergency (ER) | payer OTHER ==
[~2020-12-12] VITALS: Ht 167.6 cm; Wt 127.0 kg
[2020-12-12] MEDS ORDERED: IV NORMAL SALINE 1000ML BAG 1,000 ML IV SCH (14:00)
--- NOTE | 2020-12-12 14:05 | PHYS DOC ---
Past Medical History Past Medical History: Hypertension, Kidney Stone, Other Additional Past Medical Histor: PE, Factor V Past Surgical History: Other Additional Past Surgical Histo: lithrotripsy Smoking Status: Never Smoker Alcohol Use: None Drug Use: None General Adult EDM: Chief Complaint: ABDOMINAL PAIN HPI: HPI: Patient is a 50 year old male who presents with left flank pain that feels like a crampy sensation and generalized abdominal cramping for the last week. He states that over the last 3 days he has had constipation had a take 2-1/2 bottles of mag citrate and had a bowel movement last night that was large but states it is watery. Patient states he also has nausea. He states he has some mid epigastric discomfort that feels like acid reflux. Patient denies vomiting, shortness of breath, chest pain, dizziness, headache, fever although he states he has had some chills, urinary symptoms or numbness or tingling or syncope. Patient has a history of hypertension, factor V of which he takes Eliquis, PE, kidney stone, a lithotripsy Review of Systems: Review of Systems: Constitutional: +fever or chills. [] Eyes: Denies change in visual acuity. [] HENT: Denies nasal congestion or sore throat. [] Respiratory: Denies cough or shortness of breath. [] Cardiovascular: + Epigastric chest pain or denies edema. [] GI: + Generalized abdominal pain, +nausea, denies vomiting, bloody stools or diarrhea. + Constipation [] : Denies dysuria. [] Musculoskeletal: Denies back pain or joint pain. + Left flank [] Integument: Denies rash. [] Neurologic: Denies headache, focal weakness or sensory changes. [] Endocrine: Denies polyuria or polydipsia. [] Lymphatic: Denies swollen glands. [] Psychiatric: Denies depression or anxiety. [] Heart Score: C/O Chest Pain: Yes (EPIGASTRIC) HEART Score for Chest Pain: HEART Score for Chest Pain Response (Comments) Value History Slighlty/Non-Suspicious 0 ECG Normal 0 Age >45 - < 65 1 Risk Factors 1 or 2 Risk Factors 1 Troponin < Normal Limit 0 Total 2 Risk Factors: Risk Factors: DM, Current or recent (<one month) smoker, HTN, HLP, family history of CAD, obesity. Risk Scores: Score 0 - 3: 2.5% MACE over next 6 weeks - Discharge Home Score 4 - 6: 20.3% MACE over next 6 weeks - Admit for Clinical Observation Score 7 - 10: 72.7% MACE over next 6 weeks - Early Invasive Strategies Allergies: Allergies: Allergies Coded Allergies Type Severity Reaction Last Updated Verified nitroglycerin Adverse Reaction Intermediate LOC/SYNCOPE 06/15/20 Yes Physical Exam: PE: Constitutional: Well developed, well nourished, no acute distress, non-toxic appearance. [] HENT: Normocephalic, atraumatic, bilateral external ears normal, oropharynx moist, no oral exudates, nose normal. [] Eyes: PERRLA, EOMI, conjunctiva normal, no discharge. [] Neck: Normal range of motion, no tenderness, supple, no stridor. [] Cardiovascular:Heart rate regular rhythm, no murmur [] Lungs & Thorax: Bilateral breath sounds clear to auscultation [] Abdomen: Bowel sounds normal, soft, no tenderness, no masses, no pulsatile masses. [] Skin: Warm, dry, no erythema, no rash. [] Back: No tenderness, no CVA tenderness. [] Extremities: No tenderness, no cyanosis, no clubbing, ROM intact, no edema. [] Neurologic: Alert and oriented X 3, normal motor function, normal sensory function, no focal deficits noted. [] Psychologic: Affect normal, judgement normal, mood normal. Normal physical exam [] Current Patient Data: Vital Signs: Vital Signs Date Time Temp Pulse Resp B/P (MAP) Pulse Ox O2 Delivery O2 Flow Rate FiO2 12/12/20 12:45 98.0 79 16 172/88 (116) 99 Room Air 98.0 EKG: EK and read by Dr. Bo is sinus rhythm and no STEMI Radiology/Procedures: Radiology/Procedures: [] Impression: [facility] [address] [place] [address] IMAGING REPORT Signed PATIENT: HEATHER HIRSCH ACCOUNT: [id number] : 1970 LOCATION: ER AGE: 50 SEX: M EXAM STATUS: REG ER ORD. PHYSICIAN: JULIA MICHAUD APRN REASON: abd and chest d/c PROCEDURE: PORTABLE CHEST 1V AP portable chest 12/12/2020. Reason for exam: Chest pain. Comparison is made with a study of 06/15/2020. There may be early infiltrate developing in the right lung base. The lungs otherwise appear clear and no pleural fluid is seen. Heart size is normal. IMPRESSION: Possible early right-sided infiltrate. Electronically signed by: Jamie Becker Jr., MD (12/12/2020 2:19 PM) [id number] DICTATED and SIGNED BY: JAMIE BECKER Jr, MD DATE: 12/12/20 [id number] [facility] [address] [place] [address] IMAGING REPORT Signed PATIENT: HEATHER HIRSCH ACCOUNT: [id number] : 1970 LOCATION: ER AGE: 50 SEX: M EXAM STATUS: REG ER ORD. PHYSICIAN: JULIA MICHAUD APRN REASON: constipation, abd pain PROCEDURE: CT ABD PELV W/ IV CONTRST ONLY Exam: CT abdomen/pelvis with intravenous contrast Indication: Abdominal pain, constipation Comparison: CT abdomen and pelvis from 01/24/2020 Technique: Helical CT imaging performed of the abdomen and pelvis after the intravenous administration of 75 cc of Isovue-370. . Sagittal and coronal reformats were obtained. One or more of the following individualized dose reduction techniques were u tilized for this examination: 1. Automated exposure control 2. Adjustment of the mA and/or kV according to patient size 3. Use of iterative reconstruction technique. Findings: Lower chest: Visualized lungs and heart are clear Liver: Normal in size, no focal lesions. Gallbladder/Biliary Tree: Normal Pancreas: Unremarkable Spleen: Normal Adrenal Glands: Bilaterally symmetric Kidneys/Ureters/Bladder: Both kidneys are normal in size with symmetric excretion of contrast via both kidneys. Tiny 2 mm right superior renal pole calculus is seen There is a small cyst in the right inferior renal pole and left inferior renal pole calculus seen Reproductive Organs: Prostate gland and seminal vesicles and normal Stomach, small bowel, and colon: Normal Vasculature: Normal Lymph Nodes: None enlarged Peritoneum and retroperitoneum: Unremarkable Bones: Normal Miscellaneous: None Impression: 1. No acute intra-abdominal or pelvic process detected. 2. Nonobstructing bilateral tiny renal calculi. Electronically signed by: Barbara Bunn MD (12/12/2020 3:52 PM) [facility] DICTATED and SIGNED BY: BARBARA BUNN MD DATE: 12/12/20 [id number] 0 Course & Med Decision Making: Course & Med Decision Making Pertinent Labs and Imaging studies reviewed. (See chart for details) COVID-19 CRITERIA: The patient was evaluated during the global COVID-19 pandemic, and that diagnosis was suspected/considered upon their initial presentation. Their evaluation, treatment and testing was consistent with current guidelines for patients who present with complaints or symptoms that may be related to COVID-19. See HPI. Alert and oriented x4. Ambulatory with a steady gait. Speaks in full clear sentences. Skin pink warm and dry. Abdomen is soft and nontender. No CVA tenderness. Patient states he has been taking all of his medications but occasionally misses his Eliquis. CT shows: Impression: 1. No acute intra-abdominal or pelvic process detected. 2. Nonobstructing bilateral tiny renal calculi. X-ray shows: IMPRESSION: Possible early right-sided infiltrate. Blood work otherwise unremarkable. Patient will be sent home with azithromycin antibiotic. I also Covid testing. [] Amy Disclaimer: Amy Disclaimer: This electronic medical record was generated, in whole or in part, using a voice recognition dictation system. COVID-19 Patient Risks: Age 65 or older: No Sign of co-morbidity: Yes Exp to person + for COVID: No Exp to PUI: No Travel from affected area: No Lower respiratory symptoms: Yes Fever: No Other: Yes (NAUSEA) PPE Use: Full PPE with N95 mask or PAPR: Yes Departure Departure Impression: Primary Impression: Left flank pain Additional Impressions: Kidney stone Nonspecific abdominal pain Lung infiltrate Disposition: 01 DC HOME SELF CARE/HOMELESS Condition: STABLE Referrals: KIMBERLY HOLLY JR, MD (PCP) Patient Instructions: Abdominal Pain (Nonspecific), Flank Pain, [id number], Pneumonia, Adult Additional Instructions: Follow up with primary care physician soon as possible. Take medication as prescribed and with food. Drink plenty of fluids. Rest. If any of your symptoms worsen you can always come back. Scripts Azithromycin (AZITHROMYCIN TABLET) 250 Mg Tablet 1 PKG PO UD for 5 Days, #6 TAB 0 Refills 2 the first day followed by 1 for days 2-5 Prov: JULIA MICHAUD APRN 12/12/20 Ondansetron (ONDANSETRON ODT) 4 Mg Tab.rapdis 1 TAB PO PRN Q6-8HRS, #16 TAB Prov: JULIA MICHAUD APRN 12/12/20 JULIA MICHAUD APRN Dec 12, 2020 14:05
[2020-12-12 14:14] LABS: BARBITURATES NEG (NEG); BENZODIAZEPINES NEG (NEG); BILIRUBIN,URINE NEGATIVE (NEG); CANNABINOIDS NEG (NEG); CLARITY,URINE CLEAR; COCAINE NEG (NEG); COLOR,URINE YELLOW; METHADONE NEG (NEG); NITRITE,URINE NEGATIVE (NEG); OPIATES NEG (NEG); PHENCYCLIDINE NEG (NEG); PROTEIN,URINE NEGATIVE (NEG-TRACE); UROBILINOGEN,URINE 0.2 mg/dL (0.2 mg/dL)
[2020-12-12 14:18] LABS: AMPHETAMINE/METHAMPHETAMINE NEG (NEG)
--- NOTE | 2020-12-12 14:22 | RAD ---
AP portable chest 12/12/2020. Reason for exam: Chest pain. Comparison is made with a study of 06/15/2020. There may be early infiltrate developing in the right lung base. The lungs otherwise appear clear and no pleural fluid is seen. Heart size is normal. IMPRESSION: Possible early right-sided infiltrate. Electronically signed by: Barber Becker Jr., MD (12/12/2020 2:19 PM) [id number]
[2020-12-12 14:29] LABS: AMORPHOUS SEDIMENT,UR PRESENT /HPF
[2020-12-12 14:30] LABS: RBC,URINE 0 /HPF (0-2); WBC,URINE 0 /HPF (0-4)
[2020-12-12] MEDS ORDERED: IOHEXOL 300 MG/ML 100ML VIAL. IV ONE (14:30)
[2020-12-12] MEDS ORDERED: fentaNYL PF VIAL 100 MCG/2 ML VIAL IVP ONE (14:30)
[2020-12-12] MEDS ORDERED: ONDANSETRON PF 4 MG/2 ML VIAL. IVP ONE (14:30)
[2020-12-12] MEDS ORDERED: CONTRAST GIVEN. MC PRN (14:30)
[2020-12-12] MEDS ORDERED: FAMOTIDINE 20 MG/2 ML VIAL IVP ONE (14:30)
[2020-12-12 14:31] LABS: BACTERIA,URINE 0 /HPF (0-FEW)
[2020-12-12 14:35] LABS: BASO % 1 % (0-3); EOS % 1 % (0-3); HEMATOCRIT 38.9 % (39.0-53.0); LYMPH # 1.7 x10^3/uL (1.0-4.8); LYMPH % 38 % (24-48); MEAN CORPUSCULAR HEMOGLOBIN 30 pg (25-35); MEAN CORPUSCULAR HGB CONC 33 g/dL (31-37); MEAN CORPUSCULAR VOLUME 89 fL (79-100); MONO # 0.5 x10^3/uL (0.0-1.1); MONO % 11 % (0-9); NEUT # 2.3 x10^3/uL (1.8-7.7); NEUT % 49 % (31-73); PLATELET COUNT 289 x10^3/uL (140-400); RED BLOOD COUNT 4.39 x10^6/uL (4.30-5.70); RED CELL DISTRIBUTION WIDTH 14.8 % (11.5-14.5); WHITE BLOOD COUNT 4.6 x10^3/uL (4.0-11.0)
[2020-12-12 14:47] LABS: CALCIUM 8.8 mg/dL (8.5-10.1); CREATININE 1.1 mg/dL (0.7-1.3); GFR 86.1; POTASSIUM 4.2 mmol/L (3.5-5.1)
[2020-12-12 14:53] LABS: ALBUMIN 3.3 g/dL (3.4-5.0); ALBUMIN/GLOBULIN RATIO 0.8 (1.0-1.7); TOTAL BILIRUBIN 0.4 mg/dL (0.2-1.0); TOTAL PROTEIN 7.2 g/dL (6.4-8.2)
[2020-12-12 15:49] VITALS: BP 158/84
--- NOTE | 2020-12-12 15:55 | RAD ---
Exam: CT abdomen/pelvis with intravenous contrast Indication: Abdominal pain, constipation Comparison: CT abdomen and pelvis from 01/24/2020 Technique: Helical CT imaging performed of the abdomen and pelvis after the intravenous administratio n of 75 cc of Isovue-370. . Sagittal and coronal reformats were obtained. One or more of the following individualized dose reduction techniques were utilized for this examinat ion: 1. Automated exposure control 2. Adjustment of the mA and/or kV according to patient size 3. Use of iterative reconstruction technique. Findings: Lower chest: Visualized lungs and heart are clear Liver: Normal in size, no focal lesions. Gallbladder/Biliary Tree: Normal Pancreas: Unremarkable Spleen: Normal Adrenal Glands: Bilaterally symmetric Kidneys/Ureters/Bladder: Both kidneys are normal in size with symmetric excretion of contrast via bot h kidneys. Tiny 2 mm right superior renal pole calculus is seen There is a small cyst in the right in ferior renal pole and left inferior renal pole calculus seen Reproductive Organs: Prostate gland and seminal vesicles and normal Stomach, small bowel, and colon: Normal Vasculature: Normal Lymph Nodes: None enlarged Peritoneum and retroperitoneum: Unremarkable Bones: Normal Miscellaneous: None Impression: 1. No acute intra-abdominal or pelvic process detected. 2. Nonobstructing bilateral tiny renal calculi. Electronically signed by: Barbara Bunn MD (12/12/2020 3:52 PM) [facility]
[2020-12-12] MEDS ORDERED: ONDA4TAB12 PO (16:08)
[2020-12-12] MEDS ORDERED: AZIT250T6 PO (16:08)
--- NOTE | 2020-12-13 07:31 | EKG ---
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
== END 2020-12-12 16:39 | disposition home or self-care (01) ==
LOC: ER 12:26
DX: N20.0 Calculus of kidney (principal); Z20.822 Contact with and (suspected) exposure to COVID-19; R10.84 Generalized abdominal pain; R11.0 Nausea; R20.2 Paresthesia of skin; R91.8 Other nonspecific abnormal finding of lung field; I10 Essential (primary) hypertension; Z87.442 Personal history of urinary calculi; Z98.890 Other specified postprocedural states; Z88.1 Allergy status to other antibiotic agents
CPT/HCPCS: 36415; 71045; 74177; 80053; 80307; 81001; 83690; 84484; 85025; 93005; 96361; 96374; 96375; 99285; J2405; J3010; J3490; J7030; Q9967; U0003

== ENCOUNTER 2020-12-19 12:25 | Emergency (ER) | payer OTHER ==
[~2020-12-19] VITALS: Ht 167.6 cm; Wt 127.0 kg
[~2020-12-19 12:25] MED LIST changes: +AZIT250T6 PO; +ONDA4TAB12 PO
[2020-12-19 12:43] VITALS: BP 158/80
[2020-12-19 13:07] LABS: BILIRUBIN,URINE NEGATIVE (NEG); CLARITY,URINE CLEAR; COLOR,URINE YELLOW; NITRITE,URINE NEGATIVE (NEG); PH,URINE 6.5 (<5.0-8.0); PROTEIN,URINE NEGATIVE (NEG-TRACE); UROBILINOGEN,URINE 0.2 mg/dL (0.2 mg/dL)
[2020-12-19 13:13] LABS: BACTERIA,URINE 0 /HPF (0-FEW); RBC,URINE 0 /HPF (0-2); WBC,URINE 0 /HPF (0-4)
--- NOTE | 2020-12-19 13:44 | RAD ---
XR CHEST 1V History: Reason: chill,cough,dizzy / Spl. Instructions: / History: Comparison: December 12, 2020 Findings: No consolidation or pleural effusion. Normal heart size. No pneumothorax. Low lung volumes. Impression: 1. No acute cardiopulmonary process. Electronically signed by: Jovanny Rodriguez DO (12/19/2020 1:41 PM) [facility]
[2020-12-19] MEDS ORDERED: IV NORMAL SALINE 1000ML BAG 1,000 ML IV ONE (14:00)
[2020-12-19 14:10] LABS: BASO % 1 % (0-3); EOS % 1 % (0-3); HEMATOCRIT 38.8 % (39.0-53.0); HEMOGLOBIN 13.2 g/dL (13.0-17.5); LYMPH # 1.9 x10^3/uL (1.0-4.8); LYMPH % 40 % (24-48); MEAN CORPUSCULAR HEMOGLOBIN 30 pg (25-35); MEAN CORPUSCULAR HGB CONC 34 g/dL (31-37); MEAN CORPUSCULAR VOLUME 88 fL (79-100); MONO # 0.5 x10^3/uL (0.0-1.1); MONO % 11 % (0-9); NEUT # 2.3 x10^3/uL (1.8-7.7); NEUT % 47 % (31-73); PLATELET COUNT 289 x10^3/uL (140-400); RED BLOOD COUNT 4.41 x10^6/uL (4.30-5.70); RED CELL DISTRIBUTION WIDTH 14.4 % (11.5-14.5); WHITE BLOOD COUNT 4.8 x10^3/uL (4.0-11.0)
--- NOTE | 2020-12-19 14:10 | PHYS DOC ---
Past Medical History Past Medical History: Hypertension, Kidney Stone, Other Additional Past Medical Histor: PE, Factor V Past Surgical History: Other Additional Past Surgical Histo: lithrotripsy Smoking Status: Never Smoker Alcohol Use: None Drug Use: None General Adult EDM: Chief Complaint: MULTIPLE COMPLAINTS HPI: HPI: Patient is a 50 year old male who presents to ER for evaluation of multiple problems. Patient said he had chill, feeling weak and dizzy, having chest pain and trouble breathing. Patient was seen here about 6 days ago for flank pain, was diagnosed with pneumonia, was given Z-Oli to take. Patient finished the antibiotic but did not feel any better. Patient was tested negative for COVID- 19. Patient was tested negative twice already for COVID-19. 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 Patient is currently on Eliquis. Patient denies any cough or fever at this time. Denies any recent travel or operation. Review of Systems: Review of Systems: Constitutional: Denies fever or chills. [] Eyes: Denies change in visual acuity. [] HENT: Denies nasal congestion or sore throat. [] Respiratory: Denies cough, positive for trouble breathing Cardiovascular: Positive for chest pain, no edema GI: Denies abdominal pain, nausea, vomiting, bloody stools or diarrhea. [] : Denies dysuria. [] Musculoskeletal: Positive back pain, no joint pain. Integument: Denies rash. [] Neurologic: Denies headache, focal weakness or sensory changes. [] Endocrine: Denies polyuria or polydipsia. [] Lymphatic: Denies swollen glands. [] Psychiatric: Denies depression or anxiety. [] Heart Score: C/O Chest Pain: Yes HEART Score for Chest Pain: HEART Score for Chest Pain Response (Comments) Value History Moderately Suspicious 1 Age >45 - < 65 1 Risk Factors 1 or 2 Risk Factors 1 Troponin < Normal Limit 0 Total 3 Risk Factors: Risk Factors: DM, Current or recent (<one month) smoker, HTN, HLP, family history of CAD, obesity. Risk Scores: Score 0 - 3: 2.5% MACE over next 6 weeks - Discharge Home Score 4 - 6: 20.3% MACE over next 6 weeks - Admit for Clinical Observation Score 7 - 10: 72.7% MACE over next 6 weeks - Early Invasive Strategies Current Medications: Current Medications Medications (Trade) Dose Ordered Sig/Ale Start Time Stop Time Status Last Admin Dose Admin Sodium Chloride 1,000 ml @ 1,000 mls/hr 1X ONCE 12/19/20 14:00 12/19/20 14:59 Allergies: Allergies: Allergies Coded Allergies Type Severity Reaction Last Updated Verified nitroglycerin Adverse Reaction Intermediate LOC/SYNCOPE 06/15/20 Yes Physical Exam: PE: Constitutional: Well developed, well nourished, no acute distress, non-toxic appearance. [] HENT: Normocephalic, atraumatic, bilateral external ears normal, oropharynx moist, no oral exudates, nose normal. [] Eyes: PERRLA, EOMI, conjunctiva normal, no discharge. [] Neck: Normal range of motion, no tenderness, supple, no stridor. [] Cardiovascular:Heart rate regular rhythm, no murmur [] Lungs & Thorax: Bilateral breath sounds clear to auscultation [] Abdomen: Bowel sounds normal, soft, no tenderness, no masses, no pulsatile masses. [] Skin: Warm, dry, no erythema, no rash. [] Back: No tenderness, no CVA tenderness. [] Extremities: No tenderness, no cyanosis, no clubbing, ROM intact, no edema. [] Neurologic: Alert and oriented X 3, normal motor function, normal sensory function, no focal deficits noted. [] Psychologic: Affect normal, judgement normal, mood normal. [] Current Patient Data: Labs: Laboratory Tests Test 12/19/20 12:45 Urine Collection Type Unknown Urine Color Yellow Urine Clarity Clear Urine pH 6.5 (<5.0-8.0) Urine Specific [place] <=1.005 (1.000-1.030) Urine Protein Negative mg/dL (NEG-TRACE) Urine Glucose (UA) Negative mg/dL (NEG) Urine Ketones (Stick) Negative mg/dL (NEG) Urine Blood Negative (NEG) Urine Nitrite Negative (NEG) Urine Bilirubin Negative (NEG) Urine Urobilinogen Dipstick 0.2 mg/dL (0.2 mg/dL) Urine Leukocyte Esterase Negative (NEG) Urine RBC 0 /HPF (0-2) Urine WBC 0 /HPF (0-4) Urine Squamous Epithelial Cells Occ /LPF Urine Bacteria 0 /HPF (0-FEW) Vital Signs: Vital Signs Date Time Temp Pulse Resp B/P (MAP) Pulse Ox O2 Delivery O2 Flow Rate FiO2 12/19/20 12:43 98.0 80 18 158/80 (106) 99 Room Air 98.0 EKG: EKG: EKG was done at 221, heart rate of 66 bpm, normal sinus rhythm, no ST segment depression, normal axis. Radiology/Procedures: Radiology/Procedures: [][facility] [address] [place] [address] IMAGING REPORT Signed PATIENT: HEATHER HIRSCH ACCOUNT: [id number] : 1970 LOCATION: ER AGE: 50 SEX: M EXAM STATUS: REG ER ORD. PHYSICIAN: CANDACE SCHMIDT DO REASON: chest pain, soa, hx of factor 5, PE PROCEDURE: CT ANGIOGRAPHY CHEST CTA CHEST History: Chest pain Technique: CT of the chest was performed with intravenous contrast. PE protocol. Maximum intensity projection coronal and sagittal reconstructions were performed. Exposure: One or more of the following individualized dose reduction techniques were utilized for this examination: 1. Automated exposure control 2. Adjustment of the mA and/or kV according to patient size 3. Use of iterative reconstruction technique. Comparison: May 10, 2020 Findings: Chest: No pulmonary embolism. No aortic dissection or aneurysm. Minimal atheromatous plaque within the aorta. No pathologic lymphadenopathy. No consolidation or pleural effusion. No pneumothorax. Upper abdomen: The imaged upper abdomen is unremarkable. Bones: No pathologic osseous lesions. Impression: 1. No acute thoracic pathology. No pulmonary embolism. Electronically signed by: Jovanny Rodriguez DO (12/19/2020 3:16 PM) [facility] DICTATED and SIGNED BY: JOVANNY RODRIGUEZ DO DATE: 12/19/20 [id number] 0 Course & Med Decision Making: Course & Med Decision Making Pertinent Labs and Imaging studies reviewed. (See chart for details) Patient is a 50-year-old male who presented to ER with multiple complaints. Patient complained of chest pain, trouble breathing, back pain, body ache, chills, CTA chest did not show any blood clot disorder or any infiltration. Lab work did not show any acute abnormality. Patient was discharged in stable con dition. Dragon Disclaimer: Dragon Disclaimer: This electronic medical record was generated, in whole or in part, using a voice recognition dictation system. Departure Departure Impression: Primary Impression: Chest pain Additional Impression: Dyspnea Disposition: 01 HOME / SELF CARE / HOMELESS Condition: STABLE Referrals: KIMBERLY HOLLY JR, MD (PCP) Please follow up with your doctor in 2 days for reevaluation. Patient Instructions: Chest Pain (Nonspecific), Shortness of Breath Additional Instructions: Thank you for visiting our Emergency Department. We appreciate you trusting us with your care. If any additional problems come up don't hesitate to return to visit us. Please follow up with your primary care provider so they can plan additional care if needed and know about the problem that you had. If symptoms worsen come back to the Emergency Department. Any concerning symptoms that start such as chest pain, shortness of air, weakness or numbness on one side of the body, running high fevers or any other concerning symptoms return to the ER. CANDACE SCHMIDT DO Dec 19, 2020 14:10
[2020-12-19] MEDS ORDERED: MORPHINE SULFATE 4 MG/ML VIAL. IV ONE (14:15)
[2020-12-19 14:21] LABS: CALCIUM 9.1 mg/dL (8.5-10.1); CREATININE 0.9 mg/dL (0.7-1.3); GFR 108.5; POTASSIUM 4.4 mmol/L (3.5-5.1)
[2020-12-19 14:27] LABS: ALBUMIN 3.3 g/dL (3.4-5.0); ALBUMIN/GLOBULIN RATIO 0.8 (1.0-1.7); MAGNESIUM 2.1 mg/dL (1.8-2.4); TOTAL BILIRUBIN 0.5 mg/dL (0.2-1.0); TOTAL PROTEIN 7.6 g/dL (6.4-8.2)
[2020-12-19] MEDS ORDERED: IOHEXOL 350 MG/ML 100 ML VIAL. IV ONE (14:30)
--- NOTE | 2020-12-19 15:19 | RAD ---
CTA CHEST History: Chest pain Technique: CT of the chest was performed with intravenous contrast. PE protocol. Maximum intensity pr ojection coronal and sagittal reconstructions were performed. Exposure: One or more of the following individualized dose reduction techniques were utilized for thi s examination: 1. Automated exposure control 2. Adjustment of the mA and/or kV according to patient size 3. Use of iterative reconstruction technique. Comparison: May 10, 2020 Findings: Chest: No pulmonary embolism. No aortic dissection or aneurysm. Minimal atheromatous plaque within th e aorta. No pathologic lymphadenopathy. No consolidation or pleural effusion. No pneumothorax. Upper abdomen: The imaged upper abdomen is unremarkable. Bones: No pathologic osseous lesions. Impression: 1. No acute thoracic pathology. No pulmonary embolism. Electronically signed by: Jovanny Rodriguez DO (12/19/2020 3:16 PM) [facility]
--- NOTE | 2020-12-19 18:20 | EKG ---
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
== END 2020-12-19 16:25 | disposition home or self-care (01) ==
LOC: ER 12:25
DX: R07.89 Other chest pain (principal); R06.00 Dyspnea, unspecified; R42 Dizziness and giddiness; R53.1 Weakness; I10 Essential (primary) hypertension; Z98.890 Other specified postprocedural states; Z87.891 Personal history of nicotine dependence; Z88.1 Allergy status to other antibiotic agents
CPT/HCPCS: 36415; 71045; 71275; 80053; 81001; 83735; 83880; 84484; 85025; 93005; 96361; 96374; 99285; J2270; J7030; Q9967

== ENCOUNTER 2020-12-23 00:32 | Emergency (ER) | payer OTHER ==
[~2020-12-23] VITALS: Ht 175.3 cm; Wt 125.0 kg
[2020-12-23 00:45] VITALS: BP 171/90
--- NOTE | 2020-12-23 01:01 | PHYS DOC ---
Past Medical History Past Medical History: Hypertension, Kidney Stone, Other Additional Past Medical Histor: PE, Factor V Past Surgical History: Other Additional Past Surgical Histo: lithrotripsy Smoking Status: Never Smoker Alcohol Use: None Drug Use: None General Adult EDM: Chief Complaint: LOWER BACK PAIN OR INJURY HPI: HPI: Patient is a 50 year old male who presents to the emergency department with back pain and a burning/tingling sensation all over his body. Patient states that he was here a week ago worried about a blood clot from his known history of factor V Leiden disease and since then he has had midthoracic back pain intermittently and also a burning tingling pain all over his body intermittently x 5 days.. Patient is worried that he is allergic to his Eliquis that is not a new drug. He has been on eliquis x 1 year. Patient does not recall any trauma to his back and has not noticed a pattern to his back pain or tingling burning sensation. Review of Systems: Review of Systems: Review of systems: Constitutional symptoms- No fever, no chills. Eyes- No Discharge, No Visual Loss Respiratory symptoms- No shortness of breath, No wheezing, No Dyspnea on Exertion Cardiovascular Systems; No chest pain, No Palpitations, No syncope Gastrointestinal symptoms: NO abdominal pain, no nausea, no vomiting or diarrhea. Genitourinary symptoms: No dysuria. Musculoskeletal symptoms: Positive back pain No extremity pain. NEUROLOGICAL Symptoms: No headache, no generalized weakness; No focal Weakness, positive burning and tingling diffusely Heart Score: C/O Chest Pain: N/A Risk Factors: Risk Factors: DM, Current or recent (<one month) smoker, HTN, HLP, family history of CAD, obesity. Risk Scores: Score 0 - 3: 2.5% MACE over next 6 weeks - Discharge Home Score 4 - 6: 20.3% MACE over next 6 weeks - Admit for Clinical Observation Score 7 - 10: 72.7% MACE over next 6 weeks - Early Invasive Strategies Allergies: Allergies: Allergies Coded Allergies Type Severity Reaction Last Updated Verified nitroglycerin Adverse Reaction Intermediate LOC/SYNCOPE 06/15/20 Yes Physical Exam: PE: General: alert, no acute distress. Skin: warm, dry and intact, no apparent rashes. Head:: Normocephalic, atraumatic. Neck: Trachea midline. Eyes: EOMI, Normal conjunctiva, No drainage CARDIOVASCULAR: Regular rate and rhythm RESPIRATORY: No respiratory distress Back: Full range of motion. MUSCULOSKELETAL: Full range of motion of bilateral upper and lower extremities. GASTROINTESTINAL: Abdomen soft without rebound or guarding. NEUROLOGICAL: Alert and noted to person, place and time. No neurological deficits observed Psychiatric: Cooperative. Normal judgment EKG: EKG: [] Radiology/Procedures: Radiology/Procedures: [] Course & Med Decision Making: Course & Med Decision Making Pertinent Labs and Imaging studies reviewed. (See chart for details) [] Patient was evaluated for chief complaint. Work-up consisted of laboratory analysis. Results reviewed discussed with patient. No acute abnormalities. Patient discharged home. Dragon Disclaimer: DragSocialProof Disclaimer: This electronic medical record was generated, in whole or in part, using a voice recognition dictation system. Departure Departure Impression: Primary Impression: Back pain Additional Impression: Paresthesia Disposition: 01 HOME / SELF CARE / HOMELESS Condition: STABLE Referrals: KIMBERLY HOLLY JR, MD (PCP) Patient Instructions: Back Pain, Adult MAT HUYNH I DO Dec 23, 2020 01:01
[2020-12-23 01:46] LABS: BASO # 0.1 x10^3/uL (0.0-0.2); BASO % 1 % (0-3); EOS # 0.1 x10^3/uL (0.0-0.7); EOS % 1 % (0-3); HEMATOCRIT 37.8 % (39.0-53.0); HEMOGLOBIN 12.5 g/dL (13.0-17.5); LYMPH # 2.5 x10^3/uL (1.0-4.8); LYMPH % 41 % (24-48); MEAN CORPUSCULAR HEMOGLOBIN 30 pg (25-35); MEAN CORPUSCULAR HGB CONC 33 g/dL (31-37); MEAN CORPUSCULAR VOLUME 89 fL (79-100); MONO # 0.8 x10^3/uL (0.0-1.1); MONO % 13 % (0-9); NEUT # 2.7 x10^3/uL (1.8-7.7); NEUT % 44 % (31-73); PLATELET COUNT 281 x10^3/uL (140-400); RED BLOOD COUNT 4.23 x10^6/uL (4.30-5.70); RED CELL DISTRIBUTION WIDTH 14.7 % (11.5-14.5); WHITE BLOOD COUNT 6.2 x10^3/uL (4.0-11.0)
[2020-12-23 01:57] LABS: CALCIUM 8.8 mg/dL (8.5-10.1); CREATININE 0.9 mg/dL (0.7-1.3); GFR 108.5; POTASSIUM 3.8 mmol/L (3.5-5.1)
[2020-12-23 02:01] LABS: ALBUMIN 3.4 g/dL (3.4-5.0); ALBUMIN/GLOBULIN RATIO 0.9 (1.0-1.7); TOTAL BILIRUBIN 0.3 mg/dL (0.2-1.0); TOTAL PROTEIN 7.2 g/dL (6.4-8.2)
[2020-12-23] MEDS ORDERED: KETOROLAC 30 MG/ML VIAL. IVP ONE (02:15)
[2020-12-23 02:30] LABS: BILIRUBIN,URINE NEGATIVE (NEG); CLARITY,URINE CLEAR; COLOR,URINE YELLOW; NITRITE,URINE NEGATIVE (NEG); PROTEIN,URINE NEGATIVE (NEG-TRACE); UROBILINOGEN,URINE 0.2 mg/dL (0.2 mg/dL)
[2020-12-23 02:37] LABS: BACTERIA,URINE 0 /HPF (0-FEW); RBC,URINE 0 /HPF (0-2); WBC,URINE RARE /HPF (0-4)
== END 2020-12-23 03:24 | disposition home or self-care (01) ==
LOC: ER 00:32
DX: M54.5 Low back pain (principal); R20.2 Paresthesia of skin; I10 Essential (primary) hypertension; Z87.442 Personal history of urinary calculi; Z98.890 Other specified postprocedural states; Z88.1 Allergy status to other antibiotic agents
CPT/HCPCS: 36415; 80053; 81001; 85025; 96374; 99283; J1885

== ENCOUNTER 2021-01-21 21:53 | Emergency (ER) | payer OTHER ==
[~2021-01-21] VITALS: Ht 167.6 cm; Wt 79.0 kg
[2021-01-21 22:15] VITALS: BP 132/83
--- NOTE | 2021-01-21 22:36 | RAD ---
EXAMINATION: XR CHEST 1V CLINICAL HISTORY: Cough EXAM DATE/TIME: 01/21/2021 10:32 PM COMPARISON: 12/19/2020 FINDINGS: Lines, Tubes, and Devices: None. Cardiomediastinal Silhouette: Normal heart size. Aortic atherosclerotic calcification. Lungs and Pleura: Pulmonary hypoexpansion without evidence of focal airspace consolidation or pleural effusion. Pulmonary vasculature unremarkable. Bones and Soft Tissues: No acute osseous abnormality. IMPRESSION: No evidence of acute cardiopulmonary abnormality or significant interval change. Electronically signed by: Venkata Nascimento DO (01/21/2021 10:34 PM) [facility]
--- NOTE | 2021-01-21 22:47 | PHYS DOC ---
Past Medical History Past Medical History: Hypertension, Kidney Stone, Other Additional Past Medical Histor: PE, Factor V (TAKES THINNERS) Past Surgical History: Other Additional Past Surgical Histo: lithrotripsy Smoking Status: Never Smoker Alcohol Use: None Drug Use: None General Adult EDM: Chief Complaint: COUGH HPI: HPI: 50-year-old male past medical history of factor V Leiden and PE presents with a chief complaint of cough. Patient states he has had a cough for 3 days. Cough is associated with white sputum production. Patient states he has postnasal and sinus drainage. Patient denies any fevers chills chest pain or shortness of breath. Review of Systems: Review of Systems: Review of systems: Constitutional symptoms- No fever, no chills. Eyes- No Discharge, No Visual Loss Respiratory symptoms- No shortness of breath, No wheezing, No Dyspnea on Exertion positive cough Cardiovascular Systems; No chest pain, No Palpitations, No syncope Gastrointestinal symptoms: NO abdominal pain, no nausea, no vomiting or diarrhea. Genitourinary symptoms: No dysuria. Musculoskeletal symptoms: No back pain No extremity pain. NEUROLOGICAL Symptoms: No headache, no generalized weakness; No focal Weakness HEENT positive postnasal drainage Heart Score: C/O Chest Pain: N/A Risk Factors: Risk Factors: DM, Current or recent (<one month) smoker, HTN, HLP, family history of CAD, obesity. Risk Scores: Score 0 - 3: 2.5% MACE over next 6 weeks - Discharge Home Score 4 - 6: 20.3% MACE over next 6 weeks - Admit for Clinical Observation Score 7 - 10: 72.7% MACE over next 6 weeks - Early Invasive Strategies Allergies: Allergies: Allergies Coded Allergies Type Severity Reaction Last Updated Verified nitroglycerin Adverse Reaction Intermediate LOC/SYNCOPE 06/15/20 Yes Physical Exam: PE: General: alert, no acute distress. Skin: warm, dry and intact. Head:: Normocephalic, atraumatic. Neck: Trachea midline. Eyes: EOMI, Normal conjunctiva, No drainage CARDIOVASCULAR: Regular rate and rhythm RESPIRATORY: No respiratory distress Back: Full range of motion. MUSCULOSKELETAL: Full range of motion of bilateral upper and lower extremities. GASTROINTESTINAL: Abdomen soft without rebound or guarding. NEUROLOGICAL: Alert and noted to person, place and time. No neurological deficits observed Psychiatric: Cooperative. Normal judgment Current Patient Data: Vital Signs: Vital Signs Date Time Temp Pulse Resp B/P (MAP) Pulse Ox O2 Delivery O2 Flow Rate FiO2 01/21/21 22:15 97.5 96 12 132/83 (99) 100 Room Air 97.5 EKG: EKG: [] Radiology/Procedures: Radiology/Procedures: [] Impression: FINDINGS: Lines, Tubes, and Devices: None. Cardiomediastinal Silhouette: Normal heart size. Aortic atherosclerotic calcif ication. Lungs and Pleura: Pulmonary hypoexpansion without evidence of focal airspace consolidation or pleural effusion. Pulmonary vasculature unremarkable. Bones and Soft Tissues: No acute osseous abnormality. IMPRESSION: No evidence of acute cardiopulmonary abnormality or significant interval change. Electronically signed by: Venkata Nascimento DO (01/21/2021 10:34 PM) [facility] Course & Med Decision Making: Course & Med Decision Making Pertinent Labs and Imaging studies reviewed. (See chart for details) [] Dragon Disclaimer: Dragon Disclaimer: This electronic medical record was generated, in whole or in part, using a voice recognition dictation system. Departure Departure Impression: Primary Impression: Cough Disposition: 01 HOME / SELF CARE / HOMELESS Condition: STABLE Referrals: KIMBERLY HOLLY JR, MD (PCP) Patient Instructions: Cough, Adult Scripts Azithromycin (ZITHROMAX) 250 Mg Tablet 1 PKG PO UD, #6 TAB Prov: MAT HUYNH DO 01/21/21 MAT HUYNH DO January 21, 2021 22:47
[2021-01-21] MEDS ORDERED: AZIT250T PO (23:00)
== END 2021-01-21 23:08 | disposition home or self-care (01) ==
LOC: ER 21:53
DX: R05 Cough (principal); R09.3 Abnormal sputum; I10 Essential (primary) hypertension; Z87.442 Personal history of urinary calculi; Z88.8 Allergy status to other drugs, medicaments and biological substances
CPT/HCPCS: 71045; 99283

== ENCOUNTER 2021-02-27 16:50 | Emergency (ER) | payer OTHER ==
[~2021-02-27] VITALS: Ht 167.6 cm; Wt 127.0 kg
[~2021-02-27 16:50] MED LIST changes: -OMEP40CA45 PO; +OMEP40CA7 PO
--- NOTE | 2021-02-27 18:15 | ED.ADGEN ---
Past Medical History Past Medical History: Hypertension, Kidney Stone, Other Additional Past Medical Histor: PE, Factor V (TAKES THINNERS) Past Surgical History: Other Additional Past Surgical Histo: lithrotripsy Smoking Status: Never Smoker Alcohol Use: None Drug Use: None General Adult EDM: Chief Complaint: MULTIPLE COMPLAINTS HPI: HPI: Patient is a 50 year old male coming in for multiple complaints. Patient states he feels bloated and constipated. Drink magnesium citrate today and had a bowel movement. Also complaining of flank pain but denies any hematuria or dysuria. Patient states he has intermittent chest pain that moves around. Has a history of factor V Leiden and is taking Eliquis and states he has missed couple doses but is normally taking it. Had a headache but took Tylenol and is gone now. Review of Systems: Review of Systems: All other systems within normal limits except for as noted in the HPI Allergies: Allergies: Allergies Coded Allergies Type Severity Reaction Last Updated Verified nitroglycerin Adverse Reaction Intermediate LOC/SYNCOPE 06/15/20 Yes Physical Exam: PE: Constitutional: Well developed, well nourished, no acute distress, non-toxic appearance. [] HENT: Normocephalic, atraumatic, bilateral external ears normal, nose normal. [] Eyes: PERRLA, conjunctiva normal, no discharge. [] Neck: No rigidity, supple, no stridor. [] Cardiovascular: Regular rate and rhythm, brisk cap refill [] Lungs & Thorax: Non labored symmetric respirations, no tachypnea or respiratory distress. No chest tenderness to palpation [] Abdomen: Soft, nondistended, nontender to palp. Skin: Warm, dry, no erythema, no rash. [] Back: Unremarkable Extremities: No deformities, range of motion grossly intact, no lower extremity edema [] Neurologic: Alert and oriented X 3, no focal deficits noted. [] Psychologic: Affect normal, judgement normal, mood normal. [] Current Patient Data: Labs: Laboratory Tests Test 02/27/21 17:40 02/27/21 18:58 02/27/21 19:50 Urine Collection Type Unknown Urine Color Yellow Urine Clarity Clear Urine pH 6.0 (<5.0-8.0) Urine Specific [place] 1.015 (1.000-1.030) Urine Protein Negative mg/dL (NEG-TRACE) Urine Glucose (UA) Negative mg/dL (NEG) Urine Ketones (Stick) Negative mg/dL (NEG) Urine Blood Negative (NEG) Urine Nitrite Negative (NEG) Urine Bilirubin Negative (NEG) Urine Urobilinogen Dipstick 0.2 mg/dL (0.2 mg/dL) Urine Leukocyte Esterase Negative (NEG) Urine RBC 0 /HPF (0-2) Urine WBC 0 /HPF (0-4) Urine Bacteria 0 /HPF (0-FEW) White Blood Count 5.2 x10^3/uL (4.0-11.0) Red Blood Count 4.72 x10^6/uL (4.30-5.70) Hemoglobin 14.1 g/dL (13.0-17.5) Hematocrit 42.3 % (39.0-53.0) Mean Corpuscular Volume 90 fL (79-100) Mean Corpuscular Hemoglobin 30 pg (25-35) Mean Corpuscular Hemoglobin Concent 34 g/dL (31-37) Red Cell Distribution Width 14.7 % (11.5-14.5) H Platelet Count 316 x10^3/uL (140-400) Neutrophils (%) (Auto) 40 % (31-73) Lymphocytes (%) (Auto) 44 % (24-48) Monocytes (%) (Auto) 13 % (0-9) H Eosinophils (%) (Auto) 2 % (0-3) Basophils (%) (Auto) 1 % (0-3) Neutrophils # (Auto) 2.1 x10^3/uL (1.8-7.7) Lymphocytes # (Auto) 2.3 x10^3/uL (1.0-4.8) Monocytes # (Auto) 0.7 x10^3/uL (0.0-1.1) Eosinophils # (Auto) 0.1 x10^3/uL (0.0-0.7) Basophils # (Auto) 0.1 x10^3/uL (0.0-0.2) Sodium Level 140 mmol/L (136-145) Potassium Level 3.6 mmol/L (3.5-5.1) Chloride Level 104 mmol/L (98-107) Carbon Dioxide Level 27 mmol/L (21-32) Anion Gap 9 (6-14) Blood Urea Nitrogen 8 mg/dL (8-26) Creatinine 1.1 mg/dL (0.7-1.3) Estimated GFR (Cockcroft-Gault) 86.1 BUN/Creatinine Ratio 7 (6-20) Glucose Level 81 mg/dL (70-99) Calcium Level 8.7 mg/dL (8.5-10.1) Total Bilirubin 0.7 mg/dL (0.2-1.0) Aspartate Amino Transferase (AST) 12 U/L (15-37) L Alanine Aminotransferase (ALT) 14 U/L (16-63) L Alkaline Phosphatase 59 U/L (46-116) Troponin I Quantitative < 0.017 ng/mL (0.000-0.055) Total Protein 7.6 g/dL (6.4-8.2) Albumin 3.6 g/dL (3.4-5.0) Albumin/Globulin Ratio 0.9 (1.0-1.7) L Thyroid Stimulating Hormone (TSH) 0.686 uIU/mL (0.358-3.74) Laboratory Tests 02/27/21 18:58 Laboratory Tests 02/27/21 19:50 Vital Signs: Vital Signs Date Time Temp Pulse Resp B/P (MAP) Pulse Ox O2 Delivery O2 Flow Rate FiO2 02/27/21 19:35 68 20 150/77 (101) 98 Room Air 02/27/21 17:20 98.5 98.5 EKG: EKG: [] Heart Score: C/O Chest Pain: Yes HEART Score for Chest Pain: HEART Score for Chest Pain Response (Comments) Value History Slighlty/Non-Suspicious 0 Total 0 Risk Factors: Risk Factors: DM, Current or recent (<one month) smoker, HTN, HLP, family history of CAD, obesity. Risk Scores: Score 0 - 3: 2.5% MACE over next 6 weeks - Discharge Home Score 4 - 6: 20.3% MACE over next 6 weeks - Admit for Clinical Observation Score 7 - 10: 72.7% MACE over next 6 weeks - Early Invasive Strategies Radiology/Procedures: Radiology/Procedures: [facility] [address] [place] [address] IMAGING REPORT Signed PATIENT: HEATHER HIRSCH ACCOUNT: [id number] : 1970 LOCATION: ER AGE: 50 SEX: M EXAM STATUS: REG ER ORD. PHYSICIAN: MILAD SALGADO MD REASON: bloating PROCEDURE: ACUTE ABDOMEN SERIES Abdomen series including PA chest 02/27/2021. Reason for exam: Bloating. The chest films compared with a study of 08/23/2020. No free air is seen. Gas is present in the stomach and within what is probably a mixture of large and small bowel. There are no dilated bowel loops. Air-fluid levels are mostly in the colon. No abnormal masses or gas collections are seen. Single view of the chest shows no infiltrate or effusion. Heart size is normal. IMPRESSION: No evidence of obstruction. Air-fluid levels could be seen with ileus. Electronically signed by: Jamie Becker Jr., MD (02/27/2021 7:58 PM) [facility] DICTATED and SIGNED BY: JAMIE BECKER Jr, MD DATE: 02/27/21 [id number] [] Course & Med Decision Making: Course & Med Decision Making Pertinent Labs and Imaging studies reviewed. (See chart for details) [] Dragon Disclaimer: Dragon Disclaimer: This electronic medical record was generated, in whole or in part, using a voice recognition dictation system. Departure Departure Impression: Primary Impression: Constipation Referrals: KIMBERLY HOLLY JR, MD (PCP) Patient Instructions: Constipation, Adult Additional Instructions: Stop taking your fiber supplement and switch to MiraLAX. May take 1-2 caps a day until having soft stools. Scripts Polyethylene Glycol 3350 (MIRALAX) 119 Gm Powder 17 GM PO DAILY for constipation, #255 GM 0 Refills dissolve in water Prov: MILAD SALGADO MD 02/27/21 MILAD SALGADO MD Feb 27, 2021 18:15
[2021-02-27 18:23] LABS: BILIRUBIN,URINE NEGATIVE (NEG); CLARITY,URINE CLEAR; COLOR,URINE YELLOW; NITRITE,URINE NEGATIVE (NEG); PROTEIN,URINE NEGATIVE (NEG-TRACE); UROBILINOGEN,URINE 0.2 mg/dL (0.2 mg/dL)
[2021-02-27 18:29] LABS: BACTERIA,URINE 0 /HPF (0-FEW); RBC,URINE 0 /HPF (0-2); WBC,URINE 0 /HPF (0-4)
[2021-02-27 19:16] LABS: BASO # 0.1 x10^3/uL (0.0-0.2); BASO % 1 % (0-3); EOS # 0.1 x10^3/uL (0.0-0.7); EOS % 2 % (0-3); HEMATOCRIT 42.3 % (39.0-53.0); HEMOGLOBIN 14.1 g/dL (13.0-17.5); LYMPH # 2.3 x10^3/uL (1.0-4.8); LYMPH % 44 % (24-48); MEAN CORPUSCULAR HEMOGLOBIN 30 pg (25-35); MEAN CORPUSCULAR HGB CONC 34 g/dL (31-37); MEAN CORPUSCULAR VOLUME 90 fL (79-100); MONO # 0.7 x10^3/uL (0.0-1.1); MONO % 13 % (0-9); NEUT # 2.1 x10^3/uL (1.8-7.7); NEUT % 40 % (31-73); PLATELET COUNT 316 x10^3/uL (140-400); RED BLOOD COUNT 4.72 x10^6/uL (4.30-5.70); RED CELL DISTRIBUTION WIDTH 14.7 % (11.5-14.5); WHITE BLOOD COUNT 5.2 x10^3/uL (4.0-11.0)
[2021-02-27 19:35] VITALS: BP 150/77
--- NOTE | 2021-02-27 20:00 | RAD ---
Abdomen series including PA chest 02/27/2021. Reason for exam: Bloating. The chest films compared with a study of 08/23/2020. No free air is seen. Gas is present in the stomach and within what is probably a mixture of large and small bowel. There are no dilated bowel loops. Air-fluid levels are mostly in the colon. No abnormal masses or gas collections are seen. Single view of the chest shows no infiltrate or effusion. Heart size is normal. IMPRESSION: No evidence of obstruction. Air-fluid levels could be seen with ileus. Electronically signed by: Barber Becker Jr., MD (02/27/2021 7:58 PM) [facility]
[2021-02-27 20:14] LABS: CALCIUM 8.7 mg/dL (8.5-10.1); CREATININE 1.1 mg/dL (0.7-1.3); GFR 86.1; POTASSIUM 3.6 mmol/L (3.5-5.1)
[2021-02-27 20:20] LABS: ALBUMIN 3.6 g/dL (3.4-5.0); ALBUMIN/GLOBULIN RATIO 0.9 (1.0-1.7); TOTAL BILIRUBIN 0.7 mg/dL (0.2-1.0); TOTAL PROTEIN 7.6 g/dL (6.4-8.2)
[2021-02-27] MEDS ORDERED: POLY119P4 PO (20:57)
--- NOTE | 2021-02-28 06:22 | EKG ---
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
== END 2021-02-27 21:08 | disposition home or self-care (01) ==
LOC: ER 16:50
DX: K59.00 Constipation, unspecified (principal); I10 Essential (primary) hypertension; Z87.442 Personal history of urinary calculi; Z88.8 Allergy status to other drugs, medicaments and biological substances
CPT/HCPCS: 36415; 74022; 80053; 81001; 84443; 84484; 85025; 93005; 99285-25

== ENCOUNTER 2021-06-10 16:09 | Emergency (ER) | payer OTHER ==
[~2021-06-10] VITALS: Ht 167.6 cm; Wt 132.2 kg
[~2021-06-10 16:09] MED LIST changes: +CLIN-94 PO; -CLIN300C9 PO; +POLY119P4 PO
--- NOTE | 2021-06-10 18:44 | EKG ---
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
[2021-06-10 19:03] LABS: BASO % 1 % (0-3); EOS # 0.1 x10^3/uL (0.0-0.7); EOS % 2 % (0-3); HEMATOCRIT 41.1 % (39.0-53.0); HEMOGLOBIN 13.9 g/dL (13.0-17.5); LYMPH # 2.2 x10^3/uL (1.0-4.8); LYMPH % 37 % (24-48); MEAN CORPUSCULAR HEMOGLOBIN 30 pg (25-35); MEAN CORPUSCULAR HGB CONC 34 g/dL (31-37); MEAN CORPUSCULAR VOLUME 89 fL (79-100); MONO # 0.6 x10^3/uL (0.0-1.1); MONO % 11 % (0-9); NEUT # 2.9 x10^3/uL (1.8-7.7); NEUT % 50 % (31-73); PLATELET COUNT 279 x10^3/uL (140-400); RED CELL DISTRIBUTION WIDTH 14.4 % (11.5-14.5); WHITE BLOOD COUNT 5.8 x10^3/uL (4.0-11.0)
--- NOTE | 2021-06-10 19:04 | PHYS DOC ---
Past Medical History Past Medical History: Hypertension, Kidney Stone, Other Additional Past Medical Histor: PE, Factor V Leiden (takes eliquis) Past Surgical History: Other Additional Past Surgical Histo: lithrotripsy Smoking Status: Never Smoker Alcohol Use: None Drug Use: None General Adult EDM: Chief Complaint: SHORTNESS OF BREATH HPI: HPI: Patient is a 51 year old male with history of factor V Leyden deficiency and prior PE who presents with 2-day history of left-sided parascapular back pain and low to mid back pain. He rates his pain 7/10 constant and nonradiating. Patient states earlier today he was short of breath for about 10 minutes, but has since resolved. Patient reports having chills earlier today, denies fever, cough, chest pain, palpitations. He has not traveled recently or had any surgeries. Patient does take Eliquis daily, but states he might "miss one once in a blue stevenson." Patient has no other complaints at this time. Review of Systems: Review of Systems: ROS negative except as mentioned in HPI. Heart Score: C/O Chest Pain: No Allergies: Allergies: Allergies Coded Allergies Type Severity Reaction Last Updated Verified nitroglycerin Adverse Reaction Intermediate LOC/SYNCOPE 06/15/20 Yes Physical Exam: PE: Constitutional: Well developed, well nourished, no acute distress, non-toxic appearance. Neck: Normal range of motion, no tenderness, supple, no stridor. Cardiovascular: Heart rate regular rhythm, no murmur. Lungs & Thorax: Bilateral breath sounds clear to auscultation. Abdomen: Bowel sounds normal, soft, no tenderness, no masses, no pulsatile masses. Skin: Warm, dry, no erythema, no rash. Back: Tenderness to palpation on inferior lateral border of left scapula, no step-offs, no bony tenderness, no paraspinal tenderness, no CVA tenderness. Extremities: No posterior calf tenderness bilaterally, no cyanosis, no clubbing, ROM intact, no edema. Neurovascular intact in extremities x4. Neurologic: Alert and oriented x3, normal motor function, normal sensory function, no focal deficits noted. Psychologic: Affect pleasant, good judgment, mood "worried." Current Patient Data: Vital Signs: Vital Signs Date Time Temp Pulse Resp B/P (MAP) Pulse Ox O2 Delivery O2 Flow Rate FiO2 06/10/21 18:27 98.4 81 22 168/82 (110) 97 Room Air 98.4 EKG: EKG: EKG Interpreted by Dr. Her: Regular rate 80 bpm and sinus rhythm with no ectopic beats. No concerning ST-T wave changes. Regular QR interval. Radiology/Procedures: Radiology/Procedures: PROCEDURE: PORTABLE CHEST 1V Chest AP portable at 1848: Reason for examination: Short of breath. Comparison is made to previous chest dated 02/27/2021. The heart size is normal. Mediastinum is unremarkable. Lung menon are clear. No acute bony abnormalities are seen. Impression: No acute cardiopulmonary disease. CT angiogram of the chest with contrast: Comparison is made to previous study dated 12/19/2020. Helical images were obtained through the chest with intravenous administration of 99 cc Omnipaque 350 using PE protocol. 3-D MIPS reconstruction was performed in sagittal and coronal planes. Exposure: One or more of the following individualized dose reduction techniques were utilized for this examination: 1. Automated exposure control 2. Adjustment of the mA and/or kV according to patient size 3. Use of iterative reconstruction technique. No abnormality seen at the thyroid gland. The trachea and mainstem bronchi show no intraluminal lesions. No abnormality seen at the esophagus. The thoracic aorta shows normal course and caliber with no aneurysmal dilatation or dissection evident. The heart size is normal with no pericardial effusion. There is no evidence of pulmonary embolus. No infiltrates, pleural effusions or pneumothorax are seen. No acute bony abnormalities are seen in the thorax. No abnormality seen at the liver, spleen, adrenal glands, pancreas or gallbladder. The visualized portions of the kidneys show no abnormalities IMPRESSION: No evidence of pulmonary embolus. No acute abnormality seen in the chest. Electronically signed by: Maricel Chua MD (06/10/2021 8:14 PM) JOSE PROCEDURE: CT ANGIOGRAPHY CHEST Chest AP portable at 1848: Reason for examination: Short of breath. Comparison is made to previous chest dated 02/27/2021. The heart size is normal. Mediastinum is unremarkable. Lung menon are clear. No acute bony abnormalities are seen. Impression: No acute cardiopulmonary disease. CT angiogram of the chest with contrast: Comparison is made to previous study dated 12/19/2020. Helical images were obtained through the chest with intravenous administration of 99 cc Omnipaque 350 using PE protocol. 3-D MIPS reconstruction was performed in sagittal and coronal planes. Exposure: One or more of the following individualized dose reduction techniques were utilized for this examination: 1. Automated exposure control 2. Adjustment of the mA and/or kV according to patient size 3. Use of iterative reconstruction technique. No abnormality seen at the thyroid gland. The trachea and mainstem bronchi show no intraluminal lesions. No abnormality seen at the esophagus. The thoracic aorta shows normal course and caliber with no aneurysmal dilatation or dissection evident. The heart size is normal with no pericardial effusion. There is no evidence of pulmonary embolus. No infiltrates, pleural effusions or pneumothorax are seen. No acute bony abnormalities are seen in the thorax. No abnormality seen at the liver, spleen, adrenal glands, pancreas or gallbladder. The visualized portions of the kidneys show no abnormalities IMPRESSION: No evidence of pulmonary embolus. No acute abnormality seen in the chest. Electronically signed by: Maricel Chua MD (06/10/2021 8:14 PM) [facility] Course & Med Decision Making: Course & Med Decision Making Pertinent Labs and Imaging studies reviewed. (See chart for details) Due to patient personal history of PEs as well as reported occasional medication noncompliance, CT angio chest ordered. Patient's work-up today is reassuring and no pulmonary embolism is seen on CT angio. I did have a discussion with the patient about medication compliance given his personal history of PE combined with factor V Leyden deficiency. Patient understands the importance of taking his medication consistently. Additionally, I advised the patient to keep an at home log of his blood pressure daily to bring with him to his primary care doctor appointments. Patient expressed concern that his blood pressure medications are not ideal and that his blood pressure may not be as well-controlled as he would hope. I reassured him that an at home long of keeping his blood pressure recorded at the same time each day would be the most effective and efficient way to ensure that his medication regiment is ideal. Patient understands and is agreeable to discharge plan. Amy Disclaimer: Amy Disclaimer: This electronic medical record was generated, in whole or in part, using a voice recognition dictation system. Departure Departure Impression: Primary Impression: Back pain Qualified Codes: M54.6 - Pain in thoracic spine Additional Impressions: History of pulmonary embolism Factor V Leiden Referrals: KIMBERLY HOLLY JR, MD (PCP) Patient Instructions: Back Exercises, [id number], Back Pain, Adult, [id number] Additional Instructions: Your work-up today ruled out pulmonary embolism as a source for your current complaints. Additionally all of your lab work was very reassuring. As discussed, from this point forward you should keep an at home log of your blood pressure each day at the same time of day. Please return to the emergency department if any of your symptoms return or worsen. CARROLL DEJESUS Jun 10, 2021 19:04
[2021-06-10 19:11] LABS: CALCIUM 8.7 mg/dL (8.5-10.1); GFR 95.7; POTASSIUM 3.5 mmol/L (3.5-5.1)
[2021-06-10 19:17] LABS: ALBUMIN 3.5 g/dL (3.4-5.0); ALBUMIN/GLOBULIN RATIO 0.8 (1.0-1.7); TOTAL BILIRUBIN 0.7 mg/dL (0.2-1.0); TOTAL PROTEIN 7.8 g/dL (6.4-8.2)
[2021-06-10] MEDS ORDERED: CONTRAST GIVEN. MC PRN (19:30)
[2021-06-10] MEDS ORDERED: IOHEXOL 350 MG/ML 100 ML VIAL. IV ONE (19:30)
--- NOTE | 2021-06-10 20:16 | RAD ---
Chest AP portable at 1848: Reason for examination: Short of breath. Comparison is made to previous chest dated 02/27/2021. The heart size is normal. Mediastinum is unremarkable. Lung menon are clear. No acute bony abnormali ties are seen. Impression: No acute cardiopulmonary disease. CT angiogram of the chest with contrast: Comparison is made to previous study dated 12/19/2020. Helical images were obtained through the chest with intravenous administration of 99 cc Omnipaque 350 using PE protocol. 3-D MIPS reconstruction was performed in sagittal and coronal planes. Exposure: One or more of the following individualized dose reduction techniques were utilized for thi s examination: 1. Automated exposure control 2. Adjustment of the mA and/or kV according to patient size 3. Use of iterative reconstruction technique. No abnormality seen at the thyroid gland. The trachea and mainstem bronchi show no intraluminal lesio ns. No abnormality seen at the esophagus. The thoracic aorta shows normal course and caliber with no aneurysmal dilatation or dissection evident. The heart size is normal with no pericardial effusion. T here is no evidence of pulmonary embolus. No infiltrates, pleural effusions or pneumothorax are seen. No acute bony abnormalities are seen in the thorax. No abnormality seen at the liver, spleen, adrenal glands, pancreas or gallbladder. The visualized por tions of the kidneys show no abnormalities IMPRESSION: No evidence of pulmonary embolus. No acute abnormality seen in the chest. Electronically signed by: Maricel Chua MD (06/10/2021 8:14 PM) [facility]
[2021-06-10 20:20] VITALS: BP 176/79
== END 2021-06-10 20:50 | disposition home or self-care (01) ==
LOC: ER 16:09
DX: M54.6 Pain in thoracic spine (principal); D68.51 Activated protein C resistance; I10 Essential (primary) hypertension; Z86.711 Personal history of pulmonary embolism; Z87.442 Personal history of urinary calculi; Z88.8 Allergy status to other drugs, medicaments and biological substances
CPT/HCPCS: 36415; 71045; 71275; 80053; 82150; 83690; 85025; 93005; 99285; Q9967

== ENCOUNTER 2021-07-12 07:49 | Emergency (ER) | payer OTHER ==
[~2021-07-12] VITALS: Ht 167.6 cm; Wt 133.4 kg
[~2021-07-12 07:49] MED LIST changes: +CYCL10TA19 PO; -CYCL10TA2 PO; +DICY20TA PO; -DICY20TA3 PO
--- NOTE | 2021-07-12 08:08 | ED.ADGEN ---
Past Medical History Past Medical History: Hypertension, Kidney Stone, Other Additional Past Medical Histor: PE, Factor V Leiden (takes eliquis) Past Surgical History: Other Additional Past Surgical Histo: lithrotripsy Smoking Status: Never Smoker Alcohol Use: None Drug Use: None General Adult EDM: Chief Complaint: SHORTNESS OF BREATH HPI: HPI: Patient is a 51-year-old male who arrives ambulatory to the emergency department complaining of exertional dyspnea as well as chest pain which began yesterday. Patient reports he found himself becoming lightheaded with any exertion. Patient also reports to right-sided back pain in addition to chest pain. Patient describes his chest pains began yesterday and having it renewed today. Patient believes he may have another pulmonary embolus as he has factor V Leiden and had a pulmonary embolus 2 years previously. Patient states he does take Eliquis as prescribed however occasionally he misses doses. He denies any cough or fever. He further denies any abdominal discomfort or nausea. Additionally denies any history of trauma. He is awake, alert and nontoxic-appearing. Review of Systems: Review of Systems: Constitutional: Denies fever or chills. [] Eyes: Denies change in visual acuity. [] HENT: Denies nasal congestion or sore throat. [] Respiratory: Reports exertional dyspnea. Denies cough. [] Cardiovascular: Reports chest pain or edema. [] GI: Denies abdominal pain, nausea, vomiting, bloody stools or diarrhea. [] : Denies dysuria. [] Musculoskeletal: Denies back pain or joint pain. [] Integument: Denies rash. [] Neurologic: Reports feeling lightheaded with exertion. Denies headache, focal weakness or sensory changes. [] Endocrine: Denies polyuria or polydipsia. [] Lymphatic: Denies swollen glands. [] Psychiatric: Denies depression or anxiety. [] Allergies: Allergies: Allergies Coded Allergies Type Severity Reaction Last Updated Verified No Known Drug Allergies 07/12/21 No Physical Exam: PE: Constitutional: Well developed, well nourished, no acute distress, non-toxic appearance. [] HENT: Normocephalic, atraumatic, bilateral external ears normal, oropharynx moist, no oral exudates, nose normal. [] Eyes: PERRLA, EOMI, conjunctiva normal, no discharge. [] Neck: Normal range of motion, no tenderness, supple, no stridor. [] Cardiovascular:Heart rate regular rhythm, no murmur [] Lungs & Thorax: Bilateral breath sounds clear to auscultation [] Abdomen: Bowel sounds normal, soft, no tenderness, no masses, no pulsatile masses. [] Skin: Warm, dry, no erythema, no rash. [] Back: No tenderness, no CVA tenderness. [] Extremities: No tenderness, no cyanosis, no clubbing, ROM intact, no edema. [] Neurologic: Alert and oriented X 3, normal motor function, normal sensory function, no focal deficits noted. [] Psychologic: Affect normal, judgement normal, mood normal. [] Current Patient Data: Labs: Laboratory Tests Test 07/12/21 08:20 07/12/21 09:39 White Blood Count 5.5 x10^3/uL (4.0-11.0) Red Blood Count 4.54 x10^6/uL (4.30-5.70) Hemoglobin 13.8 g/dL (13.0-17.5) Hematocrit 40.4 % (39.0-53.0) Mean Corpuscular Volume 89 fL (79-100) Mean Corpuscular Hemoglobin 30 pg (25-35) Mean Corpuscular Hemoglobin Concent 34 g/dL (31-37) Red Cell Distribution Width 14.4 % (11.5-14.5) Platelet Count 285 x10^3/uL (140-400) Neutrophils (%) (Auto) 46 % (31-73) Lymphocytes (%) (Auto) 38 % (24-48) Monocytes (%) (Auto) 13 % (0-9) H Eosinophils (%) (Auto) 2 % (0-3) Basophils (%) (Auto) 1 % (0-3) Neutrophils # (Auto) 2.5 x10^3/uL (1.8-7.7) Lymphocytes # (Auto) 2.1 x10^3/uL (1.0-4.8) Monocytes # (Auto) 0.7 x10^3/uL (0.0-1.1) Eosinophils # (Auto) 0.1 x10^3/uL (0.0-0.7) Basophils # (Auto) 0.1 x10^3/uL (0.0-0.2) D-Dimer (Kezia) < 0.27 ug/mlFEU Sodium Level 137 mmol/L (136-145) Potassium Level 3.8 mmol/L (3.5-5.1) Chloride Level 102 mmol/L (98-107) Carbon Dioxide Level 28 mmol/L (21-32) Anion Gap 7 (6-14) Blood Urea Nitrogen 13 mg/dL (8-26) Creatinine 0.9 mg/dL (0.7-1.3) Estimated GFR (Cockcroft-Gault) 108.1 BUN/Creatinine Ratio 14 (6-20) Glucose Level 107 mg/dL (70-99) H Calcium Level 8.7 mg/dL (8.5-10.1) Total Bilirubin 0.3 mg/dL (0.2-1.0) Aspartate Amino Transferase (AST) 13 U/L (15-37) L Alanine Aminotransferase (ALT) 26 U/L (16-63) Alkaline Phosphatase 48 U/L (46-116) Troponin I High Sensitivity 7 ng/L (4-75) NL-Qyv-B-Type Natriuretic Peptide 38 pg/mL (0-124) Total Protein 7.0 g/dL (6.4-8.2) Albumin 3.0 g/dL (3.4-5.0) L Albumin/Globulin Ratio 0.8 (1.0-1.7) L Laboratory Tests 07/12/21 08:20 Laboratory Tests 07/12/21 09:39 Vital Signs: Vital Signs Date Time Temp Pulse Resp B/P (MAP) Pulse Ox O2 Delivery O2 Flow Rate FiO2 07/12/21 07:58 97.4 86 20 182/103 (129) 100 Room Air 97.4 EKG: EKG: EKG was obtained at 8:01 AM and reveals a normal sinus rhythm with a ventricular rate of 85 bpm. There is left axis deviation present with out acute ST/T wave changes to denote ischemia. This is an otherwise normal EKG. [] Heart Score: C/O Chest Pain: Yes HEART Score for Chest Pain: HEART Score for Chest Pain Response (Comments) Value History Slighlty/Non-Suspicious 0 ECG Normal 0 Age >45 - < 65 1 Risk Factors 1 or 2 Risk Factors 1 Troponin < Normal Limit 0 Total 2 Risk Factors: Risk Factors: DM, Current or recent (<one month) smoker, HTN, HLP, family history of CAD, obesity. Risk Scores: Score 0 - 3: 2.5% MACE over next 6 weeks - Discharge Home Score 4 - 6: 20.3% MACE over next 6 weeks - Admit for Clinical Observation Score 7 - 10: 72.7% MACE over next 6 weeks - Early Invasive Strategies Radiology/Procedures: Radiology/Procedures: [] Impression: [facility] [address] [place] [address] IMAGING REPORT Signed PATIENT: HEATHER HIRSCH ACCOUNT: [id number] : 1970 LOCATION: ER AGE: 51 SEX: M EXAM STATUS: REG ER ORD. PHYSICIAN: SONY ROSAS DO REASON: Shortness of breath PROCEDURE: PORTABLE CHEST 1V EXAM: AP View of the chest DATE: 07/12/2021 8:10 AM INDICATION: Reason: Shortness of breath / Spl. Instructions: / History: COMPARISON: 06/10/2021 01/21/2021 FINDINGS: The heart is not enlarged. Mediastinal and hilar contours are normal. No focal parenchymal airspace opacity. No pleural effusion or pneumothorax. IMPRESSION: 1. No radiographic evidence for acute cardiopulmonary process. Electronically signed by: George Chavez MD (07/12/2021 8:36 AM) [id number] DICTATED and SIGNED BY: GEORGE CHAVEZ MD DATE: 07/12/21 [id number] Course & Med Decision Making: Course & Med Decision Making Pertinent Labs and Imaging studies reviewed. (See chart for details) [The patient remains awake, alert and in no acute distress. Patient does not demonstrate any outward signs of being short of air and given that he is anticoagulated and his D-dimer is below the threshold for imaging I do not believe he warrants angiography to assess for possible pulmonary embolus. His room air saturations have been normal throughout this time and given that he has now been experiencing the symptoms on and off for over a day I do not believe these are cardiac symptoms. Nonetheless have advised him to return should he experience anything similar to what he is experienced. The patient understands and has agreed to return as needed. He is nontoxic-appearing and stable for discharge.] Amy Disclaimer: Amy Disclaimer: This electronic medical record was generated, in whole or in part, using a voice recognition dictation system. Departure Departure Impression: Primary Impression: Dyspnea Additional Impression: Chest discomfort Disposition: HOME / SELF CARE / HOMELESS Condition: STABLE Referrals: KIMBERLY HOLLY JR, MD (PCP) Patient Instructions: Chest Pain (Nonspecific), Shortness of Breath Scripts Tramadol Hcl (ULTRAM) 50 Mg Tablet 50 MG PO Q6HRS PRN for PAIN, #12 TAB 0 Refills Prov: SONY ROSAS DO 07/12/21 Cyclobenzaprine Hcl (CYCLOBENZAPRINE HCL) 10 Mg Tablet 1 TAB PO TID for 5 Days, #15 TAB Prov: SONY ROSAS DO 07/12/21 Problem Qualifiers SONY ROSAS DO Jul 12, 2021 08:08
[2021-07-12 08:31] LABS: BASO # 0.1 x10^3/uL (0.0-0.2); BASO % 1 % (0-3); EOS # 0.1 x10^3/uL (0.0-0.7); EOS % 2 % (0-3); HEMATOCRIT 40.4 % (39.0-53.0); HEMOGLOBIN 13.8 g/dL (13.0-17.5); LYMPH # 2.1 x10^3/uL (1.0-4.8); LYMPH % 38 % (24-48); MEAN CORPUSCULAR HEMOGLOBIN 30 pg (25-35); MEAN CORPUSCULAR HGB CONC 34 g/dL (31-37); MEAN CORPUSCULAR VOLUME 89 fL (79-100); MONO # 0.7 x10^3/uL (0.0-1.1); MONO % 13 % (0-9); NEUT # 2.5 x10^3/uL (1.8-7.7); NEUT % 46 % (31-73); PLATELET COUNT 285 x10^3/uL (140-400); RED BLOOD COUNT 4.54 x10^6/uL (4.30-5.70); RED CELL DISTRIBUTION WIDTH 14.4 % (11.5-14.5); WHITE BLOOD COUNT 5.5 x10^3/uL (4.0-11.0)
--- NOTE | 2021-07-12 08:39 | RAD ---
EXAM: AP View of the chest DATE: 07/12/2021 8:10 AM INDICATION: Reason: Shortness of breath / Spl. Instructions: / History: COMPARISON: 06/10/2021 01/21/2021 FINDINGS: The heart is not enlarged. Mediastinal and hilar contours are normal. No focal parenchymal airspace opacity. No pleural effusion or pneumothorax. IMPRESSION: 1. No radiographic evidence for acute cardiopulmonary process. Electronically signed by: George Young MD (07/12/2021 8:36 AM) [email or web address]
[2021-07-12 09:53] LABS: CALCIUM 8.7 mg/dL (8.5-10.1); CREATININE 0.9 mg/dL (0.7-1.3); GFR 108.1; POTASSIUM 3.8 mmol/L (3.5-5.1)
[2021-07-12 09:59] LABS: ALBUMIN/GLOBULIN RATIO 0.8 (1.0-1.7); TOTAL BILIRUBIN 0.3 mg/dL (0.2-1.0)
[2021-07-12 10:03] VITALS: BP 163/100
[2021-07-12] MEDS ORDERED: TRAM-48 PO (10:25)
[2021-07-12] MEDS ORDERED: CYCL10TA19 PO (10:25)
--- NOTE | 2021-07-12 13:31 | EKG ---
[facility] [address] [place] [address] Test Date: 2021-07-12 Test Time: 08:01:35 Pat Name: HEATHER HIRSCH Department: Room: Gender: M Medical Education Manager: : 1970 Requested By: SONY ROSAS Order Number: [id number] Reading MD: Rancho Hurtado MD Measurements Intervals [place] Rate: 85 P: 42 NC: 154 QRS: 0 QRSD: 90 T: -19 QT: 340 QTc: 405 Interpretive Statements SINUS RHYTHM Electronically Signed On 07-17-2021 14:14:33 HVAC JOURNEYMAN by Rancho Hurtado MD
== END 2021-07-12 10:38 | disposition home or self-care (01) ==
LOC: ER 07:49
DX: R06.02 Shortness of breath (principal); R07.89 Other chest pain; I10 Essential (primary) hypertension
CPT/HCPCS: 36415; 71045; 80053; 83880; 84484; 85025; 85379; 93005; 99285-25

== ENCOUNTER 2021-09-16 13:35 | Emergency (ER) | payer OTHER ==
[~2021-09-16] VITALS: Ht 167.6 cm; Wt 135.4 kg
[~2021-09-16 13:35] MED LIST changes: +TRAM-48 PO
[2021-09-16 14:28] VITALS: BP 174/107
[2021-09-16 15:00] LABS: INFLUENZA A PATIENT NEGATIVE (NEGATIVE); INFLUENZA B PATIENT NEGATIVE (NEGATIVE)
--- NOTE | 2021-09-16 15:16 | PHYS DOC ---
Past Medical History Past Medical History: Hypertension, Kidney Stone, Other Additional Past Medical Histor: PE, Factor V Leiden (takes eliquis) (CARROLL DEJESUS) Past Surgical History: Other Additional Past Surgical Histo: lithrotripsy (CARROLL DEJESUS) Smoking Status: Never Smoker Alcohol Use: None Drug Use: None (CARROLL DEJESUS) General Adult EDM: Chief Complaint: Congestion HPI: HPI: Patient is a 51 year old male who presents with 3-day history of nasal congestion, mucus in his throat and difficulty breathing at night. Patient reports history of factor V Leiden disorder and seasonal allergies. He denies fever, chills, body aches, generalized fatigue, sore throat, chest pain, palpitations, shortness of breath, cough, abdominal pain, NVD. (CARROLL DEJESUS) Review of Systems: Review of Systems: ROS negative or noncontributory except as mentioned in HPI. (CARROLL DEJESUS) Heart Score: C/O Chest Pain: No (CARROLL DEJESUS) Allergies: Allergies: Allergies Coded Allergies Type Severity Reaction Last Updated Verified No Known Drug Allergies 07/12/21 No (CARROLL DEJESUS) Physical Exam: PE: Constitutional: Well developed, well nourished, no acute distress, non-toxic appearance. HENT: Normocephalic, atraumatic, bilateral external ears normal, oropharynx moist, no oral exudates, external nose normal, bilateral turbinates swollen and erythematous. Eyes: EOMI, conjunctiva normal, no discharge. Neck: Normal range of motion, no tenderness, supple, no stridor. Cardiovascular: Heart rate regular rhythm, no murmur. Lungs & Thorax: Bilateral breath sounds clear to auscultation. Skin: Warm, dry, no erythema, no rash. (CARROLL DEJESUS) Current Patient Data: Labs: Laboratory Tests Test 09/16/21 14:35 09/16/21 15:12 Influenza Type A Antigen Negative (NEGATIVE) Influenza Type B Antigen Negative (NEGATIVE) SARS-CoV-2 Antigen (Rapid) Positive (NEGATIVE) Vital Signs: Vital Signs Date Time Temp Pulse Resp B/P (MAP) Pulse Ox O2 Delivery O2 Flow Rate FiO2 09/16/21 14:28 98.2 94 20 174/107 (129) 9 Room Air 98.2 (CARROLL DEJESUS) Course & Med Decision Making: Course & Med Decision Making Pertinent Labs and Imaging studies reviewed. (See chart for details) Patient is a 51-year-old male who presents with nasal congestion, difficulty breathing at night. Work-up today will include swabs for influenza A & B as well as COVID-19. Rapid COVID swab resulted positive. Patient given isolation instructions, supportive treatment measures and return precautions. He is again counselled on high blood pressure readings. Patient understands and is agreeable to discharge plan. (CARROLL DEJESUS) Course & Med Decision Making I have reviewed the PA/SENIOR PRODUCER's note and plan of care. I was available for consultation as needed during the patient's visit in the emergency department. I agree with the clinical impression, plan, and disposition except for the erroneously entered pulse oximetry reading of 9. On chart review no other VS entries are available for this visit. (BEBETO OVIEDO MD) Dragon Disclaimer: Dragon Disclaimer: This electronic medical record was generated, in whole or in part, using a voice recognition dictation system. (CARROLL DEJESUS) Departure Departure Impression: Primary Impression: COVID-19 Additional Impression: Elevated blood pressure Disposition: 01 HOME / SELF CARE / HOMELESS Condition: STABLE Referrals: KIMBERLY HOLLY JR, MD (PCP) Patient Instructions: Viral Syndrome Additional Instructions: Follow the following supportive treatment measures: - Cool mist humidifier with plain water at bedside while you sleep - Mucinex (guaifenesin) per box instructions - Alternate ibuprofen and acetaminophen every four hours for body aches/fever/headache If antibiotics were prescribed, take them as directed. You have been tested for or diagnosed with COVID-19 infection. It is an infection caused by a new type of coronavirus. COVID-19 will cause cold-like or mild flu symptoms in most. It can cause more severe symptoms like problems breathing in some. There is no treatment for COVID-19. The body will clear the infection over time. Self-care will help to ease discomfort. Steps to Take: - Rest as needed. - Choose healthy foods including fruits and vegetables. Drink water throughout the day. - Get plenty of sleep each night. - If you smoke, try to quit. It may ease breathing. - Avoid alcohol. - Keep Others Healthy - The virus can spread to others. Droplets are released every time you sneeze or cough. The droplets can get into the mouth, nose, or eyes of people near you and lead to infection. To lower the chances of spreading COVID-19 to others: Stay at home until your doctor has said it is safe to leave. If you tested positive this will mean staying isolated until both of the following are true: - At least 7 days have passed since the start of illness. - You are free of fever for at least 72 hours without the use of medicine. During this time: - Avoid public areas, events, or transportation. Do not return to work or school until your doctor has said it is safe to do so. - Call ahead if you need to go to a medical center. Let them know you may have COVID-19. It will help them guide you where to go. They may also ask you to wear a facemask when you come to the office. - If you call for emergency medical services, let them know you may have COVID- 19. While at home: - Try to avoid close contact with others. Stay about 6 feet away. - If possible, spend most of your time in a separate room from others. - Use a face mask if you will be in close contact with others such as sharing a room or vehicle. - Have someone wipe down common surfaces in the home. Use household pit steward every day on areas like doorknobs, counters, or sinks. - Cough or sneeze into a tissue. Throw the tissue away right after use. If a tissue is not available, cough or sneeze into your elbow. - Wash your hands often. Wash them after sneezing or coughing. Use soap and water and wash or at least 20 seconds. Alcohol based hand metal cleaner can be used if soap and water is not available. - Do not prepare food for others. Avoid sharing personal items like forks, spoons, or toothbrushes. - Avoid close contact with pets while you are sick. There is no evidence of the virus passing to pets. This is a safety step until more is known about this virus. - Isolation can be frustrating. Social interaction can help. Keep in touch with friends and family through phone and tech options. You can still interact with others in your home, just keep a safe distance of about 6 feet. Follow-up: - Your doctors office will check in with you to see if there are any changes in your health. - You may be asked to keep track of symptoms to share with them. They will also let you know when you are clear to be in public again. Contact your doctor if your recovery is not going as you expect. Get emergency care if you have problems such as: - Trouble breathing with oxygen saturation <90% - Nonstop chest pain or pressure - Changes in awareness, confusion, or problems waking - Lips or face have bluish color - Worsening of symptoms If you think you have an emergency, call for emergency medical services right away. As taken from [facility] CARROLL DEJESUS Sep 16, 2021 15:16 BEBETO OVIEDO MD Sep 17, 2021 18:52
== END 2021-09-16 15:25 | disposition home or self-care (01) ==
LOC: ER 13:35
DX: U07.1 COVID-19 (principal); I10 Essential (primary) hypertension
CPT/HCPCS: 87426; 87804; 99283

== ENCOUNTER 2022-01-15 07:38 | Emergency (ER) | payer OTHER ==
[~2022-01-15] VITALS: Ht 172.7 cm; Wt 138.6 kg
[2022-01-15] MEDS ORDERED: ASPIRIN 325 MG TABLET PO ONE (08:15)
[2022-01-15 08:36] LABS: BASO # 0.1 x10^3/uL (0.0-0.2); BASO % 1 % (0-3); EOS # 0.1 x10^3/uL (0.0-0.7); EOS % 2 % (0-3); HEMATOCRIT 38.3 % (39.0-53.0); HEMOGLOBIN 12.9 g/dL (13.0-17.5); LYMPH # 2.2 x10^3/uL (1.0-4.8); LYMPH % 37 % (24-48); MEAN CORPUSCULAR HEMOGLOBIN 30 pg (25-35); MEAN CORPUSCULAR HGB CONC 34 g/dL (31-37); MEAN CORPUSCULAR VOLUME 89 fL (79-100); MONO # 0.8 x10^3/uL (0.0-1.1); MONO % 13 % (0-9); NEUT # 2.9 x10^3/uL (1.8-7.7); NEUT % 48 % (31-73); PLATELET COUNT 277 x10^3/uL (140-400); RED BLOOD COUNT 4.33 x10^6/uL (4.30-5.70); RED CELL DISTRIBUTION WIDTH 14.2 % (11.5-14.5); WHITE BLOOD COUNT 6.1 x10^3/uL (4.0-11.0)
[2022-01-15 08:41] LABS: CALCIUM 8.9 mg/dL (8.5-10.1); GFR 95.7; POTASSIUM 3.6 mmol/L (3.5-5.1)
[2022-01-15 08:47] LABS: ALBUMIN 3.1 g/dL (3.4-5.0); ALBUMIN/GLOBULIN RATIO 0.8 (1.0-1.7); TOTAL BILIRUBIN 0.4 mg/dL (0.2-1.0); TOTAL PROTEIN 7.1 g/dL (6.4-8.2)
[2022-01-15 08:48] LABS: PROTHROMBIN TIME PATIENT 13.3 SEC (11.7-14.0)
[2022-01-15 08:53] LABS: D-DIMER < 0.27 ug/mlFEU (0.00-0.50)
--- NOTE | 2022-01-15 09:09 | PHYS DOC ---
Past Medical History Past Medical History: Hypertension, Kidney Stone, Other Additional Past Medical Histor: PE, Factor V Leiden (takes eliquis) Past Surgical History: Other Additional Past Surgical Histo: lithrotripsy Smoking Status: Never Smoker Alcohol Use: None Drug Use: None General Adult EDM: Chief Complaint: LOWER EXT PAIN HPI: HPI: Patient is a 51 year old male who presents with right lower extremity tenderness. Patient has a history of DVT as well as PE. He is currently taking Eliquis. He otherwise has no symptoms. He states that it is in his anterior and posterior knee. This started a couple of days ago. Review of Systems: Review of Systems: Constitutional: Denies fever or chills. [] Eyes: Denies change in visual acuity. [] HENT: Denies nasal congestion or sore throat. [] Respiratory: Denies cough or shortness of breath. [] Cardiovascular: Denies chest pain or edema. [] GI: Denies abdominal pain, nausea, vomiting, bloody stools or diarrhea. [] : Denies dysuria. [] Musculoskeletal: Denies back pain or joint pain. [] Integument: Denies rash. [] Neurologic: Denies headache, focal weakness or sensory changes. [] Endocrine: Denies polyuria or polydipsia. [] Lymphatic: Denies swollen glands. [] Psychiatric: Denies depression or anxiety. [] Heart Score: C/O Chest Pain: No Risk Factors: Risk Factors: DM, Current or recent (<one month) smoker, HTN, HLP, family history of CAD, obesity. Risk Scores: Score 0 - 3: 2.5% MACE over next 6 weeks - Discharge Home Score 4 - 6: 20.3% MACE over next 6 weeks - Admit for Clinical Observation Score 7 - 10: 72.7% MACE over next 6 weeks - Early Invasive Strategies Current Medications: Current Medications Medications (Trade) Dose Ordered Sig/Ale Start Time Stop Time Status Last Admin Dose Admin Aspirin (Rickie Aspirin) 325 mg 1X ONCE 01/15/22 08:15 01/15/22 08:16 DC 01/15/22 08:47 325 MG Allergies: Allergies: Allergies Coded Allergies Type Severity Reaction Last Updated Verified No Known Drug Allergies 07/12/21 No Physical Exam: PE: Constitutional: Well developed, well nourished, no acute distress, non-toxic appearance. [] HENT: Normocephalic, atraumatic, bilateral external ears normal, oropharynx moist, no oral exudates, nose normal. [] Eyes: PERRLA, EOMI, conjunctiva normal, no discharge. [] Neck: Normal range of motion, no tenderness, supple, no stridor. [] Cardiovascular:Heart rate regular rhythm, no murmur [] Lungs & Thorax: Bilateral breath sounds clear to auscultation [] Abdomen: Bowel sounds normal, soft, no tenderness, no masses, no pulsatile masses. [] Skin: Warm, dry, no erythema, no rash. [] Back: No tenderness, no CVA tenderness. [] Extremities: No tenderness, no cyanosis, no clubbing, ROM intact, no edema. [] Neurologic: Alert and oriented X 3, normal motor function, normal sensory function, no focal deficits noted. [] Psychologic: Affect normal, judgement normal, mood normal. [] Current Patient Data: Labs: Laboratory Tests Test 01/15/22 07:55 White Blood Count 6.1 x10^3/uL (4.0-11.0) Red Blood Count 4.33 x10^6/uL (4.30-5.70) Hemoglobin 12.9 g/dL (13.0-17.5) L Hematocrit 38.3 % (39.0-53.0) L Mean Corpuscular Volume 89 fL (79-100) Mean Corpuscular Hemoglobin 30 pg (25-35) Mean Corpuscular Hemoglobin Concent 34 g/dL (31-37) Red Cell Distribution Width 14.2 % (11.5-14.5) Platelet Count 277 x10^3/uL (140-400) Neutrophils (%) (Auto) 48 % (31-73) Lymphocytes (%) (Auto) 37 % (24-48) Monocytes (%) (Auto) 13 % (0-9) H Eosinophils (%) (Auto) 2 % (0-3) Basophils (%) (Auto) 1 % (0-3) Neutrophils # (Auto) 2.9 x10^3/uL (1.8-7.7) Lymphocytes # (Auto) 2.2 x10^3/uL (1.0-4.8) Monocytes # (Auto) 0.8 x10^3/uL (0.0-1.1) Eosinophils # (Auto) 0.1 x10^3/uL (0.0-0.7) Basophils # (Auto) 0.1 x10^3/uL (0.0-0.2) Prothrombin Time 13.3 SEC (11.7-14.0) Prothrombin Time INR 1.0 (0.8-1.1) D-Dimer (Kezia) < 0.27 ug/mlFEU Sodium Level 137 mmol/L (136-145) Potassium Level 3.6 mmol/L (3.5-5.1) Chloride Level 105 mmol/L (98-107) Carbon Dioxide Level 25 mmol/L (21-32) Anion Gap 7 (6-14) Blood Urea Nitrogen 20 mg/dL (8-26) Creatinine 1.0 mg/dL (0.7-1.3) Estimated GFR (Cockcroft-Gault) 95.7 BUN/Creatinine Ratio 20 (6-20) Glucose Level 98 mg/dL (70-99) Calcium Level 8.9 mg/dL (8.5-10.1) Total Bilirubin 0.4 mg/dL (0.2-1.0) Aspartate Amino Transferase (AST) 15 U/L (15-37) Alanine Aminotransferase (ALT) 22 U/L (16-63) Alkaline Phosphatase 54 U/L (46-116) Troponin I High Sensitivity 8 ng/L (4-75) GA-Bff-U-Type Natriuretic Peptide 33 pg/mL (0-124) Total Protein 7.1 g/dL (6.4-8.2) Albumin 3.1 g/dL (3.4-5.0) L Albumin/Globulin Ratio 0.8 (1.0-1.7) L Laboratory Tests 01/15/22 07:55 Laboratory Tests 01/15/22 07:55 Vital Signs: Vital Signs Date Time Temp Pulse Resp B/P (MAP) Pulse Ox O2 Delivery O2 Flow Rate FiO2 01/15/22 07:59 98.0 81 16 160/77 (104) 98 Room Air 98.0 EKG: EKG: [] Radiology/Procedures: Radiology/Procedures: [] Impression: Right lower extremity pain Course & Med Decision Making: Course & Med Decision Making Pertinent Labs and Imaging studies reviewed. (See chart for details) 51-year-old male with history of DVT and PE seen and evaluated by myself. D- dimer negative. Troponin negative, all labs negative. EKG within normal limits as well. Patient knee pain around the anterior and posterior aspects of the knee. Pat ient was instructed to follow-up with primary care physician for review of knee pain. Patient understood, he will trial Tylenol and ibuprofen for knee pain. Patient is hemodynamically stable, agreed with the plan of care. ER precautions given. Patient currently on Eliquis, has good supply and good follow-up. no DVT noted. Dragon Disclaimer: Dragon Disclaimer: This electronic medical record was generated, in whole or in part, using a voice recognition dictation system. Departure Departure Referrals: KIMBERLY HOLLY JR, MD (PCP) ANNE-MARIE FLANAGAN MD January 15, 2022 09:08
[2022-01-15 11:24] VITALS: BP 160/89
--- NOTE | 2022-01-15 12:10 | EKG ---
[facility] [address] [place] [address] Test Date: 2022-01-15 Test Time: 07:54:10 Pat Name: HEATHER HIRSCH Department: Room: Gender: M Guest Experience Manager: : 1970 Requested By: ANNE-MARIE Morley Number: [id number] Reading MD: Jose J Hoffmann Measurements Intervals [place] Rate: 83 P: 47 CO: 168 QRS: 12 QRSD: 90 T: -30 QT: 346 QTc: 407 Interpretive Statements SINUS RHYTHM ST & T ABNORMALITY, CONSIDER INFERIOR ISCHEMIA OR LEFT VENTRICULAR STRAIN Electronically Signed On 01-16-2022 10:05:06 CDT by Jose J Hoffmann
== END 2022-01-15 11:25 | disposition home or self-care (01) ==
LOC: ER 07:38
DX: M79.604 Pain in right leg (principal); I10 Essential (primary) hypertension; Z86.718 Personal history of other venous thrombosis and embolism; Z86.711 Personal history of pulmonary embolism
CPT/HCPCS: 36415; 80053; 83880; 84484; 85025; 85379; 85610; 93005; 99284-25; 99285-25